=== PATIENT | male | born 1975 | race Caucasian/White ===

== ENCOUNTER → 2019-06-03 13:47 | Outpatient (BNVA) | payer MEDICARE, MEDICAID, SELFPAY | PROVIDERS: Family Provider Internal Medicine; PCP Internal Medicine; Visit Provider Nurse Practitioner | DX: N39.0 Urinary tract infection, site not specified (principal); R82.90 Unspecified abnormal findings in urine | CPT/HCPCS: 81003 ==

== ENCOUNTER 2019-06-05 11:29 | Emergency (ER) | payer MEDICARE, MEDICAID, SELFPAY ==
[2019-06-05] VITALS (7 sets, daily range): BP systolic 100–106; BP diastolic 58–77; PULSE 110–116; RESP 16–115; TEMP 36.8–37; O2SAT 97–98; BMI 20.7
--- NOTE | 2019-06-05 11:57 | ED_ITS ---
Entered by Desiree Crenshaw, acting as scribe for Adrián Hurtado MD, [facility] HPI - Altered Mental Status General: Chief Complaint: Altered Mental Status Stated Complaint: Not eating or drinking Time Seen by Provider: 06/05/19 11:57 Source: other (Caregiver) Mode of arrival: wheelchair Limitations: altered mental status History of Present Illness: HPI narrative: 43 yo Male presents to ED with complaint of altered mental status. Pt's caregiver states that patient was catheterized last week and developed a UTI. Pt's family states that the patient was taken to urgent care and put on an antibiotic. Pt's caregiver states that the patient has been running a fever and has been lethargic, weak, and non- ambulatory. Pt's caregiver states that patient can normally walk around by himself but since Tuesday has been unable to do so. Pt's caregiver states that the patient has been coughing and had a runny bowel movement this morning. Pt is from [facility]. Pt is non-verbal. Baseline level of function is patient is nonverbal, he is able to ambulate with assistance using a gait belt and requires assistance to feed. complaint: altered mental status and weakness Onset (ago): day(s) (2) Consistency of symptoms: Getting Worse Context: recent fever Review of Systems General: Reports: 10 or more systems reviewed and unremarkable except in HPI and below Const: Reports: fever, change in appetite and malaise Resp: Reports: non-productive cough Musc: Reports: muscle weakness Neuro: Reports: difficulty walking PFS ED PFSH: Statuses (acute, chronic, etc) shown below reflect problem list status as previously entered and may not be historically accurate Medical History (Updated 06/05/19 @ 17:21 by Adrián Hurtado MD, [facility]) Autism (Acute) Developmental delay, severe (Acute) Urinary retention (Acute) UTI (urinary tract infection) (Acute) Surgical History (Updated 06/05/19 @ 12:29 by Desiree Crenshaw) History of dental surgery (Acute) History of sinus surgery (Acute) Social History Smoking and tobacco status: never smoked Second hand smoke exposure: No Physical Exam Const: COMMON NORMALS: no apparent distress, average body habitus, no limitations, healthy appearing and well nourished EXAM LIMITATIONS: altered mental status and other limitations (history of developmental delay) HENMT: COMMON NORMALS: normocephalic, head/scalp atraumatic, hearing grossly normal bilaterally, external ears normal, EAC's normal, TM's normal bilaterally, external nose normal, nasal mucous membranes and turbinates normal, moist oral mucous membranes, oropharynx normal, dentition normal and gingiva normal HEAD & SCALP: normocephalic and atraumatic NOSE: external nose normal and nasal mucous membranes and turbinates normal EXTERNAL EAR: Yes external ears normal EXTERNAL AUDITORY CANAL: EAC's normal TYMPANIC MEMBRANE: TM's normal bilaterally Eye: COMMON NORMALS: PERRL, EOMs intact bilaterally, conjunctivae normal, no scleral icterus, no papilledema, normal visual coleman by confrontation and fundi normal bilaterally CONJUNCTIVA: Yes conjunctivae normal PUPIL: Yes PERRL DIRECT OPHTHALMOSCOPY: Yes no papilledema and Yes fundi normal bilaterally Neck/C-Spine: COMMON NORMALS: full ROM, supple, no meningeal signs, no JVD and no carotid bruits Chest: COMMONS NORMALS: inspection of chest normal and palpation of chest normal Resp: COMMON NORMALS: normal respiratory effort, no retractions, no use of accessory muscles, clear to auscultation bilaterally and percussion normal AUSCULTATION: clear to auscultation bilaterally PERCUSSION: percussion normal Cardio: COMMON NORMALS: no JVD, regular rhythm, S1 normal heart sound, S2 normal heart sound, no gallops, no clicks, no murmurs, no rub and peripheral pulses 2+ throughout RATE: tachycardic RHYTHM: regular rhythm HEART SOUNDS: S1 normal and S2 normal PERIPHERAL PULSES: pulses 2+ throughout GI: COMMON NORMALS: normal to inspection, nondistended, normoactive bowel sounds, soft to palpation, non-tender, no hepatosplenomegaly, no masses and no bruits PALPATION: Yes soft and Yes no hepatosplenomegaly : COMMON NORMALS: Yes no CVA tenderness BLADDER/KIDNEY EXAM: Yes no CVA tenderness Back/Pelvis: COMMON NORMALS: no CVA tenderness Extremity: COMMON NORMALS: normal to inspection, full ROM, normal capillary refill, no joint enlargement, no clubbing, cyanosis or edema, no calf tenderness and no pedal edema Neuro: COMMON NORMALS: oriented x3 SENSORIUM/ORIENTATION: Yes somnolent MENINGEAL SIGNS: Yes no meningeal signs Skin: COMMON NORMALS: no rashes or lesions noted, no wounds, skin turgor normal, no jaundice, no petechiae and no mottling GENERAL SKIN EXAM: no rashes or lesions noted and turgor normal Course ED course: 43-year-old patient with altered mental status secondary to urinary tract infection. Lactic acid normal, he has a fever here in the ED. Influenza negative, chest CT negative for acute findings. Because we have no beds in this facility the patient is transferred to [facility] which is where the family wanted him transferred to. Consultations: Consultation #1: Dr. Obdulio Corona, hospitalist at [facility]. He kindly accepted the patient to his care. Time: 17:22 Vital Signs: Vital signs: Vital Signs Temperature 98.6 F 06/05/19 11:35 Pulse Rate 114 H 06/05/19 15:06 Respiratory Rate 19 H 06/05/19 15:06 Blood Pressure 106/75 06/05/19 15:06 Pulse Oximetry 97 06/05/19 15:06 MDM - Altered Mental Status Lab Data: Labs: Lab Results 06/05/19 06/05/19 06/05/19 Range/Units 12:39 12:39 12:39 WBC 12.3 H (4.0-10.0) 10^3/ uL RBC 4.52 (4.1-5.3) 10^6/u L Hgb 13.5 (11.7-16.6) g/dL Hct 40.7 L (42.0-52.0) % MCV 90.0 (80-94) fL MCH 29.9 (28.0-34.0) pg MCHC 33.2 (30.0-36.0) g/dL RDW 12.5 (12.1-15.1) % Plt Count 147 (130-400) 10^3/c mm MPV 10.0 (7.4-10.4) fL Neut % (Auto) 89.6 % Lymph % (Auto) 4.0 % Kimball % (Auto) 3.6 % Eos % (Auto) 0.2 % Baso % (Auto) 0.2 % Neut # (Auto) 11.0 H (1.8-7.7) 10^3/u L Lymph # (Auto) 0.5 L (0.8-4.8) 10^3/u L Kimball # (Auto) 0.4 (0.2-0.9) 10^3/u L Eos # (Auto) 0.0 (0.0-0.8) 10^3/u L Baso # (Auto) 0.0 (0.0-0.1) 10^3/u L Nucleated RBC % (a uto) 0 % Nucleated RBCs # 0.0 /100WBC Sodium 131 L (136-145) mmol/L Potassium 3.9 (3.5-5.1) mmol/L Chloride 95 L (98-107) mmol/L Carbon Dioxide 24 (22-29) mmol/L Anion Gap 15.9 (5-19) BUN 18 (6-20) mg/dL Creatinine 0.9 (0.7-1.2) mg/dL GFR Calculation 93.0 (90-130) mL/min Glucose 123 H (74-109) mg/dL Lactate 1.5 (0.5-2.2) mmol/L Calcium 9.3 (8.6-10.0) mg/Dl Total Bilirubin 0.7 (0.15-1.2) mg/dL AST 17 (0-40) U/L ALT 6 (0-41) U/L Alkaline Phosphata se 107 (40-130) IU/L C-Reactive Protein 305.4 H (0.0-4.9) mg/L Total Protein 7.1 (6.6-8.7) g/dL Albumin 3.9 (3.5-5.2) g/dL Globulin 3.2 (1.3-4.6) g/dL Urine Color (Yellow) Urine Appearance (CLEAR) Urine pH (5-7) Ur Specific Gravit y (1.005-1.030) Urine Protein (Negative) Urine Glucose (UA) (Normal) Urine Ketones (Negative) Urine Occult Blood (Negative) Urine Nitrate (Negative) Urine Bilirubin (NEGATIVE) Urine Urobilinogen (Negative) mg/dL Ur Leukocyte Shira ase (Negative) Urine RBC (0-2) /hpf Urine WBC (0-5) /hpf Ur Squamous Epith Cells (0-5) Urine Bacteria (NONE) Influenza Type A A g (Negative) POC Influenza B Ag (Negative) 06/05/19 06/05/19 Range/Units 13:46 14:08 WBC (4.0-10.0) 10^3/ uL RBC (4.1-5.3) 10^6/u L Hgb (11.7-16.6) g/dL Hct (42.0-52.0) % MCV (80-94) fL MCH (28.0-34.0) pg MCHC (30.0-36.0) g/dL RDW (12.1-15.1) % Plt Count (130-400) 10^3/c mm MPV (7.4-10.4) fL Neut % (Auto) % Lymph % (Auto) % Kimball % (Auto) % Eos % (Auto) % Baso % (Auto) % Neut # (Auto) (1.8-7.7) 10^3/u L Lymph # (Auto) (0.8-4.8) 10^3/u L Kimball # (Auto) (0.2-0.9) 10^3/u L Eos # (Auto) (0.0-0.8) 10^3/u L Baso # (Auto) (0.0-0.1) 10^3/u L Nucleated RBC % (a uto) % Nucleated RBCs # /100WBC Sodium (136-145) mmol/L Potassium (3.5-5.1) mmol/L Chloride (98-107) mmol/L Carbon Dioxide (22-29) mmol/L Anion Gap (5-19) BUN (6-20) mg/dL Creatinine (0.7-1.2) mg/dL GFR Calculation (90-130) mL/min Glucose (74-109) mg/dL Lactate (0.5-2.2) mmol/L Calcium (8.6-10.0) mg/Dl Total Bilirubin (0.15-1.2) mg/dL AST (0-40) U/L ALT (0-41) U/L Alkaline Phosphata se (40-130) IU/L C-Reactive Protein (0.0-4.9) mg/L Total Protein (6.6-8.7) g/dL Albumin (3.5-5.2) g/dL Globulin (1.3-4.6) g/dL Urine Color Yellow (Yellow) Urine Appearance Cloudy (CLEAR) Urine pH 5 (5-7) Ur Specific Gravit y 1.020 (1.005-1.030) Urine Protein 2+ H (Negative) Urine Glucose (UA) Norm (Normal) Urine Ketones 1+ H (Negative) Urine Occult Blood 2+ H (Negative) Urine Nitrate Negative (Negative) Urine Bilirubin Neg (NEGATIVE) Urine Urobilinogen 4 H (Negative) mg/dL Ur Leukocyte Shira ase 1+ H (Negative) Urine RBC None (0-2) /hpf Urine WBC Too numerous to c nt H (0-5) /hpf Ur Squamous Epith Cells 0-4 H (0-5) Urine Bacteria 3+ H (NONE) Influenza Type A A g Negative (Negative) POC Influenza B Ag Negative (Negative) Imaging Data^: CXR: Radiologist's impression: [place] [address] XRay Report Signed Patient: Joshua Valerio LMR#: [id number] : 1975Acct:[id number] Age/Sex: 43 / MADM Date: 06/05/19 Loc: ER Attending Dr: Ordering Physician: Adrián Hurtado MD, [facility] Date of Service: 06/05/19 Procedure(s): XR chest 1V portable [id number] Accession Number(s): [id number] Report Number: [id number] WS: [id number] PORTABLE CHEST HISTORY: sepsis COMPARISON: 08/13/2016 2.0 cm nodule at the LEFT lung base. Otherwise lungs are clear. Central cavitation is not excluded involving the LEFT lung base nodule. No pleural effusion or pneumothorax. Cardiac size: Normal. Mediastinum/Aorta: Normal mediastinum. No osseous abnormality seen. XR/XR chest 1V portable [id number] IMPRESSION: Soft tissue opacification in the LEFT lung base measures 2.0 cm. Differential includes neoplasm, abscess or rounded atelectasis. For further evaluation consider chest CT with IV contrast. Dictated By:Bibiana Wharton DO Signed By:Bibiana Wharton DOSigned Date/Time:06/05/19 1254 DD/ 1253 CT Head: Radiologist's impression: [address] [place] [address] CT Scan Report Signed Patient: Joshua Valerio LMR#: [id number] : 1975Acct:[id number] Age/Sex: 43 / MADM Date: 06/05/19 Loc: ER Attending Dr: Ordering Physician: Adrián Hurtado MD, [facility] Date of Service: 06/05/19 Procedure(s): CT head wo con* [id number] Accession Number(s): [id number] Report Number: [id number] WS: [id number] CT HEAD NONCONTRAST HISTORY: altered mental status TECHNIQUE: Contiguous axial imaging performed through the brain in 2.5 mm imaging. Bone and soft tissue windows. Sagittal and coronal reformats reviewed. All CT scans at [facility] use at least one of these dose optimization techniques: automated exposure control; mA and/or kV adjustment per patient size (includes targeted exams where dose is matched to clinical indication); or iterative reconstruction. DLP: 608.68 mGy.cm COMPARISON: 04/27/2017 No acute intracranial hemorrhage, midline shift or mass effect. No atrophy or prior infarcts or herniation. Bilateral benign basal ganglia calcifications. Ventricles: Normal size with no hydrocephalus. Paranasal sinuses: Moderate mucoperiosteal thickening involving the ethmoid sinuses. Small amount of debris in the posterior RIGHT sphenoid sinus. Mastoid air cells: Well pneumatized. Calvarium and scalp: Skull is intact with no soft tissue edema or swelling. CT/CT head wo con* [id number] IMPRESSION: 1. Stable noncontrast head CT. 2. No acute intracranial hemorrhage or edema. 3. Moderate ethmoid air cell disease. Dictated By:Bibiana Wharton DO Signed By:Bibiana Wharton DOSigned Date/Time:06/05/19 1538 DD/ 1535 CT Chest: Radiologist's impression: [address] [place] [address] CT Scan Report Signed Patient: Joshua Valerio LMR#: [id number] : 1975Acct:[id number] Age/Sex: 43 / MADM Date: 06/05/19 Loc: ER Attending Dr: Ordering Physician: Adrián Hurtado MD, [facility] Date of Service: 06/05/19 Procedure(s): CT chest w con* [id number] Accession Number(s): [id number] Report Number: [id number] WS: [id number] CT CHEST WITH INTRAVENOUS CONTRAST HISTORY: sepsis, pulmonary mass TECHNIQUE: Contiguous 5 mm axial imaging performed on the thorax. Coronal and sagittal reformats are submitted. All CT scans at [facility] use at least one of these dose optimization techniques: automated exposure control; mA and/or kV adjustment per patient size (includes targeted exams where dose is matched to clinical indication); or iterative reconstruction. CONTRAST: Omnipaque 300; 95 mL IV. DLP: 679.33 mGy.cm COMPARISON: None available. Lungs and central airway: Study is limited by motion. Subsegmental area of atelectasis at the LEFT lung base. Corresponds to the abnormality seen on the recent radiograph. No pneumonia. No cavitary lesion or abscess. Pleura: Normal. No pleural effusion. Heart and pericardium: Normal size heart. No pericardial effusion. Mediastinum and jo: No mediastinum or hilar adenopathy. Vessels: Normal size aortic and pulmonary artery. No coronary artery calcifications. Chest wall and lower neck: No soft tissue masses. Upper abdomen: Small hiatal hernia. The entire spleen is not included may be enlarged. Spleen measures at least 11 cm in length. Mild hepatomegaly. Osseous structures: No destructive process. CT/CT chest w con* [id number] IMPRESSION: 1. Study limited by breathing motion. 2. LEFT lower lobe subsegmental atelectasis. No abscess or pneumonia. 3. Small hiatal hernia. 4. Completely included spleen. Spleen does appear enlarged measuring greater than 11 cm in length. Splenomegaly suspected. Dictated By:Bibiana Wharton DO Signed By:Bibiana Wharton DOSigned Date/Time:06/05/19 1544 DD/ 1538 Discharge Plan Discharge Patient Disposition: Xfer Short-Term Hosp Clinical Impression: Developmental delay, severe Altered mental status Qualifiers: Altered mental status type: somnolence Qualified Code(s): R40.0 - Somnolence UTI (urinary tract infection) Qualifiers: Urinary tract infection type: acute cystitis Hematuria presence: without hematuria Qualified Code(s): N30.00 - Acute cystitis without hematuria Condition: Stable Discharge Orders: Transfer Out of Facility (Order); Ordered 06/05/19 Ordered By: Adrián Hurtado Referrals: Anurag Gautam MD [Primary Care Provider] - 4-7 days Coding Level of Care Code ED Business Initiatives Manager for Chg Fwd Exam Problem Focused The documentation recorded by the Flower mercado Carmen, accurately reflects the service I personally performed and the decisions made by Genesis huntley Adegoke I, MD, MSM
--- NOTE | 2019-06-05 12:28 | XR_ITS ---
WS: [id number] PORTABLE CHEST HISTORY: sepsis COMPARISON: 08/13/2016 2.0 cm nodule at the LEFT lung base. Otherwise lungs are clear. Central cavitation is not excluded in volving the LEFT lung base nodule. No pleural effusion or pneumothorax. Cardiac size: Normal. Mediastinum/Aorta: Normal mediastinum. No osseous abnormality seen. XR/XR chest 1V portable [id number] IMPRESSION: Soft tissue opacification in the LEFT lung base measures 2.0 cm. Differential i ncludes neoplasm, abscess or rounded atelectasis. For further evaluation consid er chest CT with IV contrast.
[2019-06-05] MEDS: sodium chloride 0.9% 1,000 ML 999 ML IV (12:48)
[2019-06-05 12:51] LABS: Basophils % 0.2 %; Eosinophils % 0.2 %; Hematocrit 40.7 % (42.0-52.0); Hemoglobin 13.5 g/dL (11.7-16.6); Lymphocytes # 0.5 10^3/uL (0.8-4.8); Mean Corpuscular HGB Conc 33.2 g/dL (30.0-36.0); Mean Corpuscular Hemoglobin 29.9 pg (28.0-34.0); Monocytes # 0.4 10^3/uL (0.2-0.9); Monocytes % 3.6 %; Neutrophils % 89.6 %; Nucleated Red Blood Cells % 0 %; Platelet Count 147 10^3/cmm (130-400); Red Blood Count 4.52 10^6/uL (4.1-5.3); Red Cell Distribution Width 12.5 % (12.1-15.1); White Blood Count 12.3 10^3/uL (4.0-10.0)
[2019-06-05 13:04] LABS: Alanine Aminotransferase 6 U/L (0-41); Albumin Level 3.9 g/dL (3.5-5.2); Alkaline Phosphatase 107 IU/L (40-130); Anion Gap 15.9 (5-19); Aspartate Amino Transferase 17 U/L (0-40); Blood Urea Nitrogen 18 mg/dL (6-20); Calcium 9.3 mg/Dl (8.6-10.0); Carbon Dioxide 24 mmol/L (22-29); Chloride 95 mmol/L (98-107); Globulin 3.2 g/dL (1.3-4.6); Glucose 123 mg/dL (74-109); Potassium 3.9 mmol/L (3.5-5.1); Sodium 131 mmol/L (136-145); Total Bilirubin 0.7 mg/dL (0.15-1.2); Total Protein 7.1 g/dL (6.6-8.7)
[2019-06-05 13:06] LABS: Lactate (Lactic Acid level) 1.5 mmol/L (0.5-2.2)
[2019-06-05 13:52] LABS: C Reactive Protein 305.4 mg/L (0.0-4.9)
[2019-06-05] MEDS: cefTRIAXone 1,000 MG in sodium chloride 0.9% (plus) 50 ML 100 MG IV (14:11)
[2019-06-05 14:28] LABS: Influenza A by IFA Negative (Negative); Influenza B by IFA Negative (Negative)
[2019-06-05 14:32] LABS: Add Urine Microscopic? YES; Bilirubin Urine Neg (NEGATIVE); Blood Urine 2+ (Negative); Glucose Urine UA Norm (Normal); Ketones Urine 1+ (Negative); Leukocyte Esterase Urine 1+ (Negative); Nitrate Urine Negative (Negative); Protein Urine 2+ (Negative); Urine Appearance Cloudy (CLEAR); Urine Color Yellow (Yellow); Urobilinogen Urine 4 mg/dL (Negative); pH Urine 5 (5-7)
[2019-06-05 14:35] LABS: Bacteria Urine 3+; Squamous Epithelial Cell Urine 0-4 (0-5); WBC Urine TOO NUMEROUS TO CNT /hpf (0-5)
[2019-06-05 14:36] LABS: Add Urine Culture? Yes
--- NOTE | 2019-06-05 14:53 | CT_ITS ---
WS: [id number] CT CHEST WITH INTRAVENOUS CONTRAST HISTORY: sepsis, pulmonary mass TECHNIQUE: Contiguous 5 mm axial imaging performed on the thorax. Coronal and sagittal reformats are submitted. All CT scans at [facility] use at least one of these dose optimization techniq ues: automated exposure control; mA and/or kV adjustment per patient size (includes targeted exams wh ere dose is matched to clinical indication); or iterative reconstruction. CONTRAST: Omnipaque 300; 95 mL IV. DLP: 679.33 mGy.cm COMPARISON: None available. Lungs and central airway: Study is limited by motion. Subsegmental area of atelectasis at the LEFT george ng base. Corresponds to the abnormality seen on the recent radiograph. No pneumonia. No cavitary lesi on or abscess. Pleura: Normal. No pleural effusion. Heart and pericardium: Normal size heart. No pericardial effusion. Mediastinum and jo: No mediastinum or hilar adenopathy. Vessels: Normal size aortic and pulmonary artery. No coronary artery calcifications. Chest wall and lower neck: No soft tissue masses. Upper abdomen: Small hiatal hernia. The entire spleen is not included may be enlarged. Spleen measure s at least 11 cm in length. Mild hepatomegaly. Osseous structures: No destructive process. CT/CT chest w con* [id number] IMPRESSION: 1. Study limited by breathing motion. 2. LEFT lower lobe subsegmental atelectasis. No abscess or pneumonia. 3. Small hiatal hernia. 4. Completely included spleen. Spleen does appear enlarged measuring greater t srinivasan 11 cm in length. Splenomegaly suspected.
--- NOTE | 2019-06-05 14:53 | CT_ITS ---
WS: [id number] CT HEAD NONCONTRAST HISTORY: altered mental status TECHNIQUE: Contiguous axial imaging performed through the brain in 2.5 mm imaging. Bone and soft tiss ue windows. Sagittal and coronal reformats reviewed. All CT scans at [facility] use at ast one of these dose optimization techniques: automated exposure control; mA and/or kV adjustment pe r patient size (includes targeted exams where dose is matched to clinical indication); or iterative r econstruction. DLP: 608.68 mGy.cm COMPARISON: 04/27/2017 No acute intracranial hemorrhage, midline shift or mass effect. No atrophy or prior infarcts or herniation. Bilateral benign basal ganglia calcifications. Ventricles: Normal size with no hydrocephalus. Paranasal sinuses: Moderate mucoperiosteal thickening involving the ethmoid sinuses. Small amount of debris in the posterior RIGHT sphenoid sinus. Mastoid air cells: Well pneumatized. Calvarium and scalp: Skull is intact with no soft tissue edema or swelling. CT/CT head wo con* [id number] IMPRESSION: 1. Stable noncontrast head CT. 2. No acute intracranial hemorrhage or edema. 3. Moderate ethmoid air cell disease.
[2019-06-05] MEDS: iohexol 300 mg/mL 100 mL Btl IV (15:44)
--- NOTE | 2019-06-05 19:11 | PC.NURSE ---
REPORT RECEIVED FROM [facility]ATE [facility] AND CARE TRANSFERRED TO [facility]
== END 2019-06-05 20:28 | disposition short-term general hospital (02) ==
PROVIDERS: Emergency Provider Family Medicine; Family Provider Internal Medicine; PCP Internal Medicine
DX: R40.0 Somnolence (principal); N30.00 Acute cystitis without hematuria; F84.0 Autistic disorder; Z87.440 Personal history of urinary (tract) infections
CPT/HCPCS: 36415; 70450; 71045; 71260; 80053; 81003; 83605; 85025; 86140; 87086; 87804; 96360; 96365; 99282; J0131; J0696; J7030; Q9967

== ENCOUNTER 2019-06-12 07:11 | Emergency (ER) | payer MEDICARE, MEDICAID, SELFPAY ==
--- NOTE | 2019-06-12 07:13 | W.ED.HEATRA ---
HPI - Head Injury General: Chief complaint: Fall Stated complaint: Lac to head Time Seen by Provider: 06/12/19 07:13 Source: other (caregivers ) Mode of arrival: ambulatory Limitations: language barrier and other (developmentally delayed) History of Present Illness: HPI Narrative: pt is a 43 yo male here with caregivers for complaints of a fall/head laceration that occurred this morning; pt is non-verbal and ambulates with help/gait belt; I have seen patient previously for head injuries related to falls; caregivers state this morning he stood up and lost his balance and fell backwards and struck head on baseboard trim; no LOC; has been at his mental baseline since the fall MD Complaint: head injury Onset (ago): hour(s) Mechanism of Injury: fall Place: home Loss of Consciousness: no Associated symptoms: Reports no associated symptoms Review of Systems General: Reports: ROS unobtainable due to mental status (pt has severe mental delays-he is non verbal ) PFSH ED PFSH: Statuses (acute, chronic, etc) shown below reflect problem list status as previously entered and may not be historically accurate Medical History (Updated 06/12/19 @ 07:48 by BRITNI Alcala) Autism (Acute) Developmental delay, severe (Acute) Urinary retention (Acute) UTI (urinary tract infection) (Acute) Surgical History (Updated 06/05/19 @ 12:29 by Desiree Crenshaw) History of dental surgery (Acute) History of sinus surgery (Acute) Social History Smoking and tobacco status: never smoked Second hand smoke exposure: No Physical Exam Const: COMMON NORMALS: no apparent distress, average body habitus, alert and well nourished GENERAL APPEARANCE: cooperative HENMT: COMMON NORMALS: normocephalic, EAC's normal, TM's normal bilaterally and external nose normal HEAD & SCALP: normocephalic and laceration HEAD IMAGES: 1. 4.5cm laceration FACE & SINUS: normal facial exam NOSE: external nose normal EXTERNAL AUDITORY CANAL: EAC's normal TYMPANIC MEMBRANE: TM's normal bilaterally Eye: COMMON NORMALS: PERRL, EOMs intact bilaterally and conjunctivae normal CONJUNCTIVA: Yes conjunctivae normal PUPIL: Yes PERRL Neck/C-Spine: COMMON NORMALS: full ROM GENERAL: Yes normal visual inspection CERVICAL SPINE: No step off deformity Resp: COMMON NORMALS: normal respiratory effort and clear to auscultation bilaterally AUSCULTATION: clear to auscultation bilaterally Cardio: COMMON NORMALS: regular rate and regular rhythm RATE: regular rate RHYTHM: regular rhythm Extremity: COMMON NORMALS: normal to inspection Neuro: SENSORIUM/ORIENTATION: Yes alert Skin: TRAUMA: laceration Procedures Laceration Laceration 1: Site: scalp Size (cm): 4.5 Description: linear Depth: simple, single layer Local Anesthetic: lidocaine 1% and with epi Amount of anesthesia used (mL): 2 Pre-repair: irrigated extensively Skin layer closed with: other (11 rossana) Course Vital Signs: Vital signs: Vital Signs Temperature 97.8 F 06/12/19 07:16 Pulse Rate 100 06/12/19 07:16 Respiratory Rate 16 06/12/19 07:16 Blood Pressure 141/102 06/12/19 07:16 Pulse Oximetry 96 06/12/19 07:16 Discharge Plan Discharge Patient Disposition: Home, Self-Care Clinical Impression: Laceration of scalp Qualifiers: Encounter type: initial encounter Qualified Code(s): S01.01XA - Laceration without foreign body of scalp, initial encounter Fall Qualifiers: Encounter type: initial encounter Qualified Code(s): W19.XXXA - Unspecified fall, initial encounter Condition: Stable Prescriptions: No Action polyethylene glycol 3350 17 gram powder in packet 17 gm PO QAM RF: 0 loratadine 10 mg capsule 10 mg PO ONCE RF: 0 Vyvanse 50 mg capsule 50 mg PO QAM RF: 0 benztropine 1 mg tablet 1 mg PO BID RF: 0 flunisolide 29 mcg (0.025 %) spray,non-aerosol INTRANASAL BID RF: 0 Amitiza 24 mcg capsule 24 mcg PO BID RF: 0 docusate sodium [Colace] 100 mg capsule 100 mg PO BID RF: 0 lithium carbonate 450 mg tablet extended release 450 mg PO BID RF: 0 tamsulosin [Flomax] 0.4 mg capsule 0.4 mg PO BID RF: 0 haloperidol 10 mg tablet 10 mg PO BID RF: 0 amitriptyline 25 mg tablet 25 mg PO TID RF: 0 clonazepam [Klonopin] 2 mg tablet 2 mg PO TID RF: 0 bismuth subsalicylate [Pepto-Bismol] 262 mg/15 mL suspension 524 mg PO QID PRNRF: 0 Robitussin Cough-Chest Ken DM 5-100 mg/5 mL liquid 10 ml PO Q4H PRNRF: 0 acetaminophen [Tylenol] 325 mg tablet 325 mg PO Q4H PRNRF: 0 magnesium hydroxide [Milk of Magnesia] 400 mg/5 mL suspension 15 ml PO BID PRNRF: 0 albuterol sulfate 2.5 mg /3 mL (0.083 %) solution for nebulization 2.5 mg INHALATION Q4H PRNRF: 0 lorazepam 2 mg tablet 2 mg PO BID PRNRF: 0 lorazepam 2 mg tablet 2 mg PO Q4H PRNRF: 0 Discharge Orders: Discharge Order (Routine); Ordered 06/12/19 Ordered By: Bibi Armando Referrals: Anurag Gautam MD [Primary Care Provider] - Discharge Diet: Usual diet Discharge Activity: Resume usual activity Patient Instructions: Staple Care (ED), Stitches and [place] Care Activity Restrictions/Additional Instructions: [place] can be removed in 1 week. Keep clean with warm soap and water. Return to ED for any concerns you may have including altered mental status. Discharge Date/Time: 06/12/19 07:54 Coding Level of Care Code ED Aircraft Technician for Chg Fwd Exam Problem Focused
[2019-06-12 07:16] VITALS: BP 141/102; PULSE 100; RESP 16; TEMP 36.6; O2SAT 96; BMI 23.0
--- NOTE | 2019-06-12 07:49 | PC.NURSE ---
wound was repaired using 11 rossana. wound was irrigated per rn with saline. bleeding controlled dressing applied.
== END 2019-06-12 07:54 | disposition home or self-care (01) ==
PROVIDERS: Emergency Provider Physician Assistant; Family Provider Internal Medicine; PCP Internal Medicine
DX: S01.01XA Laceration without foreign body of scalp, initial encounter (principal); W19.XXXA Unspecified fall, initial encounter; Y92.009 Unspecified place in unspecified non-institutional (private) residence as the place of occurrence of the external cause; F84.0 Autistic disorder
CPT/HCPCS: 12002; 99282; 99283; J2001

== ENCOUNTER 2019-07-06 08:57 | Outpatient (CLI) | payer MEDICARE, MEDICAID, SELFPAY ==
--- NOTE | 2019-07-06 09:15 | FL_ITS ---
WS: [id number] Barium swallow and esophagram, 07/06/2019 Clinical Data: R13.10 Dysphagia, unspecified Comparison: None. Fluoroscopy time: 1.8 minutes. Findings: The patient swallowed the thick-thin barium, and the patient delayed initiating the swallowing mechan ism. When swallowing did occur, it was with small boluses. There was vallecular and piriform sinus po oling. Aspiration and penetration did occur. No prevertebral swelling could be seen. There is no fist joce, mass, polyp, erosion or achalasia. The barium entered the esophagus and there was normal motilit y throughout. No hiatal hernia, reflux, stricture, polyp, mass, erosion or ulcer was noted. No reflux was present. FL/FL barium swallow [id number] Impression: 1. Marked delay in initiating swallowing. 2. Vallecular and piriform sinus pooling. 3. Mild aspiration and penetration without coughing occurred. 4. Esophagus appeared to have normal motility. but the patient could only provi de a small bolus.
== END 2019-07-06 08:58 | disposition home or self-care (01) ==
PROVIDERS: Family Provider Internal Medicine; PCP Internal Medicine; Visit Provider Internal Medicine
DX: R13.10 Dysphagia, unspecified (principal)
CPT/HCPCS: 74220

== ENCOUNTER → 2019-07-10 12:04 | Outpatient (BNVA) | payer MEDICARE, MEDICAID, SELFPAY | PROVIDERS: Family Provider Internal Medicine; PCP Internal Medicine; Visit Provider Specialist | DX: F90.9 Attention-deficit hyperactivity disorder, unspecified type (principal); G31.83 Neurocognitive disorder with Lewy bodies; F02.80 Dementia in other diseases classified elsewhere, unspecified severity, without behavioral disturbance, psychotic disturbance, mood disturbance, and anxiety | CPT/HCPCS: 99213 ==

== ENCOUNTER → 2019-10-09 10:10 | Outpatient (BNVA) | payer MEDICARE, MEDICAID, SELFPAY | PROVIDERS: Family Provider Internal Medicine; PCP Internal Medicine; Visit Provider Specialist | DX: G31.83 Neurocognitive disorder with Lewy bodies (principal); F02.80 Dementia in other diseases classified elsewhere, unspecified severity, without behavioral disturbance, psychotic disturbance, mood disturbance, and anxiety; F84.0 Autistic disorder | CPT/HCPCS: 99213 ==

== ENCOUNTER → 2020-01-07 13:43 | Outpatient (BNVA) | payer MEDICARE, MEDICAID, SELFPAY | PROVIDERS: Family Provider Internal Medicine; PCP Internal Medicine; Visit Provider Specialist | DX: G31.83 Neurocognitive disorder with Lewy bodies (principal); F02.80 Dementia in other diseases classified elsewhere, unspecified severity, without behavioral disturbance, psychotic disturbance, mood disturbance, and anxiety; F84.0 Autistic disorder; F98.8 Other specified behavioral and emotional disorders with onset usually occurring in childhood and adolescence; R29.90 Unspecified symptoms and signs involving the nervous system | CPT/HCPCS: 99213 ==

== ENCOUNTER 2020-04-11 19:16 | Emergency (ER) | payer MEDICARE, MEDICAID, SELFPAY ==
[2020-04-11 19:23] VITALS: BP 123/83; PULSE 99; RESP 18; TEMP 36.5; O2SAT 98
--- NOTE | 2020-04-11 19:36 | ED_ITS ---
HPI - Skin/Abscess/Foreign Bdy General: Chief complaint: Skin/Abscess/Foreign Body Stated complaint: FALL, HEAD INJURY Time Seen by Provider: 04/11/20 19:34 Source: patient Mode of arrival: ambulatory Limitations: no limitations History of Present Illness: HPI narrative: Patient was being transferred to his wheelchair when the belt broke and he fell landing hitting his head against the side of the wall. No loss of consciousness was noted. Patient does have an area of bruising to the right face. Patient is appropriate for self, patient denied any loss of consciousness. Review of Systems General: Reports: 10 or more systems reviewed and unremarkable except in HPI and below Skin/Breast: Reports: other (Bruising face.) PFS ED PFSH: Medical History (Updated 04/11/20 @ 19:44 by DAMI Bose) Autism Developmental delay, severe Urinary retention UTI (urinary tract infection) Surgical History History of dental surgery History of sinus surgery Family History Other CAD (coronary artery disease) Cancer Social History Smoking and tobacco status: never smoked Second hand smoke exposure: No Alcohol intake: never History of recent travel: No Physical Exam Const: COMMON NORMALS: no acute distress and patient oriented x3 GENERAL APPEARANCE: cooperative HENMT: COMMON NORMALS: TM's normal bilaterally and Normal external nose present HEAD & SCALP: other (Right side facial cheek with contusion. No signs of bony crepitus, depress) NOSE: Normal external nose present TYMPANIC MEMBRANE: TM's normal bilaterally MOUTH: Normal oral and palatal mucosa present THROAT: posterior oropharynx normal Eye: GENERAL EYE: appearance normal, both eyes and all related structures Neck/C-Spine: COMMON NORMALS: full ROM Lymph: LYMPHATIC: no lymphadenopathy noted Chest: COMMONS NORMALS: normal inspection of the chest Resp: COMMON NORMALS: normal respiratory effort EFFORT & INSPECTION: Yes able to speak in complete sentences Cardio: COMMON NORMALS: regular rate and regular rhythm RATE: regular rate RHYTHM: regular rhythm GI: COMMON NORMALS: non-tender Back/Pelvis: COMMON NORMALS: thoracic and lumbar spine normal to inspection Extremity: COMMON NORMALS: normal to inspection Neuro: COMMON NORMALS: patient oriented x3 and moves all extremities Psych: COMMON NORMALS: mental status grossly normal and cooperative Skin: COMMON NORMALS: no rashes or lesions noted GENERAL SKIN EXAM: no rashes or lesions noted Course Vital Signs: Vital signs: Vital Signs Temperature 97.7 F 04/11/20 19:23 Pulse Rate 99 04/11/20 19:23 Respiratory Rate 18 04/11/20 19:23 Blood Pressure 123/83 04/11/20 19:23 Pulse Oximetry 98 04/11/20 19:23 MDM - Skin/Abscess/Foreign Bdy MDM Narrative: Medical decision making narrative: Patient comes in for evaluation after fall. On exam we note some bruising to the right side of the face. Pupils are equal reactive. Patient has normal ocular motor movement, respirations are even lungs are clear to auscultation. No spinal tenderness. No signs of serious injury. Differential diagnosis includes contusion of the face, occult facial fracture, abrasion. Patient is very low risk for cerebral injury with bleeding. Patient is on no blood thinners. Patient had no loss of consciousness or neuro deficits. Reviewed exam with caregiver who remarked understanding of plan and need for follow-up or return to the ER. Discharge Plan Discharge Patient Disposition: Home Clinical Impression: Contusion of face Qualifiers: Encounter type: initial encounter Qualified Code(s): S00.83XA - Contusion of other part of head, initial encounter Condition: Stable Prescriptions: No Action dextromethorphan polistirex [Robitussin ER] 30 mg/5 mL suspension,extended rel 12 hr 30 ml PO .Q4 PRNRF: 0 terbinafine HCl 250 mg tablet 250 mg PO DAILY RF: 0 flunisolide 25 mcg (0.025 %) spray,non-aerosol 1 spray INTRANASAL BID RF: 0 loratadine 10 mg capsule 10 mg PO ONCE RF: 0 benztropine 1 mg tablet 1 mg PO BID RF: 0 Amitiza 24 mcg capsule 24 mcg PO BID RF: 0 docusate sodium [Colace] 100 mg capsule 100 mg PO BID RF: 0 lithium carbonate 450 mg tablet extended release 450 mg PO BID RF: 0 tamsulosin [Flomax] 0.4 mg capsule 0.4 mg PO BID RF: 0 haloperidol 10 mg tablet 10 mg PO BID RF: 0 amitriptyline 25 mg tablet 25 mg PO TID RF: 0 clonazepam [Klonopin] 2 mg tablet 2 mg PO TID RF: 0 bismuth subsalicylate [Pepto-Bismol] 262 mg/15 mL suspension 524 mg PO QID PRNRF: 0 Robitussin Cough-Chest Ken DM 5-100 mg/5 mL liquid 10 ml PO Q4H PRNRF: 0 acetaminophen [Tylenol] 325 mg tablet 325 mg PO Q4H PRNRF: 0 magnesium hydroxide [Milk of Magnesia] 400 mg/5 mL suspension 15 ml PO BID PRNRF: 0 albuterol sulfate 2.5 mg /3 mL (0.083 %) solution for nebulization 2.5 mg INHALATION Q4H PRNRF: 0 polyethylene glycol 3350 17 gram powder in packet 17 gm PO QAM Qty: 30 RF: 3 Adacel(Tdap Adolesn/Adult)(PF) 2 Lf-(2.5-5-3-5 mcg)-5Lf/0.5 mL syringe 0.5 ml IM ONCE Qty: 0.5 RF: 0 lorazepam 2 mg tablet 2 mg PO Q4H PRN (Reason: agitation) Qty: 90 RF: 5 (DME) catheterization tray 16 Fr tray See Rx Instructions .ROUTE .MEDSUPPLY Qty: 10 RF: 0 Vyvanse 50 mg capsule 50 mg PO DAILY 30 Days Qty: 30 RF: 0 Discharge Orders: Discharge Order (Routine); Ordered 04/11/20 Ordered By: Charly Heck Referrals: Anurag Gautam MD [Primary Care Provider] - Discharge Diet: Usual diet Discharge Activity: Resume usual activity Patient Instructions: Minor Head Injury (ED) Activity Restrictions/Additional Instructions: Resume usual care. Return to the emergency department for persistent vomiting, severe headache, seizure activity, or unresponsiveness. Follow-up with primary care in 3 days for recheck. Coding Level of Care Code ED Scientific Glass Blower for nIez Fwdel Exam Comprehensive
== END 2020-04-11 20:15 | disposition home or self-care (01) ==
LOC: ER 19:49
PROVIDERS: Emergency Provider Nurse Practitioner Family; PCP Internal Medicine
DX: S00.83XA Contusion of other part of head, initial encounter (principal); F84.0 Autistic disorder; W04.XXXA Fall while being carried or supported by other persons, initial encounter
CPT/HCPCS: 12345; 99281

== ENCOUNTER 2020-04-23 21:20 | Inpatient (IN) | payer MEDICARE, MEDICAID, SELFPAY ==
[2020-04-23 21:24] VITALS: BP 115/79; PULSE 118; RESP 18; TEMP 36.7; O2SAT 92; BMI 22.8
[2020-04-23 22:39] LABS: Basophils % 0.3 %; Eosinophils # 0.1 10^3/uL (0.0-0.8); Eosinophils % 0.5 %; Hematocrit 41.9 % (42.0-52.0); Hemoglobin 13.7 g/dL (11.7-16.6); Lymphocytes # 0.9 10^3/uL (0.8-4.8); Lymphocytes % 6.7 %; Mean Corpuscular HGB Conc 32.7 g/dL (30.0-36.0); Mean Corpuscular Hemoglobin 30.2 pg (28.0-34.0); Mean Corpuscular Volume 92.3 fL (80-94); Mean Platelet Volume 9.4 fL (7.4-10.4); Monocytes # 0.8 10^3/uL (0.2-0.9); Monocytes % 6.2 %; Neutrophils # 11.43 10^3/uL (1.8-7.7); Neutrophils % 85.6 %; Nucleated Red Blood Cells % 0 %; Platelet Count 195 10^3/cmm (130-400); Red Blood Count 4.54 10^6/uL (4.1-5.3); Red Cell Distribution Width 12.6 % (12.1-15.1); White Blood Count 13.3 10^3/uL (4.0-10.0)
[2020-04-23] MEDS: sodium chloride 0.9% 1,000 ML 999 ML IV (22:47)
[2020-04-23 23:01] LABS: Lactic Sepsis W/Reflex 1.1 mmol/L (0.5-2.2)
[2020-04-23 23:02] LABS: Alanine Aminotransferase 9 U/L (0-41); Albumin Level 4.4 g/dL (3.5-5.2); Alkaline Phosphatase 141 IU/L (40-130); Anion Gap 11.9 (5-19); Aspartate Amino Transferase 16 U/L (0-40); Blood Urea Nitrogen 13 mg/dL (6-20); Calcium 9.1 mg/dL (8.5-10.5); Carbon Dioxide 25 mmol/L (22-29); Chloride 100 mmol/L (98-107); Globulin 3.1 g/dL (1.3-4.6); Glomerular Filtration Rate 92.5 mL/min (90-130); Glucose 165 mg/dL (65-115); Lipase 13 U/L (13-60); Osmolality Calculated 280 mOsm/kg (285-295); Potassium 3.9 mmol/L (3.5-5.1); Sodium 133 mmol/L (136-145); Total Bilirubin 0.6 mg/dL (0.15-1.2); Total Protein 7.5 g/dL (6.6-8.7)
--- NOTE | 2020-04-23 23:13 | CTR_ITS ---
PROCEDURE INFORMATION: Exam: CT Head Without Contrast Exam date and time: 04/23/2020 11:42 PM Age: 44 years old Clinical indication: Altered mental status/memory loss; Additional info: AMS TECHNIQUE: Imaging protocol: Computed tomography of the head without contrast. Radiation optimization: All CT scans at this facility use at least one of these dose optimization techniques: automated exposure control; mA and/or kV adjustment per patient size (includes targeted exams where dose is matched to clinical indication); or iterative reconstruction. COMPARISON: CT head wo con* [id number] 06/05/2019 3:36 PM RADIATION DOSE METRICS: Total DLP (mGy-cm): 724.87 FINDINGS: Brain: Bilateral benign basal ganglia calcifications. Cerebral ventricles: No ventriculomegaly. Bones/joints: Unremarkable. No acute fracture. Paranasal sinuses: Paranasal sinus opacifications. Mastoid air cells: Visualized mastoid air cells are well aerated. Soft tissues: Unremarkable. CT/CT head wo con* [id number] IMPRESSION: Negative for intracranial hemorrhage or mass effect Radiation Dose CTDIVOL = (mGy): DLP = 724.87 (mGy-cm)
[2020-04-23 23:15] VITALS: BP 99/79; PULSE 107; RESP 18; O2SAT 97
[2020-04-23 23:45] VITALS: BP 94/70; PULSE 104; RESP 15; O2SAT 97
[2020-04-24] VITALS (12 sets, daily range): BP systolic 97–130; BP diastolic 65–85; PULSE 87–110; RESP 14–19; TEMP 37.4–38.1; O2SAT 94–100
--- NOTE | 2020-04-24 00:14 | ED_ITS ---
HPI - General Adult General: Chief complaint: General Medical Stated complaint: trouble standing/loose stool Time Seen by Provider: 04/23/20 21:49 History of Present Illness: HPI narrative: This patient is a 44-year-old male with developmental disabilities and Lewy body dementia. He presents today with his emergency telecommunications dispatcher. He is reported to have had increased lethargy throughout the day today. There is no report of fevers, chills, cough, vomiting. He had a large loose bowel movement this afternoon but staff said it was not diarrhea. He did have a fall a couple of weeks ago and was seen here in the ER. He does have frequent falls but no other recent falls are noted. Per staff he has not had any recent medication changes. Onset (ago): day(s) (1) Associated symptoms: Deny dyspnea, nausea or vomiting Review of Systems General: Reports: ROS unobtainable due to mental status and Other (Review of systems per staff) Const: Denies: fever(s) or chills Resp: Denies: dyspnea or non-productive cough GI: Denies: nausea, vomiting, diarrhea or constipation : Reports: urinary incontinence (Chronic) Neuro: Reports: frequent falls and behavioral changes PFS ED PFSH: Medical History Autism Developmental delay, severe Urinary retention UTI (urinary tract infection) Surgical History History of dental surgery History of sinus surgery Family History Other CAD (coronary artery disease) Cancer Social History Smoking and tobacco status: never smoked Second hand smoke exposure: No Alcohol intake: never History of recent travel: No Physical Exam Const: COMMON NORMALS: no acute distress and average body habitus GENERAL APPEARANCE: lethargic ORIENTATION/CONSCIOUSNESS: Yes lethargic HENMT: HEAD & SCALP: normal to inspection FACE & SINUS: normal facial exam Eye: GENERAL EYE: appearance normal, both eyes and all related structures Neck/C-Spine: COMMON NORMALS: supple and no JVD Chest: COMMONS NORMALS: normal inspection of the chest Resp: COMMON NORMALS: normal respiratory effort, No use of accessory muscles and clear to auscultation bilaterally AUSCULTATION: clear to auscultation bilaterally Cardio: COMMON NORMALS: no JVD, regular rate, regular rhythm and No murmurs present (Cardio) RATE: regular rate RHYTHM: regular rhythm GI: COMMON NORMALS: Normal to inspection, nondistended, normoactive bowel sounds present, Soft to palpation and non-tender INSPECTION: Yes normal to inspection AUSCULTATION: Yes normoactive bowel sounds PALPATION: Yes Soft to palpation Back/Pelvis: COMMON NORMALS: thoracic and lumbar spine normal to inspection Extremity: COMMON NORMALS: normal to inspection Neuro: AURY COMA SCALE: document GCS findings (Generally nonverbal at baseline) [place] coma scale eye opening: To sound Aury coma scale verbal response: None [place] coma scale motor response: Localising Aury coma scale total score: 9 SENSORIUM/ORIENTATION: Yes lethargic and Yes other (Not following commands) Psych: COMMON NORMALS: mental status grossly normal, cooperative and normal affect Skin: COMMON NORMALS: no rashes or lesions noted and turgor normal GENERAL SKIN EXAM: no rashes or lesions noted and turgor normal Course ED course: CT of the head was negative. Labs are fairly unremarkable. He does have a slightly elevated white count. Urinalysis was positive for leuk esterase, white cells, bacteria. He has had frequent UTIs and urosepsis in the past. His lactate was normal today. His blood pressure has been running a little bit low. Is not clear whether this is the entire explanation for his decreased mental status today. Antibiotics were started in the ER. I discussed with the staff member/emergency telecommunications dispatcher if she felt like he would be able to be cared for outside of the hospital and she said no. He will be admitted for IV antibiotics and further evaluation. Vital Signs: Vital signs: Vital Signs Temperature 98.1 F 04/23/20 21:24 Pulse Rate 94 04/24/20 04:49 Respiratory Rate 14 04/24/20 04:49 Blood Pressure 110/77 04/24/20 04:49 Pulse Oximetry 97 04/24/20 04:49 MDM - General Adult Lab Data: Labs: Lab Results 04/23/20 04/23/20 04/23/20 Range/Units 22:32 22:32 22:32 WBC 13.3 H (4.0-10.0) 10^3/ uL RBC 4.54 (4.1-5.3) 10^6/u L Hgb 13.7 (11.7-16.6) g/dL Hct 41.9 L (42.0-52.0) % MCV 92.3 (80-94) fL MCH 30.2 (28.0-34.0) pg MCHC 32.7 (30.0-36.0) g/dL RDW 12.6 (12.1-15.1) % Plt Count 195 (130-400) 10^3/c mm MPV 9.4 (7.4-10.4) fL Neut % (Auto) 85.6 % Lymph % (Auto) 6.7 % Haralson % (Auto) 6.2 % Eos % (Auto) 0.5 % Baso % (Auto) 0.3 % Neut # (Auto) 11.43 H (1.8-7.7) 10^3/u L Lymph # (Auto) 0.9 (0.8-4.8) 10^3/u L Har[place]on # (Auto) 0.8 (0.2-0.9) 10^3/u L Eos # (Auto) 0.1 (0.0-0.8) 10^3/u L Baso # (Auto) 0.0 (0.0-0.1) 10^3/u L Nucleated RBC % (a uto) 0 % Nucleated RBCs # 0.0 /100WBC Sodium 133 L (136-145) mmol/L Potassium 3.9 (3.5-5.1) mmol/L Chloride 100 (98-107) mmol/L Carbon Dioxide 25 (22-29) mmol/L Anion Gap 11.9 (5-19) BUN 13 (6-20) mg/dL Creatinine 0.9 (0.7-1.2) mg/dL GFR Calculation 92.5 (90-130) mL/min Glucose 165 H (65-115) mg/dL Calculated Osmolal ity 280 L (285-295) mOsm/k g Lactic Acid 1.1 (0.5-2.2) mmol/L Calcium 9.1 (8.5-10.5) mg/dL Magnesium 2.0 (1.7-2.3) mg/dL Total Bilirubin 0.6 (0.15-1.2) mg/dL AST 16 (0-40) U/L ALT 9 (0-41) U/L Alkaline Phosphata se 141 H (40-130) IU/L Total Protein 7.5 (6.6-8.7) g/dL Albumin 4.4 (3.5-5.2) g/dL Globulin 3.1 (1.3-4.6) g/dL Lipase 13 (13-60) U/L Urine Color (Yellow) Urine Appearance (CLEAR) Urine pH (5-7) Ur Specific Gravit y (1.005-1.030) Urine Protein (Negative) Urine Glucose (UA) (Normal) Urine Ketones (Negative) Urine Blood (Negative) Urine Nitrate (Negative) Urine Bilirubin (Negative) Urine Urobilinogen (Negative) mg/dL Ur Leukocyte Shira ase (Negative) Urine RBC (0-2) /hpf Urine WBC (0-5) /hpf Ur Squamous Epith Cells (0-5) /hpf Amorphous Sediment Urine Bacteria (NONE) /hpf Urine Mucus /hpf Powers (0.6-1.2) mmol/L 04/24/20 04/24/20 Range/Units 00:01 02:26 WBC (4.0-10.0) 10^3/ uL RBC (4.1-5.3) 10^6/u L Hgb (11.7-16.6) g/dL Hct (42.0-52.0) % MCV (80-94) fL MCH (28.0-34.0) pg MCHC (30.0-36.0) g/dL RDW (12.1-15.1) % Plt Count (130-400) 10^3/c mm MPV (7.4-10.4) fL Neut % (Auto) % Lymph % (Auto) % Haralson % (Auto) % Eos % (Auto) % Baso % (Auto) % Neut # (Auto) (1.8-7.7) 10^3/u L Lymph # (Auto) (0.8-4.8) 10^3/u L Haralson # (Auto) (0.2-0.9) 10^3/u L Eos # (Auto) (0.0-0.8) 10^3/u L Baso # (Auto) (0.0-0.1) 10^3/u L Nucleated RBC % (a uto) % Nucleated RBCs # /100WBC Sodium (136-145) mmol/L Potassium (3.5-5.1) mmol/L Chloride (98-107) mmol/L Carbon Dioxide (22-29) mmol/L Anion Gap (5-19) BUN (6-20) mg/dL Creatinine (0.7-1.2) mg/dL GFR Calculation (90-130) mL/min Glucose (65-115) mg/dL Calculated Osmolal ity (285-295) mOsm/k g Lactic Acid (0.5-2.2) mmol/L Calcium (8.5-10.5) mg/dL Magnesium (1.7-2.3) mg/dL Total Bilirubin (0.15-1.2) mg/dL AST (0-40) U/L ALT (0-41) U/L Alkaline Phosphata se (40-130) IU/L Total Protein (6.6-8.7) g/dL Albumin (3.5-5.2) g/dL Globulin (1.3-4.6) g/dL Lipase (13-60) U/L Urine Color Yellow (Yellow) Urine Appearance Hazy A (CLEAR) Urine pH 7.0 (5-7) Ur Specific Gravit y 1.010 (1.005-1.030) Urine Protein Neg (Negative) Urine Glucose (UA) Norm (Normal) Urine Ketones Negative (Negative) Urine Blood Neg (Negative) Urine Nitrate Negative (Negative) Urine Bilirubin Neg (Negative) Urine Urobilinogen 4 H (Negative) mg/dL Ur Leukocyte Shira ase 1+ H (Negative) Urine RBC None (0-2) /hpf Urine WBC 55-80 H (0-5) /hpf Ur Squamous Epith Cells None (0-5) /hpf Amorphous Sediment Not Reportable Urine Bacteria 2+ H (NONE) /hpf Urine Mucus Trace /hpf Powers 1.1 (0.6-1.2) mmol/L Discharge Plan Discharge Admit Provider: Monica Ricketts Coding Level of Care Code ED [employer] [facility] Coordinator for g Fwd Exam Comprehensive
[2020-04-24 00:43] LABS: Urine Appearance Hazy (CLEAR); Urine Color Yellow (Yellow)
[2020-04-24 00:44] LABS: Add Urine Microscopic? YES; Bilirubin Urine Neg (Negative); Blood Urine Neg (Negative); Glucose Urine UA Norm (Normal); Ketones Urine Negative (Negative); Leukocyte Esterase Urine 1+ (Negative); Nitrate Urine Negative (Negative); Protein Urine Neg (Negative); Urobilinogen Urine 4 mg/dL (Negative)
[2020-04-24 00:45] LABS: Add Urine Culture? Yes; Bacteria Urine 2+ /hpf; Mucus Urine TRACE /hpf; WBC Urine 55-80 /hpf (0-5)
[2020-04-24] MEDS: cefTRIAXone 1,000 MG in sodium chloride 0.9% (plus) 50 ML 100 MG IV ×2 (02:31→06:43)
[2020-04-24 03:15] LABS: Lithium 1.1 mmol/L (0.6-1.2)
[2020-04-24] MEDS: sodium chloride 0.9% 1,000 ML 999 ML IV (03:27)
--- NOTE | 2020-04-24 04:24 | PC.NURSE ---
report called to David ESPOSITO
--- NOTE | 2020-04-24 05:06 | P.HP_ITS ---
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 By review of all notes from neurology and PCP starting from , it appears patient has declined to the point of needing a gait belt at all times, increasingly non verbal, progressive dysphagia now on pureed foods, intermittent behavior disturbances dependent on multiple medications. He is on intermittent self cath at the facility where he resides. Brought in today with change in mental status , uncertain what change was exactly noted, reportedly he appears different from his baseline. UA with elevated WBC, + nitrate, given empiric ceftriaxone in ER and urine cx sent. Review of Systems General: Reports: ROS unobtainable due to medical condition Medications/Allergies Home Medications Medication Instructions Recorded Confirmed Last Taken Type acetaminophen 325 mg tablet 325 mg PO Q4H PRN tab 06/03/19 03/24/20 Unknown History albuterol sulfate 2.5 mg INHALATION Q4H PRN 06/03/19 03/24/20 Unknown History amitriptyline 25 mg tablet 25 mg PO TID tab 06/03/19 03/24/20 Unknown History benztropine 1 mg tablet 1 mg PO BID 06/03/19 03/24/20 Unknown History bismuth subsalicylate 262 mg/15 mL 524 mg PO QID PRN 06/03/19 03/24/20 Unknown History oral suspension clonazepam 2 mg tablet 2 mg PO TID 06/03/19 03/24/20 Unknown History dextromethorphan-guaifenesin 5 10 ml PO Q4H PRN 06/03/19 03/24/20 Unknown History mg-100 mg/5 mL oral liquid docusate sodium 100 mg capsule 100 mg PO BID 06/03/19 03/24/20 Unknown History haloperidol 10 mg tablet 10 mg PO BID 06/03/19 03/24/20 Unknown History lithium carbonate 450 mg 450 mg PO BID 06/03/19 03/24/20 Unknown History tablet,extended release loratadine 10 mg capsule 10 mg PO ONCE 06/03/19 03/24/20 Unknown History lubiprostone 24 mcg capsule 24 mcg PO BID 06/03/19 03/24/20 Unknown History magnesium hydroxide 400 mg/5 mL 15 ml PO BID PRN 06/03/19 03/24/20 Unknown Hist ory oral suspension tamsulosin 0.4 mg capsule 0.4 mg PO BID cap 06/03/19 03/24/20 Unknown History flunisolide 25 mcg (0.025 %) nasal 1 spray INTRANASAL BID ml 07/10/19 03/24/20 Unknown History spray polyethylene glycol 3350 17 gram 17 gm PO QAM #30 each 07/11/19 03/24/20 Unknown Rx oral powder packet dextromethorphan polistirex 30 30 ml PO .Q4 PRN ml 10/09/19 03/24/20 Unknown History mg/5 mL oral susp ext.release 12hr diph,pertuss(acel),tet vac(PF) 2 0.5 ml IM ONCE #0.5 ml 01/01/20 03/24/20 Unknown Rx Lf-(2.5-5-3-5mcg)-5 Lf/0.5 mL IM syringe lorazepam 2 mg tablet 2 mg PO Q4H PRN #90 tab 01/07/20 03/24/20 Unknown Rx terbinafine HCl 250 mg tablet 250 mg PO DAILY 01/07/20 03/24/20 Unknown History catheterization tray 16 Fr #10 each 04/22/20 Unknown Rx lisdexamfetamine 50 mg capsule 50 mg PO DAILY 30 Days #30 cap 04/22/20 Unknown Rx Allergies Allergy/AdvReac Type Severity Reaction Status Date / Time No Known Allergies Allergy Verified 03/24/20 14:54 PFSH Acute PFSH: Medical History (Updated 04/24/20 @ 05:30 by Monica Ricketts MD) Autism Developmental delay, severe Urinary retention UTI (urinary tract infection) Surgical History History of dental surgery History of sinus surgery Family History Other CAD (coronary artery disease) Cancer Social History Smoking and tobacco status: never smoked Second hand smoke exposure: No Alcohol intake: never History of recent travel: No Vitals/I&O/Wt Last Vital Signs Temp 98.1 F 04/23/20 21:24 Pulse 94 04/24/20 04:49 Resp 14 04/24/20 04:49 BP 110/77 04/24/20 04:49 Pulse Ox 97 04/24/20 04:49 04/23/20 04/23/20 04/24/20 14:59 22:59 06:59 Intake Total 1050 / 1050 Balance 1050 / 1050 Weight last 48 hrs Weight 68.039 kg Physical Exam Narrative: EXAM NARRATIVE: GEN: obtunded, non verbal CVS: S1S2 N RS: CTA B/L Abd: Soft, nt/nd , bs+ FITTER HAND: diffuse rigidity, tremors+ Data : 04/23/20 22:32 04/23/20 22:32 A&P Assessment and plan (1) UTI (urinary tract infection): + UA, urine cx pending empiric ceftriaxone 1g q24h while awaiting cx results no current signs of sepsis Status: Acute Qualifiers: Hematuria presence: without hematuria Urinary tract infection type: acute cystitis Qualified Code(s): N30.00 - Acute cystitis without hematuria (2) Lewy body dementia: with progresive cognitive decline recentl Likely that current change in mentation may be part of progressive dementia Status: Acute Qualifiers: Dementia behavioral disturbance: with behavioral disturbance Qualified Code(s): G31.83 - Dementia with Lewy bodies; F02.81 - Dementia in other diseases classified elsewhere with behavioral disturbance (3) Neurogenic bladder: on intermittent self cath at facility Status: Acute (4) Developmental delay, severe: Status: Acute Attestations Medical Necessity Statement*: observation admission, <2 midnight anticipated Coding Level of Care Code Acute 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
[2020-04-24] MEDS: polyethylene glycol 3350 Pkt 17 gm PO (06:49)
[2020-04-24 07:24] LABS: Thyroid Stimulating Hormone 1.86 uIU/mL (0.27-4.20)
[2020-04-24 07:37] LABS: SARS Covid-2 Antigen Negative (Negative)
[2020-04-24] MEDS: CLONazepam 1 mg Tablet 2 MG PO ×3 (09:00→20:44)
[2020-04-24] MEDS: amitriptyline 25 mg Tablet PO ×3 (09:00→20:44)
[2020-04-24] MEDS: lithium carbonate ER 450 mg Tablet PO (09:01)
[2020-04-24] MEDS: haloperidol 5 mg Tablet 10 MG PO ×2 (09:01→17:23)
[2020-04-24] MEDS: tamsulosin 0.4 mg Capsule PO ×2 (09:01→20:44)
[2020-04-24] MEDS: docusate sodium 100 mg Capsule PO ×2 (09:01→17:23)
[2020-04-24] MEDS: benztropine 1 mg Tablet PO ×2 (09:01→17:24)
--- NOTE | 2020-04-24 14:41 | P.PN_ITS ---
Subjective Subjective: Interval history: Chart reviewed, hemodynamically stable, on room air. Resting quietly in bed, caregiver at bedside, mostly non-verbal and when he does attempt speech, it is unintelligible. Transportation Technician has noted redness in both eyes and what sounds like purulent drainage. Medications: Reviewed: Yes Medication Review Details: Active Medications Generic Name Dose Route Start Last Admin Trade Name Freq PRN Reason Stop Dose Admin Albuterol Sulfate 2.5 mg 04/24/20 04:59 Albuterol 2.5 Mg /0.5 Ml Neb INHALATION Q4H.RESPIRATORY P RN dyspnea Amitriptyline HCl 25 mg 04/24/20 09:00 04/24/20 09:00 Amitriptyline 25 Mg Tablet PO 25 mg TID NEREIDA Administration Benztropine Mesyla te 1 mg 04/24/20 09:00 04/24/20 09:01 Benztropine 1 Mg Tablet PO 1 mg BID NEREIDA Administration Bismuth Subsalicyl ate 30 ml 04/24/20 04:59 Bismuth Subsalic ylate 240 Ml Btl PO QID PRN indigestion Clonazepam 2 mg 04/24/20 09:00 04/24/20 09:00 Clonazepam 1 Mg Tablet PO 2 mg TID NEREIDA Administration Docusate Sodium 100 mg 04/24/20 09:00 04/24/20 09:01 Docusate Sodium 100 Mg Capsule PO 100 mg BID NEREIDA Administration Haloperidol 10 mg 04/24/20 09:00 04/24/20 09:01 Haloperidol 5 Mg Tablet PO 10 mg BID NEREIDA Administration Ceftriaxone Sodium 1,000 mg/ 50 mls @ 100 mls/ hr 04/24/20 05:15 04/24/20 06:43 Sodium Chloride IV 100 mls/hr Q24H NEREIDA Administration Protocol Canon Carbonate 450 mg 04/24/20 09:00 04/24/20 09:01 Canon Carbonat e Er 450 Mg Tablet PO 450 mg BID NEREIDA Administration Lorazepam 2 mg 04/24/20 04:59 Lorazepam 2 Mg T ablet PO Q4H PRN agitation Magnesium Hydroxid e 15 ml 04/24/20 04:59 Magnesium Hydrox eliane 30 Ml Udc PO BID PRN CONSTIPATION Non-Formulary Medi cation 30 ml 04/24/20 04:59 Dextromethorphan Polistirex [Robit ussin Er] PO .Q4 PRN cough Non-Formulary Medi cation 1 spray 04/24/20 09:00 04/24/20 09:03 Flunisolide INTRANASAL Not Given BID NEREIDA Non-Formulary Medi cation 50 mg 04/24/20 09:00 04/24/20 09:03 Lisdexamfetamine [Vyvanse] PO Not Given DAILY NEREIDA Non-Formulary Medi cation 24 mcg 04/24/20 09:00 04/24/20 09:03 Lubiprostone [Am itiza] PO Not Given BID NEREIDA Non-Formulary Medi cation 250 mg 04/24/20 09:00 04/24/20 09:04 Terbinafine Hcl PO Not Given DAILY NEREIDA Ondansetron HCl 4 mg 04/24/20 04:58 Ondansetron 2 Mg /Ml Sdv 2 Ml IVP Q8H PRN vomiting, or N/V if npo Polyethylene Glyco l 17 gm 04/24/20 06:00 04/24/20 06:49 Polyethylene Gly col 3350 Pkt 17 Gm PO 17 gm QAM NEREIDA Administration Tamsulosin HCl 0.4 mg 04/24/20 09:00 04/24/20 09:01 Tamsulosin 0.4 M g Capsule PO 0.4 mg BID NEREIDA Administration No Known Allergies Allergy (Verified 03/24/20 14:54) Vitals/I&O/Wt Last Vital Signs Temp 99.5 F 04/24/20 11:11 Pulse 94 04/24/20 11:11 Resp 18 04/24/20 11:11 BP 114/78 04/24/20 11:11 Pulse Ox 99 04/24/20 11:11 04/23/20 04/24/20 04/24/20 22:59 06:59 14:59 Intake Total 2049 320 / 320 Balance 2049 320 / 320 Weight last 48 hrs Weight 68.039 kg Physical Exam Const: COMMON NORMALS: no acute distress and alert GENERAL APPEARANCE: cooperative, comfortable and appears older than stated age ORIENTATION/CONSCIOUSNESS: Yes awake OTHER: -cannot gauge orientation due to underlying cognitive impairment HENMT: COMMON NORMALS: normocephalic, atraumatic, hearing grossly normal bilat erally and moist oral mucous membranes HEAD & SCALP: normocephalic and at raumatic Eye: COMMON NORMALS: Equal, round and reactive pupils present CONJUNCTIVA: Yes conjunctival abnormal positive bilateral conjunctival injection and discharge mucoid PUPIL: Yes Equal, round and reactive pupils present Neck/C-Spine: COMMON NORMALS: full ROM GENERAL: Yes normal visual inspection and Yes trachea midline Resp: COMMON NORMALS: normal respiratory effort, No retractions and No use of accessory muscles EFFORT & INSPECTION: Yes symmetric chest movement and No tachypneic AUSCULTATION: wheezes throughout OTHER: -on RA Cardio: COMMON NORMALS: regular rate, regular rhythm, S1 normal heart sound present, S2 normal heart sound present and No murmurs present (Cardio) RATE: regular rate RHYTHM: regular rhythm HEART SOUNDS: S1 normal heart sound present and S2 normal heart sound present GI: COMMON NORMALS: Normal to inspection, nondistended, normoactive bowel sounds present, Soft to palpation and non-tender PALPATION: Yes Soft to palpation Extremity: COMMON NORMALS: normal to inspection, full ROM and no clubbing, cyanosis or edema; negative for no pedal edema Neuro: SENSORIUM/ORIENTATION: Yes alert OTHER: -underlying cognitive impairment Psych: COMMON NORMALS: cooperative ATTITUDE: Yes calm SPEECH: Yes incoherent Skin: COMMON NORMALS: no rashes or lesions noted, no jaundice, no petechiae and no mottling GENERAL SKIN EXAM: no rashes or lesions noted Data : 04/23/20 22:32 04/23/20 22:32 A&P Assessment and plan (1) UTI (urinary tract infection): -UA indicative of infection -f/u urine cx -continue Ceftriaxone -noted leukocytosis, low grade temp this AM -trend WBC -continue to monitor vital signs Status: Acute Qualifiers: Hematuria presence: without hematuria Urinary tract infection type: acute cystitis Qualified Code(s): N30.00 - Acute cystitis without hematuria (2) Lewy body dementia: -Per documentation reviewed he has bouts of violent behavior; over the course of his disease has significantly decompensated to the point where he has developed significant dementia, creased ability to communicate verbally, progressive dysphagia -Follows up with Dr. Mccollum -continue meds Status: Chronic Qualifiers: Dementia behavioral disturbance: with behavioral disturbance Qualified Code(s): G31.83 - Dementia with Lewy bodies; F02.81 - Dementia in other diseases classified elsewhere with behavioral disturbance (3) Neurogenic bladder: -intermittent self catheterization at facility Status: Chronic (4) Developmental delay, severe: Status: Chronic (5) Autism: Status: Chronic (6) Attention deficit disorder (ADD): Status: Chronic Qualifiers: Attention deficit-hyperactivity disorder type: predominantly hyperactive Hyperactivity presence: present Qualified Code(s): F90.1 - Attention-deficit hyperactivity disorder, predominantly hyperactive type Additional A&P Information -pureed diet, aspiration precautions -fall precautions -bilateral conjunctivitis; add erythromycin ointment -Dispo: return home with supervision from [facility] -Code status: DNR/DNI Attestations Medical Necessity Statement*: Patient requires hospitalization for continued treatment of UTI. Time Spent in Patient Care: 16 - 35 minutes (>than 50% of time spent in counselling and/or direct pt care on unit) . Coding Level of Care Code Acute Seamer Operator for [facility] Fwd Exam Comprehensive Diagnoses UTI (urinary tract infection) N30.00 Hematuria presence: without hematuria Urinary tract infection type: acute cystitis Lewy body dementia G31.83; F02.81 Dementia behavioral disturbance: with behavioral disturbance Neurogenic bladder N31.9 Developmental delay, severe R62.50 Autism F84.0 Attention deficit disorder (ADD) F90.1 Attention deficit-hyperactivity disorder type: predominantly hyperactive Hyperactivity presence: present
[2020-04-24] MEDS: ipratropium-albuterol 3 mL Neb INHALATION (15:51)
[2020-04-24] MEDS: erythromycin Op Oint 3.5 gm Tube 1 APPLIC EYE-BOTH ×2 (17:24→20:44)
[2020-04-24] MEDS: ondansetron 2 mg/ML SDV 2 mL 4 MG IVP (23:21)
[2020-04-25] VITALS (12 sets, daily range): BP systolic 92–115; BP diastolic 56–80; PULSE 88–100; RESP 15–20; TEMP 37.4–38.6; O2SAT 90–97
[2020-04-25] MEDS: acetaminophen 325 mg Tablet 650 MG PO ×3 (02:14→14:07)
--- NOTE | 2020-04-25 02:32 | PC.NURSE ---
Patient's brief and bedding was completely saturated.
[2020-04-25] MEDS: cefTRIAXone 1,000 MG in sodium chloride 0.9% (plus) 50 ML 100 MG IV (05:22)
[2020-04-25] MEDS: polyethylene glycol 3350 Pkt 17 gm PO (05:22)
[2020-04-25 05:30] LABS: Basophils % 0.3 %; Eosinophils # 0.1 10^3/uL (0.0-0.8); Eosinophils % 0.6 %; Hematocrit 40.1 % (42.0-52.0); Lymphocytes # 1.3 10^3/uL (0.8-4.8); Lymphocytes % 10.8 %; Mean Corpuscular HGB Conc 32.4 g/dL (30.0-36.0); Mean Corpuscular Hemoglobin 30.4 pg (28.0-34.0); Mean Corpuscular Volume 93.7 fL (80-94); Mean Platelet Volume 9.5 fL (7.4-10.4); Monocytes # 0.7 10^3/uL (0.2-0.9); Monocytes % 6.3 %; Neutrophils # 9.57 10^3/uL (1.8-7.7); Neutrophils % 81.3 %; Nucleated Red Blood Cells % 0 %; Platelet Count 172 10^3/cmm (130-400); Red Blood Count 4.28 10^6/uL (4.1-5.3); Red Cell Distribution Width 12.5 % (12.1-15.1); White Blood Count 11.8 10^3/uL (4.0-10.0)
[2020-04-25] MEDS: CLONazepam 1 mg Tablet 2 MG PO ×3 (08:25→20:35)
[2020-04-25] MEDS: amitriptyline 25 mg Tablet PO ×3 (08:26→20:35)
[2020-04-25] MEDS: benztropine 1 mg Tablet PO (08:26)
[2020-04-25] MEDS: tamsulosin 0.4 mg Capsule PO (08:26)
[2020-04-25] MEDS: docusate sodium 100 mg Capsule PO (08:26)
[2020-04-25] MEDS: magnesium hydroxide 30 mL UDC 15 ML PO (08:27)
[2020-04-25] MEDS: haloperidol 5 mg Tablet 10 MG PO (08:30)
[2020-04-25] MEDS: lithium carbonate ER 450 mg Tablet PO ×2 (08:31→20:35)
[2020-04-25] MEDS: erythromycin Op Oint 3.5 gm Tube 1 APPLIC EYE-BOTH ×4 (08:33→20:36)
--- NOTE | 2020-04-25 15:55 | P.PN_ITS ---
Subjective Subjective: Interval history: Has been consistently febrile, T-max of 101.4F earlier this morning, improving leukocytosis, urine cultures resulted with contaminants, remains on ceftriaxone. Sleeping during my encounter, per caregiver at bedside, he has been sleeping through most of the day, has not eaten quite as well as he did yesterday. Medications: Reviewed: Yes Medication Review Details: Current Medications Generic Name Dose Route Start Last Admin Trade Name Freq PRN Reason Stop Dose Admin Acetaminophen 650 mg 04/25/20 01:58 04/25/20 14:07 Acetaminophen 32 5 Mg Tablet PO 650 mg Q4H PRN Administration MILD PAIN OR INCR EASE TEMP Albuterol Sulfate 2.5 mg 04/25/20 13:46 04/25/20 13:28 Albuterol 2.5 Mg /0.5 Ml Neb INHALATION 2.5 mg Q4H.RESPIRATORY P RN Administration SHORTNESS OF JASON TH Amitriptyline HCl 25 mg 04/24/20 09:00 04/25/20 14:04 Amitriptyline 25 Mg Tablet PO 25 mg TID NEREIDA Administration Benztropine Mesyla te 1 mg 04/24/20 09:00 04/25/20 08:26 Benztropine 1 Mg Tablet PO 1 mg BID NEREIDA Administration Clonazepam 2 mg 04/24/20 09:00 04/25/20 14:04 Clonazepam 1 Mg Tablet PO 2 mg TID NEREIDA Administration Docusate Sodium 100 mg 04/24/20 09:00 04/25/20 08:26 Docusate Sodium 100 Mg Capsule PO 100 mg BID NEREIDA Administration Erythromycin 1 applic 04/24/20 17:00 04/25/20 13:28 Erythromycin Op Oint 3.5 Gm Tube EYE-BOTH 1 strip QID NEREIDA Administration Protocol Haloperidol 10 mg 04/24/20 09:00 04/25/20 08:30 Haloperidol 5 Mg Tablet PO 10 mg BID NEREIDA Administration Ceftriaxone Sodium 1,000 mg/ 50 mls @ 100 mls/ hr 04/24/20 05:15 04/25/20 05:22 Sodium Chloride IV 100 mls/hr Q24H NEREIDA Administration Protocol Philippi Carbonate 450 mg 04/25/20 09:00 04/25/20 08:31 Philippi Carbonat e Er 450 Mg Tablet PO 450 mg Q12H NEREIDA Administration Magnesium Hydroxid e 15 ml 04/24/20 04:59 04/25/20 08:27 Magnesium Hydrox eliane 30 Ml Udc PO 15 ml BID PRN Administration CONSTIPATION Non-Formulary Medi cation 1 spray 04/24/20 09:00 04/25/20 08:26 Flunisolide INTRANASAL Not Given BID NEREIDA Non-Formulary Medi cation 50 mg 04/24/20 09:00 04/25/20 08:26 Lisdexamfetamine [Vyvanse] PO Not Given DAILY NEREIDA Non-Formulary Medi cation 24 mcg 04/24/20 09:00 04/25/20 08:26 Lubiprostone [Am itiza] PO Not Given BID NEREIDA Non-Formulary Medi cation 250 mg 04/24/20 09:00 04/25/20 08:26 Terbinafine Hcl PO Not Given DAILY NEREIDA Ondansetron HCl 4 mg 04/24/20 04:58 04/24/20 23:21 Ondansetron 2 Mg /Ml Sdv 2 Ml IVP 4 mg Q8H PRN Administration vomiting, or N/V if npo Polyethylene Glyco l 17 gm 04/24/20 06:00 04/25/20 05:22 Polyethylene Gly col 3350 Pkt 17 Gm PO 17 gm QAM NEREIDA Administration Tamsulosin HCl 0.4 mg 04/24/20 09:00 04/25/20 08:26 Tamsulosin 0.4 M g Capsule PO 0.4 mg BID NEREIDA Administration Vitals/I&O/Wt Last Vital Signs Temp 99.8 F H 04/25/20 12:00 Pulse 97 04/25/20 13:26 Resp 16 04/25/20 13:26 BP 92/56 04/25/20 12:00 Pulse Ox 90 04/25/20 13:26 04/25/20 04/25/20 04/25/20 06:59 14:59 22:59 Intake Total 480 / 480 Balance 480 / 480 Weight last 48 hrs Weight 68.039 kg Physical Exam Const: COMMON NORMALS: no acute distress and alert GENERAL APPEARANCE: comfortable, appears older than stated age and diaphoretic ORIENTATION/CONSCIOUSNESS: Yes awake OTHER: -cannot gauge orientation due to underlying cognitive impairment; sleeping HENMT: COMMON NORMALS: normocephalic, atraumatic, hearing grossly normal bilaterally and moist oral mucous membranes HEAD & SCALP: normocephalic and atraumatic Eye: COMMON NORMALS: Equal, round and reactive pupils present CONJUNCTIVA: Yes conjunctival abnormal positive bilateral conjunctival injection and discharge (improved) mucoid PUPIL: Yes Equal, round and reactive pupils present Neck/C-Spine: COMMON NORMALS: full ROM GENERAL: Yes normal visual inspection and Yes trachea midline Resp: COMMON NORMALS: normal respiratory effort, No retractions and No use of accessory muscles EFFORT & INSPECTION: Yes symmetric chest movement and No tachypneic AUSCULTATION: wheezes throughout OTHER: -on RA Cardio: COMMON NORMALS: regular rate, regular rhythm, S1 normal heart sound present, S2 normal heart sound present and No murmurs present (Cardio) RATE: regular rate RHYTHM: regular rhythm HEART SOUNDS: S1 normal heart sound present and S2 normal heart sound present GI: COMMON NORMALS: Normal to inspection, nondistended, normoactive bowel sounds present, Soft to palpation and non-tender PALPATION: Yes Soft to palpation Extremity: COMMON NORMALS: normal to inspection, full ROM and no clubbing, cyanosis or edema; negative for no pedal edema Neuro: COMMON NORMALS: moves all extremities, no focal motor deficits, no sensory deficits noted and gait normal SENSORIUM/ORIENTATION: Yes alert OTHER: -underlying cognitive impairment Psych: COMMON NORMALS: cooperative ATTITUDE: Yes calm SPEECH: Yes incoherent Skin: COMMON NORMALS: no rashes or lesions noted, no jaundice, no petechiae and no mottling GENERAL SKIN EXAM: no rashes or lesions noted Data : 04/25/20 05:06 04/23/20 22:32 Micro: Microbiology 04/24/20 00:01 Urine Culture - Preliminary Urine,Clean Catch A&P Assessment and plan (1) UTI (urinary tract infection): -UA indicative of infection -urine cx: contaminants -continue Ceftriaxone -noted leukocytosis, consistently febrile -trend WBC; improving -continue to monitor vital signs Status: Acute Qualifiers: Hematuria presence: without hematuria Urinary tract infection type: acute cystitis Qualified Code(s): N30.00 - Acute cystitis without hematuria (2) Lewy body dementia: -Per documentation reviewed he has bouts of violent behavior; over the course of his disease has significantly decompensated to the point where he has developed significant dementia, creased ability to communicate verbally, progressive dysphagia -Follows up with Dr. Mccollum -continue meds Status: Chronic Qualifiers: Dementia behavioral disturbance: with behavioral disturbance Qualified Code(s): G31.83 - Dementia with Lewy bodies; F02.81 - Dementia in other diseases classified elsewhere with behavioral disturbance (3) Neurogenic bladder: -intermittent self catheterization at facility Status: Chronic (4) Developmental delay, severe: Status: Chronic (5) Autism: Status: Chronic (6) Attention deficit disorder (ADD): Status: Chronic Qualifiers: Attention deficit-hyperactivity disorder type: predominantly hyperactive Hyperactivity presence: present Qualified Code(s): F90.1 - Attention-deficit hyperactivity disorder, predominantly hyperactive type Additional A&P Information -pureed diet, aspiration precautions -fall precautions -bilateral conjunctivitis; on erythromycin ointment -Dispo: return home with supervision from [facility] caregivers -Code status: DNR/DNI Attestations Medical Necessity Statement*: Patient requires hospitalization for continued treatment of UTI, remains febrile, noted leukocytosis and mental status has not returned to baseline. Time Spent in Patient Care: 16 - 35 minutes (>than 50% of time spent in counselling and/or direct pt care on unit) . Coding Level of Care Code Acute Product Support Representative for g Fwd Exam Comprehensive Diagnoses UTI (urinary tract infection) N30.00 Hematuria presence: without hematuria Urinary tract infection type: acute cystitis Lewy body dementia G31.83; F02.81 Dementia behavioral disturbance: with behavioral disturbance Neurogenic bladder N31.9 Developmental delay, severe R62.50 Autism F84.0 Attention deficit disorder (ADD) F90.1 Attention deficit-hyperactivity disorder type: predominantly hyperactive Hyperactivity presence: present
[2020-04-26] VITALS (8 sets, daily range): BP systolic 93–111; BP diastolic 63–73; PULSE 84–99; RESP 16–18; TEMP 36.6–37.5; O2SAT 92–95
--- NOTE | 2020-04-26 02:19 | PC.NURSE ---
Patient's brief and absorbent pad were completely saturated.
[2020-04-26 05:32] LABS: Basophils % 0.3 %; Eosinophils # 0.2 10^3/uL (0.0-0.8); Eosinophils % 3.7 %; Hematocrit 39.4 % (42.0-52.0); Hemoglobin 12.6 g/dL (11.7-16.6); Lymphocytes # 1.1 10^3/uL (0.8-4.8); Lymphocytes % 17.9 %; Mean Corpuscular Hemoglobin 30.4 pg (28.0-34.0); Mean Corpuscular Volume 95.2 fL (80-94); Mean Platelet Volume 9.5 fL (7.4-10.4); Monocytes # 0.3 10^3/uL (0.2-0.9); Monocytes % 5.8 %; Neutrophils # 4.21 10^3/uL (1.8-7.7); Neutrophils % 71.8 %; Nucleated Red Blood Cells % 0 %; Platelet Count 179 10^3/cmm (130-400); Red Blood Count 4.14 10^6/uL (4.1-5.3); Red Cell Distribution Width 12.4 % (12.1-15.1); White Blood Count 5.9 10^3/uL (4.0-10.0)
[2020-04-26] MEDS: cefTRIAXone 1,000 MG in sodium chloride 0.9% (plus) 50 ML 100 MG IV (05:33)
[2020-04-26] MEDS: polyethylene glycol 3350 Pkt 17 gm PO (05:33)
--- NOTE | 2020-04-26 05:50 | PC.NURSE ---
SHIFT SUMMARY Has slept most of the night. Gets a little agitated with care but then settles right down. Caregivers state that he can become aggressive at times. Low grade temp first half of the night then afebrile this am. More awake early this am. Took morning Miralax well. Is incont large amts of urine tonight with changes and repositioning. Caregiver from long term with pt at all times.
[2020-04-26] MEDS: benztropine 1 mg Tablet PO ×2 (08:17→17:28)
[2020-04-26] MEDS: erythromycin Op Oint 3.5 gm Tube 1 APPLIC EYE-BOTH ×4 (08:17→20:24)
[2020-04-26] MEDS: lithium carbonate ER 450 mg Tablet PO ×2 (08:18→20:24)
[2020-04-26] MEDS: docusate sodium 100 mg Capsule PO ×2 (08:18→17:29)
[2020-04-26] MEDS: haloperidol 5 mg Tablet 10 MG PO ×2 (08:18→17:29)
[2020-04-26] MEDS: tamsulosin 0.4 mg Capsule PO ×2 (08:18→17:28)
[2020-04-26] MEDS: CLONazepam 1 mg Tablet 2 MG PO ×3 (08:18→20:24)
[2020-04-26] MEDS: amitriptyline 25 mg Tablet PO ×3 (08:20→20:24)
--- NOTE | 2020-04-26 14:06 | P.PN_ITS ---
Subjective Subjective: Interval history: Seems to be more alert today, hemodynamically stable, afebrile, had a low-grade temp of 100 F around 8 PM last night. Caregiver remains at bedside. Has had better oral intake today, has watched some cartoons with his caregiver. He is still not quite at his baseline activity level per caregiver but better than he was yesterday. Medications: Reviewed: Yes Medication Review Details: Active Medications Generic Name Dose Route Start Last Admin Trade Name Freq PRN Reason Stop Dose Admin Acetaminophen 650 mg 04/25/20 01:58 04/25/20 14:07 Acetaminophen 32 5 Mg Tablet PO 650 mg Q4H PRN Administration MILD PAIN OR INCR EASE TEMP Albuterol Sulfate 2.5 mg 04/25/20 13:46 04/26/20 07:45 Albuterol 2.5 Mg /0.5 Ml Neb INHALATION 2.5 mg Q4H.RESPIRATORY P RN Administration SHORTNESS OF JASON TH Amitriptyline HCl 25 mg 04/24/20 09:00 04/26/20 08:20 Amitriptyline 25 Mg Tablet PO 25 mg TID NEREIDA Administration Benztropine Mesyla te 1 mg 04/24/20 09:00 04/26/20 08:17 Benztropine 1 Mg Tablet PO 1 mg BID NEREIDA Administration Bismuth Subsalicyl ate 30 ml 04/24/20 04:59 Bismuth Subsalic ylate 240 Ml Btl PO QID PRN indigestion Clonazepam 2 mg 04/24/20 09:00 04/26/20 08:18 Clonazepam 1 Mg Tablet PO 2 mg TID NEREIDA Administration Docusate Sodium 100 mg 04/24/20 09:00 04/26/20 08:18 Docusate Sodium 100 Mg Capsule PO 100 mg BID NEREIDA Administration Erythromycin 1 applic 04/24/20 17:00 04/26/20 13:25 Erythromycin Op Oint 3.5 Gm Tube EYE-BOTH 1 strip QID NEREIDA Administration Protocol Haloperidol 10 mg 04/24/20 09:00 04/26/20 08:18 Haloperidol 5 Mg Tablet PO 10 mg BID NEREIDA Administration Ceftriaxone Sodium 1,000 mg/ 50 mls @ 100 mls/ hr 04/24/20 05:15 04/26/20 06:30 Sodium Chloride IV Infused Q24H NEREIDA Infusion Protocol Rains Carbonate 450 mg 04/25/20 09:00 04/26/20 08:18 Rains Carbonat e Er 450 Mg Tablet PO 450 mg Q12H NEREIDA Administration Lorazepam 2 mg 04/24/20 04:59 Lorazepam 2 Mg T ablet PO Q4H PRN agitation Magnesium Hydroxid e 15 ml 04/24/20 04:59 04/25/20 08:27 Magnesium Hydrox eliane 30 Ml Udc PO 15 ml BID PRN Administration CONSTIPATION Non-Formulary Medi cation 30 ml 04/24/20 04:59 Dextromethorphan Polistirex [Robit ussin Er] PO .Q4 PRN cough Non-Formulary Medi cation 1 spray 04/24/20 09:00 04/26/20 08:18 Flunisolide INTRANASAL Not Given BID NEREIDA Non-Formulary Medi cation 50 mg 04/24/20 09:00 04/26/20 08:20 Lisdexamfetamine [Vyvanse] PO Not Given DAILY NEREIDA Non-Formulary Medi cation 24 mcg 04/24/20 09:00 04/26/20 08:20 Lubiprostone [Am itiza] PO Not Given BID NEREIDA Non-Formulary Medi cation 250 mg 04/24/20 09:00 04/26/20 08:20 Terbinafine Hcl PO Not Given DAILY NEREIDA Ondansetron HCl 4 mg 04/24/20 04:58 04/24/20 23:21 Ondansetron 2 Mg /Ml Sdv 2 Ml IVP 4 mg Q8H PRN Administration vomiting, or N/V if npo Polyethylene Glyco l 17 gm 04/24/20 06:00 04/26/20 05:33 Polyethylene Gly col 3350 Pkt 17 Gm PO 17 gm QAM NEREIDA Administration Tamsulosin HCl 0.4 mg 04/24/20 09:00 04/26/20 08:18 Tamsulosin 0.4 M g Capsule PO 0.4 mg BID NEREIDA Administration No Known Allergies Allergy (Verified 03/24/20 14:54) Vitals/I&O/Wt Last Vital Signs Temp 99.4 F 04/26/20 11:43 Pulse 91 04/26/20 11:43 Resp 17 04/26/20 11:43 BP 106/69 04/26/20 11:43 Pulse Ox 94 04/26/20 11:43 04/25/20 04/26/2020 22:59 06:59 14:59 Intake Total 350 / 830 440 / 440 Output Total 0 / 0 Balance 0 / 480 350 / 830 440 / 440 Physical Exam Const: COMMON NORMALS: no acute distress and alert GENERAL APPEARANCE: comfortable, appears older than stated age and diaphoretic ORIENTATION/CONSCIOUSNESS: Yes awake OTHER: -cannot gauge orientation due to underlying cognitive impairment; more awake and alert today HENMT: COMMON NORMALS: normocephalic, atraumatic, hearing grossly normal bilaterally and moist oral mucous membranes HEAD & SCALP: normocephalic and atraumatic Eye: COMMON NORMALS: Equal, round and reactive pupils present CONJUNCTIVA: Yes conjunctival abnormal positive bilateral conjunctival injection and discharge (improved) mucoid PUPIL: Yes Equal, round and reactive pupils present Neck/C-Spine: COMMON NORMALS: full ROM GENERAL: Yes normal visual inspection and Yes trachea midline Resp: COMMON NORMALS: normal respiratory effort, No retractions and No use of accessory muscles EFFORT & INSPECTION: Yes symmetric chest movement and No tachypneic AUSCULTATION: wheezes throughout OTHER: -on RA Cardio: COMMON NORMALS: regular rate, regular rhythm, S1 normal heart sound present, S2 normal heart sound present and No murmurs present (Cardio) RATE: regular rate RHYTHM: regular rhythm HEART SOUNDS: S1 normal heart sound present and S2 normal heart sound present GI: COMMON NORMALS: Normal to inspection, nondistended, normoactive bowel sounds present, Soft to palpation and non-tender PALPATION: Yes Soft to palpation Extremity: COMMON NORMALS: normal to inspection, full ROM and no clubbing, cyanosis or edema; negative for no pedal edema Neuro: COMMON NORMALS: moves all extremities, no focal motor deficits, no sensory deficits noted and gait normal SENSORIUM/ORIENTATION: Yes alert OTHER: -underlying cognitive impairment Psych: COMMON NORMALS: cooperative ATTITUDE: Yes calm SPEECH: Yes incoherent and Yes Echolalia present (Psych) Skin: COMMON NORMALS: no rashes or lesions noted, no jaundice, no petechiae and no mottling GENERAL SKIN EXAM: no rashes or lesions noted Data : 04/26/20 05:02 04/23/20 22:32 Micro: Microbiology 04/24/20 00:01 Urine Culture - Final Urine,Clean Catch A&P Assessment and plan (1) UTI (urinary tract infection): -UA indicative of infection -urine cx: contaminants -continue Ceftriaxone -resolved leukocytosis, afebrile so far -continue to monitor vital signs Status: Acute Qualifiers: Hematuria presence: without hematuria Urinary tract infection type: acute cystitis Qualified Code(s): N30.00 - Acute cystitis without hematuria (2) Lewy body dementia: -Per documentation reviewed he has bouts of violent behavior; over the course of his disease has significantly decompensated to the point where he has developed significant dementia, creased ability to communicate verbally, progressive dysphagia -Follows up with Dr. Mccollum -continue meds Status: Chronic Qualifiers: Dementia behavioral disturbance: with behavioral disturbance Qualified Code(s): G31.83 - Dementia with Lewy bodies; F02.81 - Dementia in other diseases classified elsewhere with behavioral disturbance (3) Neurogenic bladder: -intermittent self catheterization at facility Status: Chronic (4) Developmental delay, severe: Status: Chronic (5) Autism: Status: Chronic (6) Attention deficit disorder (ADD): Status: Chronic Qualifiers: Attention deficit-hyperactivity disorder type: predominantly hyperactive Hyperactivity presence: present Qualified Code(s): F90.1 - Attention-deficit hyperactivity disorder, predominantly hyperactive type Additional A&P Information -pureed diet, aspiration precautions -fall precautions -bilateral conjunctivitis; on erythromycin ointment -Dispo: return home with supervision from [place] [facility] caregivers -Code status: DNR/DNI -anticipate discharge in 24-48 hrs if fever-free and remains alert Attestations Medical Necessity Statement*: Patient requires hospitalization for continued treatment of UTI, pending resolution of mental status changes. Time Spent in Patient Care: 16 - 35 minutes (>than 50% of time spent in counselling and/or direct pt care on unit) . Coding Level of Care Code Acute Derivatives Trader for [facility] Fwd Exam Comprehensive Diagnoses UTI (urinary tract infection) N30.00 Hematuria presence: without hematuria Urinary tract infection type: acute cystitis Lewy body dementia G31.83; F02.81 Dementia behavioral disturbance: with behavioral disturbance Neurogenic bladder N31.9 Developmental delay, severe R62.50 Autism F84.0 Attention deficit disorder (ADD) F90.1 Attention deficit-hyperactivity disorder type: predominantly hyperactive Hyperactivity presence: present
--- NOTE | 2020-04-26 18:14 | PC.NURSE ---
End of shift report Patient is been awake most of the day and has eaten better then yesterday per the home care assistant that is at bedside. Patient has a large bowel moment today. Caregiver continues to be at bedside.
[2020-04-27] VITALS: BP 102/68; PULSE 85; RESP 15; TEMP 36.8; O2SAT 92
[2020-04-27 04:00] VITALS: BP 115/77; PULSE 71; RESP 16; TEMP 36.4; O2SAT 94
[2020-04-27] MEDS: cefTRIAXone 1,000 MG in sodium chloride 0.9% (plus) 50 ML 100 MG IV (05:14)
[2020-04-27] MEDS: polyethylene glycol 3350 Pkt 17 gm PO (05:17)
--- NOTE | 2020-04-27 05:21 | PC.NURSE ---
SHIFT SUMMARY Has rested well tonight. Caregiver from [facility] with pt at all times. Has been afebrile tonight. Continues to receive IV antibiotics. Incont of urine with brief changed as needed.
[2020-04-27 08:00] VITALS: BP 97/73; PULSE 84; RESP 16; TEMP 36.4; O2SAT 92
[2020-04-27] MEDS: lithium carbonate ER 450 mg Tablet PO ×2 (08:21→21:00)
[2020-04-27] MEDS: amitriptyline 25 mg Tablet PO ×3 (08:21→21:01)
[2020-04-27] MEDS: haloperidol 5 mg Tablet 10 MG PO ×2 (08:21→18:06)
[2020-04-27] MEDS: CLONazepam 1 mg Tablet 2 MG PO ×3 (08:21→21:00)
[2020-04-27] MEDS: tamsulosin 0.4 mg Capsule PO ×2 (08:21→18:06)
[2020-04-27] MEDS: docusate sodium 100 mg Capsule PO ×2 (08:22→18:06)
[2020-04-27] MEDS: benztropine 1 mg Tablet PO ×2 (08:22→18:06)
[2020-04-27] MEDS: erythromycin Op Oint 3.5 gm Tube 1 APPLIC EYE-BOTH ×4 (08:31→21:02)
[2020-04-27 11:50] VITALS: BP 112/79; PULSE 71; RESP 16; TEMP 36.6; O2SAT 96
--- NOTE | 2020-04-27 12:19 | PC.SOCIAL ---
Pg 2 IMM Explained to pt's caregiver that is in room with pt, Fede Hall 2 IMM. No questions voiced. Provided pt a copy. Signed, dated, & timed a copy & placed in chart.
--- NOTE | 2020-04-27 13:48 | P.DS_ITS ---
Discharge Providers Date of Admission: 04/24/20 20:04 Date of Discharge: April 30, 2020 Attending Provider at Admission: Monica Ricketts MD Attending Provider at Discharge: Fouzia Low MD Consults: None Primary Care Provider: Anurag Gautam MD Diagnoses at Discharge Discharge Diagnosis (1) UTI (urinary tract infection): Status: Acute Permanent problem details: -continue treatment with cephalosporins -urine cx: contaminants -afebrile x 24 hrs Qualifiers: Hematuria presence: without hematuria Urinary tract infection type: acute cystitis Qualified Code(s): N30.00 - Acute cystitis without hematuria (2) Lewy body dementia: Status: Chronic Permanent problem details: -Per documentation reviewed he has bouts of violent behavior; over the course of his disease has significantly decompensated to the point where he has developed significant dementia, creased ability to communicate verbally, progressive dysphagia -Follows up with Dr. Mccollum -continue meds Qualifiers: Dementia behavioral disturbance: with behavioral disturbance Qualified Code(s): G31.83 - Dementia with Lewy bodies; F02.81 - Dementia in other diseases classified elsewhere with behavioral disturbance (3) Neurogenic bladder: Status: Chronic Permanent problem details: -intermittent self catheterization at facility (4) Developmental delay, severe: Status: Chronic (5) Autism: Status: Chronic (6) Attention deficit disorder (ADD): Status: Chronic Qualifiers: Attention deficit-hyperactivity disorder type: predominantly hyperactive Hyperactivity presence: present Qualified Code(s): F90.1 - Attention-deficit hyperactivity disorder, predominantly hyperactive type Other Information Additional DC diagnoses/information: -bilateral conjunctivitis; on erythromycin ointment Reason for Visit Reason for Visit: trouble standing/loose stool Hospital Course Hospital Course Patient was admitted to the medical surgical floor and started on broad-spectrum IV antibiotics secondary to noted evidence of UTI. Due to underlying developmental delay and associated cognitive impairment he had a caregiver present at bedside at all times during his hospital stay. Mental status has improved with treatment of infection, urine cultures unfortunately were contaminated. He initially was febrile off and on but has been fever free for over 24 hours now. He is also hemodynamically stable and has been maintained on room air. He is tolerating oral intake without difficulty and doing continued is voiding. He will be continued on empiric oral antibiotic therapy to complete his treatment course and is to follow-up with his primary care physician within 1 week. Caregivers are counseled on need to have patient seek medical attention immediately should his symptoms worsen or recur. Unfortunately on the initial plan the date of discharge, patient was noted to be quite somnolent, with poor oral intake so repeat work-up done to reassess for additional source of infection and discharge delayed. Repeat labs wnl, repeat UA shows some response to treatment and he is much more active, alert, and consistently awake, with improved oral tolerance. He will be discharged today in the care of his caregivers, with continued antibiotic therapy and instructions to follow up with primary care provider. Physical Exam Const: COMMON NORMALS: no acute distress and alert GENERAL APPEARANCE: comfortable, appears older than stated age and diaphoretic ORIENTATION/CO NSCIOUSNESS: Yes awake OTHER: -cannot gauge orientation due to underlying cognitive impairment; more awake and alert today HENMT: COMMON NORMALS: normocephalic, atraumatic, hearing grossly normal bilaterally and moist oral mucous membranes HEAD & SCALP: normocephalic and atraumatic Eye: COMMON NORMALS: Equal, round and reactive pupils present CONJUNCTIVA: Yes conjunctival abnormal positive bilateral conjunctival injection and discharge (improved) mucoid PUPIL: Yes Equal, round and reactive pupils present Neck/C-Spine: COMMON NORMALS: full ROM GENERAL: Yes normal visual inspection and Yes trachea midline Resp: COMMON NORMALS: normal respiratory effort, No retractions and No use of accessory muscles EFFORT & INSPECTION: Yes symmetric chest movement and No tachypneic AUSCULTATION: wheezes throughout OTHER: -on RA Cardio: COMMON NORMALS: regular rate, regular rhythm, S1 normal heart sound present, S2 normal heart sound present and No murmurs present (Cardio) RATE: regular rate RHYTHM: regular rhythm HEART SOUNDS: S1 normal heart sound present and S2 normal heart sound present GI: COMMON NORMALS: Normal to inspection, nondistended, normoactive bowel sounds present, Soft to palpation and non-tender PALPATION: Yes Soft to palpation Extremity: COMMON NORMALS: normal to inspection, full ROM and no clubbing, cyanosis or edema; negative for no pedal edema Neuro: COMMON NORMALS: moves all extremities, no focal motor deficits, no sensory deficits noted and gait normal SENSORIUM/ORIENTATION: Yes alert OTHER: -underlying cognitive impairment Psych: COMMON NORMALS: cooperative ATTITUDE: Yes calm SPEECH: Yes incoherent and Yes Echolalia present (Psych) Skin: COMMON NORMALS: no rashes or lesions noted, no jaundice, no petechiae and no mottling GENERAL SKIN EXAM: no rashes or lesions noted Discharge Data Data Completed and Pending: Completed Studies During Hospitalization Category Date Time Status CT head wo con* 7 0450 Stat Cat Scan 04/23/20 23:13 Completed Vitals: Last Vital Signs Temp 97.9 F 04/27/20 11:50 Pulse 71 04/27/20 11:50 Resp 16 04/27/20 11:50 BP 112/79 04/27/20 11:50 Pulse Ox 96 04/27/20 11:50 Discharge Plan Discharge Patient Disposition: Home Condition: Stable Prescriptions: New cefuroxime axetil 500 mg tablet 500 mg PO BID 7 Days Qty: 14 RF: 0 erythromycin 5 mg/gram (0.5 %) Ointment 1 applic eye-both QID Qty: 1 RF: 0 Continued dextromethorphan polistirex [Robitussin ER] 30 mg/5 mL suspension,extended rel 12 hr 30 ml PO Q4H PRN (Reason: Cough) RF: 0 terbinafine HCl 250 mg tablet 250 mg PO DAILY RF: 0 flunisolide 25 mcg (0.025 %) spray,non-aerosol 1 spray INTRANASAL BID RF: 0 loratadine 10 mg capsule 10 mg PO DAILY RF: 0 benztropine 1 mg tablet 1 mg PO BID RF: 0 Amitiza 24 mcg capsule 24 mcg PO BID RF: 0 docusate sodium [Colace] 100 mg capsule 100 mg PO BID RF: 0 lithium carbonate 450 mg tablet extended release 450 mg PO BID RF: 0 tamsulosin [Flomax] 0.4 mg capsule 0.4 mg PO BID RF: 0 haloperidol 10 mg tablet 10 mg PO BID RF: 0 amitriptyline 25 mg tablet 25 mg PO TID RF: 0 clonazepam [Klonopin] 2 mg tablet 2 mg PO TID RF: 0 bismuth subsalicylate [Pepto-Bismol] 262 mg/15 mL suspension 524 mg PO QID PRN (Reason: Stomach Upset) RF: 0 acetaminophen [Tylenol] 325 mg tablet 325 mg PO Q4H PRN (Reason: Pain) RF: 0 magnesium hydroxide [Milk of Magnesia] 400 mg/5 mL suspension 15 ml PO BID PRN (Reason: const) RF: 0 albuterol sulfate 2.5 mg /3 mL (0.083 %) solution for nebulization 2.5 mg INHALATION Q4H PRN (Reason: Shortness Of Breath) RF: 0 polyethylene glycol 3350 17 gram powder in packet 17 gm PO QAM Qty: 30 RF: 3 lorazepam 2 mg tablet 2 mg PO Q4H PRN (Reason: agitation) Qty: 90 RF: 5 Vyvanse 50 mg capsule 50 mg PO DAILY 30 Days Qty: 30 RF: 0 Discharge Orders: Discharge Order (Routine); Ordered 04/30/20 Ordered By: Fouzia Low Referrals: Anurag Gautam MD [Primary Care Provider] - 4-7 days (Please call Tuesday morning and schedule a follow up appointment with Dr. Reed for 4-7 days. ) Discharge Diet: Usual diet Discharge Activity: Resume usual activity Patient Instructions: Cefuroxime (By mouth) Discharge Attestations Time Spent in Discharge Care*: greater than 30 min Specific Discharge Activities: educating and/or supporting family/caregiver, documenting/other paperwork and evaluating patient/reviewing data Status at Discharge: Cognitive status at discharge: severely impaired cognition , Overall status at discharge: patient is progressing back to baseline Quality Metrics Clinical Quality Measures During this hospital stay, did patient experience: None Coding Level of Care Code Acute [facility]rel Liner for [facility] Fwd Exam Comprehensive Diagnoses UTI (urinary tract infection) N30.00 Hematuria presence: without hematuria Urinary tract infection type: acute cystitis Lewy body dementia G31.83; F02.81 Dementia behavioral disturbance: with behavioral disturbance Neurogenic bladder N31.9 Developmental delay, severe R62.50 Autism F84.0 Attention deficit disorder (ADD) F90.1 Attention deficit-hyperactivity disorder type: predominantly hyperactive Hyperactivity presence: present
--- NOTE | 2020-04-27 14:23 | PM.PN ---
Subjective Subjective: Interval history: Patient seen and examined, caregiver at bedside, has apparently been quite somnolent today and has not had much oral intake due to being too sleepy. Seems to be waking up some during my encounter and was able to sip on some water and have some applesauce. Per caregiver, his behavior is not normal as he is typically quite active. He has been afebrile for over 24 hours and otherwise hemodynamically stable, remains on room air. He is incontinent though had his briefs changed earlier this morning. Initial impression was possibility of discharge today but in light of somnolence, will hold off on this today. Medications: Reviewed: Yes Medication Review Details: Active Medications Generic Name Dose Route Start Last Admin Trade Name Freq PRN Reason Stop Dose Admin Acetaminophen 650 mg 04/25/20 01:58 04/25/20 14:07 Acetaminophen 32 5 Mg Tablet PO 650 mg Q4H PRN Administration MILD PAIN OR INCR EASE TEMP Albuterol Sulfate 2.5 mg 04/25/20 13:46 04/26/20 15:42 Albuterol 2.5 Mg /0.5 Ml Neb INHALATION 2.5 mg Q4H.RESPIRATORY P RN Administration SHORTNESS OF JASON TH Amitriptyline HCl 25 mg 04/24/20 09:00 04/27/20 08:21 Amitriptyline 25 Mg Tablet PO 25 mg TID NEREIDA Administration Benztropine Mesyla te 1 mg 04/24/20 09:00 04/27/20 08:22 Benztropine 1 Mg Tablet PO 1 mg BID NEREIDA Administration Bismuth Subsalicyl ate 30 ml 04/24/20 04:59 Bismuth Subsalic ylate 240 Ml Btl PO QID PRN indigestion Clonazepam 2 mg 04/24/20 09:00 04/27/20 08:21 Clonazepam 1 Mg Tablet PO 2 mg TID NEREIDA Administration Docusate Sodium 100 mg 04/24/20 09:00 04/27/20 08:22 Docusate Sodium 100 Mg Capsule PO 100 mg BID NEREIDA Administration Erythromycin 1 applic 04/24/20 17:00 04/27/20 13:14 Erythromycin Op Oint 3.5 Gm Tube EYE-BOTH 1 strip QID NEREIDA Administration Protocol Haloperidol 10 mg 04/24/20 09:00 04/27/20 08:21 Haloperidol 5 Mg Tablet PO 10 mg BID NEREIDA Administration Ceftriaxone Sodium 1,000 mg/ 50 mls @ 100 mls/ hr 04/24/20 05:15 04/27/20 06:34 Sodium Chloride IV Infused Q24H NEREIDA Infusion Protocol [place]iz Carbonate 450 mg 04/25/20 09:00 04/27/20 08:21 Cadiz Carbonat e Er 450 Mg Tablet PO 450 mg Q12H NEREIDA Administration Lorazepam 2 mg 04/24/20 04:59 Lorazepam 2 Mg T ablet PO Q4H PRN agitation Magnesium Hydroxid e 15 ml 04/24/20 04:59 04/25/20 08:27 Magnesium Hydrox eliane 30 Ml Udc PO 15 ml BID PRN Administration CONSTIPATION Non-Formulary Medi cation 30 ml 04/24/20 04:59 Dextromethorphan Polistirex [Robit ussin Er] PO .Q4 PRN cough Non-Formulary Medi cation 1 spray 04/24/20 09:00 04/27/20 08:31 Flunisolide INTRANASAL Not Given BID NEREIDA Non-Formulary Medi cation 50 mg 04/24/20 09:00 04/27/20 08:31 Lisdexamfetamine [Vyvanse] PO Not Given DAILY NEREIDA Non-Formulary Medi cation 24 mcg 04/24/20 09:00 04/27/20 08:31 Lubiprostone [Am itiza] PO Not Given BID NEREIDA Non-Formulary Medi cation 250 mg 04/24/20 09:00 04/27/20 08:31 Terbinafine Hcl PO Not Given DAILY NEREIDA Ondansetron HCl 4 mg 04/24/20 04:58 04/24/20 23:21 Ondansetron 2 Mg /Ml Sdv 2 Ml IVP 4 mg Q8H PRN Administration vomiting, or N/V if npo Polyethylene Glyco l 17 gm 04/24/20 06:00 04/27/20 05:17 Polyethylene Gly col 3350 Pkt 17 Gm PO 17 gm QAM NEREIDA Administration Tamsulosin HCl 0.4 mg 04/24/20 09:00 04/27/20 08:21 Tamsulosin 0.4 M g Capsule PO 0.4 mg BID NEREIDA Administration No Known Allergies Allergy (Verified 03/24/20 14:54) Vitals/I&O/Wt Last Vital Signs Temp 97.9 F 04/27/20 11:50 Pulse 71 04/27/20 11:50 Resp 16 04/27/20 11:50 BP 112/79 04/27/20 11:50 Pulse Ox 96 04/27/20 11:50 04/26/20 04/27/20 04/27/20 22:59 06:59 14:59 Intake Total 360 / 800 230 / 1030 340 / 340 Balance 360 / 800 230 / 1030 340 / 340 Physical Exam Const: COMMON NORMALS: no acute distress GENERAL APPEARANCE: comfortable, lethargic, appears older than stated age and diaphoretic ORIENTATION/CONSCIOUSNESS: Yes awake and Yes lethargic OTHER: -cannot gauge orientation due to underlying cognitive impairment; more lethargic today HENMT: COMMON NORMALS: normocephalic, atraumatic and hearing grossly normal bilaterally HEAD & SCALP: normocephalic and atraumatic MOUTH: moist mucous membranes abnormal Details: parched TEETH & GINGIVA: Yes poor dentition Eye: COMMON NORMALS: Equal, round and reactive pupils present CONJUNCTIVA: Yes conjunctival abnormal positive bilateral conjunctival injection and discharge (improved) mucoid PUPIL: Yes Equal, round and reactive pupils present Neck/C-Spine: COMMON NORMALS: full ROM GENERAL: Yes normal visual inspection and Yes trachea midline Resp: COMMON NORMALS: normal respiratory effort, No retractions and No use of accessory muscles EFFORT & INSPECTION: Yes symmetric chest movement and No tachypneic AUSCULTATION: wheezes throughout OTHER: -on RA Cardio: COMMON NORMALS: regular rate, regular rhythm, S1 normal heart sound present, S2 normal heart sound present and No murmurs present (Cardio) RATE: regular rate RHYTHM: regular rhythm HEART SOUNDS: S1 normal heart sound present and S2 normal heart sound present GI: COMMON NORMALS: Normal to inspection, nondistended, normoactive bowel sounds present, Soft to palpation and non-tender PALPATION: Yes Soft to palpation Extremity: COMMON NORMALS: normal to inspection, full ROM and no clubbing, cyanosis or edema; negative for no pedal edema Neuro: COMMON NORMALS: moves all extremities, no focal motor deficits, no sensory deficits noted and gait normal SENSORIUM/ORIENTATION: Yes lethargic OTHER: -underlying cognitive impairment Psych: COMMON NORMALS: cooperative ATTITUDE: Yes calm SPEECH: Yes incoherent and Yes Echolalia present (Psych) Skin: COMMON NORMALS: no rashes or lesions noted, no jaundice, no petechiae and no mottling GENERAL SKIN EXAM: no rashes or lesions noted Data : 04/26/20 05:02 04/23/20 22:32 Micro: Microbiology 04/24/20 00:01 Urine Culture - Final Urine,Clean Catch A&P Assessment and plan (1) UTI (urinary tract infection): -UA indicative of infection -urine cx: contaminants -continue Ceftriaxone -resolved leukocytosis, afebrile so far x 24 hrs -continue to monitor vital signs Status: Acute Qualifiers: Hematuria presence: without hematuria Urinary tract infection type: acute cystitis Qualified Code(s): N30.00 - Acute cystitis without hematuria (2) Lewy body dementia: -Per documentation reviewed he has bouts of violent behavior; over the course of his disease has significantly decompensated to the point where he has developed significant dementia, creased ability to communicate verbally, progressive dysphagia -Follows up with Dr. Mccollum -continue meds Status: Chronic Qualifiers: Dementia behavioral disturbance: with behavioral disturbance Qualified Code(s): G31.83 - Dementia with Lewy bodies; F02.81 - Dementia in other diseases classified elsewhere with behavioral disturbance (3) Neurogenic bladder: -intermittent self catheterization at facility Status: Chronic (4) Developmental delay, severe: Status: Chronic (5) Autism: Status: Chronic (6) Attention deficit disorder (ADD): Status: Chronic Qualifiers: Hyperactivity presence: present Attention deficit-hyperactivity disorder type: predominantly hyperactive Qualified Code(s): F90.1 - Attention-deficit hyperactivity disorder, predominantly hyperactive type Additional A&P Information -pureed diet, aspiration precautions -fall precautions -bilateral conjunctivitis; on erythromycin ointment -Dispo: return home with supervision from [facility] caregivers -Code status: DNR/DNI -anticipate discharge in 24-48 hrs if fever-free and level of alertness improves Attestations Medical Necessity Statement*: Patient requires hospitalization for continued treatment of UTI with associated altered mental status, quite somnolent today. Time Spent in Patient Care: 16 - 35 minutes (>than 50% of time spent in counselling and/or direct pt care on unit). Coding Level of Care Code Acute Building [employer] for [facility] Fwd Diagnoses UTI (urinary tract infection) N30.00 Hematuria presence: without hematuria Urinary tract infection type: acute cystitis Lewy body dementia G31.83; F02.81 Dementia behavioral disturbance: with behavioral disturbance Neurogenic bladder N31.9 Developmental delay, severe R62.50 Autism F84.0 Attention deficit disorder (ADD) F90.1 Hyperactivity presence: present Attention deficit-hyperactivity disorder type: predominantly hyperactive
[2020-04-27 15:51] VITALS: BP 104/76; PULSE 100; RESP 16; TEMP 37; O2SAT 93
[2020-04-27 19:20] VITALS: BP 113/74; PULSE 100; RESP 18; TEMP 37.1; O2SAT 90
--- NOTE | 2020-04-27 19:29 | PC.NURSE ---
Report to Sherita LEE at this time.
[2020-04-28] VITALS (8 sets, daily range): BP systolic 105–134; BP diastolic 71–89; PULSE 81–107; RESP 16–18; TEMP 36.6–37.2; O2SAT 93–97
[2020-04-28] MEDS: cefTRIAXone 1,000 MG in sodium chloride 0.9% (plus) 50 ML 100 MG IV (05:14)
[2020-04-28] MEDS: polyethylene glycol 3350 Pkt 17 gm PO (05:54)
[2020-04-28] MEDS: CLONazepam 1 mg Tablet 2 MG PO ×3 (08:13→20:59)
[2020-04-28] MEDS: tamsulosin 0.4 mg Capsule PO ×2 (08:13→18:15)
[2020-04-28] MEDS: benztropine 1 mg Tablet PO ×2 (08:13→18:15)
[2020-04-28] MEDS: docusate sodium 100 mg Capsule PO ×2 (08:13→18:15)
[2020-04-28] MEDS: amitriptyline 25 mg Tablet PO ×3 (08:14→21:01)
[2020-04-28] MEDS: haloperidol 5 mg Tablet 10 MG PO ×2 (08:14→18:15)
[2020-04-28] MEDS: erythromycin Op Oint 3.5 gm Tube 1 APPLIC EYE-BOTH ×4 (08:14→21:01)
[2020-04-28] MEDS: lithium carbonate ER 450 mg Tablet PO ×2 (09:51→21:01)
--- NOTE | 2020-04-28 13:38 | PM.PN ---
Subjective Subjective: Interval history: Patient seems to be more alert today, oral intake has improved significantly. Caregiver at bedside. Has been afebrile and hemodynamically stable, remains on room air. Will attempt to do some out of bed activity today. Discussed this plan with physical therapy as we will need to coordinate this with caregiver. Medications: Reviewed: Yes Medication Review Details: Active Medications Generic Name Dose Route Start Last Admin Trade Name Freq PRN Reason Stop Dose Admin Acetaminophen 650 mg 04/25/20 01:58 04/25/20 14:07 Acetaminophen 32 5 Mg Tablet PO 650 mg Q4H PRN Administration MILD PAIN OR INCR EASE TEMP Albuterol Sulfate 2.5 mg 04/25/20 13:46 04/26/20 15:42 Albuterol 2.5 Mg /0.5 Ml Neb INHALATION 2.5 mg Q4H.RESPIRATORY P RN Administration SHORTNESS OF JASON TH Amitriptyline HCl 25 mg 04/24/20 09:00 04/28/20 08:14 Amitriptyline 25 Mg Tablet PO 25 mg TID NEREIDA Administration Benztropine Mesyla te 1 mg 04/24/20 09:00 04/28/20 08:13 Benztropine 1 Mg Tablet PO 1 mg BID NEREIDA Administration Bismuth Subsalicyl ate 30 ml 04/24/20 04:59 Bismuth Subsalic ylate 240 Ml Btl PO QID PRN indigestion Clonazepam 2 mg 04/24/20 09:00 04/28/20 08:13 Clonazepam 1 Mg Tablet PO 2 mg TID NEREIDA Administration Docusate Sodium 100 mg 04/24/20 09:00 04/28/20 08:13 Docusate Sodium 100 Mg Capsule PO 100 mg BID NEREIDA Administration Erythromycin 1 applic 04/24/20 17:00 04/28/20 13:07 Erythromycin Op Oint 3.5 Gm Tube EYE-BOTH 2 strip QID NEREIDA Administration Protocol Haloperidol 10 mg 04/24/20 09:00 04/28/20 08:14 Haloperidol 5 Mg Tablet PO 10 mg BID NEREIDA Administration Ceftriaxone Sodium 1,000 mg/ 50 mls @ 100 mls/ hr 04/24/20 05:15 04/28/20 05:14 Sodium Chloride IV 100 mls/hr Q24H NEREIDA Administration Protocol [place] Carbonate 450 mg 04/25/20 09:00 04/28/20 09:51 Rand Carbonat e Er 450 Mg Tablet PO 450 mg Q12H NEREIDA Administration Lorazepam 2 mg 04/24/20 04:59 Lorazepam 2 Mg T ablet PO Q4H PRN agitation Magnesium Hydroxid e 15 ml 04/24/20 04:59 04/25/20 08:27 Magnesium Hydrox eliane 30 Ml Udc PO 15 ml BID PRN Administration CONSTIPATION Non-Formulary Medi cation 30 ml 04/24/20 04:59 Dextromethorphan Polistirex [Robit ussin Er] PO .Q4 PRN cough Non-Formulary Medi cation 1 spray 04/24/20 09:00 04/28/20 08:14 Flunisolide INTRANASAL Not Given BID NEREIDA Non-Formulary Medi cation 50 mg 04/24/20 09:00 04/28/20 08:15 Lisdexamfetamine [Vyvanse] PO Not Given DAILY NEREIDA Non-Formulary Medi cation 24 mcg 04/24/20 09:00 04/28/20 08:15 Lubiprostone [Am itiza] PO Not Given BID NEREIDA Non-Formulary Medi cation 250 mg 04/24/20 09:00 04/28/20 08:15 Terbinafine Hcl PO Not Given DAILY NEREIDA Ondansetron HCl 4 mg 04/24/20 04:58 04/24/20 23:21 Ondansetron 2 Mg /Ml Sdv 2 Ml IVP 4 mg Q8H PRN Administration vomiting, or N/V if npo Polyethylene Glyco l 17 gm 04/24/20 06:00 04/28/20 05:54 Polyethylene Gly col 3350 Pkt 17 Gm PO 17 gm QAM NEREIDA Administration Tamsulosin HCl 0.4 mg 04/24/20 09:00 04/28/20 08:13 Tamsulosin 0.4 M g Capsule PO 0.4 mg BID NEREIDA Administration No Known Allergies Allergy (Verified 03/24/20 14:54) Vitals/I&O/Wt Last Vital Signs Temp 98.5 F 04/28/20 11:22 Pulse 93 04/28/20 11:22 Resp 18 04/28/20 11:22 BP 119/83 04/28/20 11:22 Pulse Ox 96 04/28/20 11:22 11/29/20 11/30/20 11/30/20 22:59 06:59 14:59 Intake Total 250 / 590 480 / 480 Balance 250 / 590 480 / 480 Physical Exam Const: COMMON NORMALS: no acute distress GENERAL APPEARANCE: comfortable and appears older than stated age ORIENTATION/CONSCIOUSNESS: Yes awake OTHER: -cannot gauge orientation due to underlying cognitive impairment; more alert today HENMT: COMMON NORMALS: normocephalic, atraumatic and hearing grossly normal bilaterally HEAD & SCALP: normocephalic and atraumatic MOUTH: moist mucous membranes abnormal Details: parched TEETH & GINGIVA: Yes poor dentition Eye: COMMON NORMALS: Equal, round and reactive pupils present CONJUNCTIVA: Yes conjunctival abnormal positive bilateral conjunctival injection and discharge (improved) mucoid PUPIL: Yes Equal, round and reactive pupils present Neck/C-Spine: COMMON NORMALS: full ROM GENERAL: Yes normal visual inspection and Yes trachea midline Resp: COMMON NORMALS: normal respiratory effort, No retractions and No use of accessory muscles EFFORT & INSPECTION: Yes symmetric chest movement and No tachypneic AUSCULTATION: wheezes throughout OTHER: -on RA Cardio: COMMON NORMALS: regular rate, regular rhythm, S1 normal heart sound present, S2 normal heart sound present and No murmurs present (Cardio) RATE: regular rate RHYTHM: regular rhythm HEART SOUNDS: S1 normal heart sound present and S2 normal heart sound present GI: COMMON NORMALS: Normal to inspection, nondistended, normoactive bowel sounds present, Soft to palpation and non-tender PALPATION: Yes Soft to palpation Extremity: COMMON NORMALS: normal to inspection, full ROM and no clubbing, cyanosis or edema; negative for no pedal edema Neuro: COMMON NORMALS: moves all extremities, no focal motor deficits, no sensory deficits noted and gait normal OTHER: -underlying cognitive impairment Psych: COMMON NORMALS: cooperative ATTITUDE: Yes calm SPEECH: Yes incoherent and Yes Echolalia present (Psych) Skin: COMMON NORMALS: no rashes or lesions noted, no jaundice, no petechiae and no mottling GENERAL SKIN EXAM: no rashes or lesions noted Data : 04/26/20 05:02 04/23/20 22:32 A&P Assessment and plan (1) UTI (urinary tract infection): -UA indicative of infection -urine cx: contaminants -continue Ceftriaxone -resolved leukocytosis, afebrile so far x >48 hrs -continue to monitor vital signs Status: Acute Qualifiers: Hematuria presence: without hematuria Urinary tract infection type: acute cystitis Qualified Code(s): N30.00 - Acute cystitis without hematuria (2) Lewy body dementia: -Per documentation reviewed he has bouts of violent behavior; over the course of his disease has significantly decompensated to the point where he has developed significant dementia, creased ability to communicate verbally, progressive dysphagia -Follows up with Dr. Mccollum -continue meds Status: Chronic Qualifiers: Dementia behavioral disturbance: with behavioral disturbance Qualified Code(s): G31.83 - Dementia with Lewy bodies; F02.81 - Dementia in other diseases classified elsewhere with behavioral disturbance (3) Neurogenic bladder: -intermittent self catheterization at facility Status: Chronic (4) Developmental delay, severe: Status: Chronic (5) Autism: Status: Chronic (6) Attention deficit disorder (ADD): Status: Chronic Qualifiers: Hyperactivity presence: present Attention deficit-hyperactivity disorder type: predominantly hyperactive Qualified Code(s): F90.1 - Attention-deficit hyperactivity disorder, predominantly hyperactive type Additional A&P Information -pureed diet, aspiration precautions -fall precautions -bilateral conjunctivitis; on erythromycin ointment -attempt out of bed activity with PT today -Dispo: return home with supervision from [facility] caregivers -Code status: DNR/DNI -anticipate discharge in 24 hrs if level of alertness stable/improved Attestations Medical Necessity Statement*: Patient requires hospitalization for continued treatment of UTI, on IV antibiotics, improving mental status but needs to be more consistent and work on out of bed activity today. Time Spent in Patient Care: 16 - 35 minutes (>than 50% of time spent in counselling and/or direct pt care on unit). 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
[2020-04-29] VITALS (10 sets, daily range): BP systolic 105–131; BP diastolic 71–83; PULSE 60–92; RESP 16–19; TEMP 36.4–37.1; O2SAT 88–95
[2020-04-29] MEDS: cefTRIAXone 1,000 MG in sodium chloride 0.9% (plus) 50 ML 100 MG IV (05:19)
[2020-04-29] MEDS: polyethylene glycol 3350 Pkt 17 gm PO (08:50)
[2020-04-29] MEDS: CLONazepam 1 mg Tablet 2 MG PO ×3 (09:23→20:42)
[2020-04-29] MEDS: amitriptyline 25 mg Tablet PO ×3 (09:24→20:42)
[2020-04-29] MEDS: docusate sodium 100 mg Capsule PO ×2 (09:24→17:41)
[2020-04-29] MEDS: tamsulosin 0.4 mg Capsule PO ×2 (09:24→17:42)
[2020-04-29] MEDS: benztropine 1 mg Tablet PO ×2 (09:24→17:42)
--- NOTE | 2020-04-29 10:40 | PC.SOCIAL ---
IMM Update Pg. 2 of IMM updated. Initialed, dated, and timed, and placed in chart. Copy provided to caregiver in room.
[2020-04-29] MEDS: lithium carbonate ER 450 mg Tablet PO ×2 (11:10→20:42)
[2020-04-29] MEDS: erythromycin Op Oint 3.5 gm Tube 1 APPLIC EYE-BOTH ×4 (11:10→20:52)
[2020-04-29] MEDS: haloperidol 5 mg Tablet 10 MG PO ×2 (11:11→17:42)
--- NOTE | 2020-04-29 11:12 | P.PN_ITS ---
Subjective Subjective: Interval history: Patient is again noted to be somnolent this morning, was much more alert and awake yesterday, seems to have a pattern of increased somnolence every other day so far. Unclear why. Caregiver at bedside. So far has had minimal oral intake due to lethargy. Vital signs stable, has been afebrile x > 48 hrs. Will repeat labs and blood cultures, remains on ceftriaxone. Medications: Reviewed: Yes Medication Review Details: Active Medications Generic Name Dose Route Start Last Admin Trade Name Freq PRN Reason Stop Dose Admin Acetaminophen 650 mg 04/25/20 01:58 04/25/20 14:07 Acetaminophen 32 5 Mg Tablet PO 650 mg Q4H PRN Administration MILD PAIN OR INCR EASE TEMP Albuterol Sulfate 2.5 mg 04/25/20 13:46 04/29/20 08:23 Albuterol 2.5 Mg /0.5 Ml Neb INHALATION 2.5 mg Q4H.RESPIRATORY P RN Administration SHORTNESS OF JASON TH Amitriptyline HCl 25 mg 04/24/20 09:00 04/29/20 09:24 Amitriptyline 25 Mg Tablet PO 25 mg TID NEREIDA Administration Benztropine Mesyla te 1 mg 04/24/20 09:00 04/29/20 09:24 Benztropine 1 Mg Tablet PO 1 mg BID NEREIDA Administration Bismuth Subsalicyl ate 30 ml 04/24/20 04:59 Bismuth Subsalic ylate 240 Ml Btl PO QID PRN indigestion Clonazepam 2 mg 04/24/20 09:00 04/29/20 09:23 Clonazepam 1 Mg Tablet PO 2 mg TID NEREIDA Administration Docusate Sodium 100 mg 04/24/20 09:00 04/29/20 09:24 Docusate Sodium 100 Mg Capsule PO 100 mg BID NEREIDA Administration Erythromycin 1 applic 04/24/20 17:00 04/29/20 11:10 Erythromycin Op Oint 3.5 Gm Tube EYE-BOTH 1 strip QID NEREIDA Administration Protocol Haloperidol 10 mg 04/24/20 09:00 04/29/20 11:11 Haloperidol 5 Mg Tablet PO 10 mg BID NEREIDA Administration Ceftriaxone Sodium 1,000 mg/ 50 mls @ 100 mls/ hr 04/24/20 05:15 04/29/20 05:19 Sodium Chloride IV 100 mls/hr Q24H NEREIDA Administration Protocol [place] Carbonate 450 mg 04/25/20 09:00 04/29/20 11:10 [place] Carbonat e Er 450 Mg Tablet PO 450 mg Q12H NEREIDA Administration Lorazepam 2 mg 04/24/20 04:59 Lorazepam 2 Mg T ablet PO Q4H PRN agitation Magnesium Hydroxid e 15 ml 04/24/20 04:59 04/25/20 08:27 Magnesium Hydrox eliane 30 Ml Udc PO 15 ml BID PRN Administration CONSTIPATION Non-Formulary Medi cation 30 ml 04/24/20 04:59 Dextromethorphan Polistirex [Robit ussin Er] PO .Q4 PRN cough Non-Formulary Medi cation 1 spray 04/24/20 09:00 04/29/20 11:08 Flunisolide INTRANASAL Not Given BID NEREIDA Non-Formulary Medi cation 50 mg 04/24/20 09:00 04/29/20 11:08 Lisdexamfetamine [Vyvanse] PO Not Given DAILY NEREIDA Non-Formulary Medi cation 24 mcg 04/24/20 09:00 04/29/20 11:09 Lubiprostone [Am itiza] PO Not Given BID NEREIDA Non-Formulary Medi cation 250 mg 04/24/20 09:00 04/29/20 11:08 Terbinafine Hcl PO Not Given DAILY NEREIDA Ondansetron HCl 4 mg 04/24/20 04:58 04/24/20 23:21 Ondansetron 2 Mg /Ml Sdv 2 Ml IVP 4 mg Q8H PRN Administration vomiting, or N/V if npo Polyethylene Glyco l 17 gm 04/24/20 06:00 04/29/20 08:50 Polyethylene Gly col 3350 Pkt 17 Gm PO 17 gm QAM NEREIDA Administration Tamsulosin HCl 0.4 mg 04/24/20 09:00 04/29/20 09:24 Tamsulosin 0.4 M g Capsule PO 0.4 mg BID NEREIDA Administration No Known Allergies Allergy (Verified 03/24/20 14:54) Vitals/I&O/Wt Last Vital Signs Temp 98.4 F 04/29/20 07:46 Pulse 90 04/29/20 08:30 Resp 16 04/29/20 08:30 BP 131/83 04/29/20 07:46 Pulse Ox 92 04/29/20 08:30 04/28/20 04/29/20 04/29/20 22:59 06:59 14:59 Intake Total 240 / 720 Balance 240 / 720 Physical Exam Const: COMMON NORMALS: no acute distress GENERAL APPEARANCE: comfortable and appears older than stated age OTHER: -cannot gauge orientation due to underlying cognitive impairment; more somnolent today HENMT: COMMON NORMALS: normocephalic, atraumatic and hearing grossly normal bilaterally HEAD & SCALP: normocephalic and atraumatic MOUTH: moist mucous membranes abnormal Details: parched TEETH & GINGIVA: Yes poor dentition Eye: COMMON NORMALS: Equal, round and reactive pupils present CONJUNCTIVA: Yes conjunctival abnormal positive bilateral conjunctival injection and discharge (improved) mucoid PUPIL: Yes Equal, round and reactive pupils present Neck/C-Spine: COMMON NORMALS: full ROM GENERAL: Yes normal visual inspection and Yes trachea midline Resp: COMMON NORMALS: normal respiratory effort, No retractions and No use of accessory muscles EFFORT & INSPECTION: Yes symmetric chest movement and No tachypneic AUSCULTATION: wheezes throughout OTHER: -on RA Cardio: COMMON NORMALS: regular rate, regular rhythm, S1 normal heart sound present, S2 normal heart sound present and No murmurs present (Cardio) RATE: regular rate RHYTHM: regular rhythm HEART SOUNDS: S1 normal heart sound present and S2 normal heart sound present GI: COMMON NORMALS: Normal to inspection, nondistended, normoactive bowel sounds present, Soft to palpation and non-tender PALPATION: Yes Soft to palpation Extremity: COMMON NORMALS: normal to inspection, full ROM, no clubbing, cyanosis or edema and no pedal edema Neuro: COMMON NORMALS: moves all extremities, no focal motor deficits and no sensory deficits noted SENSORIUM/ORIENTATION: Yes somnolent OTHER: - underlying cognitive impairment Psych: COMMON NORMALS: cooperative ATTITUDE: Yes calm SPEECH: Yes incoherent and Yes Echolalia present (Psych) Skin: COMMON NORMALS: no rashes or lesions noted, no jaundice, no petechiae and no mottling GENERAL SKIN EXAM: no rashes or lesions noted Data : 04/26/20 05:02 04/23/20 22:32 A&P Assessment and plan (1) UTI (urinary tract infection): -UA indicative of infection -urine cx: contaminants -continue Ceftriaxone -resolved leukocytosis, afebrile so far x >48 hrs -continue to monitor vital signs -given pattern of increased somnolence every other day, will order repeat labs, blood culture, UA (straight cath) Status: Acute Qualifiers: Hematuria presence: without hematuria Urinary tract infection type: acute cystitis Qualified Code(s): N30.00 - Acute cystitis without hematuria (2) Lewy body dementia: -Per documentation reviewed he has bouts of violent behavior; over the course of his disease has significantly decompensated to the point where he has developed significant dementia, creased ability to communicate verbally, progr essive dysphagia -Follows up with Dr. Mccollum -continue meds Status: Chronic Qualifiers: Dementia behavioral disturbance: with behavioral disturbance Qualified Code(s): G31.83 - Dementia with Lewy bodies; F02.81 - Dementia in other diseases classified elsewhere with behavioral disturbance (3) Neurogenic bladder: -intermittent self catheterization at facility Status: Chronic (4) Developmental delay, severe: Status: Chronic (5) Autism: Status: Chronic (6) Attention deficit disorder (ADD): Status: Chronic Qualifiers: Hyperactivity presence: present Attention deficit-hyperactivity disorder type: predominantly hyperactive Qualified Code(s): F90.1 - Attention- deficit hyperactivity disorder, predominantly hyperactive type Additional A&P Information -pureed diet, aspiration precautions -fall precautions -bilateral conjunctivitis; on erythromycin ointment -PT evaluation appreciated for out of bed activity -Dispo: return home with supervision from [facility] caregivers -Code status: DNR/DNI -unclear why there is inconsistency in level of alertness from one day to another, will need to have patient be more consistently alert prior to discharge as this is not his baseline. CT head negative, repeat labs ordered today Attestations Medical Necessity Statement*: Patient requires hospitalization for continued monitoring and IV antibiotics with noted fluctuating levels of responsiveness. Time Spent in Patient Care: 16 - 35 minutes (>than 50% of time spent in counselling and/or direct pt care on unit) . 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
[2020-04-29 12:07] LABS: Basophils # 0.1 10^3/uL (0.0-0.1); Eosinophils # 0.2 10^3/uL (0.0-0.8); Eosinophils % 3.5 %; Hematocrit 44.1 % (42.0-52.0); Hemoglobin 14.6 g/dL (11.7-16.6); Lymphocytes # 1.5 10^3/uL (0.8-4.8); Lymphocytes % 21.8 %; Mean Corpuscular HGB Conc 33.1 g/dL (30.0-36.0); Mean Corpuscular Hemoglobin 30.5 pg (28.0-34.0); Mean Corpuscular Volume 92.1 fL (80-94); Mean Platelet Volume 9.1 fL (7.4-10.4); Monocytes # 0.4 10^3/uL (0.2-0.9); Monocytes % 5.5 %; Neutrophils % 64.3 %; Nucleated Red Blood Cells % 0 %; Platelet Count 269 10^3/cmm (130-400); Red Blood Count 4.79 10^6/uL (4.1-5.3); White Blood Count 6.9 10^3/uL (4.0-10.0)
[2020-04-29 12:36] LABS: Anion Gap 15.3 (5-19); Blood Urea Nitrogen 17 mg/dL (6-20); Calcium 9.4 mg/dL (8.5-10.5); Carbon Dioxide 25 mmol/L (22-29); Chloride 103 mmol/L (98-107); Glomerular Filtration Rate 147.8 mL/min (90-130); Glucose 98 mg/dL (65-115); Osmolality Calculated 290 mOsm/kg (285-295); Potassium 4.3 mmol/L (3.5-5.1); Sodium 139 mmol/L (136-145)
[2020-04-29 13:05] LABS: Add Urine Microscopic? YES; Bilirubin Urine Neg (Negative); Blood Urine Neg (Negative); Glucose Urine UA Norm (Normal); Ketones Urine Negative (Negative); Leukocyte Esterase Urine Trace (Negative); Nitrate Urine Negative (Negative); Protein Urine Neg (Negative); Specific Gravity, Urine 1.015 (1.005-1.030); Urine Appearance SL Hazy (CLEAR); Urine Color Yellow (Yellow); Urobilinogen Urine Norm (Negative); pH Urine 7 (5-7)
[2020-04-29 13:06] LABS: Bacteria Urine 1+ /hpf; RBC Urine 0-4 /hpf (0-2); Squamous Epithelial Cell Urine 0-4 /hpf (0-5); WBC Urine 40-55 /hpf (0-5)
[2020-04-29 13:07] LABS: Add Urine Culture? No; Amorphous Sediment Urine 1+ /hpf; Mucus Urine TRACE /hpf
[2020-04-30 04:07] VITALS: BP 98/65; PULSE 76; RESP 18; TEMP 36.8; O2SAT 94
[2020-04-30] MEDS: cefTRIAXone 1,000 MG in sodium chloride 0.9% (plus) 50 ML 100 MG IV (05:19)
[2020-04-30] MEDS: polyethylene glycol 3350 Pkt 17 gm PO (05:19)
[2020-04-30 07:10] VITALS: BP 101/66; PULSE 78; RESP 17; TEMP 36.6; O2SAT 94
[2020-04-30] MEDS: haloperidol 5 mg Tablet 10 MG PO (09:09)
[2020-04-30] MEDS: CLONazepam 1 mg Tablet 2 MG PO (09:09)
[2020-04-30] MEDS: docusate sodium 100 mg Capsule PO (09:09)
[2020-04-30] MEDS: benztropine 1 mg Tablet PO (09:09)
[2020-04-30] MEDS: lithium carbonate ER 450 mg Tablet PO (09:10)
[2020-04-30] MEDS: tamsulosin 0.4 mg Capsule PO (09:10)
[2020-04-30] MEDS: amitriptyline 25 mg Tablet PO (09:10)
[2020-04-30] MEDS: erythromycin Op Oint 3.5 gm Tube 1 APPLIC EYE-BOTH ×2 (09:40→13:23)
[2020-04-30 10:26] VITALS: PULSE 79; RESP 18; O2SAT 97
[2020-04-30 11:44] VITALS: BP 105/70; PULSE 97; RESP 16; TEMP 36.6; O2SAT 94
--- NOTE | 2020-04-30 13:30 | PM.PN ---
Subjective Subjective: Interval history: Patient is much more alert, active, repeatedly trying to get out of bed, caregiver at bedside. Missed breakfast as he was slow to wake up this morning which is not atypical for him, but had a good lunch. Has continued to be hemodynamically stable, afebrile and maintained on room air. Medications: Reviewed: Yes Medication Review Details: Active Medications Generic Name Dose Route Start Last Admin Trade Name Freq PRN Reason Stop Dose Admin Acetaminophen 650 mg 04/25/20 01:58 04/25/20 14:07 Acetaminophen 32 5 Mg Tablet PO 650 mg Q4H PRN Administration MILD PAIN OR INCR EASE TEMP Albuterol Sulfate 2.5 mg 04/25/20 13:46 04/29/20 08:23 Albuterol 2.5 Mg /0.5 Ml Neb INHALATION 2.5 mg Q4H.RESPIRATORY P RN Administration SHORTNESS OF AJSON TH Amitriptyline HCl 25 mg 04/24/20 09:00 04/30/20 09:10 Amitriptyline 25 Mg Tablet PO 25 mg TID NEREIDA Administration Benztropine Mesyla te 1 mg 04/24/20 09:00 04/30/20 09:09 Benztropine 1 Mg Tablet PO 1 mg BID NEREIDA Administration Bismuth Subsalicyl ate 30 ml 04/24/20 04:59 Bismuth Subsalic ylate 240 Ml Btl PO QID PRN indigestion Clonazepam 2 mg 04/24/20 09:00 04/30/20 09:09 Clonazepam 1 Mg Tablet PO 2 mg TID NEREIDA Administration Docusate Sodium 100 mg 04/24/20 09:00 04/30/20 09:09 Docusate Sodium 100 Mg Capsule PO 100 mg BID NEREIDA Administration Erythromycin 1 applic 04/24/20 17:00 04/30/20 09:40 Erythromycin Op Oint 3.5 Gm Tube EYE-BOTH 1 strip QID NEREIDA Administration Protocol Haloperidol 10 mg 04/24/20 09:00 04/30/20 09:09 Haloperidol 5 Mg Tablet PO 10 mg BID NEREIDA Administration Ceftriaxone Sodium 1,000 mg/ 50 mls @ 100 mls/ hr 04/24/20 05:15 04/30/20 05:19 Sodium Chloride IV 100 mls/hr Q24H NEREIDA Administration Protocol Halsey Carbonate 450 mg 04/25/20 09:00 04/30/20 09:10 Halsey Carbonat e Er 450 Mg Tablet PO 450 mg Q12H NEREIDA Administration Lorazepam 2 mg 04/24/20 04:59 Lorazepam 2 Mg T ablet PO Q4H PRN agitation Magnesium Hydroxid e 15 ml 04/24/20 04:59 04/25/20 08:27 Magnesium Hydrox eliane 30 Ml Udc PO 15 ml BID PRN Administration CONSTIPATION Non-Formulary Medi cation 30 ml 04/24/20 04:59 Dextromethorphan Polistirex [Robit ussin Er] PO .Q4 PRN cough Non-Formulary Medi cation 1 spray 04/24/20 09:00 04/30/20 09:15 Flunisolide INTRANASAL Not Given BID NEREIDA Non-Formulary Medi cation 50 mg 04/24/20 09:00 04/30/20 09:15 Lisdexamfetamine [Vyvanse] PO Not Given DAILY NEREIDA Non-Formulary Medi cation 24 mcg 04/24/20 09:00 04/30/20 09:15 Lubiprostone [Am itiza] PO Not Given BID NEREIDA Non-Formulary Medi cation 250 mg 04/24/20 09:00 04/30/20 09:15 Terbinafine Hcl PO Not Given DAILY NEREIDA Ondansetron HCl 4 mg 04/24/20 04:58 04/24/20 23:21 Ondansetron 2 Mg /Ml Sdv 2 Ml IVP 4 mg Q8H PRN Administration vomiting, or N/V if npo Polyethylene Glyco l 17 gm 04/24/20 06:00 04/30/20 05:19 Polyethylene Gly col 3350 Pkt 17 Gm PO 17 gm QAM NEREIDA Administration Tamsulosin HCl 0.4 mg 04/24/20 09:00 04/30/20 09:10 Tamsulosin 0.4 M g Capsule PO 0.4 mg BID NEREIDA Administration No Known Allergies Allergy (Verified 03/24/20 14:54) Vitals/I&O/Wt Last Vital Signs Temp 97.9 F 04/30/20 11:44 Pulse 97 04/30/20 11:44 Resp 16 04/30/20 11:44 BP 105/70 04/30/20 11:44 Pulse Ox 94 04/30/20 11:44 04/29/20 04/30/20 04/30/20 22:59 06:59 14:59 Intake Total 60 / 300 240 / 240 Balance 60 / -300 240 / 240 Physical Exam Const: COMMON NORMALS: no acute distress GENERAL APPEARANCE: comfortable and appears older than stated age ORIENTATION/CONSCIOUSNESS: Yes awake OTHER: -cannot gauge orientation due to underlying cognitive impairment; more alert and active today HENMT: COMMON NORMALS: normocephalic, atraumatic and hearing grossly normal bilaterally HEAD & SCALP: normocephalic and atraumatic MOUTH: moist mucous membranes abnormal Details: parched TEETH & GINGIVA: Yes poor dentition Eye: COMMON NORMALS: Equal, round and reactive pupils present CONJUNCTIVA: Yes conjunctival abnormal positive bilateral conjunctival injection and discharge (improved) mucoid PUPIL: Yes Equal, round and reactive pupils present Neck/C-Spine: COMMON NORMALS: full ROM GENERAL: Yes normal visual inspection and Yes trachea midline Resp: COMMON NORMALS: normal respiratory effort, No retractions and No use of accessory muscles EFFORT & INSPECTION: Yes symmetric chest movement and No tachypneic AUSCULTATION: wheezes throughout OTHER: -on RA Cardio: COMMON NORMALS: regular rate, regular rhythm, S1 normal heart sound present, S2 normal heart sound present and No murmurs present (Cardio) RATE: regular rate RHYTHM: regular rhythm HEART SOUNDS: S1 normal heart sound present and S2 normal heart sound present GI: COMMON NORMALS: Normal to inspection, nondistended, normoactive bowel sounds present, Soft to palpation and non-tender PALPATION: Yes Soft to palpation Extremity: COMMON NORMALS: normal to inspection, full ROM, no clubbing, cyanosis or edema and no pedal edema Neuro: COMMON NORMALS: moves all extremities, no focal motor deficits and no sensory deficits noted SENSORIUM/ORIENTATION: Yes somnolent OTHER: -underlying cognitive impairment Psych: COMMON NORMALS: cooperative ATTITUDE: Yes calm SPEECH: Yes incoherent and Yes Echolalia present (Psych) Skin: COMMON NORMALS: no rashes or lesions noted, no jaundice, no petechiae and no mottling GENERAL SKIN EXAM: no rashes or lesions noted Data : 04/29/20 11:46 04/29/20 11:46 Micro: Microbiology 04/29/20 11:51 Blood Culture - Preliminary Blood NEGATIVE TO DATE 04/29/20 11:46 Blood Culture - Preliminary Blood NEGATIVE TO DATE A&P Assessment and plan (1) UTI (urinary tract infection): -UA indicative of infection -urine cx: contaminants -continue Ceftriaxone -resolved leukocytosis, afebrile so far x >48 hrs -continue to monitor vital signs -given pattern of increased somnolence every other day, repeat labs, blood culture, UA (straight cath) done, wnl, blood cx-prelim negative, repeat UA-shows some improvement likely response to treatment. He is much more awake, active today Status: Acute Qualifiers: Hematuria presence: without hematuria Urinary tract infection type: acute cystitis Qualified Code(s): N30.00 - Acute cystitis without hematuria (2) Lewy body dementia: -Per documentation reviewed he has bouts of violent behavior; over the course of his disease has significantly decompensated to the point where he has developed significant dementia, increased ability to communicate verbally, progressive dysphagia -Follows up with Dr. Mccollum -continue meds Status: Chronic Qualifiers: Dementia behavioral disturbance: with behavioral disturbance Qualified Code(s): G31.83 - Dementia with Lewy bodies; F02.81 - Dementia in other diseases classified elsewhere with behavioral disturbance (3) Neurogenic bladder: -intermittent self catheterization at facility Status: Chronic (4) Developmental delay, severe: Status: Chronic (5) Autism: Status: Chronic (6) Attention deficit disorder (ADD): Status: Chronic Qualifiers: Hyperactivity presence: present Attention deficit-hyperactivity disorder type: predominantly hyperactive Qualified Code(s): F90.1 - Attention-deficit hyperactivity disorder, predominantly hyperactive type Additional A&P Information -pureed diet, aspiration precautions -fall precautions -bilateral conjunctivitis; on erythromycin ointment -PT evaluation appreciated for out of bed activity -Dispo: return home with supervision from [facility] caregivers -Code status: DNR/DNI -Much more alert and active today, good oral intake Attestations Medical Necessity Statement*: Discharge today Time Spent in Patient Care: 16 - 35 minutes (>than 50% of time spent in counselling and/or direct pt care on unit). Coding Level of Care Code Acute Building Maintenance Worker for g Fwd Diagnoses UTI (urinary tract infection) N30.00 Hematuria presence: without hematuria Urinary tract infection type: acute cystitis Lewy body dementia G31.83; F02.81 Dementia behavioral disturbance: with behavioral disturbance Neurogenic bladder N31.9 Developmental delay, severe R62.50 Autism F84.0 Attention deficit disorder (ADD) F90.1 Hyperactivity presence: present Attention deficit-hyperactivity disorder type: predominantly hyperactive
[2020-04-30 14:36] VITALS: BP 112/78; PULSE 100; RESP 16; TEMP 37; O2SAT 96
[2020-04-30 15:28] VITALS: BP 112/78; PULSE 100; RESP 16; TEMP 37; O2SAT 96
== END 2020-04-30 14:55 | disposition home or self-care (01) | DRG 690 ==
LOC: ER 21:49 → MEDSURG 04-24 03:33
PROVIDERS: Admitting Provider Student in an Organized Health Care Education/Training Program; Emergency Provider Emergency Medicine; PCP Internal Medicine; Visit Provider Family Medicine
DX: N30.00 Acute cystitis without hematuria (principal); F84.0 Autistic disorder; G31.83 Neurocognitive disorder with Lewy bodies; Z66 Do not resuscitate; F02.80 Dementia in other diseases classified elsewhere, unspecified severity, without behavioral disturbance, psychotic disturbance, mood disturbance, and anxiety; N31.9 Neuromuscular dysfunction of bladder, unspecified; R62.50 Unspecified lack of expected normal physiological development in childhood; F90.1 Attention-deficit hyperactivity disorder, predominantly hyperactive type; F31.9 Bipolar disorder, unspecified
CPT/HCPCS: 12345; 36415; 51702; 70450; 80048; 80053; 80178; 81001; 83605; 83690; 83735; 84443; 85025; 87040; 87086; 87426; 94640; 96375; 97161; 99283; G0378; J0696; J2405; J7030; J7611

== ENCOUNTER → 2020-05-05 09:22 | Outpatient (BNVA) | payer MEDICARE, MEDICAID, SELFPAY | PROVIDERS: PCP Internal Medicine; Visit Provider Specialist | DX: G31.83 Neurocognitive disorder with Lewy bodies (principal); F02.80 Dementia in other diseases classified elsewhere, unspecified severity, without behavioral disturbance, psychotic disturbance, mood disturbance, and anxiety; F98.8 Other specified behavioral and emotional disorders with onset usually occurring in childhood and adolescence | CPT/HCPCS: 99213; 99214 ==

== ENCOUNTER → 2020-07-23 09:11 | Outpatient (BNVA) | payer MEDICARE, MEDICAID, SELFPAY | PROVIDERS: PCP Internal Medicine; Visit Provider Specialist | DX: G31.83 Neurocognitive disorder with Lewy bodies (principal); F02.80 Dementia in other diseases classified elsewhere, unspecified severity, without behavioral disturbance, psychotic disturbance, mood disturbance, and anxiety; F98.8 Other specified behavioral and emotional disorders with onset usually occurring in childhood and adolescence | CPT/HCPCS: 99214 ==

== ENCOUNTER 2020-07-30 14:18 | Inpatient (IN) | payer MEDICARE, MEDICAID, SELFPAY ==
[2020-07-30] VITALS (112 sets, daily range): BP systolic 85–165; BP diastolic 43–102; PULSE 74–157; RESP 14–47; TEMP 36.8–37.7; O2SAT 93–100; BMI 29.0
[2020-07-30] MEDS: succinylcholine 20 mg/mL SDV 10mL 140 MG IVP (14:32)
--- NOTE | 2020-07-30 14:39 | XR_ITS ---
WS: [id number] Portable AP supine chest, 07/30/2020 Clinical Data: post intubation Comparison: Portable chest, 06/05/2019. Findings: The endotracheal tube is above the luly. The nasogastric tube appears to end in the stoma ch. The heart and lungs are not remarkable. XR/XR chest 1V portable [id number] Impression: Satisfactory insertion of endotracheal tube and nasogastric tube.
[2020-07-30] MEDS: vecuronium 10 mg SDV IVP (14:46)
[2020-07-30] MEDS: propofol 1,000 MG/100 ML INJ 2.4 MG IV (14:48)
[2020-07-30 15:04] LABS: Alveolar-Arterial Oxygen Gradi 51.7 mmHg (5-10); Arterial Blood Gas Hematocrit 45.1 % (42-52); Base Excess ABG -5.5 mmol/L (-2.0-2.0); Blood Gas Allen Test Pos; Blood Gas Operator Identificat CAK; Blood Gas Sample Site Radial, left; Blood Gas Sample Type Arterial; Blood Gas Tidal Volume 0.45; Carboxyhemoglobin 0.6 %THgb (0.4-20.1); HCO3 ABG 24.7 mmol/L (22-26); HGB O2 Sat 98.2 % (95-100); Ionized Calcium Level - ABG 1.3 mmol/L (1.1-1.4); Methemoglobin 1.1 % (0.4-1.5); Oxygen Device VENT; Oxygen Saturation ABG 99.8; Total Hemoglobin 14.7 g/dL (14-18)
[2020-07-30 15:05] LABS: ABG PCO2 68.7 mmHg (35-45); ABG PH Result 7.16 (7.35-7.45)
--- NOTE | 2020-07-30 15:15 | ED_ITS ---
HPI - SOB/Dyspnea General: Chief Complaint: Shortness of Breath/Dyspnea Stated Complaint: VOMIT/ASPIRATED Time Seen by Provider: 07/30/20 14:19 Source: EMS Mode of arrival: EMS Limitations: altered mental status History of Present Illness: HPI Narrative: Patient is a 44-year-old male with a history of Lewy body dementia and ADHD who lives in a [place] [facility] [place] and apparently during lunch today when he was eating bread and soup he coughed, vomited and aspirated. He became less responsive and when the ambulance arrived he was 75% on room air and was cyanotic. He was immediately placed on a nonrebreather and his oxygen saturations increased into the low to mid 90s. He was given one breathing treatment on route to the hospital. On arrival to the hospital the patient is not responsive he is on a nonrebreather and is tachypneic and having labored breathing. MD elicited complaint: shortness of breath Review of Systems General: Reports: ROS unobtainable due to mental status [facility] ED PFSH: Medical History ADHD Attention deficit disorder (ADD) Autism Constipation Developmental delay, severe Lewy body dementia -Per documentation reviewed he has bouts of violent behavior; over the course of his disease has significantly decompensated to the point where he has developed significant dementia, increased ability to communicate verbally, progressive dysphagia -Follows up with Dr. Mccollum -continue meds Neurogenic bladder -intermittent self catheterization at facility Urinary retention UTI (urinary tract infection) Surgical History History of dental surgery History of sinus surgery Family History Other CAD (coronary artery disease) Cancer Social History Smoking and tobacco status: never smoked Second hand smoke exposure: No Alcohol intake: never History of recent travel: No Physical Exam Const: EXAM LIMITATIONS: altered mental status GENERAL APPEARANCE: well developed ORIENTATION/CONSCIOUSNESS: Yes patient obtunded HENMT: COMMON NORMALS: normocephalic and atraumatic HEAD & SCALP: normocephalic and atraumatic Resp: EFFORT & INSPECTION: Yes tachypneic (RR 45), Yes labored, Yes Actively coughing and Yes retractions AUSCULTATION: wheezes lower bilaterally and di minished lung sounds on the right Cardio: COMMON NORMALS: regular rhythm, S1 normal heart sound present, S2 normal heart sound present and No murmurs present (Cardio) RATE: tachycardic RHYTHM: regular rhythm HEART SOUNDS: S1 normal heart sound present and S2 normal heart sound present GI: COMMON NORMALS: Soft to palpation and No hepatosplenomegaly present INSPECTION: Yes abdominal distension PALPATION: Yes Soft to palpation and Yes No hepatosplenomegaly present Extremity: COMMON NORMALS: normal to inspection and no pedal edema NARRATIVE EXTREMITY EXAM: cyanosis of both feet Procedures Intubation Time out performed: Yes sedative: Etomidate Mg Given: 30 paralytic: Succinylcholine Mg Given: 140 Laryngoscope: other (video assisted) ET Tube Size: 8 ET Tube Uncuffed: Yes Tube Secured Depth (cm): 22 Tube Secured Location: lips Tube Placement Confirmation: visualized tube passing through cords, equal breath sounds bilaterally, no breath sounds over epigastrium and confirmation by capnometry Patient Tolerated Procedure: well and no complications Intubation Complications: none Course Consultations: Consultation #1: Discussed the patient with Dr. Starkey, hospitalist and he kindly accepted the patient to his service. Time: 17:16 Vital Signs: Vital signs: Vital Signs Temperature 98.2 F 07/30/20 14:19 Pulse Rate 119 H 07/30/20 20:44 Respiratory Rate 25 H 07/30/20 20:46 Blood Pressure 107/85 07/30/20 18:50 Pulse Oximetry 95 07/30/20 20:44 MDM - SOB/Dyspnea MDM Narrative: Medical decision making narrative: This is a 44-year-old gentleman with Lewy body dementia who presents to the emergency department following an episode of aspiration during rounds. The patient was obtunded, in respiratory distress when he arrived. Because of his clinical status a decision was made to emergently intubate the patient on arrival and he was placed on a mechanical ventilator. He was given a dose of IV Zosyn in the emergency department and admitted to the ICU for further evaluation and management. Medical Records: Attestation: I reviewed the patient's medical records. Lab Data: Attestation: I reviewed the patient's lab results. Labs: Lab Results 07/30/20 07/30/20 07/30/20 Range/Units 14:58 15:25 15:50 WBC 10.4 H (4.0-10.0) 10^3/ uL RBC 4.47 (4.1-5.3) 10^6/u L Hgb 13.4 (11.7-16.6) g/dL Hct 41.7 L (42.0-52.0) % MCV 93.3 (80-94) fL MCH 30.0 (28.0-34.0) pg MCHC 32.1 (30.0-36.0) g/dL RDW 13.0 (12.1-15.1) % Plt Count 281 (130-400) 10^3/c mm MPV 9.7 (7.4-10.4) fL Neut % (Auto) 84.1 % Lymph % (Auto) 7.1 % Winkler % (Auto) 5.1 % Eos % (Auto) 1.2 % Baso % (Auto) 0.4 % Neut # (Auto) 8.78 H (1.8-7.7) 10^3/u L Lymph # (Auto) 0.7 L (0.8-4.8) 10^3/u L Winkler # (Auto) 0.5 (0.2-0.9) 10^3/u L Eos # (Auto) 0.1 (0.0-0.8) 10^3/u L Baso # (Auto) 0.0 (0.0-0.1) 10^3/u L Nucleated RBC % (a uto) 0 % Nucleated RBCs # 0.0 /100WBC Specimen Type Arterial Sample Site Radial, left ABG pH 7.16 L* (7.35-7.45) ABG pCO2 68.7 H* (35-45) mmHg ABG pO2 233.0 H (80.0-100.0) mmH g ABG HCO3 24.7 (22-26) mmol/L ABG O2 Saturation 99.8 ABG Base Excess -5.5 L (-2.0-2.0) mmol/ L Javier Test Pos A-a O2 Gradient 51.7 H (5-10) mmHg Hematocrit 45.1 (42-52) % Hgb O2 Saturation 98.2 (95-100) % Carboxyhemoglobin 0.6 (0.4-20.1) %THgb Methemoglobin 1.1 (0.4-1.5) % Total Hemoglobin 14.7 (14-18) g/dL Sodium 141.0 (131-143) mmol/L Potassium 4.0 (3.5-5.0) mmol/L Glucose 197.0 H (70-115) mg/dL Ionized Calcium 1.3 (1.1-1.4) mmol/L O2 Delivery Device Vent FiO2 100.0 % Tidal Volume 0.45 PEEP 8.0 cmH20 Flute Teacher ID Cak Chloride (98-107) mmol/L Carbon Dioxide (22-29) mmol/L Anion Gap (5-19) BUN (6-20) mg/dL Creatinine (0.7-1.2) mg/dL GFR Calculation (90-130) mL/min Calculated Osmolal ity (285-295) mOsm/k g Lactic Acid (0.5-2.2) mmol/L Calcium (8.5-10.5) mg/dL Total Bilirubin (0.15-1.2) mg/dL AST (0-40) U/L ALT (0-41) U/L Alkaline Phosphata se (40-130) IU/L Total Protein (6.6-8.7) g/dL Albumin (3.5-5.2) g/dL Globulin (1.3-4.6) g/dL Urine Color Yellow (Yellow) Urine Appearance Clear (CLEAR) Urine pH 7 (5-7) Ur Specific Gravit y 1.010 (1.005-1.030) Urine Protein Neg (Negative) Urine Glucose (UA) Norm (Normal) Urine Ketones Negative (Negative) Urine Blood Neg (Negative) Urine Nitrate Negative (Negative) Urine Bilirubin Neg (Negative) Urine Urobilinogen Norm (Negative) mg/dL Ur Leukocyte Shira ase Negative (Negative) 07/30/20 07/30/20 07/30/20 Range/Units 15:50 15:50 16:07 WBC (4.0-10.0) 10^3/ uL RBC (4.1-5.3) 10^6/u L Hgb (11.7-16.6) g/dL Hct (42.0-52.0) % MCV (80-94) fL MCH (28.0-34.0) pg MCHC (30.0-36.0) g/dL RDW (12.1-15.1) % Plt Count (130-400) 10^3/c mm MPV (7.4-10.4) fL Neut % (Auto) % Lymph % (Auto) % Winkler % (Auto) % Eos % (Auto) % Baso % (Auto) % Neut # (Auto) (1.8-7.7) 10^3/u L Lymph # (Auto) (0.8-4.8) 10^3/u L Winkler # (Auto) (0.2-0.9) 10^3/u L Eos # (Auto) (0.0-0.8) 10^3/u L Baso # (Auto) (0.0-0.1) 10^3/u L Nucleated RBC % (a uto) % Nucleated RBCs # /100WBC Specimen Type Arterial Sample Site Brachial, right ABG pH 7.31 L (7.35-7.45) ABG pCO2 47.4 H (35-45) mmHg ABG pO2 79.6 L (80.0-100.0) mmH g ABG HCO3 24.0 (22-26) mmol/L ABG O2 Saturation ABG Base Excess -2.6 L (-2.0-2.0) mmol/ L Javier Test Pos A-a O2 Gradient (5-10) mmHg Hematocrit 44.3 (42-52) % Hgb O2 Saturation 94.7 L (95-100) % Carboxyhemoglobin 0.8 (0.4-20.1) %THgb Methemoglobin 0.9 (0.4-1.5) % Total Hemoglobin 14.4 (14-18) g/dL Sodium 138 (131-143) mmol/L Potassium 4.2 (3.5-5.0) mmol/L Glucose 138 H (70-115) mg/dL Ionized Calcium (1.1-1.4) mmol/L O2 Delivery Device Vent FiO2 60.0 % Tidal Volume 0.45 PEEP 8.0 cmH20 Flute Teacher ID Cak Chloride 106 (98-107) mmol/L Carbon Dioxide 24 (22-29) mmol/L Anion Gap 12.2 (5-19) BUN 8 (6-20) mg/dL Creatinine 0.7 (0.7-1.2) mg/dL GFR Calculation 123.7 (90-130) mL/min Calculated Osmolal ity 287 (285-295) mOsm/k g Lactic Acid 2.4 H (0.5-2.2) mmol/L Calcium 8.7 (8.5-10.5) mg/dL Total Bilirubin 0.2 (0.15-1.2) mg/dL AST 16 (0-40) U/L ALT 9 (0-41) U/L Alkaline Phosphata se 133 H (40-130) IU/L Total Protein 7.6 (6.6-8.7) g/dL Albumin 4.1 (3.5-5.2) g/dL Globulin 3.5 (1.3-4.6) g/dL Urine Color (Yellow) Urine Appearance (CLEAR) Urine pH (5-7) Ur Specific Gravit y (1.005-1.030) Urine Protein (Negative) Urine Glucose (UA) (Normal) Urine Ketones (Negative) Urine Blood (Negative) Urine Nitrate (Negative) Urine Bilirubin (Negative) Urine Urobilinogen (Negative) mg/dL Ur Leukocyte Shira ase (Negative) Imaging Data^: CXR: Attestation: I personally reviewed and interpreted this imaging study as follows: Radiologist's impression: [address] [address] XRay Report Signed Patient: Joshua Valerio #: [id number] : 1975Acct#:[id number] Age/Sex: 44 / MADM Date: 07/30/20 Loc: IC[facility]oom/Bed: [place] [address]: Rashi Starkey MD Ordering Provider/Ordering MD: Thong Dorsey MD Date of Service: 07/30/20 Procedure(s): XR chest 1V portable [id number] Accession Number(s): [id number] Report Number: [id number] PROCEDURE INFORMATION: Exam: XR Chest Exam date and time: 07/30/2020 8:08 PM Age: 44 years old Clinical indication: Device placement; Other: Og; Additional info: Og tube placement TECHNIQUE: Imaging protocol: XR of the chest Views: 1 view. Total images: 1 COMPARISON: CR XR chest 1V portable [id number] 07/30/2020 2:42 PM FINDINGS: Tubes, catheters and devices: Endotracheal tube tip in satisfactory position above the luly. Nasogastric tube tip below the diaphragm tip at the level of the fundus of the stomach. EKG leads. Lungs: No visible active interstitial or alveolar airspace disease within the field of view. Pleural spaces: Unremarkable. No pleural effusion. No pneumothorax. Heart/Mediastinum: Cardiac structures and configuration stable. Bones/joints: Unremarkable. XR/XR chest 1V portable [id number] IMPRESSION: Nasogastric tube tip below the diaphragm at the level of the fundus of the stomach. Dictated By:Vinine Rodriguez Signed By:Vinnie RodriguezSiralph Date/Time:07/30/202047 DD/ 45 EKG Data^: EKG 1: Attestation: I personally reviewed and interpreted this EKG as follows: EKG Interpretation Date: 07/30/20 EKG interpretation time: 14:28 Prior EKG tracings: not available for review Interpretation: Sinus tachycardia. Heart rate [address] depression in V3 V4. Critical Care Time Critical Care Time: Critical Care Time: Yes Total Critical Care Time: 60 Attestation: This case had a high probability of a clinically significant, sudden, or life threatening deterioration of this patient's condition which required my full and direct attention, intervention and personal management. Discharge Plan Discharge Patient Disposition: Admitted As Inpatient Admit Provider: Rashi Starkey Clinical Impression: Acute respiratory failure with hypoxia and hypercapnia, Acute metabolic encephalopathy Aspiration pneumonia Qualifiers: Aspiration pneumonia type: due to vomit Laterality: unspecified laterality Lung location: unspecified part of lung Qualified Code(s): J69.0 - Pneumonitis due to inhalation of food and vomit Sepsis Qualifiers: Sepsis type: sepsis due to unspecified organism Sepsis acute organ dysfunction status: with acute organ dysfunction Severe sepsis acute organ dysfunction type: acute respiratory failure Acute respiratory failure type: with hypoxia Severe sepsis shock status: without septic shock Qualified Code(s): A41.9 - Sepsis, unspecified organism Condition: Stable Coding Level of Care Code ED Greenhouse Manager for g Fwd Exam Detailed
[2020-07-30] MEDS: piperacillin-tazobactam 3.375 GM in sodium chloride 0.9% (plus) 50 ML IV ×2 (15:52→20:52)
[2020-07-30 16:06] LABS: Basophils % 0.4 %; Eosinophils # 0.1 10^3/uL (0.0-0.8); Eosinophils % 1.2 %; Hematocrit 41.7 % (42.0-52.0); Hemoglobin 13.4 g/dL (11.7-16.6); Lymphocytes # 0.7 10^3/uL (0.8-4.8); Lymphocytes % 7.1 %; Mean Corpuscular HGB Conc 32.1 g/dL (30.0-36.0); Mean Corpuscular Volume 93.3 fL (80-94); Mean Platelet Volume 9.7 fL (7.4-10.4); Monocytes # 0.5 10^3/uL (0.2-0.9); Monocytes % 5.1 %; Neutrophils # 8.78 10^3/uL (1.8-7.7); Neutrophils % 84.1 %; Nucleated Red Blood Cells % 0 %; Platelet Count 281 10^3/cmm (130-400); Red Blood Count 4.47 10^6/uL (4.1-5.3); White Blood Count 10.4 10^3/uL (4.0-10.0)
[2020-07-30 16:11] LABS: Add Urine Microscopic? NO
--- NOTE | 2020-07-30 16:15 | PC.NURSE ---
per EMS report patient aspirated when he was eating bread and soup at the snf. on arrival to ER, patient was not responsive, on a nonrebreather, and labored breathing. intubated by MD at 1435. OG tube and F/C inserted. patient tolerated well. patient on sedation at this time.
[2020-07-30 16:19] LABS: ABG PCO2 47.4 mmHg (35-45); ABG PH Result 7.31 (7.35-7.45); Arterial Blood Gas Hematocrit 44.3 % (42-52); Base Excess ABG -2.6 mmol/L (-2.0-2.0); Blood Gas Allen Test Pos; Blood Gas Operator Identificat CAK; Blood Gas Sample Site Brachial, right; Blood Gas Sample Type Arterial; Blood Gas Tidal Volume 0.45; Carboxyhemoglobin 0.8 %THgb (0.4-20.1); HGB O2 Sat 94.7 % (95-100); Methemoglobin 0.9 % (0.4-1.5); Oxygen Device VENT; PO2 ABG 79.6 mmHg (80.0-100.0); Total Hemoglobin 14.4 g/dL (14-18)
[2020-07-30 16:23] LABS: Bilirubin Urine Neg (Negative); Blood Urine Neg (Negative); Glucose Urine UA Norm (Normal); Ketones Urine Negative (Negative); Leukocyte Esterase Urine Negative (Negative); Nitrate Urine Negative (Negative); Protein Urine Neg (Negative); Urine Appearance Clear (CLEAR); Urine Color Yellow (Yellow); Urobilinogen Urine Norm (Negative); pH Urine 7 (5-7)
[2020-07-30 16:34] LABS: Alanine Aminotransferase 9 U/L (0-41); Albumin Level 4.1 g/dL (3.5-5.2); Alkaline Phosphatase 133 IU/L (40-130); Anion Gap 12.2 (5-19); Aspartate Amino Transferase 16 U/L (0-40); Blood Urea Nitrogen 8 mg/dL (6-20); Calcium 8.7 mg/dL (8.5-10.5); Carbon Dioxide 24 mmol/L (22-29); Chloride 106 mmol/L (98-107); Globulin 3.5 g/dL (1.3-4.6); Glomerular Filtration Rate 123.7 mL/min (90-130); Glucose 138 mg/dL (65-115); Osmolality Calculated 287 mOsm/kg (285-295); Potassium 4.2 mmol/L (3.5-5.1); Sodium 138 mmol/L (136-145); Total Bilirubin 0.2 mg/dL (0.15-1.2); Total Protein 7.6 g/dL (6.6-8.7)
[2020-07-30 16:35] LABS: Lactic Sepsis W/Reflex 2.4 mmol/L (0.5-2.2)
--- NOTE | 2020-07-30 17:04 | PC.NURSE ---
propofol 1omg bolus iv given at 1650 per MD verbal order
--- NOTE | 2020-07-30 17:21 | PM.ACPR ---
Acute Procedures Intubation: Time out performed: Yes Sedative: etomidate Mg given: 30 Paralytic: succinylcholine Mg given: 140 Laryngoscope: fiber optic video scope ET tube size: 8 ET tube uncuffed: Yes Tube secured depth (cm): 22 Tube secured location: lips Tube placement confirmation: visualized tube passing through cords, equal breath sounds bilaterally and color change noted Patient tolerated procedure: well Intubation complications: none
--- NOTE | 2020-07-30 17:23 | PM.HP ---
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 By review of all notes from neurology and PCP starting from , it appears patient has declined to the point of needing a gait belt at all times, increasingly non verbal, progressive dysphagia now on pureed foods, intermittent behavior disturbances dependent on multiple medications. He is on intermittent self cath at the facility where he resides. apparently during lunch today when he was eating bread and soup he coughed, vomited and aspirated. He became less responsive and when the ambulance arrived he was 75% on room air and was cyanotic. He was immediately placed on a nonrebreather and his oxygen saturations increased into the low to mid 90s. He was given one breathing treatment on route to the hospital.On arrival to the hospital the patient is not responsive he is on a nonrebreather and is tachypneic and having labored breathing. ABG done revealed: Acute hypercapnic hypoxic respiratory failure. Patient was immediately intubated in the ER and was placed on mechanical ventilation (CMV: Tidal volume 450, rate:16, PEEP 8, FiO2 50 % ) Post intubation chest x-ray: The endotracheal tube is above the luly. The nasogastric tube appears to end in the stomach. The heart and lungs are not remarkable. EKG: Sinus tachycardia, Lactic acid :2.4, urinalysis clean, no major electrolyte abnormality. Patient was given Zosyn in the ER. Review of Systems General: Reports: ROS unobtainable due to endotracheal tube Medications/Allergies Home Medications Medication Instructions Recorded Confirmed Last Taken Type acetaminophen 325 mg tablet 650 mg PO Q4H PRN tab 06/03/19 07/30/20 Unknown History albuterol sulfate 2.5 mg INHALATION Q2H PRN 06/03/19 07/30/20 Unknown History amitriptyline 25 mg tablet 25 mg PO TID@08,, tab 06/03/19 07/30/20 07/30/20 08:00 History benztropine 1 mg tablet 1 mg PO BID@08,20 06/03/19 07/30/20 07/30/20 08:00 History bismuth subsalicylate 262 mg/15 mL See Rx Instructions .ROUTE 06/03/19 07/30/20 Unknown History oral suspension .COMPLEX PRN docusate sodium 100 mg capsule 100 mg PO BID@08,20 06/03/19 07/30/20 07/30/20 08:00 History loratadine 10 mg capsule 10 mg PO DAILY@08 06/03/19 07/30/20 07/30/20 08:00 History lubiprostone 24 mcg capsule 24 mcg PO BID@08,20 06/03/19 07/30/20 07/30/20 08:00 History magnesium hydroxide 400 mg/5 mL See Rx Instructions .ROUTE 06/03/19 07/30/20 Unknown History oral suspension .COMPLEX PRN tamsulosin 0.4 mg capsule 0.8 mg PO DAILY@22 cap 06/03/19 07/30/20 Unknown History flunisolide 25 mcg (0.025 %) nasal 1 spray INTRANASAL BID@08,20 ml 07/10/19 07/30/20 07/30/20 08:00 History spray terbinafine HCl 250 mg tablet 250 mg PO DAILY@08 01/07/20 07/30/20 07/30/20 08:00 History lorazepam 2 mg tablet 2 mg PO Q4H PRN #90 tab 06/19/20 07/30/20 Unknown Rx Macrobid 100 mg PO DAILY@08 07/30/20 07/30/20 07/30/20 08:00 History alum-javier nunh-tuvpcvl-ijdlvzt See Rx Instructions .ROUTE .COMPLEX 07/30/20 07/30/20 Unknown History [Carmex] ammonium lactate See Rx Instructions .ROUTE .COMPLEX 07/30/20 07/30/20 07/29/20 History benzoyl peroxide See Rx Instructions .ROUTE .COMPLEX 07/30/20 07/30/20 07/29/20 History benzoyl peroxide [Panoxyl] See Rx Instructions .ROUTE .COMPLEX 07/30/20 07/30/20 07/29/20 History boric acid in isopropyl [Swim Ear] See Rx Instructions .ROUTE .COMPLEX 07/30/20 07/30/20 Unknown History ceramides 1,3,6-II [CeraVe] See Rx Instructions .ROUTE .COMPLEX 07/30/20 07/30/20 07/30/20 08:00 History clobetasol See Rx Instructions .ROUTE .COMPLEX 07/30/20 07/30/20 Unknown History clonazepam [Klonopin] 2 mg PO TID@08,,07/30/20 07/30/20 07/30/20 08:00 History coal tar [Tarsum Professional] See Rx Instructions .ROUTE .COMPLEX 07/30/20 07/30/20 07/30/20 History dextromethorphan-guaifenesin See Rx Instructions .ROUTE .COMPLEX 07/30/20 07/30/20 Unknown History [Robitussin-DM] fluocinonide See Rx Instructions .ROUTE .COMPLEX 07/30/20 07/30/20 Unknown History haloperidol 15 mg PO BID@08,07/30/20 07/30/20 07/30/20 08:00 History ketoconazole See Rx Instructions .ROUTE .COMPLEX 07/30/20 07/30/20 Unknown History ketoconazole See Rx Instructions .ROUTE .COMPLEX 07/30/20 07/30/20 07/30/20 08:00 History ketoconazole [Nizoral] See Rx Instructions .ROUTE .COMPLEX 07/30/20 07/30/20 07/30/20 08:00 History lisdexamfetamine [Vyvanse] 50 mg PO DAILY@08 07/30/20 07/30/20 07/30/20 08:00 History lithium carbonate 450 mg PO BID@08,20 07/30/20 07/30/20 07/30/20 08:00 History iosfrhkv-oiwvxagnzk-cjsnxrolh See Rx Instructions .ROUTE .COMPLEX 07/30/20 07/30/20 Unknown History [Triple Antibiotic] polyethylene glycol 3350 17 gm PO DAILY@08 07/30/20 07/30/20 07/30/20 08:00 History sodium phosphates [Fleet Enema] See Rx Instructions .ROUTE .COMPLEX 07/30/20 07/30/20 Unknown History sunscreen See Rx Instructions .ROUTE .COMPLEX 07/30/20 07/30/20 Unknown History triamcinolone acetonide See Rx Instructions .ROUTE .COMPLEX 07/30/20 07/30/20 Unknown History zinc oxide [Desitin Rapid Relief] See Rx Instructions .ROUTE .COMPLEX 07/30/20 07/30/20 Unknown History Allergies Allergy/AdvReac Type Severity Reaction Status Date / Time No Known Allergies Allergy Verified 07/30/20 14:32 PFSH Acute PFSH: Medical History ADHD Attention deficit disorder (ADD) Autism Constipation Developmental delay, severe Lewy body dementia -Per documentation reviewed he has bouts of violent behavior; over the course of his disease has significantly decompensated to the point where he has developed significant dementia, increased ability to communicate verbally, progressive dysphagia -Follows up with Dr. Mccollum -continue meds Neurogenic bladder -intermittent self catheterization at facility Urinary retention UTI (urinary tract infection) Surgical History (Reviewed 07/30/20 @ 15:21 by Adrián Hurtado MD, [facility] [place] [facility] [place] History of dental surgery History of sinus surgery Family History (Reviewed 07/30/20 @ 15:21 by Adrián Hurtado MD, [facility] [place] [facility] [place] Other CAD (coronary artery disease) Cancer Social History (Reviewed 07/30/20 @ 15:21 by Adrián Hurtado MD, [facility] [place] [facility] [place] Smoking and tobacco status: never smoked Second hand smoke exposure: No Alcohol intake: never History of recent travel: No Vitals/I&O/Wt Last Vital Signs Temp 98.2 F 07/30/20 14:19 Pulse 124 H 07/30/20 17:20 Resp 26 H 07/30/20 17:20 BP 114/78 07/30/20 17:20 Pulse Ox 100 07/30/20 17:20 07/30/20 07/30/20 07/30/20 06:59 14:59 22:59 Intake Total 6.228 / 6.228 Output Total 1000 / 1000 Balance -993.772 / -993.772 Weight last 48 hrs Weight 81.647 kg Physical Exam HENMT: COMMON NORMALS: normocephalic and atraumatic HEAD & SCALP: normocephalic and atraumatic Resp: OTHER: Markedly diminished lung sounds over the right lung, left lung field sounds clean. Cardio: COMMON NORMALS: regular rate, regular rhythm, S1 normal heart sound present, S2 normal heart sound present, No gallops present (Cardio), No murmurs present (Cardio), No rub (Cardio) and Peripheral pulses 2+ throughout RATE: regular rate RHYTHM: regular rhythm HEART SOUNDS: S1 normal heart sound present and S2 normal heart sound present PERIPHERAL PULSES: Peripheral pulses 2+ throughout GI: COMMON NORMALS: Normal to inspection, nondistended, normoactive bowel sounds present, Soft to palpation, non-tender, No hepatosplenomegaly present and no masses AUSCULTATION: Yes normoactive bowel sounds PALPATION: Yes Soft to palpation and Yes No hepatosplenomegaly present RECTAL EXAM: Yes deferred Extremity: COMMON NORMALS: no clubbing, cyanosis or edema and no pedal edema Urinary Catheter Management^: العلي: Cath Placed During This Visit: yes Urinary Catheter Date of Insertion: 07/30/20 Urinary Catheter Time of Insertion: 15:30 Data : 07/30/20 15:50 07/30/20 15:50 Micro: Microbiology 07/30/20 15:50 Blood Culture - Preliminary Blood SPECIMEN COLLECTED 07/30/20 15:58 Blood Culture - Preliminary Blood SPECIMEN COLLECTED A&P Assessment and plan (1) Acute metabolic encephalopathy: Acute metabolic encephalopathy secondary to hypercapnic hypoxic respiratory failure secondary to aspiration pneumonia. Follow blood cultures, a.m. pro-Zane, sputum culture, urine culture Monitor serial chest x-ray Monitor serial ABG Continue mechanical ventilation Continue Zosyn Status: Acute (2) Acute respiratory failure with hypoxia and hypercapnia: Status: Acute (3) Aspiration pneumonia: Status: Acute (4) Lewy body dementia: Status: Acute (5) Attention deficit disorder: Status: Acute Additional A&P Information CODE STATUS: Full code DVT prophylaxis: Lovenox Disposition: custodial Attestations Medical Necessity Statement*: She needs to be in hospital for management of acute encephalopathy, acute respiratory failure, aspiration pneumonia. Anticipated length of stay greater than 2 midnights Coding Level of Care Code Acute Supervisor Lead Burning for [facility] Fwd Diagnoses Acute metabolic encephalopathy G93.41 Acute respiratory failure with hypoxia and hypercapnia J96.01; J96.02 Aspiration pneumonia J69.0 Lewy body dementia G31.83; F02.80 Attention deficit disorder F98.8
--- NOTE | 2020-07-30 17:24 | ECG_ITS ---
[facility] Test Date: 2020-07-30 Pat Name: Joshua Valerio Department: Room: Gender: Male Title Checker: : 1975 Requested By: Rashi Starkey Order Number: [id number] Leonard MD: Beka Singh M.D. Measurements Intervals [place] Rate: 122 P: 56 [place]: 130 QRS: 79 QRSD: 100 T: 62 QT: 337 QTc: 482 Interpretive Statements SINUS TACHYCARDIA MODERATE T-WAVE ABNORMALITY, CONSIDER ANTERIOR ISCHEMIA [-0.1+ mV T WAVE IN V3/V4] No previous ECG available for comparison Electronically Signed On 07-30-2020 21:03:35 TRACTOR OPERATOR LASER LEVELING by Beka Singh M.D. [email or web address] - Engenh[employer] de Fluidosking's daughters medical centerYodh Power and Technologies Group Limitedharrison community hospitalFuzhou Online Game [employer] Technology/store/OM/[id number]/[id number]
--- NOTE | 2020-07-30 17:39 | PC.NURSE ---
patient sedated, no s/s of discomfort at this time. updated to Tessie holm via phone
[2020-07-30 17:48] LABS: Reflex Lactate Order REFLEX LACTIC ORDERD
--- NOTE | 2020-07-30 18:51 | PC.NURSE ---
report called to Shiv
--- NOTE | 2020-07-30 20:08 | XRR_ITS ---
PROCEDURE INFORMATION: Exam: XR Chest Exam date and time: 07/30/2020 8:08 PM Age: 44 years old Clinical indication: Device placement; Other: Og; Additional info: Og tube placement TECHNIQUE: Imaging protocol: XR of the chest Views: 1 view. Total images: 1 COMPARISON: CR XR chest 1V portable [id number] 07/30/2020 2:42 PM FINDINGS: Tubes, catheters and devices: Endotracheal tube tip in satisfactory position above the luly. Nasogastric tube tip below the diaphragm tip at the level of the fundus of the stomach. EKG leads. Lungs: No visible active interstitial or alveolar airspace disease within the field of view. Pleural spaces: Unremarkable. No pleural effusion. No pneumothorax. Heart/Mediastinum: Cardiac structures and configuration stable. Bones/joints: Unremarkable. XR/XR chest 1V portable [id number] IMPRESSION: Nasogastric tube tip below the diaphragm at the level of the fundus of the stomach.
[2020-07-30] MEDS: ipratropium-albuterol 3 mL Neb INHALATION (20:44)
[2020-07-30] MEDS: enoxaparin 40 mg/0.4 mL Syringe SUBCUT (20:52)
[2020-07-30] MEDS: amitriptyline 25 mg Tablet PO (20:53)
[2020-07-30] MEDS: sodium chloride 0.9% 1,000 ML 75 ML IV (20:53)
[2020-07-30] MEDS: famotidine 20 mg/2 mL INJ IVP (20:53)
--- NOTE | 2020-07-30 22:20 | PC.NURSE ---
Received report from ER nurse. Pt's plan of care reviewed. Pt was intubated on admission. 8.0 ET 25cm @ the lip. CMV 50% Fi02, Tv 450, rate 16, PEEP of 8. Pt is sating 96%. Respirations are even and unlabored. No s/sx of distress noted. Pt is currently resting in bed. Propofol at 35mcg/kg/min. Pt does respond to touch/painful stimuli but does not tolerate being intubated while awake. Right foot is cold to the touch. Dorsal pedal pulses noted using doppler. Left foot is warm to the touch with +3 pulses noted. Hospitalist notified. No new orders at this time. Bed in lowest and locked position, call light within reach, x's 3 rails up. Bed alarm on. Will continue to monitor pt.
[2020-07-30] MEDS: lithium carbonate ER 450 mg Tablet PO (22:59)
[2020-07-30] MEDS: benztropine 1 mg Tablet PO (22:59)
[2020-07-30] MEDS: propofol 1,000 MG/100 ML INJ 17.1 MG IV (23:05)
[2020-07-31] VITALS (167 sets, daily range): BP systolic 81–161; BP diastolic 41–111; PULSE 54–138; RESP 13–31; TEMP 36.9–39.2; O2SAT 91–100; BMI 25.9
[2020-07-31] MEDS: ipratropium-albuterol 3 mL Neb INHALATION ×2 (03:06→08:28)
[2020-07-31 04:13] LABS: Basophils # 0.1 10^3/uL (0.0-0.1); Basophils % 0.5 %; Eosinophils # 0.2 10^3/uL (0.0-0.8); Hematocrit 39.9 % (42.0-52.0); Lymphocytes # 1.6 10^3/uL (0.8-4.8); Lymphocytes % 16.2 %; Mean Corpuscular HGB Conc 32.6 g/dL (30.0-36.0); Mean Corpuscular Hemoglobin 30.3 pg (28.0-34.0); Mean Platelet Volume 9.8 fL (7.4-10.4); Monocytes # 0.6 10^3/uL (0.2-0.9); Monocytes % 5.5 %; Neutrophils % 75.2 %; Nucleated Red Blood Cells % 0 %; Platelet Count 226 10^3/cmm (130-400); Red Blood Count 4.29 10^6/uL (4.1-5.3); Red Cell Distribution Width 13.4 % (12.1-15.1)
[2020-07-31] MEDS: piperacillin-tazobactam 3.375 GM in sodium chloride 0.9% (plus) 50 ML IV ×3 (04:24→20:48)
[2020-07-31 04:32] LABS: Alanine Aminotransferase 9 U/L (0-41); Albumin Level 3.6 g/dL (3.5-5.2); Alkaline Phosphatase 112 IU/L (40-130); Anion Gap 13.4 (5-19); Aspartate Amino Transferase 22 U/L (0-40); Blood Urea Nitrogen 8 mg/dL (6-20); Calcium 8.4 mg/dL (8.5-10.5); Carbon Dioxide 24 mmol/L (22-29); Chloride 105 mmol/L (98-107); Globulin 2.8 g/dL (1.3-4.6); Glomerular Filtration Rate 123.7 mL/min (90-130); Glucose 127 mg/dL (65-115); Magnesium 1.9 mg/dL (1.7-2.3); Osmolality Calculated 286 mOsm/kg (285-295); Potassium 4.4 mmol/L (3.5-5.1); Sodium 138 mmol/L (136-145); Total Bilirubin 0.3 mg/dL (0.15-1.2); Total Protein 6.4 g/dL (6.6-8.7)
[2020-07-31 05:06] LABS: Procalcitonin 0.43 ng/mL (0-0.5)
[2020-07-31 05:19] LABS: ABG PCO2 38.8 mmHg (35-45); ABG PH Result 7.42 (7.35-7.45); Arterial Blood Gas Hematocrit 37.6 % (42-52); Base Excess ABG 0.9 mmol/L (-2.0-2.0); Blood Gas Operator Identificat HARKR; Blood Gas Sample Site Brachial, right; Blood Gas Sample Type Arterial; Blood Gas Tidal Volume 0.45; HCO3 ABG 25.3 mmol/L (22-26); Oxygen Device VENT
[2020-07-31] MEDS: propofol 1,000 MG/100 ML INJ 17.1 MG IV (05:20)
[2020-07-31] MEDS: famotidine 20 mg/2 mL INJ IVP ×2 (06:22→18:11)
--- NOTE | 2020-07-31 07:55 | USCV_ITS ---
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 Dr Beka Singh MD [facility] (Electronically Signed) Final Date: 31 July 2020 20:11 S
[2020-07-31] MEDS: benztropine 1 mg Tablet PO ×2 (08:16→20:49)
[2020-07-31] MEDS: amitriptyline 25 mg Tablet PO ×3 (08:16→20:50)
--- NOTE | 2020-07-31 08:44 | XR_ITS ---
WS: [id number] Portable AP supine chest, 07/31/2020 Clinical Data: Aspiration PNA Comparison: Portable chest, 07/30/2020 Findings: There patient has developed a minimal patchy right lower lobe opacity which could represent pneumonia and/or atelectasis. The endotracheal tube and nasogastric tube remain in good position. Th e left lung is clear. The heart size is normal. Monitor leads are on the chest wall. XR/XR chest 1V portable [id number] Impression: 1. Development of patchy right lower lobe opacity and recommend follow-up chest x-ray in one to 2 days. 2. No change in endotracheal tube and nasogastric tube.
--- NOTE | 2020-07-31 09:12 | PC.CHAP ---
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 [] Patient/Family/Request visit [] Outpatient visit [] Follow-up visit [] Physician referral [] Code/Alert [x] Routine visit [] Staff referral [] Actively dying [] Patient sleeping [] Family support [] [] Out of room [] Palliative care [] [] Receiving care in room [] Pre-surgical visit [] Trauma [] Long length of stay [x] ICU visit [] Other:ventilator Relational/Emotional Strength [] Patient feels connected with others/family/visitors/staff [] Distress [] Loneliness/isolation [] Abandonment Spirituality of Patient [] Person of Eda [] Attends Religious of their Eda [] Believes in Prayer [] Reads Bible or Faith materials [] There are Spiritual issues to be addressed Glue Drier Operator Interventions [x] Prayer [] Active listening [] Non-anxious presence [] Spiritual/emotional support [] Crisis/trauma care [] Spiritual counseling [] Bereavement support [] Provided bereavement packet [] Provided Bible/devotional materials [] Provided toy/stuffed animal, coloring book to patient or family member [] Provided Communion [] Anointing/Flora [] Salvation [x] Completed spiritual assessment [] Other: Impact on Illness or Injury [] Angry [] Fearful [] Anxious [] Often cries [] Exhaustion [] Unable to work [] Unable to attend church [] Unable to walk/stand [] Unable to read [] Unable to drive [] Unable to eat/drink [] Unable to sleep [] Unable to be with family [] Patient intubated [] Other: Summary Time spent with patient
[2020-07-31] MEDS: sodium chloride 0.9% 1,000 ML 75 ML IV ×2 (09:33→22:45)
--- NOTE | 2020-07-31 14:34 | PM.PN ---
Subjective Subjective: Interval history: Patient was extubated this morning as his ABG, xray chest,weaning trial went fine. Post extubation patient has been saturating well on R.A.Had a temperature spike this afternoon and there is interval development of minimal patchy right lower lobe opacity which could represent pneumonia and/or atelectasis. Repeat sepsis work up has been done. Medications: Reviewed: Yes Vitals/I&O/Wt Last Vital Signs Temp 99.1 F 07/31/20 12:30 Pulse 118 H 07/31/20 14:00 Resp 22 H 07/31/20 14:00 BP 137/102 07/31/20 14:00 Pulse Ox 95 07/31/20 14:00 07/30/20 07/31/20 07/31/20 22:59 06:59 14:59 Intake Total 69.607 / 69.607 207.95 / 578.033 5390.5 / 1170.5 Output Total 1200 / 1200 600 / 1800 300 / 300 Balance -1130.393 / -1130.393 -392.05 / -1522.443 870.5 / 870.5 Weight last 48 hrs Weight 72.83 kg Weight 81.647 kg Physical Exam Narrative: EXAM NARRATIVE: Awake and HENMT: COMMON NORMALS: normocephalic and atraumatic HEAD & SCALP: normocephalic and atraumatic Resp: OTHER: B/L Clear lung coleman Cardio: COMMON NORMALS: regular rate, regular rhythm, S1 normal heart sound present, S2 normal heart sound present, No gallops present (Cardio), No murmurs present (Cardio), No rub (Cardio) and Peripheral pulses 2+ throughout RATE: regular rate RHYTHM: regular rhythm HEART SOUNDS: S1 normal heart sound present and S2 normal heart sound present PERIPHERAL PULSES: Peripheral pulses 2+ throughout GI: COMMON NORMALS: Normal to inspection, nondistended, normoactive bowel sounds present, Soft to palpation, non-tender, No hepatosplenomegaly present and no masses AUSCULTATION: Yes normoactive bowel sounds PALPATION: Yes Soft to palpation and Yes No hepatosplenomegaly present RECTAL EXAM: Yes deferred Extremity: COMMON NORMALS: no clubbing, cyanosis or edema and no pedal edema Urinary Catheter Management^: العلي: Cath Placed During This Visit: yes Reason for Continuing Indwelling Catheter: Accurate Measurement of Urinary Output in Critically Ill Patients Urinary Catheter Date of Insertion: 07/30/20 Urinary Catheter Time of Insertion: 15:30 Data : 07/31/20 03:32 07/31/20 03:32 Micro: Microbiology 07/30/20 14:35 Gram Stain - Final Sputum - Endotracheal Tube Aspirate 07/30/20 15:50 Blood Culture - Preliminary Blood SPECIMEN COLLECTED 07/30/20 15:58 Blood Culture - Preliminary Blood SPECIMEN COLLECTED A&P Assessment and plan (1) Acute metabolic encephalopathy: Acute metabolic encephalopathy secondary to hypercapnic hypoxic respiratory failure secondary to aspiration pneumonia. Pro-Zane:0.43 Blood cultures: sputum culture: Urine culture: chest x-ray;Interval development of minimal patchy right lower lobe opacity which could represent pneumonia and/or atelectasis. ABG: Initially on mechanical ventilation, s/p extubation. Continue Zosyn Status: Acute (2) Acute respiratory failure with hypoxia and hypercapnia: Resolved Status: Acute (3) Aspiration pneumonia: Status: Acute Qualifiers: Aspiration pneumonia type: due to vomit Laterality: unspecified laterality Lung location: unspecified part of lung Qualified Code(s): J69.0 - Pneumonitis due to inhalation of food and vomit (4) Lewy body dementia: Status: Acute (5) Attention deficit disorder: Status: Acute Additional A&P Information CODE STATUS: Full code DVT prophylaxis: Lovenox Disposition: care home Attestations Medical Necessity Statement*: Patient needs to be in hospital for management of Aspiration PNA. Coding Level of Care Code Acute Aquatics Assistant Department Head for [facility] Fwd Diagnoses Acute metabolic encephalopathy G93.41 Acute respiratory failure with hypoxia and hypercapnia J96.01; J96.02 Aspiration pneumonia J69.0 Aspiration pneumonia type: due to vomit Laterality: unspecified laterality Lung location: unspecified part of lung Lewy body dementia G31.83; F02.80 Attention deficit disorder F98.8
[2020-07-31] MEDS: acetaminophen 325 mg Tablet 650 MG PO ×2 (16:41→21:26)
--- NOTE | 2020-07-31 17:38 | PC.NURSE ---
Dr Starkey at bedside around 0800 in the morning, discussed starting an SBT on patient, turned off Propofol at 0900, Patient passed SBT and so I called dr Starkey for orders to extubate, He gave the okay to extubate and placed the order at 1130, Patient was Extubated at 1235, tolerated it well, is on Room air. During 1600 assessment patient spiked a temp of 102.[address] Starkey to notify him of temperature, received orders for repeat blood, sputum, and urine cultures. Dr Starkey came by at 1730 to see patient and just check on him and make sure he is doing okay. Patient in room sitting up resting, still showing signs of possible aspiration so waiting to feed him until tomorrow.
[2020-07-31] MEDS: enoxaparin 40 mg/0.4 mL Syringe SUBCUT (18:11)
--- NOTE | 2020-07-31 19:51 | PC.NURSE ---
Received bed side shift report from off going nurse. Pt's plan of care reviewed. Pt resting in bed. Respirations are even and unlabored. No s/sx of distress noted. Pt appears to be resting comfortably at this time. Pt is able to follow simple commands but is unable to voice needs or wants. Pt seems to only grunt when trying to communicate. Pt was able to squeeze my hands when asked. Pt is sating 92% on 2LPM/NC. Pt is now coarse in bilateral lower lobes compared to last night only being coarse in the right lower lobe. Positive pulses noted bilateral lower extremities. Right foot is now warm to the touch and pulses are now able to be palpated. No other concerns noted at this time. Bed in lowest and locked position, call light within reach, x's 3 rails up. Bed alarm on. Will continue to monitor pt.
[2020-07-31] MEDS: lithium carbonate ER 450 mg Tablet PO (20:48)
[2020-08-01] VITALS (227 sets, daily range): BP systolic 76–161; BP diastolic 50–108; PULSE 82–112; RESP 13–41; TEMP 36.8–37.3; O2SAT 85–100; BMI 25.5
[2020-08-01 03:58] LABS: Basophils % 0.5 %; Eosinophils # 0.3 10^3/uL (0.0-0.8); Eosinophils % 4.2 %; Hematocrit 35.3 % (42.0-52.0); Hemoglobin 11.2 g/dL (11.7-16.6); Lymphocytes # 1.2 10^3/uL (0.8-4.8); Mean Corpuscular HGB Conc 31.7 g/dL (30.0-36.0); Mean Corpuscular Hemoglobin 30.2 pg (28.0-34.0); Mean Corpuscular Volume 95.1 fL (80-94); Mean Platelet Volume 9.7 fL (7.4-10.4); Monocytes # 0.5 10^3/uL (0.2-0.9); Monocytes % 6.7 %; Neutrophils # 5.67 10^3/uL (1.8-7.7); Nucleated Red Blood Cells % 0 %; Platelet Count 187 10^3/cmm (130-400); Red Blood Count 3.71 10^6/uL (4.1-5.3); Red Cell Distribution Width 13.2 % (12.1-15.1); White Blood Count 7.8 10^3/uL (4.0-10.0)
[2020-08-01 04:25] LABS: Alanine Aminotransferase 7 U/L (0-41); Alkaline Phosphatase 91 IU/L (40-130); Aspartate Amino Transferase 26 U/L (0-40); Blood Urea Nitrogen 7 mg/dL (6-20); Calcium 8.3 mg/dL (8.5-10.5); Carbon Dioxide 26 mmol/L (22-29); Chloride 107 mmol/L (98-107); Glomerular Filtration Rate 123.7 mL/min (90-130); Glucose 92 mg/dL (65-115); Osmolality Calculated 288 mOsm/kg (285-295); Sodium 140 mmol/L (136-145); Total Bilirubin 0.5 mg/dL (0.15-1.2)
[2020-08-01] MEDS: piperacillin-tazobactam 3.375 GM in sodium chloride 0.9% (plus) 50 ML IV ×3 (04:29→20:34)
[2020-08-01] MEDS: famotidine 20 mg/2 mL INJ IVP ×2 (06:22→18:03)
--- NOTE | 2020-08-01 09:39 | PC.NURSE ---
49.5 ml of propofol wasted, mar updated, verified by second rn Cj.
[2020-08-01] MEDS: vancomycin 1,000 MG in sodium chloride 0.9% 250 ML 250 MG IV ×2 (09:46→18:02)
--- NOTE | 2020-08-01 12:02 | PM.PN ---
Subjective Subjective: Interval history: Patient was seen and examined this morning, currently at his baseline mentation.Continue to be least communicative verbally, with minimum poor oral intake. Medications: Reviewed: Yes Vitals/I&O/Wt Last Vital Signs Temp 98.2 F 08/01/20 04:50 Pulse 97 08/01/20 08:00 Resp 22 H 08/01/20 04:50 BP 131/80 08/01/20 04:50 Pulse Ox 98 08/01/20 04:50 07/31/20 08/01/20 08/01/20 22:59 06:59 14:59 Intake Total 1040 / 2260.5 50 / 2310.5 300 / 300 Output Total 600 / 900 1000 / 1900 400 / 400 Balance 440 / 1360.5 -950 / 410.5 -100 / -100 Weight last 48 hrs Weight 71.866 kg Weight 72.83 kg Weight 81.647 kg Physical Exam Narrative: EXAM NARRATIVE: Awake HENMT: COMMON NORMALS: normocephalic and atraumatic HEAD & SCALP: normocephalic and atraumatic Resp: OTHER: B/L Clear lung coleman Cardio: COMMON NORMALS: regular rate, regular rhythm, S1 normal heart sound present, S2 normal heart sound present, No gallops present (Cardio), No murmurs present (Cardio), No rub (Cardio) and Peripheral pulses 2+ throughout RATE: regular rate RHYTHM: regular rhythm HEART SOUNDS: S1 normal heart sound present and S2 normal heart sound present PERIPHERAL PULSES: Peripheral pulses 2+ throughout GI: COMMON NORMALS: Normal to inspection, nondistended, normoactive bowel sounds present, Soft to palpation, non-tender, No hepatosplenomegaly present and no masses AUSCULTATION: Yes normoactive bowel sounds PALPATION: Yes Soft to palpation and Yes No hepatosplenomegaly present RECTAL EXAM: Yes deferred Extremity: COMMON NORMALS: no clubbing, cyanosis or edema and no pedal edema Urinary Catheter Management^: العلي: Cath Placed During This Visit: yes Reason for Continuing Indwelling Catheter: Accurate Measurement of Urinary Output in Critically Ill Patients Urinary Catheter Date of Insertion: 07/30/20 Urinary Catheter Time of Insertion: 15:30 Data : 08/01/20 03:18 08/01/20 03:18 Micro: Microbiology 07/31/20 16:58 Blood Culture - Preliminary Blood SPECIMEN COLLECTED 07/31/20 16:50 Blood Culture - Preliminary Blood SPECIMEN COLLECTED 07/30/20 15:50 Blood Culture - Preliminary Blood NEGATIVE TO DATE 07/30/20 15:58 Blood Culture - Preliminary Blood NEGATIVE TO DATE 07/30/20 14:35 Gram Stain - Final Sputum - Endotracheal Tube Aspirate A&P Assessment and plan (1) Sepsis: Sepsis 2/2 to aspiration PNA: Fever,tachycardia,: Aspiration PNA Pro-Zane:0.43 Blood cultures: NTD sputum culture: Urine culture: NTD chest x-ray;Interval development of minimal patchy right lower lobe opacity. ABG:Ph: 7.42,PCO2: 38,PO2: 118, FIO2: 50 % Initially on mechanical ventilation, s/p extubation. Continue Zosyn ( 07/30-) Continue Vancomycin ( 08/01--) Status: Acute (2) Acute metabolic encephalopathy: Acute metabolic encephalopathy secondary to hypercapnic hypoxic respiratory failure secondary to aspiration pneumonia. Pro-Zane:0.43 Blood cultures: NTD sputum culture: Urine culture: NTD chest x-ray;Interval development of minimal patchy right lower lobe opacity which could represent pneumonia and/or atelectasis. ABG:Ph: 7.42,PCO2: 38,PO2: 118, FIO2: 50 % Initially on mechanical ventilation, s/p extubation. Continue Zosyn ( 07/30-) Continue Vancomycin ( 08/01--) Status: Acute (3) Acute respiratory failure with hypoxia and hypercapnia: Resolved Status: Acute (4) Aspiration pneumonia: Status: Acute Qualifiers: Aspiration pneumonia type: due to vomit Laterality: unspecified laterality Lung location: unspecified part of lung Qualified Code(s): J69.0 - Pneumonitis due to inhalation of food and vomit (5) Lewy body dementia: Status: Acute (6) Attention deficit disorder: Status: Acute (7) Inappropriate sinus tachycardia: Status: Acute Additional A&P Information CODE STATUS: Full code DVT prophylaxis: Lovenox Disposition: custodial Attestations Medical Necessity Statement*: Patient needs to be in hospital for the management of sepsis 2/2 Aspiration PNA Coding Level of Care Code Acute 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
[2020-08-01] MEDS: dextrose 5%-sod chloride 0.9% 1,000 ML 50 ML IV (12:51)
[2020-08-01] MEDS: enoxaparin 40 mg/0.4 mL Syringe SUBCUT (18:03)
--- NOTE | 2020-08-01 19:19 | PC.NURSE ---
Received bed side shift report from off going nurse. Pt's plan of care reviewed. Pt resting in bed. Respirations are even and unlabored. No s/sx of distress noted. Pt appears to be resting comfortably at this time. Pt is no longer on oxygen and sating 98% on room air. No concerns noted. Bed in lowest and locked position, call light and water within reach, x's 3 rails up. Bed alarm on. Will continue to monitor pt.
[2020-08-02] VITALS (63 sets, daily range): BP systolic 77–156; BP diastolic 56–111; PULSE 76–112; RESP 11–28; TEMP 36.3–37.2; O2SAT 91–99; BMI 25.6
[2020-08-02] MEDS: vancomycin 1,000 MG in sodium chloride 0.9% 250 ML 250 MG IV ×3 (01:56→18:41)
[2020-08-02] MEDS: acetaminophen 325 mg Tablet 650 MG PO (02:07)
[2020-08-02] MEDS: piperacillin-tazobactam 3.375 GM in sodium chloride 0.9% (plus) 50 ML IV ×3 (04:49→21:25)
[2020-08-02 05:51] LABS: Basophils % 0.5 %; Eosinophils # 0.3 10^3/uL (0.0-0.8); Eosinophils % 4.2 %; Hematocrit 34.9 % (42.0-52.0); Hemoglobin 11.2 g/dL (11.7-16.6); Lymphocytes # 1.2 10^3/uL (0.8-4.8); Lymphocytes % 18.7 %; Mean Corpuscular HGB Conc 32.1 g/dL (30.0-36.0); Mean Corpuscular Hemoglobin 29.6 pg (28.0-34.0); Mean Corpuscular Volume 92.3 fL (80-94); Mean Platelet Volume 9.7 fL (7.4-10.4); Monocytes # 0.4 10^3/uL (0.2-0.9); Monocytes % 5.8 %; Neutrophils % 70.3 %; Nucleated Red Blood Cells % 0 %; Platelet Count 205 10^3/cmm (130-400); Red Blood Count 3.78 10^6/uL (4.1-5.3); Red Cell Distribution Width 12.6 % (12.1-15.1); White Blood Count 6.3 10^3/uL (4.0-10.0)
[2020-08-02] MEDS: famotidine 20 mg/2 mL INJ IVP ×2 (06:14→17:41)
[2020-08-02 06:19] LABS: Alanine Aminotransferase 8 U/L (0-41); Albumin Level 3.1 g/dL (3.5-5.2); Alkaline Phosphatase 90 IU/L (40-130); Anion Gap 15.5 (5-19); Aspartate Amino Transferase 20 U/L (0-40); Blood Urea Nitrogen 7 mg/dL (6-20); Calcium 7.9 mg/dL (8.5-10.5); Carbon Dioxide 23 mmol/L (22-29); Chloride 107 mmol/L (98-107); Glomerular Filtration Rate 182.3 mL/min (90-130); Glucose 98 mg/dL (65-115); Osmolality Calculated 292 mOsm/kg (285-295); Potassium 3.5 mmol/L (3.5-5.1); Sodium 142 mmol/L (136-145); Total Bilirubin 0.3 mg/dL (0.15-1.2); Total Protein 6.1 g/dL (6.6-8.7)
[2020-08-02] MEDS: dextrose 5%-sod chloride 0.9% 1,000 ML 50 ML IV (08:12)
--- NOTE | 2020-08-02 09:45 | PC.SOCIAL ---
Pg 2 IMM Explained to pt's mother, Thao, via phone, Pg 2 IMM. No questions voiced. Provided pt a copy. Initialed, dated, & timed a copy & placed in chart.
[2020-08-02] MEDS: benztropine 1 mg Tablet PO ×2 (10:17→21:26)
[2020-08-02] MEDS: amitriptyline 25 mg Tablet PO ×3 (10:17→21:26)
[2020-08-02] MEDS: lithium carbonate ER 450 mg Tablet PO ×2 (10:17→21:26)
[2020-08-02] MEDS: lanolin oint 7 gm 1 APPLIC TOPICAL (10:32)
[2020-08-02 11:14] LABS: Vancomycin Trough 11.9 ug/mL (10-15)
--- NOTE | 2020-08-02 13:34 | PM.PN ---
Subjective Subjective: Interval history: Patient was seen and examined this morning, currently at his baseline mentation.Continue to be least communicative verbally, with minimum poor oral intake. Has remained afebrile. Medications: Reviewed: Yes Vitals/I&O/Wt Last Vital Signs Temp 97.3 F L 08/02/20 07:00 Pulse 84 08/02/20 12:00 Resp 19 H 08/02/20 12:00 BP 156/98 08/02/20 12:00 Pulse Ox 96 08/02/20 12:00 08/01/20 08/02/20 08/02/20 22:59 06:59 14:59 Intake Total 300 / 1600 300 / 1900 1406.667 / 1406.667 Output Total 800 / 1600 550 / 2150 650 / 650 Balance -500 / 0 -250 / -250 756.667 / 756.667 Weight last 48 hrs Weight 71.923 kg Weight 71.866 kg Physical Exam Narrative: EXAM NARRATIVE: Awake HENMT: COMMON NORMALS: normocephalic and atraumatic HEAD & SCALP: normocephalic and atraumatic Resp: OTHER: B/L Clear lung coleman Cardio: COMMON NORMALS: regular rate, regular rhythm, S1 normal heart sound present, S2 normal heart sound present, No gallops present (Cardio), No murmurs present (Cardio), No rub (Cardio) and Peripheral pulses 2+ throughout RATE: regular rate RHYTHM: regular rhythm HEART SOUNDS: S1 normal heart sound present and S2 normal heart sound present PERIPHERAL PULSES: Peripheral pulses 2+ throughout GI: COMMON NORMALS: Normal to inspection, nondistended, normoactive bowel sounds present, Soft to palpation, non-tender, No hepatosplenomegaly present and no masses AUSCULTATION: Yes normoactive bowel sounds PALPATION: Yes Soft to palpation and Yes No hepatosplenomegaly present RECTAL EXAM: Yes deferred Extremity: COMMON NORMALS: no clubbing, cyanosis or edema and no pedal edema Urinary Catheter Management^: العلي: Cath Placed During This Visit: yes Reason for Continuing Indwelling Catheter: Accurate Measurement of Urinary Output in Critically Ill Patients Urinary Catheter Date of Insertion: 07/30/20 Urinary Catheter Time of Insertion: 15:30 Data : 08/02/20 03:29 08/02/20 03:29 Micro: Microbiology 07/31/20 16:45 Urine Culture - Final Urine Catheterized 07/30/20 14:35 Gram Stain - Final Sputum - Endotracheal Tube Aspirate Sputum Culture - Final Staphylococcus aureus 07/31/20 16:58 Blood Culture - Preliminary Blood NEGATIVE TO DATE 07/31/20 16:50 Blood Culture - Preliminary Blood NEGATIVE TO DATE A&P Assessment and plan (1) Sepsis: Sepsis 2/2 to aspiration PNA: Fever,tachycardia,: Aspiration PNA Pro-Zane:0.43 Blood cultures: NTD sputum culture: Urine culture: NTD chest x-ray;Interval development of minimal patchy right lower lobe opacity. ABG:Ph: 7.42,PCO2: 38,PO2: 118, FIO2: 50 % Initially on mechanical ventilation, s/p extubation. Continue Zosyn ( 07/30-) Continue Vancomycin ( 08/01--) Status: Acute (2) Acute metabolic encephalopathy: Acute metabolic encephalopathy secondary to hypercapnic hypoxic respiratory failure secondary to aspiration pneumonia. Pro-Zane:0.43 Blood cultures: NTD sputum culture: Urine culture: NTD chest x-ray;Interval development of minimal patchy right lower lobe opacity which could represent pneumonia and/or atelectasis. ABG:Ph: 7.42,PCO2: 38,PO2: 118, FIO2: 50 % Initially on mechanical ventilation, s/p extubation. Continue Zosyn ( 07/30-) Continue Vancomycin ( 08/01--) Status: Acute (3) Acute respiratory failure with hypoxia and hypercapnia: Resolved Status: Acute (4) Aspiration pneumonia: Status: Acute Qualifiers: Aspiration pneumonia type: due to vomit Laterality: unspecified laterality Lung location: unspecified part of lung Qualified Code(s): J69.0 - Pneumonitis due to inhalation of food and vomit (5) Lewy body dementia: Status: Acute (6) Attention deficit disorder: Status: Acute (7) Inappropriate sinus tachycardia: Status: Acute Additional A&P Information CODE STATUS: Full code DVT prophylaxis: Lovenox Disposition: nursing home Attestations Medical Necessity Statement*: Patient needs to be in hospital for the management of Sepsis 2/2 Aspiration PNA. 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
[2020-08-02] MEDS: enoxaparin 40 mg/0.4 mL Syringe SUBCUT (18:47)
[2020-08-03] VITALS: BP 132/84; PULSE 107; RESP 17; TEMP 36.4; O2SAT 94
[2020-08-03] MEDS: vancomycin 1,000 MG in sodium chloride 0.9% 250 ML 250 MG IV (02:07)
[2020-08-03] MEDS: piperacillin-tazobactam 3.375 GM in sodium chloride 0.9% (plus) 50 ML IV ×2 (03:43→12:17)
[2020-08-03 03:59] VITALS: BP 119/81; PULSE 100; RESP 17; TEMP 36.2; O2SAT 93
[2020-08-03] MEDS: famotidine 20 mg/2 mL INJ IVP (06:39)
[2020-08-03 07:47] VITALS: PULSE 110; RESP 18; O2SAT 94
[2020-08-03 08:00] VITALS: BP 117/81; PULSE 109; RESP 18; TEMP 36.5; O2SAT 94
[2020-08-03] MEDS: lithium carbonate ER 450 mg Tablet PO (08:37)
[2020-08-03] MEDS: benztropine 1 mg Tablet PO (08:37)
[2020-08-03] MEDS: amitriptyline 25 mg Tablet PO (08:38)
[2020-08-03 11:44] VITALS: BP 112/79; PULSE 106; RESP 18; TEMP 36.6; O2SAT 93
--- NOTE | 2020-08-03 13:00 | PM.DCS ---
Discharge Providers Date of Admission: 07/30/20 17:24 Date of Discharge: August 03, 2020 Attending Provider at Admission: Rashi Starkey MD Attending Provider at Discharge: Rashi Starkey MD Primary Care Provider: Anurag Gautam MD Diagnoses at Discharge Discharge Diagnosis (1) Sepsis: Permanent problem details: resolved (2) Acute metabolic encephalopathy: Permanent problem details: Patient is at baseline mentation (3) Acute respiratory failure with hypoxia and hypercapnia: Permanent problem details: Resolved (4) Aspiration pneumonia: Qualifiers: Aspiration pneumonia type: due to vomit Laterality: unspecified laterality Lung location: unspecified part of lung Qualified Code(s): J69.0 - Pneumonitis due to inhalation of food and vomit (5) Lewy body dementia: (6) Attention deficit disorder: (7) Inappropriate sinus tachycardia: Reason for Visit Reason for Visit: VOMIT/ASPIRATED Hospital Course Hospital Course Joshua Valerio is 44 year old male with severe Lewy Body dementia, severe attention deficit disorder, 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 By review of all notes from neurology and PCP starting from , it appears patient has declined to the point of needing a gait belt at all times, increasingly non verbal, progressive dysphagia now on pureed foods, intermittent behavior disturbances dependent on multiple medications. He is on intermittent self cath at the facility where he resides. apparently during lunch today when he was eating bread and soup he coughed, vomited and aspirated. He became less responsive and when the ambulance arrived he was 75% on room air and was cyanotic. He was immediately placed on a nonrebreather and his oxygen saturations increased into the low to mid 90s. He was given one breathing treatment on route to the hospital.On arrival to the hospital the patient is not responsive he is on a nonrebreather and is tachypneic and having labored breathing. ABG done revealed: Acute hypercapnic hypoxic respiratory failure. Patient was immediately intubated in the ER and was placed on mechanical ventilation (CMV: Tidal volume 450, rate:16, PEEP 8, FiO2 50 % ) Post intubation chest x-ray: The endotracheal tube is above the luly. The nasogastric tube appears to end in the stomach. The heart and lungs are not remarkable. EKG: Sinus tachycardia, Lactic acid :2.4, urinalysis clean, no major electrolyte abnormality. Patient was given Zosyn in the ER.Patient was admitted for the management of Acute metabolic encephalopathy secondary to hypercapnic hypoxic respiratory failure secondary to aspiration pneumonia.Patient was on mechanical ventilation for a day and was extubated next day as there was resolution hypoxia and hypercapnia.Hospital course was complicated by the development of sepsis 2/2 aspiration pna.As patient was having Fever,tachycardia,:chest x-ray;Interval development of minimal patchy right lower lobe opacity. Aspiration PNA. Pro-Zane:0.43. Blood cultures: NTD. sputum culture: Urine culture: NTD.Patient was on vancomycin and zosyn. And was discharged on Levofloxacin to complete the abxs.At the time of discharge he was not spiking temperature,other hemodynamic parameters were stable.He was at his baseline mentation.Patient responded well to the above medical management and was discharged in stable condition to long term. Physical Exam Narrative: EXAM NARRATIVE: Awake HENMT: COMMON NORMALS: normocephalic and atraumatic HEAD & SCALP: normocephalic and atraumatic Resp: OTHER: B/L Clear lung coleman Cardio: COMMON NORMALS: regular rate, regular rhythm, S1 normal heart sound present, S2 normal heart sound present, No gallops present (Cardio), No murmurs present (Cardio), No rub (Cardio) and Peripheral pulses 2+ throughout RATE: regular rate RHYTHM: regular rhythm HEART SOUNDS: S1 normal heart sound present and S2 normal heart sound present PERIPHERAL PULSES: Peripheral pulses 2+ throughout GI: COMMON NORMALS: Normal to inspection, nondistended, normoactive bowel sounds present, Soft to palpation, non-tender, No hepatosplenomegaly present and no masses AUSCULTATION: Yes normoactive bowel sounds PALPATION: Yes Soft to palpation and Yes No hepatosplenomegaly present RECTAL EXAM: Yes deferred Extremity: COMMON NORMALS: no clubbing, cyanosis or edema and no pedal edema Urinary Catheter Management^: العلي: Cath Placed During This Visit: yes Reason for Continuing Indwelling Catheter: Acute Urinary Retention or Obstruction Urinary Catheter Date of Insertion: 07/30/20 Urinary Catheter Time of Insertion: 15:30 Discharge Data Data Completed and Pending: Completed Studies During Hospitalization Category Date Time Status XR chest 1V karissa ble [id number] Routine Exams 07/31/20 08:44 Completed XR chest 1V karissa ble [id number] Stat Exams 07/30/20 20:08 Completed XR chest 1V karissa ble [id number] Urgent Exams 07/30/20 14:39 Completed CV ankle brachial index [id number] Routi ne Ultrasound 07/31/20 07:55 Completed Pending at discharge Category Date Time Status Blood Culture Sta t Lab 07/30/20 15:50 Results Blood Culture Sta t Lab 07/31/20 16:[address] at Lab 07/31/20 16:29 Uncollected Vitals: Last Vital Signs Temp 97.9 F 08/03/20 11:44 Pulse 106 H 08/03/20 11:44 Resp 18 08/03/20 11:44 BP 112/79 08/03/20 11:44 Pulse Ox 93 08/03/20 11:44 Discharge Plan Discharge Patient Disposition: Home Condition: Stable Prescriptions: New levofloxacin 500 mg tablet 500 mg PO DAILY 5 Days RF: 0 Continued terbinafine HCl 250 mg tablet 250 mg PO DAILY@08 RF: 0 flunisolide 25 mcg (0.025 %) spray,non-aerosol 1 spray INTRANASAL BID@, RF: 0 loratadine 10 mg capsule 10 mg PO DAILY@08 RF: 0 benztropine 1 mg tablet 1 mg PO BID@08,20 RF: 0 Amitiza 24 mcg capsule 24 mcg PO BID@08,20 RF: 0 docusate sodium [Colace] 100 mg capsule 100 mg PO BID@, RF: 0 tamsulosin [Flomax] 0.4 mg capsule 0.8 mg PO DAILY@22 RF: 0 amitriptyline 25 mg tablet 25 mg PO TID@08,,20 RF: 0 bismuth subsalicylate [Pepto-Bismol] 262 mg/15 mL suspension See Rx Instructions .ROUTE .COMPLEX PRN (Reason: Stomach Upset) RF: 0 acetaminophen [Tylenol] 325 mg tablet 650 mg PO Q4H PRN (Reason: pain/fever) RF: 0 magnesium hydroxide [Milk of Magnesia] 400 mg/5 mL suspension See Rx Instructions .ROUTE .COMPLEX PRN (Reason: const) RF: 0 albuterol sulfate 2.5 mg /3 mL (0.083 %) solution for nebulization 2.5 mg INHALATION Q2H PRN (Reason: Wheezing) RF: 0 lorazepam 2 mg tablet 2 mg PO Q4H PRN (Reason: agitation) Qty: 90 RF: 5 dextromethorphan-guaifenesin 10-100 mg/5 mL Syrup See Rx Instructions .ROUTE .COMPLEX RF: 0 Klonopin 2 mg Tablet 2 mg PO TID@08,,20 RF: 0 Fleet Enema 19-7 gram/118 mL Enema See Rx Instructions .ROUTE .COMPLEX RF: 0 polyethylene glycol 3350 17 gram powder in packet 17 gm PO DAILY@08 RF: 0 lithium carbonate 450 mg tablet extended release 450 mg PO BID@08,20 RF: 0 haloperidol 10 mg tablet 15 mg PO BID@08,20 RF: 0 Macrobid 100 mg capsule 100 mg PO DAILY@08 RF: 0 Vyvanse 50 mg capsule 50 mg PO DAILY@08 RF: 0 ketoconazole 2 % Shampoo See Rx Instructions .ROUTE .COMPLEX RF: 0 benzoyl peroxide 5 % Gel See Rx Instructions .ROUTE .COMPLEX RF: 0 Panoxyl 10 % Cleanser See Rx Instructions .ROUTE .COMPLEX RF: 0 Tarsum Professional 2 % Shampoo See Rx Instructions .ROUTE .COMPLEX RF: 0 boric acid in isopropyl Drops See Rx Instructions .ROUTE .COMPLEX RF: 0 ammonium lactate 5 % Cream See Rx Instructions .ROUTE .COMPLEX RF: 0 CeraVe Cream See Rx Instructions .ROUTE .COMPLEX RF: 0 ketoconazole See Rx Instructions .ROUTE .COMPLEX RF: 0 fluocinonide 0.05 % Gel See Rx Instructions .ROUTE .COMPLEX RF: 0 rvksksta-drvpunmuul-wenhgstax Ointment See Rx Instructions .ROUTE .COMPLEX RF: 0 sunscreen 15 SPF Lotion See Rx Instructions .ROUTE .COMPLEX RF: 0 Desitin Rapid Relief 13 % Cream See Rx Instructions .ROUTE .COMPLEX RF: 0 triamcinolone acetonide 0.1 % cream See Rx Instructions .ROUTE .COMPLEX RF: 0 ketoconazole 2 % cream See Rx Instructions .ROUTE .COMPLEX RF: 0 alum-javier sdli-velntsa-bftoctx Ointment See Rx Instructions .ROUTE .COMPLEX RF: 0 clobetasol 0.05 % shampoo See Rx Instructions .ROUTE .COMPLEX RF: 0 Discharge Orders: Discharge Order (Routine); Ordered 08/03/20 Ordered By: Rashi Starkey Discharge Diet: Usual diet Discharge Attestations Time Spent in Discharge Care*: less than 30 min Specific Discharge Activities: educating patient, educating and/or supporting family/caregiver, discussing with case management director/social workers/dc planners, documenting/other paperwork and evaluating patient/reviewing data Status at Discharge: Cognitive status at discharge: severely impaired cognition, Behavioral status at discharge: cooperative, Functional status at discharge: bed bound Overall status at discharge: patient is back to baseline Quality Metrics Clinical Quality Measures During this hospital stay, did patient experience: None Coding Level of Care Code 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
--- NOTE | 2020-08-03 14:41 | PC.NURSE ---
solis Removed 8ml of ns from balloon and patient tolerated removal well.
[2020-08-03 15:25] VITALS: BP 112/79; PULSE 106; RESP 18; TEMP 36.6; O2SAT 93
--- NOTE | 2020-08-03 15:40 | PC.NURSE ---
report was called to Tong Torres RN at 1410. IV was then removed, cath tip intact. bleeding controlled with 2x2 and coban. patient tolerated it well. solis catheter was also removed, cath intact, patient tolerated it well. patient was then given a bed bath and placed in clean outfit. primary caregiver arrive for orange picker at 1500. this nurse helped place patient in wheelchair and accompanied patient and caregiver down to private vehicle for discharge. discharge packet was given to caregiver.
== END 2020-08-03 15:00 | disposition home or self-care (01) | DRG 208 ==
LOC: ER 15:08 → ICU 18:52 → MEDSURG 08-02 16:02
PROVIDERS: Admitting Provider Internal Medicine; Emergency Provider Family Medicine; PCP Internal Medicine; Visit Provider Internal Medicine
DX: J69.0 Pneumonitis due to inhalation of food and vomit (principal); A41.9 Sepsis, unspecified organism; J96.02 Acute respiratory failure with hypercapnia; J96.01 Acute respiratory failure with hypoxia; G93.41 Metabolic encephalopathy; F02.81 Dementia in other diseases classified elsewhere, unspecified severity, with behavioral disturbance; F84.0 Autistic disorder; G31.83 Neurocognitive disorder with Lewy bodies; F98.8 Other specified behavioral and emotional disorders with onset usually occurring in childhood and adolescence; R62.50 Unspecified lack of expected normal physiological development in childhood; N31.9 Neuromuscular dysfunction of bladder, unspecified; Z87.440 Personal history of urinary (tract) infections
CPT/HCPCS: 31500; 36415; 36600; 51702; 71045; 80051; 80053; 80202; 81003; 82330; 82803; 82805; 83605; 83735; 84145; 85025; 87040; 87070; 87077; 87086; 87186; 87205; 93005; 93922; 93925; 94002; 94003; 94640; 94799; 96365; 96372; 96375; 99292; J0330; J1650; J2543; J2704; J3370; J3490; J7030; J7050; J7611

== ENCOUNTER → 2020-08-13 10:42 | Outpatient (BNVA) | payer MEDICARE, MEDICAID, SELFPAY | PROVIDERS: PCP Internal Medicine; Visit Provider Specialist | DX: G40.909 Epilepsy, unspecified, not intractable, without status epilepticus (principal); G31.83 Neurocognitive disorder with Lewy bodies; F02.81 Dementia in other diseases classified elsewhere, unspecified severity, with behavioral disturbance; R62.50 Unspecified lack of expected normal physiological development in childhood; F98.8 Other specified behavioral and emotional disorders with onset usually occurring in childhood and adolescence | CPT/HCPCS: 97542; 99214 ==

== ENCOUNTER 2020-10-08 10:03 | Inpatient (IN) | payer MEDICARE, MEDICAID, SELFPAY ==
[2020-10-08] VITALS (58 sets, daily range): BP systolic 89–186; BP diastolic 57–102; PULSE 70–123; RESP 0–23; TEMP 37–37.2; O2SAT 90–99; BMI 24.3
--- NOTE | 2020-10-08 10:16 | XR_ITS ---
WS: [id number] Portable AP semiupright chest, 10/08/2020 Clinical Data: intubated, aspiration Comparison: None. Findings: The endotracheal tube ends just above the luly. The nasogastric tube appears to be curled in the stomach. No nodules, masses or effusions are seen. The heart is normal. The pulmonary vascula rity is not increased. No pneumonia or pneumothorax is seen. Monitor leads are on the chest wall. XR/XR chest 1V portable [id number] Impression: Satisfactory position of endotracheal tube and nasogastric tube.
[2020-10-08] MEDS: propofol 1,000 MG/100 ML INJ 5 MG (10:25)
[2020-10-08] MEDS: ipratropium-albuterol 3 mL Neb INHALATION (10:29)
--- NOTE | 2020-10-08 10:32 | W.ED.SOB ---
HPI - SOB/Dyspnea General: Chief Complaint: Shortness of Breath/Dyspnea Stated Complaint: CYANOTIC Time Seen by Provider: 10/08/20 10:16 History of Present Illness: HPI Narrative: 44-year-old autistic male brought in by EMS. Patient's caregiver states that approximately 45 minutes after eating this morning the patient started coughing and gagging. She noticed he vomited and was aspirating. EMS was called within 15 minutes. EMS states upon their arrival the patient was cyanotic. O2 saturations were in the 70s. Patient did have a pulse at that time. Patient was intubated. Caregiver states that the patient has had problems with swallowing previously he is on a pur?ed diet. She states he has had this issue previously and had been admitted to the hospital previously. Per the caregiver the patient is a full code. MD elicited complaint: shortness of breath Context: choking/aspiration Timing: constant Severity: severe Exacerbating factors: coughing Relieving factors: nothing Known history of: aspiration pneumonia Treatment prior to arrival: intubation Review of Systems General: Reports: ROS unobtainable due to endotracheal tube, ROS unobtainable due to medical condition and Other (Information from previous records was reviewed.) [facility] ED PFSH: Medical History Acute metabolic encephalopathy Patient is at baseline mentation Acute respiratory failure with hypoxia and hypercapnia Resolved ADHD Aspiration pneumonia Attention deficit disorder Attention deficit disorder (ADD) Autism Constipation Developmental delay, severe Inappropriate sinus tachycardia Lewy body dementia Lewy body dementia Neurogenic bladder -intermittent self catheterization at facility Sepsis Sepsis resolved Urinary retention UTI (urinary tract infection) Surgical History History of dental surgery History of sinus surgery Family History Other CAD (coronary artery disease) Cancer Social History Smoking and tobacco status: never smoked Second hand smoke exposure: No Alcohol intake: never History of recent travel: No Physical Exam Narrative: EXAM NARRATIVE: 44-year-old autistic male arrives intubated. EMS states that he was cyanotic and was subsequently intubated. HENMT: COMMON NORMALS: normocephalic and atraumatic HEAD & SCALP: normocephalic and atraumatic FACE & SINUS: normal facial exam THROAT: other (Patient is intubated) Eye: COMMON NORMALS: Equal, round and reactive pupils present (Slow to react, patient is on diprovan), conjunctivae normal and no scleral icterus CONJUNCTIVA: Yes conjunctivae normal PUPIL: Yes Equal, round and reactive pupils present (Slow to react, patient is on diprovan) Neck/C-Spine: COMMON NORMALS: full ROM, no lymphadenopathy, supple and no JVD GENERAL: Yes normal visual inspection and Yes trachea midline (Patient is intubated) Resp: EFFORT & INSPECTION: No able to speak in complete sentences (Patient is intubated), Yes symmetric chest movement, Yes respiratory distress (Patient intubated in the field) and Yes decreased respiratory effort AUSCULTATION: crackles, rales, wheezes and diminished lung sounds Cardio: COMMON NORMALS: no JVD, regular rate, regular rhythm, No gallops present (Cardio), No clicks present (Cardio), No murmurs present (Cardio) and No rub (Cardio) RATE: regular rate RHYTHM: regular rhythm HEART SOUNDS: no murmurs PERIPHERAL PULSES: radial pulses present, ulnar radial pulses present and dorsalis pedis present (Mildly decreased) positive bilateral GI: COMMON NORMALS: Soft to palpation PALPATION: Yes Soft to palpation : BLADDER/KIDNEY EXAM: Yes catheter in place Extremity: COMMON NORMALS: no pedal edema GENERAL: Yes pallor Neuro: GUNNAR COMA SCALE: GCS not evaluated (Patient intubated and sedated.) GAIT: Yes Unable to assess gait Skin: COMMON NORMALS: no rashes or lesions noted, no wounds, no jaundice and no mottling NARRATIVE SKIN EXAM: Mild cyanosis of his feet noted, EMS states that his feet look significantly better now than upon their arrival. GENERAL SKIN EXAM: no rashes or lesions noted Course Consultations: Consultation #1: Discussed with Dr. Starkey, hospitalist, who has kindly accepted this patient for admission to the ICU. Vital Signs: Vital signs: Vital Signs Temperature 98.6 F 10/08/20 10:05 Pulse Rate 120 H 10/08/20 16:09 Respiratory Rate 14 10/08/20 16:09 Blood Pressure 93/72 10/08/20 16:09 Pulse Oximetry 94 10/08/20 16:09 MDM - SOB/Dyspnea Lab Data: Labs: Lab Results 10/08/20 10/08/20 10/08/20 Range/Units 10:15 10:15 10:15 WBC 9.1 (4.0-10.0) 10^3/ uL RBC 5.17 (4.1-5.3) 10^6/u L Hgb 15.1 (11.7-16.6) g/dL Hct 47.7 (42.0-52.0) % MCV 92.3 (80-94) fL MCH 29.2 (28.0-34.0) pg MCHC 31.7 (30.0-36.0) g/dL RDW 12.7 (12.1-15.1) % Plt Count 235 (130-400) 10^3/c mm MPV 9.5 (7.4-10.4) fL Neut % (Auto) 75.0 % Lymph % (Auto) 14.3 % [place] % (Auto) 4.1 % Eos % (Auto) 1.8 % Baso % (Auto) 0.9 % Neut # (Auto) 6.83 (1.8-7.7) 10^3/u L Lymph # (Auto) 1.3 (0.8-4.8) 10^3/u L [place] # (Auto) 0.4 (0.2-0.9) 10^3/u L Eos # (Auto) 0.2 (0.0-0.8) 10^3/u L Baso # (Auto) 0.1 (0.0-0.1) 10^3/u L Nucleated RBC % (a uto) 0 % Nucleated RBCs # 0.0 /100WBC Specimen Type Sample Site ABG pH (7.35-7.45) ABG pCO2 (35-45) mmHg ABG pO2 (80.0-100.0) mmH g ABG HCO3 (22-26) mmol/L ABG O2 Saturation ABG Base Excess (-2.0-2.0) mmol/ L Javier Test A-a O2 Gradient (5-10) mmHg Hematocrit (42-52) % Hgb O2 Saturation (95-100) % Carboxyhemoglobin (0.4-20.1) %THgb Methemoglobin (0.4-1.5) % Total Hemoglobin (14-18) g/dL Ionized Calcium (1.1-1.4) mmol/L O2 Delivery Device FiO2 % Tidal Volume PEEP cmH20 [facility] [facility] Supervisor ID Sodium 137 (136-145) mmol/L Potassium 4.3 (3.5-5.1) mmol/L Chloride 103 (98-107) mmol/L Carbon Dioxide 26 (22-29) mmol/L Anion Gap 12.3 (5-19) BUN 9 (6-20) mg/dL Creatinine 0.6 L (0.7-1.2) mg/dL GFR Calculation 147.8 H (90-130) mL/min Glucose 128 H (65-115) mg/dL Calculated Osmolal ity 284 L (285-295) mOsm/k g Lactate 1.9 (0.5-2.2) mmol/L Calcium 8.9 (8.5-10.5) mg/dL Magnesium 2.0 (1.7-2.3) mg/dL Total Bilirubin 0.2 (0.15-1.2) mg/dL AST 17 (0-40) U/L ALT 11 (0-41) U/L Alkaline Phosphata se 155 H (40-130) IU/L NT-Pro-B Natriuret Pep 28 (0-125) pg/mL Total Protein 7.0 (6.6-8.7) g/dL Albumin 4.2 (3.5-5.2) g/dL Globulin 2.8 (1.3-4.6) g/dL Lipase 16 (13-60) U/L Urine Color (Yellow) Urine Appearance (CLEAR) Urine pH (5-7) Ur Specific Gravit y (1.005-1.030) Urine Protein (Negative) Urine Glucose (UA) (Normal) Urine Ketones (Negative) Urine Blood (Negative) Urine Nitrate (Negative) Urine Bilirubin (Negative) Urine Urobilinogen (Negative) mg/dL Ur Leukocyte Shira ase (Negative) Urine RBC (0-2) /hpf Urine WBC (0-5) /hpf Ur Squamous Epith Cells (0-5) /hpf Amorphous Sediment Urine Bacteria (NONE) /hpf Urine Mucus /hpf 10/08/20 10/08/20 Range/Units 10:15 10:50 WBC (4.0-10.0) 10^3/ uL RBC (4.1-5.3) 10^6/u L Hgb (11.7-16.6) g/dL Hct (42.0-52.0) % MCV (80-94) fL MCH (28.0-34.0) pg MCHC (30.0-36.0) g/dL RDW (12.1-15.1) % Plt Count (130-400) 10^3/c mm MPV (7.4-10.4) fL Neut % (Auto) % Lymph % (Auto) % [place] % (Auto) % Eos % (Auto) % Baso % (Auto) % Neut # (Auto) (1.8-7.7) 10^3/u L Lymph # (Auto) (0.8-4.8) 10^3/u L [place] # (Auto) (0.2-0.9) 10^3/u L Eos # (Auto) (0.0-0.8) 10^3/u L Baso # (Auto) (0.0-0.1) 10^3/u L Nucleated RBC % (a uto) % Nucleated RBCs # /100WBC Specimen Type Arterial Sample Site Radial, left ABG pH 7.31 L (7.35-7.45) ABG pCO2 54.9 H (35-45) mmHg ABG pO2 313.0 H (80.0-100.0) mmH g ABG HCO3 27.5 H (22-26) mmol/L ABG O2 Saturation > 100.0 ABG Base Excess -0.1 (-2.0-2.0) mmol/ L Javier Test Pos A-a O2 Gradient 43.7 H (5-10) mmHg Hematocrit 47.3 (42-52) % Hgb O2 Saturation 98.8 (95-100) % Carboxyhemoglobin 0.6 (0.4-20.1) %THgb Methemoglobin 0.9 (0.4-1.5) % Total Hemoglobin 15.4 (14-18) g/dL Ionized Calcium 1.3 (1.1-1.4) mmol/L O2 Delivery Device Vent FiO2 100.0 % Tidal Volume 0.50 PEEP 5.0 cmH20 [facility] Laboratory Supervisor ID Gd Sodium 141.0 (136-145) mmol/L Potassium 4.3 (3.5-5.1) mmol/L Chloride (98-107) mmol/L Carbon Dioxide (22-29) mmol/L Anion Gap (5-19) BUN (6-20) mg/dL Creatinine (0.7-1.2) mg/dL GFR Calculation (90-130) mL/min Glucose 127.0 H (65-115) mg/dL Calculated Osmolal ity (285-295) mOsm/k g Lactate (0.5-2.2) mmol/L Calcium (8.5-10.5) mg/dL Magnesium (1.7-2.3) mg/dL Total Bilirubin (0.15-1.2) mg/dL AST (0-40) U/L ALT (0-41) U/L Alkaline Phosphata se (40-130) IU/L NT-Pro-B Natriuret Pep (0-125) pg/mL Total Protein (6.6-8.7) g/dL Albumin (3.5-5.2) g/dL Globulin (1.3-4.6) g/dL Lipase (13-60) U/L Urine Color Yellow (Yellow) Urine Appearance Hazy A (CLEAR) Urine pH 7 (5-7) Ur Specific Gravit y 1.015 (1.005-1.030) Urine Protein Neg (Negative) Urine Glucose (UA) Norm (Normal) Urine Ketones Negative (Negative) Urine Blood 3+ H (Negative) Urine Nitrate Positive H (Negative) Urine Bilirubin Neg (Negative) Urine Urobilinogen 1 H (Negative) mg/dL Ur Leukocyte Shira ase 2+ H (Negative) Urine RBC 15-25 H (0-2) /hpf Urine WBC 15-25 H (0-5) /hpf Ur Squamous Epith Cells 0-4 H (0-5) /hpf Amorphous Sediment Not Reportable Urine Bacteria 3+ H (NONE) /hpf Urine Mucus Trace /hpf Critical Care Time Critical Care Time: Critical Care Time: Yes Total Critical Care Time: 45 Attestation: Critical CARE ED, monitoring patient, following up labs, chest x-ray, ABGs, making changes as appropriate. Discharge Plan Discharge Patient Disposition: Admitted As Inpatient Admit Provider: Rashi Starkey Clinical Impression: Respiratory failure Qualifiers: Chronicity: acute Respiratory failure complication: unspecified whether with hypoxia or hypercapnia Qualified Code(s): J96.00 - Acute respiratory failure, unspecified whether with hypoxia or hypercapnia Condition: Stable Coding Level of Care Code ED Warehouse Team Leader for Chg Fwd Exam Comprehensive
[2020-10-08 10:36] LABS: Basophils # 0.1 10^3/uL (0.0-0.1); Basophils % 0.9 %; Eosinophils # 0.2 10^3/uL (0.0-0.8); Eosinophils % 1.8 %; Hematocrit 47.7 % (42.0-52.0); Hemoglobin 15.1 g/dL (11.7-16.6); Lymphocytes # 1.3 10^3/uL (0.8-4.8); Lymphocytes % 14.3 %; Mean Corpuscular HGB Conc 31.7 g/dL (30.0-36.0); Mean Corpuscular Hemoglobin 29.2 pg (28.0-34.0); Mean Corpuscular Volume 92.3 fL (80-94); Mean Platelet Volume 9.5 fL (7.4-10.4); Monocytes # 0.4 10^3/uL (0.2-0.9); Monocytes % 4.1 %; Neutrophils # 6.83 10^3/uL (1.8-7.7); Nucleated Red Blood Cells % 0 %; Platelet Count 235 10^3/cmm (130-400); Red Blood Count 5.17 10^6/uL (4.1-5.3); Red Cell Distribution Width 12.7 % (12.1-15.1); White Blood Count 9.1 10^3/uL (4.0-10.0)
[2020-10-08 10:39] LABS: Specific Gravity, Urine 1.015 (1.005-1.030); Urine Appearance Hazy (CLEAR); Urine Color Yellow (Yellow); pH Urine 7 (5-7)
[2020-10-08 10:40] LABS: Add Urine Microscopic? YES; Bilirubin Urine Neg (Negative); Blood Urine 3+ (Negative); Glucose Urine UA Norm (Normal); Ketones Urine Negative (Negative); Leukocyte Esterase Urine 2+ (Negative); Nitrate Urine Positive (Negative); Protein Urine Neg (Negative); Urobilinogen Urine 1 mg/dL (Negative)
[2020-10-08 10:41] LABS: Bacteria Urine 3+ /hpf; RBC Urine 15-25 /hpf (0-2); Squamous Epithelial Cell Urine 0-4 /hpf (0-5); WBC Urine 15-25 /hpf (0-5)
[2020-10-08 10:42] LABS: Add Urine Culture? Yes; Mucus Urine TRACE /hpf
[2020-10-08 10:52] LABS: Lactate (Lactic Acid level) 1.9 mmol/L (0.5-2.2)
[2020-10-08 11:05] LABS: Alanine Aminotransferase 11 U/L (0-41); Albumin Level 4.2 g/dL (3.5-5.2); Alkaline Phosphatase 155 IU/L (40-130); Aspartate Amino Transferase 17 U/L (0-40); Blood Urea Nitrogen 9 mg/dL (6-20); Calcium 8.9 mg/dL (8.5-10.5); Carbon Dioxide 26 mmol/L (22-29); Chloride 103 mmol/L (98-107); Globulin 2.8 g/dL (1.3-4.6); Glomerular Filtration Rate 147.8 mL/min (90-130); Glucose 128 mg/dL (65-115); Lipase 16 U/L (13-60); NT Pro B Type Natriuretic Pept 28 pg/mL (0-125); Osmolality Calculated 284 mOsm/kg (285-295); Sodium 137 mmol/L (136-145); Total Bilirubin 0.2 mg/dL (0.15-1.2)
[2020-10-08 11:06] LABS: ABG PCO2 54.9 mmHg (35-45); ABG PH Result 7.31 (7.35-7.45); Alveolar-Arterial Oxygen Gradi 43.7 mmHg (5-10); Arterial Blood Gas Hematocrit 47.3 % (42-52); Base Excess ABG -0.1 mmol/L (-2.0-2.0); Blood Gas Allen Test Pos; Blood Gas Operator Identificat GD; Blood Gas Sample Site Radial, left; Blood Gas Sample Type Arterial; Carboxyhemoglobin 0.6 %THgb (0.4-20.1); HCO3 ABG 27.5 mmol/L (22-26); HGB O2 Sat 98.8 % (95-100); Ionized Calcium Level - ABG 1.3 mmol/L (1.1-1.4); Methemoglobin 0.9 % (0.4-1.5); Oxygen Device VENT; Oxygen Saturation ABG > 100.0; Potassium Level - ABG 4.3 mmol/L (3.5-5.0); Total Hemoglobin 15.4 g/dL (14-18)
[2020-10-08 11:07] LABS: Anion Gap 12.3 (5-19); Potassium 4.3 mmol/L (3.5-5.1)
[2020-10-08] MEDS: cefTRIAXone 1,000 MG in sodium chloride 0.9% (plus) 50 ML 100 MG IV (11:18)
[2020-10-08] MEDS: ondansetron 2 mg/ML SDV 2 mL 4 MG IVP (11:18)
[2020-10-08] MEDS: sodium chloride 0.9% 1,000 ML 999 ML IV (11:19)
--- NOTE | 2020-10-08 13:05 | ECG_ITS ---
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 Measurements Intervals [place] Rate: 120 P: 65 MA: 123 QRS: 77 QRSD: 88 T: 61 QT: 367 QTc: 519 Interpretive Statements SINUS TACHYCARDIA NONSPECIFIC T-WAVE ABNORMALITY Compared to ECG 07/30/2020 18:15:51 Possible ischemia no longer present T-wave abnormality still present Electronically Signed On 10-08-2020 18:22:12 CDT by Beatris Navarrete M.D. [id number]
--- NOTE | 2020-10-08 14:10 | PM.HP ---
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 By review of all notes from neurology and PCP starting from , it appears patient has declined to the point of needing a gait belt at all times, increasingly non verbal, progressive dysphagia now on pureed foods, intermittent behavior disturbances dependent on multiple medications. He is on intermittent self cath at the facility where he resides. apparently approximately 45 minutes after eating this morning the patient started coughing and gagging. She noticed he vomited and was aspirating. EMS was called within 15 minutes. EMS states upon their arrival the patient was cyanotic. O2 saturations were in the 70s. Patient did have a pulse at that time. Patient was intubated. Caregiver states that the patient has had problems with swallowing previously he is on a pur?ed diet. She states he has had this issue previously and had been admitted to the hospital previously.Per the caregiver the patient is a full code. Upon arrival in the ER: ABG done revealed: Acute hypercapnic hypoxic respiratory failure, chest x-ray: The endotracheal tube is above the luly. The nasogastric tube appears to end in the stomach. The heart and lungs are not remarkable. EKG: Sinus tachycardia, CBC CMP is unremarkable Lactic acid :1.9 , urinalysis: Dirty, Patient was given ceftriaxone in the ER. Review of Systems General: Reports: ROS unobtainable due to endotracheal tube Medications/Allergies Home Medications Medication Instructions Recorded Confirmed Last Taken Type acetaminophen 325 mg tablet 650 mg PO Q4H PRN tab 06/03/19 10/08/20 Unknown History albuterol sulfate 2.5 mg INHALATION Q2H PRN 06/03/19 10/08/20 Unknown History amitriptyline 25 mg tablet 25 mg PO TID@,, tab 06/03/19 10/08/20 10/08/20 08:00 History benztropine 1 mg tablet 1 mg PO BID@06/03/19 10/08/20 10/08/20 08:00 History bismuth subsalicylate 262 mg/15 mL See Rx Instructions .ROUTE 06/03/19 10/08/20 Unknown History oral suspension .COMPLEX PRN docusate sodium 100 mg capsule 100 mg PO BID@, 06/03/19 10/08/20 10/08/20 08:00 History loratadine 10 mg capsule 10 mg PO DAILY@08 06/03/19 10/08/20 10/08/20 08:00 History lubiprostone 24 mcg capsule 24 mcg PO BID@08,20 06/03/19 10/08/20 10/08/20 08:00 History magnesium hydroxide 400 mg/5 mL See Rx Instructions .ROUTE .COMPLEX 06/03/19 10/08/20 Unknown History oral suspension tamsulosin 0.4 mg capsule 0.8 mg PO DAILY@20 cap 06/03/19 10/08/20 10/07/20 History flunisolide 25 mcg (0.025 %) nasal 1 spray INTRANASAL BID@08,20 ml 07/10/19 10/08/20 10/08/20 08:00 History spray terbinafine HCl 250 mg tablet 250 mg PO DAILY@08 01/07/20 10/08/20 10/08/20 08:00 History lorazepam 2 mg tablet 2 mg PO Q4H PRN #90 tab 06/19/20 10/08/20 Unknown Rx CeraVe See Rx Instructions .ROUTE .COMPLEX 07/30/20 10/08/20 07/30/20 08:00 History Desitin Rapid Relief See Rx Instructions .ROUTE .COMPLEX 07/30/20 10/08/20 Unknown History Fleet Enema See Rx Instructions .ROUTE .COMPLEX 07/30/20 10/08/20 Unknown History Tarsum Professional See Rx Instructions .ROUTE .COMPLEX 07/30/20 10/08/20 07/30/20 History Vyvanse 50 mg PO DAILY@08 07/30/20 10/08/20 10/08/20 08:00 History alum-javier fpsh-czdgsol-tulrxhs See Rx Instructions .ROUTE .COMPLEX 07/30/20 10/08/20 Unknown History ammonium lactate See Rx Instructions .ROUTE .COMPLEX 07/30/20 10/08/20 07/29/20 History benzoyl peroxide See Rx Instructions .ROUTE .COMPLEX 07/30/20 10/08/20 07/29/20 History benzoyl peroxide [Panoxyl] See Rx Instructions .ROUTE .COMPLEX 07/30/20 10/08/20 07/29/20 History boric acid in isopropyl See Rx Instructions .ROUTE .COMPLEX 07/30/20 10/08/20 Unknown History clobetasol See Rx Instructions .ROUTE .COMPLEX 07/30/20 10/08/20 Unknown History clonazepam [Klonopin] 2 mg PO TID@08,14,20 07/30/20 10/08/20 10/08/20 08:00 History dextromethorphan-guaifenesin See Rx Instructions .ROUTE .COMPLEX 07/30/20 10/08/20 Unknown History fluocinonide See Rx Instructions .ROUTE .COMPLEX 07/30/20 10/08/20 Unknown History ketoconazole See Rx Instructions .ROUTE .COMPLEX 07/30/20 10/08/20 Unknown History ketoconazole See Rx Instructions .ROUTE .COMPLEX 07/30/20 10/08/20 07/30/20 08:00 History ketoconazole See Rx Instructions .ROUTE .COMPLEX 07/30/20 10/08/20 07/30/20 08:00 History lithium carbonate 450 mg PO BID@08,07/30/20 10/08/20 10/08/20 08:00 History wacamctb-xxlfgksxdt-fcrpewibp See Rx Instructions .ROUTE .COMPLEX 07/30/20 10/08/20 Unknown History nitrofurantoin monohyd/m-cryst 100 mg PO DAILY@08 07/30/20 10/08/20 10/08/20 08:00 History [Macrobid] polyethylene glycol 3350 17 gm PO DAILY@08 07/30/20 10/08/20 10/08/20 08:00 History sunscreen See Rx Instructions .ROUTE .COMPLEX 07/30/20 10/08/20 Unknown History triamcinolone acetonide See Rx Instructions .ROUTE .COMPLEX 07/30/20 10/08/20 Unknown History wheelchair #1 ea 08/21/20 10/08/20 Unknown Rx carbamide peroxide See Rx Instructions .ROUTE .COMPLEX 10/08/20 10/08/20 Unknown History food supplemt, lactose-reduced 1 ea PO QAM PRN 10/08/20 10/08/20 Unknown History [Ensure Plus] haloperidol 20 mg PO BID@08,20 10/08/20 10/08/20 10/08/20 08:00 History Allergies Allergy/AdvReac Type Severity Reaction Status Date / Time No Known Allergies Allergy Verified 08/13/20 10:49 PFSH Acute PFSH: Medical History Acute metabolic encephalopathy Patient is at baseline mentation Acute respiratory failure with hypoxia and hypercapnia Resolved ADHD Aspiration pneumonia Attention deficit disorder Attention deficit disorder (ADD) Autism Constipation Developmental delay, severe Inappropriate sinus tachycardia Lewy body dementia Lewy body dementia Neurogenic bladder -intermittent self catheterization at facility Sepsis Sepsis resolved Urinary retention UTI (urinary tract infection) Surgical History History of dental surgery History of sinus surgery Family History Other CAD (coronary artery disease) Cancer Social History Smoking and tobacco status: never smoked Second hand smoke exposure: No Alcohol intake: never History of recent travel: No Vitals/I&O/Wt Last Vital Signs Temp 98.6 F 10/08/20 10:05 Pulse 118 H 10/08/20 13:00 Resp 14 10/08/20 10:35 BP 115/89 10/08/20 13:00 Pulse Ox 98 10/08/20 13:00 Weight last 48 hrs Weight 77.111 kg Physical Exam Narrative: EXAM NARRATIVE: Patient is intubated and sedated, on mechanical ventilation HENMT: COMMON NORMALS: normocephalic and atraumatic HEAD & SCALP: normocephalic and atraumatic Chest: CHEST: Yes Symmetrical chest wall rise Resp: COMMON NORMALS: clear to auscultation bilaterally EFFORT & INSPECTION: Yes symmetric chest movement AUSCULTATION: clear to auscultation bilaterally Cardio: COMMON NORMALS: regular rate, regular rhythm, S1 normal heart sound present, S2 normal heart sound present, No gallops present (Cardio), No murmurs present (Cardio), No rub (Cardio) and Peripheral pulses 2+ throughout RATE: regular rate RHYTHM: regular rhythm HEART SOUNDS: S1 normal heart sound present and S2 normal heart sound present PERIPHERAL PULSES: Peripheral pulses 2+ throughout GI: COMMON NORMALS: Normal to inspection, nondistended, normoactive bowel sounds present, Soft to palpation, non-tender, No hepatosplenomegaly present and no masses AUSCULTATION: Yes normoactive bowel sounds PALPATION: Yes Soft to palpation and Yes No hepatosplenomegaly present RECTAL EXAM: Yes deferred Extremity: COMMON NORMALS: no clubbing, cyanosis or edema and no pedal edema Neuro: COMMON NORMALS: patient oriented x3 Data : 10/08/20 10:15 10/08/20 10:15 Micro: Microbiology 10/08/20 10:15 Blood Culture - Preliminary Blood SPECIMEN COLLECTED 10/08/20 10:20 Blood Culture - Preliminary Blood SPECIMEN COLLECTED A&P Assessment and plan (1) Respiratory failure with hypoxia and hypercapnia: Acute hypoxic hypercapnic respiratory failure secondary to aspiration PNA Follow blood cultures, a.m. pro-Zane, sputum culture, urine culture Monitor serial chest x-ray Monitor serial ABG Continue mechanical ventilation Continue Zosyn Status: Acute (2) Aspiration pneumonia: Plan as 1 Status: Acute (3) UTI (urinary tract infection): Plan as 1 Status: Acute Qualifiers: Hematuria presence: without hematuria Urinary tract infection type: acute cystitis Qualified Code(s): N30.00 - Acute cystitis without hematuria (4) Lewy body dementia: Status: Acute Qualifiers: Dementia behavioral disturbance: with behavioral disturbance Qualified Code(s): G31.83 - Dementia with Lewy bodies; F02.81 - Dementia in other diseases classified elsewhere with behavioral disturbance (5) Neurogenic bladder: Status: Acute Additional A&P Information CODE STATUS: Full code DVT prophylaxis: Lovenox 40 subcu daily Disposition; [facility] Attestations Medical Necessity Statement*: Patient is doing hospital for management of respiratory failure.Anticipated length of stay greater than 2 midnights Coding Level of Care Code Acute Attendance Clerk for [facility] Fwd Diagnoses Respiratory failure with hypoxia and hypercapnia J96.91; J96.92 Aspiration pneumonia J69.0 UTI (urinary tract infection) N30.00 Hematuria presence: without hematuria Urinary tract infection type: acute cystitis Lewy body dementia G31.83; F02.81 Dementia behavioral disturbance: with behavioral disturbance Neurogenic bladder N31.9
[2020-10-08] MEDS: enoxaparin 40 mg/0.4 mL Syringe SUBCUT (15:15)
[2020-10-08] MEDS: piperacillin-tazobactam 3.375 GM in sodium chloride 0.9% (plus) 50 ML IV ×2 (15:15→22:15)
--- NOTE | 2020-10-08 18:37 | PC.NURSE ---
Patient was brought to the unit at 1800 and was intubated and sedated. All vitals were WNL. Chronic solis was patent and draining. Bilateral lower extremities were cool to the touch with capillary refill greater than 3 seconds.
[2020-10-08] MEDS: dextrose 5%-sod chloride 0.9% 1,000 ML 50 ML IV (19:31)
[2020-10-08] MEDS: HYDROmorphone 1 mg/mL INJ 1 mL 0.4 MG IVP (22:15)
[2020-10-09] VITALS (54 sets, daily range): BP systolic 85–189; BP diastolic 60–89; PULSE 72–115; RESP 10–29; TEMP 36.5–37.7; O2SAT 90–100
[2020-10-09 03:43] LABS: Basophils # 0.1 10^3/uL (0.0-0.1); Basophils % 0.5 %; Eosinophils # 0.3 10^3/uL (0.0-0.8); Hematocrit 38.4 % (42.0-52.0); Hemoglobin 12.3 g/dL (11.7-16.6); Lymphocytes # 1.7 10^3/uL (0.8-4.8); Lymphocytes % 16.5 %; Mean Corpuscular Hemoglobin 29.5 pg (28.0-34.0); Mean Corpuscular Volume 92.1 fL (80-94); Mean Platelet Volume 9.2 fL (7.4-10.4); Monocytes # 0.6 10^3/uL (0.2-0.9); Monocytes % 5.7 %; Neutrophils # 7.33 10^3/uL (1.8-7.7); Nucleated Red Blood Cells % 0 %; Platelet Count 207 10^3/cmm (130-400); Red Blood Count 4.17 10^6/uL (4.1-5.3)
[2020-10-09 03:56] LABS: Anion Gap 9.8 (5-19); Blood Urea Nitrogen 11 mg/dL (6-20); Calcium 8.4 mg/dL (8.5-10.5); Carbon Dioxide 27 mmol/L (22-29); Chloride 105 mmol/L (98-107); Glomerular Filtration Rate 147.8 mL/min (90-130); Glucose 113 mg/dL (65-115); Magnesium 1.8 mg/dL (1.7-2.3); Osmolality Calculated 286 mOsm/kg (285-295); Potassium 3.8 mmol/L (3.5-5.1); Sodium 138 mmol/L (136-145)
[2020-10-09 04:04] LABS: Procalcitonin 0.08 ng/mL (0-0.5)
[2020-10-09] MEDS: propofol 1,000 MG/100 ML INJ 6.5 MG IV (04:10)
[2020-10-09 04:59] LABS: ABG PCO2 41.8 mmHg (35-45); ABG PH Result 7.42 (7.35-7.45); Arterial Blood Gas Hematocrit 39.3 % (42-52); Base Excess ABG 2.4 mmol/L (-2.0-2.0); Blood Gas Sample Type Arterial; HCO3 ABG 27.2 mmol/L (22-26)
[2020-10-09 05:00] LABS: Blood Gas Operator Identificat HARKR; Blood Gas Sample Site Brachial, right; Oxygen Device VENT
[2020-10-09] MEDS: HYDROmorphone 1 mg/mL INJ 1 mL 0.4 MG IVP (05:41)
--- NOTE | 2020-10-09 06:00 | XR_ITS ---
WS: [id number] Portable AP upright chest, 10/09/2020 Clinical Data: Aspiration PNA Comparison: Portable chest, 10/08/2020 Findings: The endotracheal tube remains barely above the luly. The nasogastric tube is curled withi n the stomach. Minimal bibasilar atelectasis has developed. The heart is normal. No pneumothorax is s een. Monitor leads are on the chest wall. XR/XR chest 1V portable [id number] Impression: 1. Endotracheal tube only 1.2 cm above the luly. 2. No change in nasogastric tube. 3. Minimal bibasilar atelectasis has developed.
[2020-10-09] MEDS: piperacillin-tazobactam 3.375 GM in sodium chloride 0.9% (plus) 50 ML IV ×3 (06:35→23:32)
--- NOTE | 2020-10-09 09:24 | PC.CHAP ---
Pastoral Care Encounter/Spiritual Assessment Type of Contact [] Declined ese teacher visit [] Patient/Family/Request visit [] Outpatient visit [] Follow-up visit [] Physician referral [] Code/Alert [x] Routine visit [] Staff referral [] Actively dying [] Patient sleeping [] Family support [] [] Out of room [] Palliative care [] [] Receiving care in room [] Pre-surgical visit [] Trauma [] Long length of stay [x] ICU visit [x] Other:ventilator Relational/Emotional Strength [] Patient feels connected with others/family/visitors/staff [] Distress [] Loneliness/isolation [] Abandonment Spirituality of Patient [] Person of Eda [] Attends Judaism of their Eda [] Believes in Prayer [] Reads Bible or Tenriism materials [] There are Spiritual issues to be addressed Scale Operator Interventions [x] Prayer [] Active listening [] Non-anxious presence [] Spiritual/emotional support [] Crisis/trauma care [] Spiritual counseling [] Bereavement support [] Provided bereavement packet [] Provided Bible/devotional materials [] Provided toy/stuffed animal, coloring book to patient or family member [] Provided Communion [] Anointing/Independence [] Salvation [x] Completed spiritual assessment [] Other: Impact on Illness or Injury [] Angry [] Fearful [] Anxious [] Often cries [] Exhaustion [] Unable to work [] Unable to attend synagogue [] Unable to walk/stand [] Unable to read [] Unable to drive [] Unable to eat/drink [] Unable to sleep [] Unable to be with family [] Patient intubated [] Other: Summary Time spent with patient
--- NOTE | 2020-10-09 13:11 | P.PN_ITS ---
Subjective Subjective: Interval history: Patient was seen and examined this morning, he continues to remain afebrile hemodynamically stable, no respiratory distress, tolerated CPAP trial for an hour, and was subsequently extubated to nasal cannula.Post extubation he is doing fine,will start him on clear liquid diet. Vitals/I&O/Wt Last Vital Signs Temp 98.4 F 10/09/20 09:00 Pulse 98 10/09/20 10:00 Resp 10 L 10/09/20 12:15 BP 103/82 10/09/20 10:00 Pulse Ox 99 10/09/20 12:15 10/08/20 10/09/20 10/09/20 22:59 06:59 14:59 Intake Total 128.917 / 128.917 823.875 / 823.875 Output Total 600 / 600 125 / 725 Balance -471.083 / -471.083 -125 / -596.083 823.875 / 823.875 Weight last 48 hrs Weight 74.843 kg Weight 77.111 kg Physical Exam Narrative: EXAM NARRATIVE: Patient is intubated and sedated, on mechanical ventilation Const: COMMON NORMALS: patient oriented x3 HENMT: COMMON NORMALS: normocephalic and atraumatic HEAD & SCALP: normocephalic and atraumatic Chest: CHEST: Yes Symmetrical chest wall rise Resp: COMMON NORMALS: clear to auscultation bilaterally EFFORT & INSPECTION: Yes symmetric chest movement AUSCULTATION: clear to auscultation bilaterally Cardio: COMMON NORMALS: regular rate, regular rhythm, S1 normal heart sound present, S2 normal heart sound present, No gallops present (Cardio), No murmurs present (Cardio), No rub (Cardio) and Peripheral pulses 2+ throughout RATE: regular rate RHYTHM: regular rhythm HEART SOUNDS: S1 normal heart sound present and S2 normal heart sound present PERIPHERAL PULSES: Peripheral pulses 2+ throughout GI: COMMON NORMALS: Normal to inspection, nondistended, normoactive bowel sounds present, Soft to palpation, non-tender, No hepatosplenomegaly present and no masses AUSCULTATION: Yes normoactive bowel sounds PALPATION: Yes Soft to palpation and Yes No hepatosplenomegaly present RECTAL EXAM: Yes deferred Extremity: COMMON NORMALS: no clubbing, cyanosis or edema and no pedal edema Neuro: COMMON NORMALS: patient oriented x3 Data : 10/09/20 03:18 10/09/20 03:18 Micro: Microbiology 10/08/20 10:20 Blood Culture - Preliminary Blood NEGATIVE TO DATE 10/08/20 10:15 Blood Culture - Preliminary Blood NEGATIVE TO DATE 10/08/20 10:15 Urine Culture - Preliminary Urine,Clean Catch Gram Negative Rods 10/08/20 10:20 Gram Stain - Final Sputum - Expectorated Sputum A&P Assessment and plan (1) Respiratory failure with hypoxia and hypercapnia: Acute hypoxic hypercapnic respiratory failure secondary to aspiration PNA: Initially on Mechanaical ventilation,currently extubated to [place]. Blood cultures:NTD sputum culture: NTD Urine culture: pro-Zane: 0.08 Am chest x-ray: Minimal bibasilar atelectasis Monitor serial ABG Continue Zosyn Status: Acute (2) Aspiration pneumonia: Plan as 1 Status: Acute (3) UTI (urinary tract infection): Plan as 1 Status: Acute Qualifiers: Hematuria presence: without hematuria Urinary tract infection type: acute cystitis Qualified Code(s): N30.00 - Acute cystitis without hematuria (4) Lewy body dementia: Status: Acute Qualifiers: Dementia behavioral disturbance: with behavioral disturbance Qualified Code(s): G31.83 - Dementia with Lewy bodies; F02.81 - Dementia in other diseases classified elsewhere with behavioral disturbance (5) Neurogenic bladder: Status: Acute Additional A&P Information CODE STATUS: Full code DVT prophylaxis: Lovenox 40 subcu daily Disposition; [facility] to [facility] Attestations Medical Necessity Statement*: Patient is to be in hospital for management of, acute respiratory failure secondary to aspiration. Coding Level of Care Code Acute Assessment Analyst for g Fwd Diagnoses Respiratory failure with hypoxia and hypercapnia J96.91; J96.92 Aspiration pneumonia J69.0 UTI (urinary tract infection) N30.00 Hematuria presence: without hematuria Urinary tract infection type: acute cystitis Lewy body dementia G31.83; F02.81 Dementia behavioral disturbance: with behavioral disturbance Neurogenic bladder N31.9
[2020-10-09] MEDS: enoxaparin 40 mg/0.4 mL Syringe SUBCUT (14:24)
[2020-10-09] MEDS: haloperidol 5 mg Tablet 20 MG PO (19:59)
[2020-10-09] MEDS: CLONazepam 1 mg Tablet 2 MG PO (19:59)
[2020-10-09] MEDS: benztropine 1 mg Tablet PO (20:00)
[2020-10-09] MEDS: amitriptyline 25 mg Tablet PO (20:00)
[2020-10-09] MEDS: lithium carbonate ER 450 mg Tablet PO (20:00)
[2020-10-10] VITALS (14 sets, daily range): BP systolic 88–162; BP diastolic 60–93; PULSE 73–103; RESP 14–19; TEMP 37.2–37.7; O2SAT 90–100
[2020-10-10 04:13] LABS: Basophils % 0.5 %; Eosinophils # 0.2 10^3/uL (0.0-0.8); Eosinophils % 2.9 %; Hematocrit 37.8 % (42.0-52.0); Hemoglobin 12.4 g/dL (11.7-16.6); Lymphocytes # 1.3 10^3/uL (0.8-4.8); Lymphocytes % 15.3 %; Mean Corpuscular HGB Conc 32.8 g/dL (30.0-36.0); Mean Corpuscular Hemoglobin 29.8 pg (28.0-34.0); Mean Corpuscular Volume 90.9 fL (80-94); Mean Platelet Volume 9.8 fL (7.4-10.4); Monocytes # 0.5 10^3/uL (0.2-0.9); Monocytes % 5.5 %; Neutrophils # 6.14 10^3/uL (1.8-7.7); Neutrophils % 74.3 %; Nucleated Red Blood Cells % 0 %; Platelet Count 235 10^3/cmm (130-400); Red Blood Count 4.16 10^6/uL (4.1-5.3); Red Cell Distribution Width 12.5 % (12.1-15.1); White Blood Count 8.3 10^3/uL (4.0-10.0)
[2020-10-10] MEDS: piperacillin-tazobactam 3.375 GM in sodium chloride 0.9% (plus) 50 ML IV (06:16)
[2020-10-10 06:53] LABS: Anion Gap 11.2 (5-19); Blood Urea Nitrogen 9 mg/dL (6-20); Calcium 8.6 mg/dL (8.5-10.5); Carbon Dioxide 29 mmol/L (22-29); Chloride 102 mmol/L (98-107); Glomerular Filtration Rate 147.8 mL/min (90-130); Glucose 93 mg/dL (65-115); Osmolality Calculated 284 mOsm/kg (285-295); Potassium 4.2 mmol/L (3.5-5.1); Sodium 138 mmol/L (136-145)
[2020-10-10] MEDS: benztropine 1 mg Tablet PO (07:58)
[2020-10-10] MEDS: CLONazepam 1 mg Tablet 2 MG PO (07:58)
[2020-10-10] MEDS: nitrofurantoin SR (BID) 100 mg Capsule PO (07:58)
[2020-10-10] MEDS: haloperidol 5 mg Tablet 20 MG PO (07:59)
[2020-10-10] MEDS: polyethylene glycol 3350 Pkt 17 gm PO (07:59)
[2020-10-10] MEDS: amitriptyline 25 mg Tablet PO (07:59)
[2020-10-10] MEDS: lithium carbonate ER 450 mg Tablet PO (07:59)
--- NOTE | 2020-10-10 10:44 | P.DS_ITS ---
Discharge Providers Date of Admission: 10/08/20 12:01 Date of Discharge: October 10, 2020 Attending Provider at Admission: Rashi Strakey MD Attending Provider at Discharge: Rashi Starkey MD Primary Care Provider: Anurag Gautam MD Diagnoses at Discharge Discharge Diagnosis (1) Respiratory failure with hypoxia and hypercapnia: Status: Acute (2) Aspiration pneumonia: Status: Acute (3) UTI (urinary tract infection): Status: Acute Qualifiers: Hematuria presence: without hematuria Urinary tract infection type: acute cystitis Qualified Code(s): N30.00 - Acute cystitis without hematuria (4) Lewy body dementia: Status: Acute Permanent problem details: Qualifiers: Dementia behavioral disturbance: with behavioral disturbance Qualified Code(s): G31.83 - Dementia with Lewy bodies; F02.81 - Dementia in other diseases classified elsewhere with behavioral disturbance (5) Neurogenic bladder: Status: Acute Permanent problem details: -intermittent self catheterization at facility Reason for Visit Reason for Visit: CYANOTIC Hospital Course Hospital Course 44 year old male with severe Lewy Body dementia, severe attention deficit disorder, 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 By review of all notes from neurology and PCP starting from , it appears patient has declined to the point of needing a gait belt at all times, increasingly non verbal, progressive dysphagia now on pureed foods, intermittent behavior disturbances dependent on multiple medications. He is on intermittent self cath at the facility where he resides. apparently approximately 45 minutes after eating this morning the patient started coughing and gagging. She noticed he vomited and was aspirating. EMS was called within 15 minutes. EMS states upon their arrival the patient was cyanotic. O2 saturations were in the 70s. Patient did have a pulse at that time. Patient was intubated. Caregiver states that the patient has had probl ems with swallowing previously he is on a pur?ed diet. She states he has had this issue previously and had been admitted to the hospital previously.Per the caregiver the patient is a full code. Upon arrival in the ER: ABG done revealed: Acute hypercapnic hypoxic respiratory failure, chest x-ray: The endotracheal tube is above the luly. The nasogastric tube appears to end in the stomach. The heart and lungs are not remarkable. EKG: Sinus tachycardia, CBC CMP is unremarkable Lactic acid :1.9 , urinalysis: Dirty.Patient was given ceftriaxone in the ER. He was admitted for the management of Acute hypoxic hypercapnic respiratory failure secondary to aspiration PNA.Patient was on mechanical ventilation for a day and was extubated next day as there was resolution hypoxia and hypercapnia.Pro-Zane:was normal. Blood cultures: NTD. sputum culture: Urine culture: grew A.baumannii sensitive to levofloxacin .Patient was on zosyn during hospital stay and was discharged on Levofloxacin for additional 5 days for uncomplicated UTI.At the time of discharge he was not spiking temperature,other hemodynamic parameters were stable.He was at his baseline mentation.Patient responded well to the above medical management and was discharged in stable condition to [facility]. Physical Exam Narrative: EXAM NARRATIVE: Awake with least verbal response. HENMT: COMMON NORMALS: normocephalic and atraumatic HEAD & SCALP: normocephalic and atraumatic Chest: CHEST: Yes Symmetrical chest wall rise Resp: COMMON NORMALS: clear to auscultation bilaterally EFFORT & INSPECTION: Yes symmetric chest movement AUSCULTATION: clear to auscultation bilaterally Cardio: COMMON NORMALS: regular rate, regular rhythm, S1 normal heart sound present, S2 normal heart sound present, No gallops present (Cardio), No murmurs present (Cardio), No rub (Cardio) and Peripheral pulses 2+ throughout RATE: regular rate RHYTHM: regular rhythm HEART SOUNDS: S1 normal heart sound present and S2 normal heart sound present PERIPHERAL PULSES: Peripheral pulses 2+ throughout GI: COMMON NORMALS: Normal to inspection, nondistended, normoactive bowel sounds present, Soft to palpation, non-tender, No hepatosplenomegaly present and no masses AUSCULTATION: Yes normoactive bowel sounds PALPATION: Yes Soft to palpation and Yes No hepatosplenomegaly present RECTAL EXAM: Yes deferred Extremity: COMMON NORMALS: no clubbing, cyanosis or edema and no pedal edema Discharge Data Data Completed and Pending: Completed Studies During Hospitalization Category Date Time Status XR chest 1V karissa ble [id number] Routine Exams 10/09/20 06:00 Completed XR chest 1V karissa ble [id number] Urgent Exams 10/08/20 10:16 Completed Pending at discharge Category Date Time Status Basic Metabolic P kenny AM LABS Lab 10/11/20 04:00 Ordered Blood Culture Sta t Lab 10/08/20 10:15 Results Complete Blood Co unt w/Auto AM LABS Lab 10/11/20 04:00 Ordered Sputum Culture an d Gram Stain Stat Lab 10/08/20 10:20 Results Urine Culture Sta t Lab 10/08/20 10:15 Results Labs from last 24 hours 10/10/20 10/10/20 10/10/20 06:06 03:45 03:45 WBC 8.3 RBC 4.16 Hgb 12.4 Hct 37.8 L MCV 90.9 MCH 29.8 MCHC 32.8 RDW 12.5 Plt Count 235 MPV 9.8 Neut % (Auto) 74.3 Lymph % (Auto) 15.3 Carroll % (Auto) 5.5 Eos % (Auto) 2.9 Baso % (Auto) 0.5 Neut # (Auto) 6.14 Lymph # (Auto) 1.3 Carroll # (Auto) 0.5 Eos # (Auto) 0.2 Baso # (Auto) 0.0 Nucleated RBC % (a uto) 0 Nucleated RBCs # 0.0 Sodium 138 Cancelled Potassium 4.2 Cancelled Chloride 102 Cancelled Carbon Dioxide 29 Cancelled Anion Gap 11.2 Cancelled BUN 9 Cancelled Creatinine 0.6 L Cancelled GFR Calculation 147.8 H Cancelled Glucose 93 Cancelled Calculated Osmolal ity 284 L Cancelled Calcium 8.6 Cancelled Vitals: Last Vital Signs Temp 99 F 10/10/20 09:00 Pulse 100 10/10/20 10:00 Resp 19 H 10/10/20 10:00 BP 99/69 10/10/20 10:00 Pulse Ox 96 10/10/20 10:00 Discharge Plan Discharge Patient Disposition: Home Condition: Stable Prescriptions: New levofloxacin 500 mg tablet 500 mg PO DAILY 5 Days RF: 0 Continued terbinafine HCl 250 mg tablet 250 mg PO DAILY@08 RF: 0 flunisolide 25 mcg (0.025 %) spray,non-aerosol 1 spray INTRANASAL BID@ RF: 0 loratadine 10 mg capsule 10 mg PO DAILY@08 RF: 0 benztropine 1 mg tablet 1 mg PO BID@ RF: 0 Amitiza 24 mcg capsule 24 mcg PO BID@ RF: 0 docusate sodium [Colace] 100 mg capsule 100 mg PO BID@ RF: 0 tamsulosin [Flomax] 0.4 mg capsule 0.8 mg PO DAILY@ RF: 0 amitriptyline 25 mg tablet 25 mg PO TID@,,20 RF: 0 bismuth subsalicylate [Pepto-Bismol] 262 mg/15 mL suspension See Rx Instructions .ROUTE .COMPLEX PRN (Reason: Stomach Upset) RF: 0 acetaminophen [Tylenol] 325 mg tablet 650 mg PO Q4H PRN (Reason: pain/fever) RF: 0 magnesium hydroxide [Milk of Magnesia] 400 mg/5 mL suspension See Rx Instructions .ROUTE .COMPLEX RF: 0 albuterol sulfate 2.5 mg /3 mL (0.083 %) solution for nebulization 2.5 mg INHALATION Q2H PRN (Reason: Wheezing) RF: 0 lorazepam 2 mg tablet 2 mg PO Q4H PRN (Reason: agitation) Qty: 90 RF: 5 (DME) wheelchair See Rx Instructions .Route .MEDSUPPLY Qty: 1 RF: 0 carbamide peroxide 6.5 % Drops See Rx Instructions .ROUTE .COMPLEX RF: 0 Ensure Plus 0.05-1.5 gram-kcal/mL Liquid 1 ea PO QAM PRN (Reason: Weight Gain) RF: 0 haloperidol 20 mg tablet 20 mg PO BID@,20 RF: 0 dextromethorphan-guaifenesin 10-100 mg/5 mL Syrup See Rx Instructions .ROUTE .COMPLEX RF: 0 clonazepam [Klonopin] 2 mg Tablet 2 mg PO TID@,,20 RF: 0 Fleet Enema 19-7 gram/118 mL Enema See Rx Instructions .ROUTE .COMPLEX RF: 0 polyethylene glycol 3350 17 gram powder in packet 17 gm PO DAILY@08 RF: 0 lithium carbonate 450 mg tablet extended release 450 mg PO BID@,20 RF: 0 nitrofurantoin monohyd/m-cryst [Macrobid] 100 mg capsule 100 mg PO DAILY@08 RF: 0 Vyvanse 50 mg capsule 50 mg PO DAILY@08 RF: 0 ketoconazole 2 % Shampoo See Rx Instructions .ROUTE .COMPLEX RF: 0 benzoyl peroxide 5 % Gel See Rx Instructions .ROUTE .COMPLEX RF: 0 benzoyl peroxide [Panoxyl] 10 % Cleanser See Rx Instructions .ROUTE .COMPLEX RF: 0 Tarsum Professional 2 % Shampoo See Rx Instructions .ROUTE .COMPLEX RF: 0 boric acid in isopropyl Drops See Rx Instructions .ROUTE .COMPLEX RF: 0 ammonium lactate 5 % Cream See Rx Instructions .ROUTE .COMPLEX RF: 0 CeraVe Cream See Rx Instructions .ROUTE .COMPLEX RF: 0 ketoconazole See Rx Instructions .ROUTE .COMPLEX RF: 0 fluocinonide 0.05 % Gel See Rx Instructions .ROUTE .COMPLEX RF: 0 tkvydput-uignkfxslt-brqjjzjfg Ointment See Rx Instructions .ROUTE .COMPLEX RF: 0 sunscreen 15 SPF Lotion See Rx Instructions .ROUTE .COMPLEX RF: 0 Desitin Rapid Relief 13 % Cream See Rx Instructions .ROUTE .COMPLEX RF: 0 triamcinolone acetonide 0.1 % cream See Rx Instructions .ROUTE .COMPLEX RF: 0 ketoconazole 2 % cream See Rx Instructions .ROUTE .COMPLEX RF: 0 alum-javier uzxd-rbbhxop-pmiknyq Ointment See Rx Instructions .ROUTE .COMPLEX RF: 0 clobetasol 0.05 % shampoo See Rx Instructions .ROUTE .COMPLEX RF: 0 Discharge Orders: Discharge Order (Routine); Ordered 10/10/20 Ordered By: Rashi Starkey Referrals: Anurag Gautam MD [Primary Care Provider] - 2 weeks Discharge Diet: Soft Mechanical Discharge Activity: Resume usual activity Patient Instructions: Opioid Safety Discharge Attestations Time Spent in Discharge Care*: less than 30 min Specific Discharge Activities: educating and/or supporting family/caregiver, discussing with medical case worker/social workers/dc planners, documenting/other paperwork and evaluating patient/reviewing data Status at Discharge: Cognitive status at discharge: severely impaired cognition , Behavioral status at discharge: cooperative , Quality Metrics Clinical Quality Measures During this hospital stay, did patient experience: None Coding Level of Care Code Acute [facility] DC note Diagnoses Respiratory failure with hypoxia and hypercapnia J96.91; J96.92 Aspiration pneumonia J69.0 UTI (urinary tract infection) N30.00 Hematuria presence: without hematuria Urinary tract infection type: acute cystitis Lewy body dementia G31.83; F02.81 Dementia behavioral disturbance: with behavioral disturbance Neurogenic bladder N31.9
--- NOTE | 2020-10-10 12:27 | PC.NURSE ---
Received discharge orders. Nurse completed Discharge assessment and discontinued IVs. Left chronic solis in place. Nuse had to call in [place] to [facility] [place] meds to [place]. Not properly transmitting.
--- NOTE | 2020-10-10 13:37 | PC.NURSE ---
Personnel form [facility] agency came to picker/puller patient. Nurse got signature page signed and reviewed medications and instructions with caregiver. Meds to bed medication (levofloxacin) sent with patient.
== END 2020-10-10 13:40 | disposition home or self-care (01) | DRG 208 ==
LOC: ER 11:30 → ICU 15:48
PROVIDERS: Internal Medicine; Admitting Provider Internal Medicine; Emergency Provider Emergency Medicine; PCP Internal Medicine; Visit Provider Internal Medicine
DX: J69.0 Pneumonitis due to inhalation of food and vomit (principal); J96.02 Acute respiratory failure with hypercapnia; J96.01 Acute respiratory failure with hypoxia; G93.41 Metabolic encephalopathy; F84.0 Autistic disorder; N30.00 Acute cystitis without hematuria; G31.83 Neurocognitive disorder with Lewy bodies; F02.80 Dementia in other diseases classified elsewhere, unspecified severity, without behavioral disturbance, psychotic disturbance, mood disturbance, and anxiety; F90.9 Attention-deficit hyperactivity disorder, unspecified type; R62.50 Unspecified lack of expected normal physiological development in childhood; N31.9 Neuromuscular dysfunction of bladder, unspecified; Z87.440 Personal history of urinary (tract) infections
CPT/HCPCS: 36415; 36600; 71045; 80048; 80051; 80053; 81001; 82330; 82803; 82805; 83605; 83690; 83735; 83880; 84145; 85025; 87040; 87070; 87077; 87086; 87186; 87205; 93005; 94002; 94003; 94640; 94799; 96365; 96372; 99285; 99291; 99292; J0696; J1170; J1650; J2405; J2543; J2704; J7030

== ENCOUNTER → 2020-10-13 08:13 | Outpatient (BNVA) | payer MEDICARE, MEDICAID, SELFPAY | PROVIDERS: PCP Internal Medicine; Visit Provider Specialist | DX: G40.909 Epilepsy, unspecified, not intractable, without status epilepticus (principal); G31.83 Neurocognitive disorder with Lewy bodies; F02.81 Dementia in other diseases classified elsewhere, unspecified severity, with behavioral disturbance; R26.9 Unspecified abnormalities of gait and mobility; R62.50 Unspecified lack of expected normal physiological development in childhood; F98.8 Other specified behavioral and emotional disorders with onset usually occurring in childhood and adolescence | CPT/HCPCS: 99213 ==

== ENCOUNTER 2020-12-01 12:57 | Inpatient (IN) | payer MEDICARE, MEDICAID, SELFPAY ==
[2020-12-01] VITALS (7 sets, daily range): BP systolic 106–118; BP diastolic 75–80; PULSE 57–126; RESP 17–20; TEMP 36.8–39; O2SAT 95–96; BMI 25.7
--- NOTE | 2020-12-01 13:20 | XRR_ITS ---
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 TECHNIQUE: Imaging protocol: XR of the chest. Views: 1 view. COMPARISON: CO XR chest 1V portable [id number] 10/09/2020 6:28 AM FINDINGS: Tubes, catheters and devices: Removal of endotracheal tube. The enteric tube has been removed. Lungs: Poor inspiratory effort with some crowding of pulmonary markings and possible accentuation of the apparent heart size. Mild left basilar bronchopneumonia. Pleural spaces: Unremarkable. No pleural effusion. No pneumothorax. Heart/Mediastinum: See Lungs finding. Bones/joints: Unremarkable. XR/XR chest 1V portable [id number] IMPRESSION: 1. Poor inspiratory effort with some crowding of pulmonary markings and possible accentuation of the apparent heart size. 2. Mild left basilar bronchopneumonia.
--- NOTE | 2020-12-01 13:22 | ECG_ITS ---
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
--- NOTE | 2020-12-01 13:26 | ED_ITS ---
HPI - Fever General: Chief Complaint: Fever Stated Complaint: [place] [facility] Time Seen by Provider: 12/01/20 13:20 History of Present Illness: HPI Narrative: This patient is a 45-year-old male who presents to the emergency department complaining of fever. And lethargy. 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 And a history of aspiration pneumonia and history of chronic UTIs. Patient does have an indwelling العلي catheter. Patient lives in his own home with 24-hour caregivers. They were state that the patient felt more lethargic today and not as active. On triage patient did have a temperature greater than 102. Patient recently had a folder العلي catheter change approximately 1 week ago. Patient does have a chronic cough. Will do medical evaluation treat as needed MD elicited complaint: fever, malaise and weakness Onset (ago): hour(s) Measured temperature: 102 F Exacerbating factors: nothing Relieving factors: nothing Associated symptoms: Deny abdominal pain, flank pain, chills, chest pain, dysuria, extremity pain, headache(s), nausea or vomiting Review of Systems General: Reports: 10 or more systems reviewed and unremarkable except in HPI and below Const: Reports: fever(s), change in appetite, fatigue and malaise; Denies: chills or body aches Eyes: Denies: change in vision or blurry vision ENMT: Denies: throat pain, hoarseness or mouth pain Card: Denies: chest pain, palpitations, irregular heart rhythm, edema, swelling of feet/ankles or lightheadedness Resp: Reports: non-productive cough; Denies: dyspnea, productive cough, wheezing or pain on inspiration GI: Denies: abdominal pain, nausea or vomiting : Denies: flank pain, dysuria, urinary frequency, urinary urgency or urinary hesitancy Musc: Denies: neck pain, back pain, extremity pain, extremity swelling, joint pain, joint swelling, joint redness, joint warmth or limited range of motion Skin/Breast: Denies: rash, pruritus, erythema or skin tenderness Neuro: Denies: headache(s), numbness in extremities or weakness in extremities Psych: Denies: anxiety or depression PFS ED PFSH: Medical History Acute metabolic encephalopathy Patient is at baseline mentation Acute respiratory failure with hypoxia and hypercapnia Resolved ADHD Aspiration pneumonia Aspiration pneumonia Attention deficit disorder Attention deficit disorder (ADD) Autism Constipation Developmental delay, severe Inappropriate sinus tachycardia Lewy body dementia Lewy body dementia Neurogenic bladder -intermittent self catheterization at facility Respiratory failure Respiratory failure with hypoxia and hypercapnia Sepsis Sepsis resolved Urinary retention UTI (urinary tract infection) Surgical History History of dental surgery History of sinus surgery Family History Other CAD (coronary artery disease) Cancer Social History Smoking and tobacco status: never smoked Second hand smoke exposure: No Alcohol intake: never History of recent travel: No Physical Exam Const: COMMON NORMALS: no acute distress, average body habitus, patient oriented x3, no limitations, healthy appearing, alert and well nourished HENMT: COMMON NORMALS: normocephalic, atraumatic, hearing grossly normal bilaterally, external ears normal, EAC's normal, TM's normal bilaterally, Normal external nose present, Normal nasal mucous membranes and turbinates present, moist oral mucous membranes, oropharynx normal, dentition normal and gingiva normal HEAD & SCALP: normocephalic and atraumatic NOSE: Normal external nose present and Normal nasal mucous membranes and turbinates present EXTERNAL EAR: Yes external ears normal EXTERNAL AUDITORY CANAL: EAC's normal TYMPANIC MEMBRANE: TM's normal bilaterally Neck/C-Spine: COMMON NORMALS: full ROM, no lymphadenopathy, supple, no meningeal signs, no JVD, Thyroid normal and No carotid bruits THYROID: Thyroid normal Chest: COMMONS NORMALS: normal inspection of the chest, normal palpation of entire chest wall, normal inspection of the breasts and normal palpation of the breasts Breast/axilla inspection: Yes normal inspection of the breasts BREAST/AXILLA PALPATION: Yes normal palpation of the breasts Resp: COMMON NORMALS: normal respiratory effort, No retractions, No use of accessory muscles, clear to auscultation bilaterally and percussion normal AUSCULTATION: clear to auscultation bilaterally PERCUSSION: percussion normal Cardio: COMMON NORMALS: no JVD, regular rate, regular rhythm, S1 normal heart sound present, S2 normal heart sound present, No gallops present (Cardio), No clicks present (Cardio), No murmurs present (Cardio), No rub (Cardio) and Peripheral pulses 2+ throughout RATE: regular rate RHYTHM: regular rhythm HEART SOUNDS: S1 normal heart sound present and S2 normal heart sound present PERIPHERAL PULSES: Peripheral pulses 2+ throughout GI: COMMON NORMALS: Normal to inspection, nondistended, normoactive bowel sounds present, Soft to palpation, non-tender, No hepatosplenomegaly present, no masses and no bruits PALPATION: Yes Soft to palpation and Yes No hepatosplenomegaly present : COMMON NORMALS: Yes no CVA tenderness BLADDER/KIDNEY EXAM: Yes no CVA tenderness Back/Pelvis: COMMON NORMALS: no CVA tenderness, thoracic and lumbar spine normal to inspection, no thoracic nor lumbar tenderness, thoraco-lumbar ROM normal and straight leg raise negative bilaterally Extremity: COMMON NORMALS: normal to inspection, full ROM, capillary refill normal, no joint enlargement, no clubbing, cyanosis or edema, no calf tenderness and no pedal edema Neuro: COMMON NORMALS: patient oriented x3 SENSORIUM/ORIENTATION: Yes alert MENINGEAL SIGNS: Yes no meningeal signs Course Reevaluation(s): Reevaluation #1: I did discuss at length with patient's caregiver states understanding patient's admission for urinary tract infection. Consultations: Consultation #1: I discussed at length with Dr. Toney hospitalist. He is agreed to admit the patient to the floor for further evaluation and treatment for urinary tract infection. Time: 18:00 Vital Signs: Vital signs: Vital Signs Temperature 98.3 F 12/01/20 15:43 Pulse Rate 110 H 12/01/20 15:43 Respiratory Rate 20 H 12/01/20 15:43 Blood Pressure 113/80 12/01/20 15:43 Pulse Oximetry 96 12/01/20 15:43 MDM - Fever MDM Narrative: Medical decision making narrative: This patient is a 45-year-old male who presents to the emergency department complaining of fever. And lethargy. 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 And a history of aspiration pneumonia and history of chronic UTIs. Patient does have an indwelling العلي catheter. Patient lives in his own home with 24-hour caregivers. They were state that the patient felt more lethargic today and not as active. On triage patient did have a temperature greater than 102. Patient recently had a folder العلي catheter change approximately 1 week ago. Patient does have a chronic cough. I discussed at length with Dr. Toney hospitalist. He is agreed to admit the patient to the floor for further evaluation and treatment for urinary tract infection. Differential Diagnosis: Differential diagnosis: Likely abdominal pain, acute appendicitis, calculus of kidney, constipation, diverticulitis, endometriosis, gastroenteritis, pancreatitis and small bowel obstruction Medical Records: Attestation: I reviewed the patient's medical records. Lab Data: Attestation: I reviewed the patient's lab results. Labs: Lab Results 12/01/20 12/01/20 12/01/20 Range/Units 14:05 14:50 14:50 WBC 17.5 H (4.0-10.0) 10^3/ uL RBC 5.25 (4.1-5.3) 10^6/u L Hgb 15.6 (11.7-16.6) g/dL Hct 46.7 (42.0-52.0) % MCV 89.0 (80-94) fL MCH 29.7 (28.0-34.0) pg MCHC 33.4 (30.0-36.0) g/dL RDW 13.1 (12.1-15.1) % Plt Count 238 (130-400) 10^3/c mm MPV 9.9 (7.4-10.4) fL Neut % (Auto) 85.6 % Lymph % (Auto) 7.0 % Sabine % (Auto) 6.1 % Eos % (Auto) 0.2 % Baso % (Auto) 0.2 % Neut # (Auto) 15.03 H (1.8-7.7) 10^3/u L Lymph # (Auto) 1.2 (0.8-4.8) 10^3/u L Sabine # (Auto) 1.1 H (0.2-0.9) 10^3/u L Eos # (Auto) 0.0 (0.0-0.8) 10^3/u L Baso # (Auto) 0.0 (0.0-0.1) 10^3/u L Nucleated RBC % (a uto) 0 % Nucleated RBCs # 0.0 /100WBC PT INR APTT Specimen Type Arterial Sample Site Brachial, right ABG pH 7.47 H (7.35-7.45) ABG pCO2 34.4 L (35-45) mmHg ABG pO2 68.6 L (80.0-100.0) mmH g ABG HCO3 24.9 (22-26) mmol/L ABG O2 Saturation 96.0 ABG Base Excess 1.7 (-2.0-2.0) mmol/ L Javier Test Pos A-a O2 Gradient 5.0 (5-10) mmHg Hematocrit 46.6 (42-52) % Hgb O2 Saturation 94.0 L (95-100) % Carboxyhemoglobin 1.3 (0.4-20.1) %THgb Methemoglobin 0.8 (0.4-1.5) % Total Hemoglobin 15.2 (14-18) g/dL Sodium 135.0 Cancelled (131-143) mmol/L Potassium 4.4 Cancelled (3.5-5.0) mmol/L Glucose 196.0 H Cancelled (70-115) mg/dL Ionized Calcium 1.1 (1.1-1.4) mmol/L O2 Delivery Device Room air Director Workforce Management ID [id number] Chloride Cancelled Carbon Dioxide Cancelled Anion Gap Cancelled BUN Cancelled Creatinine Cancelled GFR Calculation Cancelled Calculated Osmolal ity Cancelled Lactic Acid Lactate (0.5-2.2) mmol/L Calcium Cancelled Total Bilirubin Cancelled AST Cancelled ALT Cancelled Alkaline Phosphata se Cancelled Total Protein Cancelled Albumin Cancelled Globulin Cancelled Urine Color (Yellow) Urine Appearance (CLEAR) Urine pH (5-7) Ur Specific Gravit y (1.005-1.030) Urine Protein (Negative) Urine Glucose (UA) (Normal) Urine Ketones (Negative) Urine Blood (Negative) Urine Nitrate (Negative) Urine Bilirubin (Negative) Urine Urobilinogen (Negative) mg/dL Ur Leukocyte Shira ase (Negative) Urine RBC (0-2) /hpf Urine WBC (0-5) /hpf Ur Squamous Epith Cells (0-5) /hpf Amorphous Sediment Urine Bacteria (NONE) /hpf Urine Mucus /hpf Salicylates Cancelled Urine Opiates Scre en (Negative) ng/mL Ur Barbiturates Sc reen (Negative) ng/mL Ur Phencyclidine S crn (Negative) ng/mL Ur Amphetamines Sc reen (Negative) ng/mL U Benzodiazepines Scrn (Negative) ng/mL Urine Cocaine Scre en (Negative) ng/mL U Marijuana (THC) Screen (Negative) ng/mL SARS-CoV-2 Ag (Rap id) (Negative) 12/01/20 12/01/20 12/01/20 Range/Units 14:50 14:50 15:14 WBC (4.0-10.0) 10^3/ uL RBC (4.1-5.3) 10^6/u L Hgb (11.7-16.6) g/dL Hct (42.0-52.0) % MCV (80-94) fL MCH (28.0-34.0) pg MCHC (30.0-36.0) g/dL RDW (12.1-15.1) % Plt Count (130-400) 10^3/c mm MPV (7.4-10.4) fL Neut % (Auto) % Lymph % (Auto) % Sabine % (Auto) % Eos % (Auto) % Baso % (Auto) % Neut # (Auto) (1.8-7.7) 10^3/u L Lymph # (Auto) (0.8-4.8) 10^3/u L Sabine # (Auto) (0.2-0.9) 10^3/u L Eos # (Auto) (0.0-0.8) 10^3/u L Baso # (Auto) (0.0-0.1) 10^3/u L Nucleated RBC % (a uto) % Nucleated RBCs # /100WBC PT Cancelled INR Cancelled APTT Cancelled Specimen Type Sample Site ABG pH (7.35-7.45) ABG pCO2 (35-45) mmHg ABG pO2 (80.0-100.0) mmH g ABG HCO3 (22-26) mmol/L ABG O2 Saturation ABG Base Excess (-2.0-2.0) mmol/ L Javier Test A-a O2 Gradient (5-10) mmHg Hematocrit (42-52) % Hgb O2 Saturation (95-100) % Carboxyhemoglobin (0.4-20.1) %THgb Methemoglobin (0.4-1.5) % Total Hemoglobin (14-18) g/dL Sodium 130 L (131-143) mmol/L Potassium 4.3 (3.5-5.0) mmol/L Glucose 144 H (70-115) mg/dL Ionized Calcium (1.1-1.4) mmol/L O2 Delivery Device Director Workforce Management ID Chloride [id number] L Carbon Dioxide 24 Anion Gap 14.3 BUN 13 Creatinine 0.5 L GFR Calculation 181.5 H Calculated Osmolal ity 273 L Lactic Acid Cancelled Lactate (0.5-2.2) mmol/L Calcium 8.6 Total Bilirubin 0.5 AST 20 ALT 8 Alkaline Phosphata se 136 H Total Protein 7.4 Albumin 4.1 Globulin 3.3 Urine Color (Yellow) Urine Appearance (CLEAR) Urine pH (5-7) Ur Specific Gravit y (1.005-1.030) Urine Protein (Negative) Urine Glucose (UA) (Normal) Urine Ketones (Negative) Urine Blood (Negative) Urine Nitrate (Negative) Urine Bilirubin (Negative) Urine Urobilinogen (Negative) mg/dL Ur Leukocyte Shira ase (Negative) Urine RBC (0-2) /hpf Urine WBC (0-5) /hpf Ur Squamous Epith Cells (0-5) /hpf Amorphous Sediment Urine Bacteria (NONE) /hpf Urine Mucus /hpf Salicylates < 0.3 L Urine Opiates Scre en (Negative) ng/mL Ur Barbiturates Sc reen (Negative) ng/mL Ur Phencyclidine S crn (Negative) ng/mL Ur Amphetamines Sc reen (Negative) ng/mL U Benzodiazepines Scrn (Negative) ng/mL Urine Cocaine Scre en (Negative) ng/mL U Marijuana (THC) Screen (Negative) ng/mL SARS-CoV-2 Ag (Rap id) (Negative) 12/01/20 12/01/20 12/01/20 Range/Units 15:14 15:14 15:41 WBC (4.0-10.0) 10^3/ uL RBC (4.1-5.3) 10^6/u L Hgb (11.7-16.6) g/dL Hct (42.0-52.0) % MCV (80-94) fL MCH (28.0-34.0) pg MCHC (30.0-36.0) g/dL RDW (12.1-15.1) % Plt Count (130-400) 10^3/c mm MPV (7.4-10.4) fL Neut % (Auto) % Lymph % (Auto) % Sabine % (Auto) % Eos % (Auto) % Baso % (Auto) % Neut # (Auto) (1.8-7.7) 10^3/u L Lymph # (Auto) (0.8-4.8) 10^3/u L Sabine # (Auto) (0.2-0.9) 10^3/u L Eos # (Auto) (0.0-0.8) 10^3/u L Baso # (Auto) (0.0-0.1) 10^3/u L Nucleated RBC % (a uto) % Nucleated RBCs # /100WBC PT 15.30 H INR 1.17 APTT 42.8 H Specimen Type Sample Site ABG pH (7.35-7.45) ABG pCO2 (35-45) mmHg ABG pO2 (80.0-100.0) mmH g ABG HCO3 (22-26) mmol/L ABG O2 Saturation ABG Base Excess (-2.0-2.0) mmol/ L Javier Test A-a O2 Gradient (5-10) mmHg Hematocrit (42-52) % Hgb O2 Saturation (95-100) % Carboxyhemoglobin (0.4-20.1) %THgb Methemoglobin (0.4-1.5) % Total Hemoglobin (14-18) g/dL Sodium (131-143) mmol/L Potassium (3.5-5.0) mmol/L Glucose (70-115) mg/dL Ionized Calcium (1.1-1.4) mmol/L O2 Delivery Device Director Workforce Management ID Chloride Carbon Dioxide Anion Gap BUN Creatinine GFR Calculation Calculated Osmolal ity Lactic Acid Lactate 1.7 (0.5-2.2) mmol/L Calcium Total Bilirubin AST ALT Alkaline Phosphata se Total Protein Albumin Globulin Urine Color (Yellow) Urine Appearance (CLEAR) Urine pH (5-7) Ur Specific Gravit y (1.005-1.030) Urine Protein (Negative) Urine Glucose (UA) (Normal) Urine Ketones (Negative) Urine Blood (Negative) Urine Nitrate (Negative) Urine Bilirubin (Negative) Urine Urobilinogen (Negative) mg/dL Ur Leukocyte Shira ase (Negative) Urine RBC (0-2) /hpf Urine WBC (0-5) /hpf Ur Squamous Epith Cells (0-5) /hpf Amorphous Sediment Urine Bacteria (NONE) /hpf Urine Mucus /hpf Salicylates Urine Opiates Scre en (Negative) ng/mL Ur Barbiturates Sc reen (Negative) ng/mL Ur Phencyclidine S crn (Negative) ng/mL Ur Amphetamines Sc reen (Negative) ng/mL U Benzodiazepines Scrn (Negative) ng/mL Urine Cocaine Scre en (Negative) ng/mL U Marijuana (THC) Screen (Negative) ng/mL SARS-CoV-2 Ag (Rap id) Negative (Negative) 12/01/20 12/01/20 Range/Units 17:34 17:34 WBC (4.0-10.0) 10^3/ uL RBC (4.1-5.3) 10^6/u L Hgb (11.7-16.6) g/dL Hct (42.0-52.0) % MCV (80-94) fL MCH (28.0-34.0) pg MCHC (30.0-36.0) g/dL RDW (12.1-15.1) % Plt Count (130-400) 10^3/c mm MPV (7.4-10.4) fL Neut % (Auto) % Lymph % (Auto) % Sabine % (Auto) % Eos % (Auto) % Baso % (Auto) % Neut # (Auto) (1.8-7.7) 10^3/u L Lymph # (Auto) (0.8-4.8) 10^3/u L Sabine # (Auto) (0.2-0.9) 10^3/u L Eos # (Auto) (0.0-0.8) 10^3/u L Baso # (Auto) (0.0-0.1) 10^3/u L Nucleated RBC % (a uto) % Nucleated RBCs # /100WBC PT INR APTT Specimen Type Sample Site ABG pH (7.35-7.45) ABG pCO2 (35-45) mmHg ABG pO2 (80.0-100.0) mmH g ABG HCO3 (22-26) mmol/L ABG O2 Saturation ABG Base Excess (-2.0-2.0) mmol/ L Javier Test A-a O2 Gradient (5-10) mmHg Hematocrit (42-52) % Hgb O2 Saturation (95-100) % Carboxyhemoglobin (0.4-20.1) %THgb Methemoglobin (0.4-1.5) % Total Hemoglobin (14-18) g/dL Sodium (131-143) mmol/L Potassium (3.5-5.0) mmol/L Glucose (70-115) mg/dL Ionized Calcium (1.1-1.4) mmol/L O2 Delivery Device Director Workforce Management ID Chloride Carbon Dioxide Anion Gap BUN Creatinine GFR Calculation Calculated Osmolal ity Lactic Acid Lactate (0.5-2.2) mmol/L Calcium Total Bilirubin AST ALT Alkaline Phosphata se Total Protein Albumin Globulin Urine Color Yellow (Yellow) Urine Appearance Clear (CLEAR) Urine pH 5 (5-7) Ur Specific Gravit y 1.020 (1.005-1.030) Urine Protein 1+ H (Negative) Urine Glucose (UA) Norm (Normal) Urine Ketones Negative (Negative) Urine Blood 3+ H (Negative) Urine Nitrate Negative (Negative) Urine Bilirubin 1+ H (Negative) Urine Urobilinogen 4 H (Negative) mg/dL Ur Leukocyte Shira ase 1+ H (Negative) Urine RBC 5-10 H (0-2) /hpf Urine WBC 40-55 H (0-5) /hpf Ur Squamous Epith Cells Rare (0-5) /hpf Amorphous Sediment Not Reportable Urine Bacteria 1+ H (NONE) /hpf Urine Mucus 2+ /hpf Salicylates Urine Opiates Scre en Negative (Negative) ng/mL Ur Barbiturates Sc reen Negative (Negative) ng/mL Ur Phencyclidine S crn Negative (Negative) ng/mL Ur Amphetamines Sc reen Positive H (Negative) ng/mL U Benzodiazepines Scrn Negative (Negative) ng/mL Urine Cocaine Scre en Negative (Negative) ng/mL U Marijuana (THC) Screen Negative (Negative) ng/mL SARS-CoV-2 Ag (Rap id) (Negative) Imaging Data^: CXR: Attestation: I personally reviewed and interpreted this imaging study as follows: Radiologist's impression: IMPRESSION: 1. Poor inspiratory effort with some crowding of pulmonary markings and possible accentuation of the apparent heart size. 2. Mild left basilar bronchopneumonia. EKG Data^: EKG 1: Attestation: I personally reviewed and interpreted this EKG as follows: EKG interpretation date: 12/01/20 EKG interpretation time: 13:45 Prior EKG tracings: not available for review Interpretation: Sinus tachycardia heart rate 120 otherwise normal EKG Discharge Plan Discharge Patient Disposition: Admitted As Inpatient Clinical Impression: Acute UTI, Weakness, Neurologic gait disorder, Lewy body dementia, De velopmental delay, severe Condition: Stable Coding Level of Care Code ED Foundation Digger for Chg Fwd Exam Comprehensive
[2020-12-01 14:14] LABS: ABG PCO2 34.4 mmHg (35-45); ABG PH Result 7.47 (7.35-7.45); Arterial Blood Gas Hematocrit 46.6 % (42-52); Base Excess ABG 1.7 mmol/L (-2.0-2.0); Blood Gas Allen Test Pos; Blood Gas Sample Type Arterial; Carboxyhemoglobin 1.3 %THgb (0.4-20.1); HCO3 ABG 24.9 mmol/L (22-26); Ionized Calcium Level - ABG 1.1 mmol/L (1.1-1.4); Methemoglobin 0.8 % (0.4-1.5); PO2 ABG 68.6 mmHg (80.0-100.0); Potassium Level - ABG 4.4 mmol/L (3.5-5.0); Total Hemoglobin 15.2 g/dL (14-18)
[2020-12-01 14:15] LABS: Blood Gas Sample Site Brachial, right; Oxygen Device ROOM AIR
[2020-12-01 14:58] LABS: Basophils % 0.2 %; Eosinophils % 0.2 %; Hematocrit 46.7 % (42.0-52.0); Hemoglobin 15.6 g/dL (11.7-16.6); Lymphocytes # 1.2 10^3/uL (0.8-4.8); Mean Corpuscular HGB Conc 33.4 g/dL (30.0-36.0); Mean Corpuscular Hemoglobin 29.7 pg (28.0-34.0); Mean Platelet Volume 9.9 fL (7.4-10.4); Monocytes # 1.1 10^3/uL (0.2-0.9); Monocytes % 6.1 %; Neutrophils # 15.03 10^3/uL (1.8-7.7); Neutrophils % 85.6 %; Nucleated Red Blood Cells % 0 %; Platelet Count 238 10^3/cmm (130-400); Red Blood Count 5.25 10^6/uL (4.1-5.3); Red Cell Distribution Width 13.1 % (12.1-15.1); White Blood Count 17.5 10^3/uL (4.0-10.0)
[2020-12-01] MEDS: cefTRIAXone 1,000 MG in sodium chloride 0.9% (plus) 50 ML 100 MG IV (15:27)
[2020-12-01] MEDS: sodium chloride 0.9% 1,000 ML 999 ML IV (15:27)
[2020-12-01] MEDS: acetaminophen 325 mg Tablet 650 MG PO (15:32)
[2020-12-01 15:35] LABS: INR 1.17 (0.8-1.2)
[2020-12-01 15:44] LABS: Lactate (Lactic Acid level) 1.7 mmol/L (0.5-2.2)
[2020-12-01 15:45] LABS: Alanine Aminotransferase 8 U/L (0-41); Albumin Level 4.1 g/dL (3.5-5.2); Alkaline Phosphatase 136 IU/L (40-130); Anion Gap 14.3 (5-19); Aspartate Amino Transferase 20 U/L (0-40); Blood Urea Nitrogen 13 mg/dL (6-20); Calcium 8.6 mg/dL (8.5-10.5); Carbon Dioxide 24 mmol/L (22-29); Chloride 96 mmol/L (98-107); Globulin 3.3 g/dL (1.3-4.6); Glomerular Filtration Rate 181.5 mL/min (90-130); Glucose 144 mg/dL (65-115); Osmolality Calculated 273 mOsm/kg (285-295); Potassium 4.3 mmol/L (3.5-5.1); Sodium 130 mmol/L (136-145); Total Bilirubin 0.5 mg/dL (0.15-1.2); Total Protein 7.4 g/dL (6.6-8.7)
[2020-12-01 15:53] LABS: Salicylate < 0.3 mg/dL (3-10)
[2020-12-01 16:03] LABS: Partial Thromboplastin Time 42.8 SECONDS (23.9-36.7)
[2020-12-01 16:21] LABS: SARS Covid-2 Antigen Negative (Negative)
[2020-12-01 17:05] LABS: Reflex Lactate Order REFLEX LACTIC ORDERD
[2020-12-01 17:48] LABS: Add Urine Microscopic? YES; Bilirubin Urine 1+ (Negative); Blood Urine 3+ (Negative); Glucose Urine UA Norm (Normal); Ketones Urine Negative (Negative); Leukocyte Esterase Urine 1+ (Negative); Nitrate Urine Negative (Negative); Protein Urine 1+ (Negative); Urine Appearance Clear (CLEAR); Urine Color Yellow (Yellow); Urobilinogen Urine 4 mg/dL (Negative); pH Urine 5 (5-7)
[2020-12-01 17:51] LABS: Add Urine Culture? Yes; Bacteria Urine 1+ /hpf; Mucus Urine 2+ /hpf; Squamous Epithelial Cell Urine RARE /hpf (0-5); WBC Urine 40-55 /hpf (0-5)
[2020-12-01 17:52] LABS: Amphetamines Screen Urine Positive (Negative); Barbiturates Screen Urine Negative (Negative); Benzodiazepines Screen Urine Negative (Negative); Cocaine Screen Urine Negative (Negative); Opiate Screen Urine Negative (Negative); PCP Screen Urine Negative (Negative); THC Screen Urine Negative (Negative)
--- NOTE | 2020-12-01 18:27 | PM.HP ---
Providers/Chief Complaint Primary Care Provider: Anurag Gautam MD Chief Complaint: SENT BY [facility] SEPSIS History of Present Illness Joshua Valerio is a 45 year old male with a past medical history of Lewy body dementia, developmental disability, autism, recurrent aspiration pneumonias, currently on a dysphagia diet, requires assistance for feeding, recurrent urinary tract infection, with chronic العلي catheter in place, who was recently admitted to [facility] for acute hypoxic respiratory failure secondary aspiration pneumonia, at baseline he is nonverbal, can say a few words, does not really follow commands, requires assistance with activities of daily living, mostly history was provided by his caregiver, from [facility], who advises me that this morning when they woke him up, he had a fever, and he was drenched in sweat, and he was not behaving appropriately, and was not acting his normal self, he did not hardly eat any breakfast, no recent aspiration events that they know of, his العلي was changed roughly a week ago, no falls, no injuries, no nausea, no vomiting, no diarrhea, he has received both of his Covid vaccines, no known exposure Review of Systems General: Reports: ROS unobtainable due to medical condition Medications/Allergies Home Medications Medication Instructions Recorded Confirmed Last Taken Type acetaminophen 325 mg tablet 650 mg PO Q4H PRN tab 06/03/19 12/01/20 Unknown History albuterol sulfate 2.5 mg INHALATION Q2H PRN 06/03/19 12/01/20 Unknown History amitriptyline 25 mg tablet 25 mg PO TID@,, tab 06/03/19 12/01/20 12/01/20 08:00 History benztropine 1 mg tablet 1 mg PO BID@06/03/19 12/01/20 12/01/20 08:00 History bismuth subsalicylate 262 mg/15 mL 524 mg PO Q4H PRN 06/03/19 12/01/20 Unknown History oral suspension docusate sodium 100 mg capsule 100 mg PO BID@06/03/19 12/01/20 12/01/20 08:00 History loratadine 10 mg capsule 10 mg PO DAILY@08 06/03/19 12/01/20 12/01/20 History lubiprostone 24 mcg capsule 24 mcg PO BID@08,20 06/03/19 12/01/20 12/01/20 08:00 History magnesium hydroxide 400 mg/5 mL See Rx Instructions .ROUTE .COMPLEX 06/03/19 12/01/20 Unknown History oral suspension tamsulosin 0.4 mg capsule 0.8 mg PO DAILY@20 cap 06/03/19 12/01/20 11/30/20 History flunisolide 25 mcg (0.025 %) nasal 1 spray INTRANASAL BID@08,20 ml 07/10/19 12/01/20 12/01/20 08:00 History spray terbinafine HCl 250 mg tablet 250 mg PO DAILY@08 01/07/20 12/01/20 12/01/20 History lorazepam 2 mg tablet 2 mg PO Q4H PRN #90 tab 06/19/20 12/01/20 Unknown Rx CeraVe See Rx Instructions .ROUTE .COMPLEX 07/30/20 12/01/20 07/30/20 08:00 History Desitin Rapid Relief See Rx Instructions .ROUTE .COMPLEX 07/30/20 12/01/20 Unknown History Fleet Enema See Rx Instructions .ROUTE .COMPLEX 07/30/20 12/01/20 Unknown History Tarsum Professional See Rx Instructions .ROUTE .COMPLEX 07/30/20 12/01/20 07/30/20 History alum-javier ngxn-imfrdum-rjrblur See Rx Instructions .ROUTE .COMPLEX 07/30/20 12/01/20 Unknown History ammonium lactate See Rx Instructions .ROUTE .COMPLEX 07/30/20 12/01/20 07/29/20 History benzoyl peroxide See Rx Instructions .ROUTE .COMPLEX 07/30/20 12/01/20 07/29/20 History benzoyl peroxide [Panoxyl] See Rx Instructions .ROUTE .COMPLEX 07/30/20 12/01/20 07/29/20 History boric acid in isopropyl See Rx Instructions .ROUTE .COMPLEX 07/30/20 12/01/20 Unknown History clobetasol See Rx Instructions .ROUTE .COMPLEX 07/30/20 12/01/20 Unknown History dextromethorphan-guaifenesin See Rx Instructions .ROUTE .COMPLEX 07/30/20 12/01/20 Unknown History fluocinonide See Rx Instructions .ROUTE .COMPLEX 07/30/20 12/01/20 Unknown History ketoconazole See Rx Instructions .ROUTE .COMPLEX 07/30/20 12/01/20 Unknown History ketoconazole See Rx Instructions .ROUTE .COMPLEX 07/30/20 12/01/20 07/30/20 08:00 History ketoconazole See Rx Instructions .ROUTE .COMPLEX 07/30/20 12/01/20 07/30/20 08:00 History lithium carbonate 450 mg PO BID@08,20 07/30/20 12/01/20 12/01/20 08:00 History nemvvcfe-rchzdwkear-whzkwgdex See Rx Instructions .ROUTE .COMPLEX 07/30/20 12/01/20 Unknown History nitrofurantoin monohyd/m-cryst 100 mg PO DAILY@08 07/30/20 12/01/20 12/01/20 History [Macrobid] polyethylene glycol 3350 17 gm PO DAILY@08 07/30/20 12/01/20 12/01/20 History sunscreen See Rx Instructions .ROUTE .COMPLEX 07/30/20 12/01/20 Unknown History triamcinolone acetonide See Rx Instructions .ROUTE .COMPLEX 07/30/20 12/01/20 Unknown History wheelchair #1 ea 08/21/20 12/01/20 Unknown Rx carbamide peroxide See Rx Instructions .ROUTE .COMPLEX 10/08/20 12/01/20 Unknown History haloperidol 20 mg PO BID@08,20 10/08/20 12/01/20 12/01/20 08:00 History clonazepam 2 mg tablet 2 mg PO TID@08,14,20 #90 tab 10/13/20 12/01/20 12/01/20 08:00 Rx lisdexamfetamine 50 mg capsule 50 mg PO DAILY@08 30 Days #30 cap 10/29/20 12/01/20 12/01/20 Rx food supplemt, lactose-reduced See Rx Instructions .ROUTE .COMPLEX 12/01/20 12/01/20 Unknown History [Ensure] Allergies Allergy/AdvReac Type Severity Reaction Status Date / Time No Known Allergies Allergy Verified 10/20/20 14:31 PFSH Acute PFSH: Medical History Acute metabolic encephalopathy Patient is at baseline mentation Acute respiratory failure with hypoxia and hypercapnia Resolved ADHD Aspiration pneumonia Aspiration pneumonia Attention deficit disorder Attention deficit disorder (ADD) Autism Constipation Developmental delay, severe Inappropriate sinus tachycardia Lewy body dementia Lewy body dementia Neurogenic bladder -intermittent self catheterization at facility Respiratory failure Respiratory failure with hypoxia and hypercapnia Sepsis Sepsis resolved Urinary retention UTI (urinary tract infection) Surgical History History of dental surgery History of sinus surgery Family History Other CAD (coronary artery disease) Cancer Social History Smoking and tobacco status: never smoked Second hand smoke exposure: No Alcohol intake: never History of recent travel: No Vitals/I&O/Wt Last Vital Signs Temp 98.3 F 12/01/20 15:43 Pulse 110 H 12/01/20 15:43 Resp 20 H 12/01/20 15:43 BP 113/80 12/01/20 15:43 Pulse Ox 96 12/01/20 15:43 Weight last 48 hrs Weight 70.307 kg Physical Exam Const: COMMON NORMALS: no acute distress GENERAL APPEARANCE: ill appearing and frail appearing ORIENTATION/CONSCIOUSNESS: Yes awake and Yes confused; not oriented to person, not oriented to place and not oriented to time Resp: COMMON NORMALS: normal respiratory effort, No retractions and No use of accessory muscles AUSCULTATION: crackles Cardio: COMMON NORMALS: regular rhythm, S1 normal heart sound present and S2 normal heart sound present RATE: tachycardic GI: COMMON NORMALS: Normal to inspection, nondistended, normoactive bowel sounds present and Soft to palpation Extremity: COMMON NORMALS: no pedal edema Neuro: SENSORIUM/ORIENTATION: Yes alert, No oriented to person, No oriented to place and No oriented to time Sepsis: Is patient septic: Yes Focused sepsis exam performed: Yes Date exam was performed: 12/01/20 Time exam was performed: 18:00 Data : 12/01/20 14:50 12/01/20 15:14 Micro: Microbiology 12/01/20 15:14 Blood Culture - Preliminary Blood SPECIMEN COLLECTED 12/01/20 14:50 Blood Culture - Preliminary Blood SPECIMEN COLLECTED A&P Assessment and plan (1) Sepsis: -Etiology is likely recurrent UTI and/or aspiration pneumonia -Due to tachycardia, leukocytosis, hyponatremia, -Rapid Covid negative -UA shows evidence of UTI, has chronic العلي in place -Chest x-ray shows radiographic evidence of bronchopneumonia, is on room air, but does have crackles on exam, tachypnea Plan: -Admit to general medical floors -Broad-spectrum antibiotic therapy vancomycin and Zosyn -Previous cultures have shown staph aureus, Acinetobacter baumannii/haemol -Follow sputum cultures, blood cultures, urine cultures, MRSA nares PCR -Oxygen therapy, respiratory therapy -العلي has already been changed -We will do CT chest abdomen pelvis -Aspiration precautions, neuro precautions, seizure precautions -Tylenol for fevers -D5 normal saline 100 cc an hour -Monitor vitals closely, telemetry monitoring, monitor mentation -Pro-Zane, CRP pending -For now keep n.p.o., high aspiration risk -Lovenox for DVT prophylaxis -For now his CODE STATUS is full code, his caregiver did search through his paper files to find his CODE STATUS, but she could not find it, will make a full code for now, until we get confirmation of what his CODE STATUS is Status: Acute (2) Lewy body dementia: Status: Acute (3) Attention deficit disorder (ADD) in adult: Status: Acute (4) Neurologic gait disorder: Status: Acute (5) Urinary retention: Status: Acute (6) Developmental delay, severe: Status: Acute (7) Acute UTI: Status: Acute (8) Aspiration pneumonia: Status: Acute Attestations Medical Necessity Statement*: patient requires hospitalization, inpatient, greater than 2 midnights, for sepsis secondary to UTI and/or aspiration pneumonia, dehydration, hyponatremia Coding Level of Care Code Acute [place] for [facility] Diagnoses Sepsis A41.9 Lewy body dementia G31.83; F02.80 Attention deficit disorder (ADD) in adult F98.8 Neurologic gait disorder R26.9 Urinary retention R33.9 Developmental delay, severe R62.50 Acute UTI N39.0 Aspiration pneumonia J69.0 Sepsis Event Note Evaluation Current stage of sepsis: sepsis Possible source: pulmonary and genitourinary Focused Exam Vital Signs Temp Pulse Pulse Resp BP BP Pulse Ox 12/01/20 15:43 98.3 F 110 H 20 H 113/80 96 12/01/20 13:11 102.2 F H 126 H 20 H 110/75 95 Respiratory exam: Present rhonchi Cardiovascular exam: Present tachycardia Capillary refill: > 3 Seconds Peripheral pulse strength: 2+ Slightly Diminished Skin exam: flushed and pale Date exam was performed: 12/01/20 Time exam was performed: 18:33 Problem List (1) Lewy body dementia: Status: Acute (2) Attention deficit disorder (ADD) in adult: Status: Acute (3) Neurologic gait disorder: Status: Acute (4) Urinary retention: Status: Acute (5) Developmental delay, severe: Status: Acute (6) Sepsis: Status: Acute (7) Acute UTI: Status: Acute (8) Aspiration pneumonia: Status: Acute
[2020-12-01 18:30] LABS: Lactic Acid level (Lactate) 0.9 mmol/L (0.5-2.2)
--- NOTE | 2020-12-01 19:02 | PC.NURSE ---
Report from CATE Josue
[2020-12-01 19:15] LABS: Procalcitonin 0.23 ng/mL (0-0.5)
--- NOTE | 2020-12-01 19:38 | PC.NURSE ---
Pt sleeping; SATS 90% RA; placed on 2L O2 NC; SATS now 95%.
--- NOTE | 2020-12-01 20:31 | CTR_ITS ---
PROCEDURE INFORMATION: Exam: CT Chest Without Contrast; Diagnostic Exam date and time: 12/01/2020 8:31 PM Age: 45 years old Clinical indication: Fever; Shortness of breath; Prior surgery; Additional info: Aspiration pna, UTI, evaluate for stones TECHNIQUE: Imaging protocol: Diagnostic computed tomography of the chest without contrast. Radiation optimization: All CT scans at this facility use at least one of these dose optimization techniques: automated exposure control; mA and/or kV adjustment per patient size (includes targeted exams where dose is matched to clinical indication); or iterative reconstruction. COMPARISON: CT chest w con* [id number] 06/05/2019 3:42 PM RADIATION DOSE METRICS: Total DLP (mGy-cm): 2134.29 FINDINGS: Lungs: Mild lower lobe volume loss with scattered patchy opacities most likely representing atelectasis. No definitive consolidation. No endobronchial obstruction. Pleural spaces: Unremarkable. No pneumothorax. No pleural effusion. Heart: Unremarkable. No cardiomegaly. No pericardial effusion. Mediastinal space: Herniation of fat into the posterior mediastinum. No thoracic esophageal wall thickening. Aorta: Unremarkable. No aortic aneurysm. Lymph nodes: Unremarkable. No enlarged lymph nodes. Bones/joints: Nonspecific joint effusion in the right shoulder. Soft tissues: Unremarkable. IMPRESSION: 1. Negative for acute pulmonary disease. 2. Nonspecific right glenohumeral joint effusion. Incomplete assessment. PROCEDURE INFORMATION: Exam: CT Abdomen And Pelvis Without Contrast Exam date and time: 12/01/2020 8:31 PM Age: 45 years old Clinical indication: Fever; Shortness of breath; Prior surgery; Additional info: Aspiration pna, UTI, evaluate for stones TECHNIQUE: Imaging protocol: Computed tomography of the abdomen and pelvis without contrast. Radiation optimization: All CT scans at this facility use at least one of these dose optimization techniques: automated exposure control; mA and/or kV adjustment per patient size (includes targeted exams where dose is matched to clinical indication); or iterative reconstruction. COMPARISON: CT chest w con* [id number] 06/05/2019 3:42 PM RADIATION DOSE METRICS: Total DLP (mGy-cm): 2134.29 FINDINGS: Liver: Normal. No mass. Gallbladder and bile ducts: Normal. No calcified stones. No ductal dilation. Pancreas: Normal. No ductal dilation. Spleen: Normal. No splenomegaly. Adrenal glands: Normal. No mass. Kidneys and ureters: No renal stones. No hydronephrosis. Stomach and bowel: Unremarkable. No obstruction. No mucosal thickening. Appendix: No evidence of appendicitis. Intraperitoneal space: Unremarkable. No free air. No significant fluid collection. Vasculature: Unremarkable. No abdominal aortic aneurysm. Lymph nodes: Unremarkable. No enlarged lymph nodes. Urinary bladder: العلي catheter within the bladder. Air-fluid level within the bladder. No bladder wall thickening. Reproductive: Unremarkable as visualized. Bones/joints: Unremarkable. No acute fracture. Soft tissues: Unremarkable. CT/CT chest abd pel wo con IMPRESSION: Negative for acute abdominopelvic pathology. Radiation Dose CTDIVOL = (mGy): DLP = 2134.29~2134.29 (mGy-cm)
--- NOTE | 2020-12-01 20:49 | PC.PHAR ---
Vancomycin is dosed at 1500mg IVPB every 12 hours to produce a predicted trough level of 11.43 (population based pharmacokinetic analysis). A trough level has been ordered from the lab to be obtained before the fourth dose to confirm and adjust if needed. The Zosyn is dosed at 3.375mg IVPB every 8 hours on basis of creatinine clearance of 175.2
[2020-12-01 20:57] LABS: Thyroid Stimulating Hormone 1.34 uIU/mL (0.27-4.20)
[2020-12-01] MEDS: lithium carbonate ER 450 mg Tablet PO (22:30)
[2020-12-01] MEDS: famotidine 20 mg/2 mL INJ IVP (22:30)
[2020-12-01] MEDS: enoxaparin 40 mg/0.4 mL Syringe SUBCUT (22:30)
[2020-12-01] MEDS: benztropine 1 mg Tablet PO (22:31)
[2020-12-01] MEDS: CLONazepam 1 mg Tablet 2 MG PO (22:31)
[2020-12-01] MEDS: tamsulosin 0.4 mg Capsule 0.8 MG PO (22:31)
[2020-12-01] MEDS: amitriptyline 25 mg Tablet PO (22:31)
[2020-12-01] MEDS: vancomycin 1,500 MG/300 ML PIGGYBACK 150 MG IV (22:32)
[2020-12-01] MEDS: dextrose 5%-sod chloride 0.9% 1,000 ML 100 ML IV (22:32)
[2020-12-02] VITALS (12 sets, daily range): BP systolic 102–111; BP diastolic 67–83; PULSE 94–115; RESP 16–19; TEMP 36.6–38.9; O2SAT 2–99
[2020-12-02] MEDS: piperacillin-tazobactam 3.375 GM in sodium chloride 0.9% (plus) 50 ML IV ×3 (03:51→21:50)
--- NOTE | 2020-12-02 09:54 | PC.CHAP ---
Pastoral Care Encounter/Spiritual Assessment Type of Contact [] Declined adjunct english instructor visit [] Patient/Family/Request visit [] Outpatient visit [] Follow-up visit [] Physician referral [] Code/Alert [x] Routine visit [] Staff referral [] Actively dying [] Patient sleeping [] Family support [] [] Out of room [] Palliative care [] [] Receiving care in room [] Pre-surgical visit [] Trauma [] Long length of stay [] ICU visit [] Other: Relational/Emotional Strength [x] Patient feels connected with others/family/visitors/staff [] Distress [] Loneliness/isolation [] Abandonment Spirituality of Patient [x] Person of Eda [] Attends Mormon of their Eda [x] Believes in Prayer [] Reads Bible or Nondenominational materials [] There are Spiritual issues to be addressed Pizzamaker Interventions [x] Prayer [x] Active listening [] Non-anxious presence [] Spiritual/emotional support [] Crisis/trauma care [] Spiritual counseling [] Bereavement support [] Provided bereavement packet [] Provided Bible/devotional materials [] Provided toy/stuffed animal, coloring book to patient or family member [] Provided Communion [] Anointing/Ethel [] Salvation [x] Completed spiritual assessment [] Other: Impact on Illness or Injury [] Angry [] Fearful [] Anxious [] Often cries [] Exhaustion [] Unable to work [] Unable to attend yazidi [] Unable to walk/stand [] Unable to read [] Unable to drive [] Unable to eat/drink [] Unable to sleep [] Unable to be with family [] Patient intubated [] Other: Summary Time spent with patient 10 min
[2020-12-02] MEDS: vancomycin 1,500 MG/300 ML PIGGYBACK 150 MG IV ×2 (12:18→21:49)
[2020-12-02] MEDS: famotidine 20 mg/2 mL INJ IVP ×2 (12:18→20:45)
[2020-12-02] MEDS: amitriptyline 25 mg Tablet PO ×3 (12:19→21:34)
[2020-12-02] MEDS: CLONazepam 1 mg Tablet 2 MG PO ×3 (12:19→21:36)
[2020-12-02] MEDS: benztropine 1 mg Tablet PO ×2 (12:21→21:35)
[2020-12-02] MEDS: lithium carbonate ER 450 mg Tablet PO ×2 (12:21→21:39)
--- NOTE | 2020-12-02 14:42 | P.PN_ITS ---
Subjective Subjective: Interval history: This morning patient is much more responsive, his caregiver is at bedside, he smiles at me, he is looking at me, his responses do not make sense, but he is much more alert, awake, he was able to swallow his pills, is on 1 to 2 L nasal cannula, T-max 99.7 overnight Vitals/I&O/Wt Last Vital Signs Temp 98.2 F 12/02/20 11:17 Pulse 113 H 12/02/20 11:17 Resp 17 12/02/20 11:17 BP 102/67 12/02/20 11:17 Pulse Ox 94 12/02/20 11:17 12/01/20 12/02/20 12/02/20 22:59 06:59 14:59 Intake Total 1050 / 1050 300 / 1350 1350 / 1350 Output Total 1350 / 1350 350 / 350 Balance 1050 / 1050 -1050 / 0 1000 / 1000 Weight last 48 hrs Weight 70.307 kg Physical Exam Const: COMMON NORMALS: no acute distress GENERAL APPEARANCE: frail appearing ORIENTATION/CONSCIOUSNESS: Yes awake OTHER: Much more alert, awake, responses to make sense Resp: COMMON NORMALS: normal respiratory effort, No retractions, No use of accessory muscles and clear to auscultation bilaterally AUSCULTATION: clear to auscultation bilaterally Cardio: COMMON NORMALS: regular rate, regular rhythm, S1 normal heart sound present and S2 normal heart sound present RATE: regular rate RHYTHM: regular rhythm HEART SOUNDS: S1 normal heart sound present and S2 normal heart sound present GI: COMMON NORMALS: Normal to inspection, nondistended, normoactive bowel sounds present, Soft to palpation and non-tender PALPATION: Yes Soft to palpation Psych: COMMON NORMALS: mental status grossly normal Data : 12/01/20 14:50 12/01/20 15:14 Micro: Microbiology 12/01/20 19:37 MRSA Culture - Final Nose 12/01/20 15:14 Blood Culture - Preliminary Blood SPECIMEN COLLECTED 12/01/20 14:50 Blood Culture - Preliminary Blood SPECIMEN COLLECTED A&P Assessment and plan (1) Sepsis: -Etiology is likely recurrent UTI and/or aspiration pneumonia -Due to tachycardia, leukocytosis, hyponatremia, -Rapid Covid negative -UA shows evidence of UTI, has chronic العلي in place -Chest x-ray shows radiographic evidence of bronchopneumonia, is on room air, but does have crackles on exam, tachypnea -CT of the abdomen pelvis does not show any radiographic evidence of pyelonephritis, no obstructive uro CT of the chest does not show any focal pneumonia august - Plan: -Admit to general medical floors -Broad-spectrum antibiotic therapy vancomycin and Zosyn -Previous cultures have shown staph aureus, Acinetobacter baumannii/haemol -Follow sputum cultures, blood cultures, urine cultures, MRSA nares PCR -Oxygen therapy, respiratory therapy -العلي has already been changed -Aspiration precautions, neuro precautions, seizure precautions -We will do bedside swallow eval, start on dysphagia diet if he passes, will have speech therapy see patient -Tylenol for fevers -Decrease fluids to 50 cc an hour -Monitor vitals closely, telemetry monitoring, monitor mentation -Pro-Zane 0.23, CRP 128 -Lovenox for DVT prophylaxis -For now his CODE STATUS is full code, his caregiver did search through his paper files to find his CODE STATUS, but she could not find it, will make a full code for now, until we get confirmation of what his CODE STATUS is plan for today continue broad-spectrum antibiotic therapy, transition diet, swallow eval Status: Acute (2) Lewy body dementia: Status: Acute (3) Attention deficit disorder (ADD) in adult: Status: Acute (4) Neurologic gait disorder: Status: Acute (5) Urinary retention: Status: Acute (6) Developmental delay, severe: Status: Acute (7) Acute UTI: Status: Acute (8) Aspiration pneumonia: Status: Acute Attestations Medical Necessity Statement*: Patient requires hospitalization for sepsis secondary UTI, aspiration pneumonia Coding Level of Care Code Acute 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
[2020-12-02] MEDS: dextrose 5%-sod chloride 0.9% 1,000 ML 100 ML IV (16:22)
[2020-12-02] MEDS: tamsulosin 0.4 mg Capsule 0.8 MG PO (21:35)
[2020-12-02] MEDS: enoxaparin 40 mg/0.4 mL Syringe SUBCUT (21:37)
[2020-12-02] MEDS: acetaminophen 325 mg Tablet 650 MG PO (22:04)
[2020-12-03] VITALS (11 sets, daily range): BP systolic 108–127; BP diastolic 70–87; PULSE 101–117; RESP 18–21; TEMP 37.3–38.8; O2SAT 95–100
[2020-12-03] MEDS: dextrose 5%-sod chloride 0.9% 1,000 ML 100 ML IV ×2 (04:32→21:39)
[2020-12-03] MEDS: piperacillin-tazobactam 3.375 GM in sodium chloride 0.9% (plus) 50 ML IV ×3 (06:10→21:45)
[2020-12-03 08:37] LABS: Basophils % 0.6 %; Eosinophils # 0.1 10^3/uL (0.0-0.8); Eosinophils % 1.7 %; Hematocrit 43.4 % (42.0-52.0); Hemoglobin 13.5 g/dL (11.7-16.6); Lymphocytes % 18.8 %; Mean Corpuscular HGB Conc 31.1 g/dL (30.0-36.0); Mean Corpuscular Hemoglobin 29.3 pg (28.0-34.0); Mean Corpuscular Volume 94.1 fL (80-94); Mean Platelet Volume 9.7 fL (7.4-10.4); Monocytes # 0.4 10^3/uL (0.2-0.9); Monocytes % 7.4 %; Neutrophils # 3.78 10^3/uL (1.8-7.7); Neutrophils % 70.2 %; Nucleated Red Blood Cells % 0 %; Platelet Count 167 10^3/cmm (130-400); Red Blood Count 4.61 10^6/uL (4.1-5.3); Red Cell Distribution Width 12.9 % (12.1-15.1); White Blood Count 5.4 10^3/uL (4.0-10.0)
[2020-12-03 08:55] LABS: Alanine Aminotransferase 12 U/L (0-41); Albumin Level 3.3 g/dL (3.5-5.2); Alkaline Phosphatase 116 IU/L (40-130); Anion Gap 14.2 (5-19); Aspartate Amino Transferase 43 U/L (0-40); Blood Urea Nitrogen 6 mg/dL (6-20); C Reactive Protein 112.4 mg/L (0.0-4.9); Calcium 8.4 mg/dL (8.5-10.5); Carbon Dioxide 25 mmol/L (22-29); Chloride 102 mmol/L (98-107); Globulin 3.5 g/dL (1.3-4.6); Glomerular Filtration Rate 181.5 mL/min (90-130); Glucose 125 mg/dL (65-115); Magnesium 1.8 mg/dL (1.7-2.3); Osmolality Calculated 283 mOsm/kg (285-295); Phosphorus 2.8 mg/dL (2.5-4.5); Potassium 4.2 mmol/L (3.5-5.1); Sodium 137 mmol/L (136-145); Total Bilirubin 0.3 mg/dL (0.15-1.2); Total Protein 6.8 g/dL (6.6-8.7)
[2020-12-03 09:04] LABS: Procalcitonin 0.19 ng/mL (0-0.5)
[2020-12-03] MEDS: lithium carbonate ER 450 mg Tablet PO ×2 (12:20→21:42)
[2020-12-03] MEDS: benztropine 1 mg Tablet PO ×2 (12:20→21:42)
--- NOTE | 2020-12-03 14:27 | USCV_ITS ---
Joshua Valerio Age: 45 Gender: M : 1975 Exam Date: 12/03/2020 16:08 Ordering Phys: Maura Monroy MD Technologist: Kathy Garcia Exam Location: [facility] [place]_ Indication: RUE REDNESS HISTORY: RUE REDNESS PROCEDURES: Venous duplex imaging was performed in only the right upper extremity. The following venous structures were evaluated: internal jugular vein, subclavian vein, axillary vein, and brachial veins. In addition, the basilic vein, radial vein, and ulnar vein. FINDINGS: RT CEPHALIC V NOT SEEN EDEMA SEEN IN UPPER ARM The veins of the right upper extremity are readily compressible with normal venous flow dynamics including spontaneous flow, respiratory phasic variation and augmentation. CONCLUSIONS No right upper extremity DVT. Dr. Bibiana Wharton DO (Electronically Signed) Final Date: 04 December 2020 15:11 S
[2020-12-03] MEDS: acetaminophen 325 mg Tablet 650 MG PO (15:51)
[2020-12-03] MEDS: amitriptyline 25 mg Tablet PO ×2 (15:51→21:43)
[2020-12-03] MEDS: CLONazepam 1 mg Tablet 2 MG PO ×2 (15:51→21:42)
--- NOTE | 2020-12-03 16:34 | PM.PN ---
Subjective Subjective: Interval history: This morning patient is much more responsive, his caregiver is at bedside, he smiles at me, he is looking at me, his responses do not make sense, but he is much more alert, awake, he was able to swallow his pills, is on 1 to 2 L nasal cannula, T-max 99.7 overnight Vitals/I&O/Wt Last Vital Signs Temp 100.3 F H 12/03/20 16:00 Pulse 117 H 12/03/20 16:00 Resp 19 H 12/03/20 16:00 BP 120/75 12/03/20 16:00 Pulse Ox 95 12/03/20 16:00 12/03/20 12/03/20 12/03/20 06:59 14:59 22:59 Intake Total 1316.667 / 2836.667 1010 / 1010 1240 / 2250 Output Total 1400 / 2200 900 / 900 Balance -83.333 / 636.667 110 / 110 1240 / 1350 Physical Exam Const: COMMON NORMALS: no acute distress and alert GENERAL APPEARANCE: ill appearing and frail appearing ORIENTATION/CONSCIOUSNESS: Yes awake and Yes confused; not oriented to person, not oriented to place and not oriented to time OTHER: Much more alert, awake, responses to make sense Resp: COMMON NORMALS: normal respiratory effort, No retractions, No use of accessory muscles and clear to auscultation bilaterally AUSCULTATION: clear to auscultation bilaterally and crackles Cardio: COMMON NORMALS: regular rate, regular rhythm, S1 normal heart sound present and S2 normal heart sound present RATE: regular rate and tachycardic RHYTHM: regular rhythm HEART SOUNDS: S1 normal heart sound present and S2 normal heart sound present GI: COMMON NORMALS: Normal to inspection, nondistended, normoactive bowel sounds present, Soft to palpation and non-tender PALPATION: Yes Soft to palpation Extremity: COMMON NORMALS: no pedal edema Neuro: SENSORIUM/ORIENTATION: Yes alert, No oriented to person, No oriented to place and No oriented to time Psych: COMMON NORMALS: mental status grossly normal Data : 12/03/20 08:20 12/03/20 08:20 Micro: Microbiology 12/01/20 17:34 Urine Culture - Final Urine,Clean Catch A&P Assessment and plan (1) Sepsis: - Continues to have fevers overnight - Broad specturm abx - Procal in am - CBC in am - Bmp in am - o2 as needeed. Status: Acute (2) Lewy body dementia: Status: Acute (3) Attention deficit disorder (ADD) in adult: Status: Acute (4) Neurologic gait disorder: Status: Acute (5) Urinary retention: Status: Acute (6) Developmental delay, severe: Status: Acute (7) Acute UTI: Status: Acute (8) Aspiration pneumonia: Status: Acute Attestations Medical Necessity Statement*: Will require further hospitalization for management of sepsis Time Spent in Patient Care: Greater than 35 minutes (>than 50% of time spent in counselling and/or direct pt care on unit). Coding Level of Care Code Acute Senior Occupational Therapist for [facility] Fwd Diagnoses Sepsis A41.9 Lewy body dementia G31.83; F02.80 Attention deficit disorder (ADD) in adult F98.8 Neurologic gait disorder R26.9 Urinary retention R33.9 Developmental delay, severe R62.50 Acute UTI N39.0 Aspiration pneumonia J69.0
[2020-12-03] MEDS: famotidine 20 mg/2 mL INJ IVP (21:04)
[2020-12-03] MEDS: tamsulosin 0.4 mg Capsule 0.8 MG PO (21:41)
[2020-12-03] MEDS: enoxaparin 40 mg/0.4 mL Syringe SUBCUT (21:43)
[2020-12-03] MEDS: vancomycin 1,500 MG/300 ML PIGGYBACK 150 MG IV (21:45)
[2020-12-04] VITALS (11 sets, daily range): BP systolic 112–117; BP diastolic 78–84; PULSE 101–115; RESP 16–23; TEMP 36.7–37.9; O2SAT 95–99
[2020-12-04] MEDS: piperacillin-tazobactam 3.375 GM in sodium chloride 0.9% (plus) 50 ML IV ×2 (06:23→14:19)
[2020-12-04] MEDS: amitriptyline 25 mg Tablet PO ×3 (08:26→23:30)
[2020-12-04] MEDS: CLONazepam 1 mg Tablet 2 MG PO ×3 (08:26→23:30)
[2020-12-04] MEDS: lithium carbonate ER 450 mg Tablet PO (08:28)
[2020-12-04] MEDS: benztropine 1 mg Tablet PO ×2 (08:28→23:30)
[2020-12-04] MEDS: famotidine 20 mg/2 mL INJ IVP (08:29)
[2020-12-04] MEDS: vancomycin 1,500 MG/300 ML PIGGYBACK 150 MG IV ×2 (08:32→23:31)
[2020-12-04 09:49] LABS: Basophils % 0.7 %; Eosinophils # 0.1 10^3/uL (0.0-0.8); Eosinophils % 3.9 %; Hematocrit 37.7 % (42.0-52.0); Hemoglobin 12.4 g/dL (11.7-16.6); Lymphocytes # 0.6 10^3/uL (0.8-4.8); Lymphocytes % 19.5 %; Mean Corpuscular HGB Conc 32.9 g/dL (30.0-36.0); Mean Corpuscular Hemoglobin 29.6 pg (28.0-34.0); Mean Platelet Volume 9.5 fL (7.4-10.4); Monocytes # 0.3 10^3/uL (0.2-0.9); Monocytes % 9.4 %; Neutrophils # 1.98 10^3/uL (1.8-7.7); Neutrophils % 64.5 %; Nucleated Red Blood Cells % 0 %; Platelet Count 166 10^3/cmm (130-400); Red Blood Count 4.19 10^6/uL (4.1-5.3); Red Cell Distribution Width 12.7 % (12.1-15.1); White Blood Count 3.1 10^3/uL (4.0-10.0)
[2020-12-04 10:10] LABS: Alanine Aminotransferase 17 U/L (0-41); Albumin Level 3.3 g/dL (3.5-5.2); Alkaline Phosphatase 99 IU/L (40-130); Anion Gap 13.1 (5-19); Aspartate Amino Transferase 40 U/L (0-40); Blood Urea Nitrogen 5 mg/dL (6-20); C Reactive Protein 53.6 mg/L (0.0-4.9); Calcium 8.3 mg/dL (8.5-10.5); Carbon Dioxide 25 mmol/L (22-29); Chloride 104 mmol/L (98-107); Globulin 3.1 g/dL (1.3-4.6); Glomerular Filtration Rate 181.5 mL/min (90-130); Glucose 166 mg/dL (65-115); Magnesium 1.8 mg/dL (1.7-2.3); Osmolality Calculated 287 mOsm/kg (285-295); Phosphorus 3.3 mg/dL (2.5-4.5); Potassium 4.1 mmol/L (3.5-5.1); Sodium 138 mmol/L (136-145); Total Bilirubin 0.2 mg/dL (0.15-1.2); Total Protein 6.4 g/dL (6.6-8.7)
[2020-12-04 11:23] LABS: Procalcitonin 0.17 ng/mL (0-0.5)
[2020-12-04] MEDS: dextrose 5%-sod chloride 0.9% 1,000 ML 100 ML IV (11:32)
--- NOTE | 2020-12-04 13:48 | PC.SOCIAL ---
IMM UPDATE Gave patient's mother verbal IMM update via phone. She verbalized understanding. 12/04/20 @ 0957 Initialed, dated, timed and placed in chart.
--- NOTE | 2020-12-04 16:06 | P.PN_ITS ---
Subjective Subjective: Interval history: 45-year-old non-verbal male with past medical history significant for Lewy body dementia, autism, severe cognitive delay, dysphagia with recurrent aspiration pneumonia, neurogenic bladder recurrent urinary tract infections related to chronic indwelling, solis who presented to the hospital with respiratory distress. Prior to arrival patient was seen by PCP where he was noted to septic with a have a fever of 102.7, HR of 133. He was then sent to ER for work up. Laboratory workup on arrival to hospital showed a WBC of 17.5, hemoglobin of 15.6, hematocrit of 46.7 and a platelet count of 238. INR 1.17. Arterial blood gas showed a pH of 7.47, pCO2 of 34.4, PO2 of 68.6 and a bicarb of 24.9. Sodium 130, potassium 4.3, chloride 96, bicarb 24, BUN 13 and creatinine of 0.5. Urinalysis showed 3+ blood, 1+ leukocyte esterase, 40 to 55 abcs and 1+ bacteria.Patients urine drug screen was positive for amphetamines. COVID-19 antigen was negative. Chest x-ray had shown mild left basilar bronchopneumonia her this was a poor inspiratory effort.CT chest did not show any evidence of acute pulmonary disease. CT abdomen pelvis also appeared to be negative.Patient was started on vancomycin 1500 mg IV Q 12, and Zosyn 3.375 g IV Q 8.Blood cultures drawn on 12/01/2020 did not show any growth. Urine culture was also negative. MRSA culture was negative as well.Patient continued to have high fevers. On 12/03 T-max of 101.9. Procalcitonin was negative. Respiratory viral PCR panel including COVID19 PCR was sent. Also lithium level was ordered rule out toxicity fever. Medications: Reviewed: Yes Vitals/I&O/Wt Last Vital Signs Temp 98.0 F 12/04/20 16:02 Pulse 105 H 12/04/20 16:02 Resp 17 12/04/20 16:02 BP 113/80 12/04/20 16:02 Pulse Ox 99 12/04/20 16:02 12/04/20 12/04/20 12/04/20 06:59 14:59 22:59 Intake Total 974.792 / 3275.000 1110 / 1110 Output Total 800 / 1700 1650 / 1650 Balance 174.792 / 1575.000 -540 / -540 Physical Exam Const: COMMON NORMALS: no acute distress and alert GENERAL APPEARANCE: ill appearing and frail appearing ORIENTATION/CONSCIOUSNESS: Yes awake and Yes confused; not oriented to person, not oriented to place and not oriented to time OTHER: Much more alert, awake, responses to make sense Resp: COMMON NORMALS: normal respiratory effort, No retractions, No use of accessory muscles and clear to auscultation bilaterally AUSCULTATION: clear to auscultation bilaterally and crackles Cardio: COMMON NORMALS: regular rate, regular rhythm, S1 normal heart sound present and S2 normal heart sound present RATE: regular rate and tachycardic RHYTHM: regular rhythm HEART SOUNDS: S1 normal heart sound present and S2 normal heart sound present GI: COMMON NORMALS: Normal to inspection, nondistended, normoactive bowel sounds present, Soft to palpation and non-tender PALPATION: Yes Soft to palpation Extremity: COMMON NORMALS: no pedal edema Neuro: SENSORIUM/ORIENTATION: Yes alert, No oriented to person, No oriented to place and No oriented to time Psych: COMMON NORMALS: mental status grossly normal Data : 12/04/20 09:34 12/04/20 09:34 A&P Assessment and plan (1) Sepsis: Sepsis due to unclear source Possible catheter related UTI UA positive for leuk 1+, 40-50 wbc Urine culture negative however Blood culture x 2 negative Tmax 101.8 Continue Vancomycin pharmacy to dose Zosyn 3.375g IVq8hr Chest xray showed possible pneumonia CT chest - no acute findings CT abd/pelvis - no acute findings. Procalcitonin negative Will check viral respiratory PCR panel COVIDag negative - check covid19 PCR Check lithium level to r/o toxicity fever Status: Acute (2) Attention deficit disorder (ADD) in adult: Hold Vyvanse for now Status: Acute (3) Developmental delay, severe: Status: Acute (4) Neurologic gait disorder: Status: Acute (5) Acute UTI: Ruled out Culture negative. Status: Acute (6) Aspiration pneumonia: Possible - however not clearly noted on CT chest Low suspecion Status: Acute (7) Lewy body dementia: Status: Acute Attestations Medical Necessity Statement*: Will require further hospitalization for management of sepsis Time Spent in Patient Care: Greater than 35 minutes (>than 50% of time spent in counselling and/or direct pt care on unit) . Coding Level of Care Code Acute Forestry Fire Aide for Chg Fwd Exam Detailed Diagnoses Sepsis A41.9 Attention deficit disorder (ADD) in adult F98.8 Developmental delay, severe R62.50 Neurologic gait disorder R26.9 Acute UTI N39.0 Aspiration pneumonia J69.0 Lewy body dementia G31.83; F02.80
[2020-12-04 17:12] LABS: Lithium 0.4 mmol/L (0.6-1.2)
[2020-12-04] MEDS: famotidine 20 mg Tablet PO (17:34)
--- NOTE | 2020-12-04 19:26 | PC.NURSE ---
Report to Anthony LEE at bedside at this time.
[2020-12-04] MEDS: tamsulosin 0.4 mg Capsule 0.8 MG PO (23:30)
[2020-12-04] MEDS: enoxaparin 40 mg/0.4 mL Syringe SUBCUT (23:31)
[2020-12-05] VITALS (11 sets, daily range): BP systolic 102–114; BP diastolic 62–80; PULSE 80–104; RESP 14–20; TEMP 36.7–37.6; O2SAT 93–95
[2020-12-05] MEDS: piperacillin-tazobactam 3.375 GM in sodium chloride 0.9% (plus) 50 ML IV ×3 (00:46→14:28)
[2020-12-05] MEDS: dextrose 5%-sod chloride 0.9% 1,000 ML 100 ML IV ×2 (00:47→12:16)
[2020-12-05] MEDS: lithium carbonate ER 450 mg Tablet PO ×2 (09:44→20:42)
[2020-12-05] MEDS: amitriptyline 25 mg Tablet PO ×2 (09:45→20:43)
[2020-12-05] MEDS: CLONazepam 1 mg Tablet 2 MG PO ×2 (09:45→20:42)
[2020-12-05] MEDS: famotidine 20 mg Tablet PO ×2 (09:45→17:26)
[2020-12-05] MEDS: benztropine 1 mg Tablet PO ×2 (09:45→20:42)
[2020-12-05] MEDS: vancomycin 1,500 MG/300 ML PIGGYBACK 150 MG IV ×2 (09:46→20:43)
[2020-12-05 09:53] LABS: Alanine Aminotransferase 20 U/L (0-41); Albumin Level 3.3 g/dL (3.5-5.2); Alkaline Phosphatase 102 IU/L (40-130); Anion Gap 15.3 (5-19); Aspartate Amino Transferase 33 U/L (0-40); Blood Urea Nitrogen 6 mg/dL (6-20); Calcium 8.5 mg/dL (8.5-10.5); Carbon Dioxide 24 mmol/L (22-29); Chloride 105 mmol/L (98-107); Globulin 3.3 g/dL (1.3-4.6); Glomerular Filtration Rate 181.5 mL/min (90-130); Glucose 136 mg/dL (65-115); Osmolality Calculated 290 mOsm/kg (285-295); Potassium 4.3 mmol/L (3.5-5.1); Sodium 140 mmol/L (136-145); Total Bilirubin 0.3 mg/dL (0.15-1.2); Total Protein 6.6 g/dL (6.6-8.7)
[2020-12-05 14:50] LABS: Coronavirus Test Green County Not Detected
--- NOTE | 2020-12-05 15:17 | PM.PN ---
Subjective Subjective: Interval history: 45-year-old non-verbal male with past medical history significant for Lewy body dementia, autism, severe cognitive delay, dysphagia with recurrent aspiration pneumonia, neurogenic bladder recurrent urinary tract infections related to chronic indwelling, [place] who presented to the hospital with respiratory distress. Prior to arrival patient was seen by PCP where he was noted to septic with a have a fever of 102.7, HR of 133. He was then sent to ER for work up. Laboratory workup on arrival to hospital showed a WBC of 17.5, hemoglobin of 15.6, hematocrit of 46.7 and a platelet count of 238. INR 1.17. Arterial blood gas showed a pH of 7.47, pCO2 of 34.4, PO2 of 68.6 and a bicarb of 24.9. Sodium 130, potassium 4.3, chloride 96, bicarb 24, BUN 13 and creatinine of 0.5. Urinalysis showed 3+ blood, 1+ leukocyte esterase, 40 to 55 abcs and 1+ bacteria.Patients urine drug screen was positive for amphetamines. COVID-19 antigen was negative. Chest x-ray had shown mild left basilar bronchopneumonia her this was a poor inspiratory effort.CT chest did not show any evidence of acute pulmonary disease. CT abdomen pelvis also appeared to be negative.Patient was started on vancomycin 1500 mg IV Q 12, and Zosyn 3.375 g IV Q 8.Blood cultures drawn on 12/01/2020 did not show any growth. Urine culture was also negative. MRSA culture was negative as well.Patient continued to have high fevers. 12/03 T-max of 101.9. Procalcitonin was negative. Respiratory viral PCR panel including COVID19 PCR was sent. Also lithium level was ordered rule out toxicity fever. 12/04 Continued high fevers 12/05 Patient was less active today. Fever curve however improved. Low-grade temp at 99.2. Vitals were stable. No respiratory distress. Medications: Reviewed: Yes Vitals/I&O/Wt Last Vital Signs Temp 99.2 F 12/05/20 12:00 Pulse 102 H 12/05/20 12:00 Resp 14 12/05/20 12:00 BP 113/62 12/05/20 12:00 Pulse Ox 93 12/05/20 12:00 12/05/20 12/05/20 12/05/20 06:59 14:59 22:59 Intake Total 1350 / 2510 1470 / 1470 Balance 1350 / 85 1470 / 1470 Physical Exam Const: COMMON NORMALS: no acute distress and alert GENERAL APPEARANCE: ill appearing and frail appearing ORIENTATION/CONSCIOUSNESS: Yes awake and Yes confused; not oriented to person, not oriented to place and not oriented to time OTHER: Much more alert, awake, responses to make sense Resp: COMMON NORMALS: normal respiratory effort, No retractions, No use of accessory muscles and clear to auscultation bilaterally AUSCULTATION: clear to auscultation bilaterally and crackles Cardio: COMMON NORMALS: regular rate, regular rhythm, S1 normal heart sound present and S2 normal heart sound present RATE: regular rate and tachycardic RHYTHM: regular rhythm HEART SOUNDS: S1 normal heart sound present and S2 normal heart sound present GI: COMMON NORMALS: Normal to inspection, nondistended, normoactive bowel sounds present, Soft to palpation and non-tender PALPATION: Yes Soft to palpation Extremity: COMMON NORMALS: no pedal edema Neuro: SENSORIUM/ORIENTATION: Yes alert, No oriented to person, No oriented to place and No oriented to time Psych: COMMON NORMALS: mental status grossly normal Data : 12/04/20 09:34 12/05/20 09:17 A&P Assessment and plan (1) Sepsis: Sepsis due to unclear source Possible catheter related UTI UA positive for leuk 1+, 40-50 wbc Urine culture negative however Blood culture x 2 negative Tmax 101.8 - > improved today Continue Vancomycin pharmacy to dose Zosyn 3.375g IVq8hr Chest xray showed possible pneumonia CT chest - no acute findings CT abd/pelvis - no acute findings. Procalcitonin negative Viral respiratory PCR panel - pending COVIDag negative - PCR negative today Status: Acute (2) Attention deficit disorder (ADD) in adult: Will resume home meds Status: Acute (3) Developmental delay, severe: Status: Acute (4) Neurologic gait disorder: Status: Acute (5) Acute UTI: Ruled out Culture negative. Status: Acute (6) Aspiration pneumonia: Possible - however not clearly noted on CT chest Low suspecion Status: Acute (7) Lewy body dementia: Status: Acute Attestations Medical Necessity Statement*: Require further hospitalizationFor management of sepsis of unclear etiology on IV antibiotics Time Spent in Patient Care: Greater than 35 minutes (>than 50% of time spent in counselling and/or direct pt care on unit). Coding Level of Care Code Acute Client Associate for Chg Fwd Exam Detailed Diagnoses Sepsis A41.9 Attention deficit disorder (ADD) in adult F98.8 Developmental delay, severe R62.50 Neurologic gait disorder R26.9 Acute UTI N39.0 Aspiration pneumonia J69.0 Lewy body dementia G31.83; F02.80
--- NOTE | 2020-12-05 19:05 | NUR.SHIFT ---
Bedside report to Anthony LEE at this time.
[2020-12-05] MEDS: enoxaparin 40 mg/0.4 mL Syringe SUBCUT (20:42)
[2020-12-05] MEDS: tamsulosin 0.4 mg Capsule 0.8 MG PO (20:43)
[2020-12-06] VITALS (9 sets, daily range): BP systolic 111–147; BP diastolic 75–88; PULSE 86–111; RESP 14–20; TEMP 36.4–36.8; O2SAT 94–98
[2020-12-06] MEDS: piperacillin-tazobactam 3.375 GM in sodium chloride 0.9% (plus) 50 ML IV ×3 (00:05→15:05)
[2020-12-06] MEDS: dextrose 5%-sod chloride 0.9% 1,000 ML 100 ML IV ×3 (00:06→22:07)
[2020-12-06] MEDS: lithium carbonate ER 450 mg Tablet PO ×2 (09:18→20:49)
[2020-12-06] MEDS: benztropine 1 mg Tablet PO ×2 (09:19→20:49)
[2020-12-06] MEDS: famotidine 20 mg Tablet PO ×2 (09:19→17:40)
[2020-12-06] MEDS: amitriptyline 25 mg Tablet PO ×3 (09:19→20:50)
[2020-12-06] MEDS: vancomycin 1,500 MG/300 ML PIGGYBACK 150 MG IV ×2 (09:20→21:18)
--- NOTE | 2020-12-06 11:19 | PC.SOCIAL ---
IMM Update Pg.2 of IMM discussed with mother of patient/guardian over the phone. 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
--- NOTE | 2020-12-06 15:03 | P.DS_ITS ---
Discharge Providers Date of Admission: 12/01/20 18:02 Date of Discharge: December 06, 2020 Attending Provider at Admission: Chas Mcelroy MD Attending Provider at Discharge: Maura Monroy Primary Care Provider: Anurag Gautam MD Diagnoses at Discharge Discharge Diagnosis (1) Sepsis: Status: Acute (2) Attention deficit disorder (ADD) in adult: Status: Acute (3) Developmental delay, severe: Status: Acute (4) Neurologic gait disorder: Status: Acute (5) Acute UTI: Status: Acute (6) Aspiration pneumonia: Status: Acute (7) Lewy body dementia: Status: Acute Reason for Visit Reason for Visit: SENT BY [facility] [place] Hospital Course Hospital Course 45-year-old non-verbal male with past medical history significant for Lewy body dementia, autism, severe cognitive delay, dysphagia with recurrent aspiration pneumonia, neurogenic bladder recurrent urinary tract infections related to chronic indwelling, [place]is who presented to the hospital with respiratory distress. Prior to arrival patient was seen by PCP where he was noted to septic with a have a fever of 102.7, HR of 133. He was then sent to ER for work up. Laboratory workup on arrival to hospital showed a WBC of 17.5, hemoglobin of 15.6, hematocrit of 46.7 and a platelet count of 238. INR 1.17. Arterial blood gas showed a pH of 7.47, pCO2 of 34.4, PO2 of 68.6 and a bicarb of 24.9. Sodium 130, potassium 4.3, chloride 96, bicarb 24, BUN 13 and creatinine of 0.5. Urinalysis showed 3+ blood, 1+ leukocyte esterase, 40 to 55 abcs and 1+ bacteria.Patients urine drug screen was positive for amphetamines. COVID-19 antigen was negative. Chest x-ray had shown mild left basilar bronchopneumonia her this was a poor inspiratory effort.CT chest did not show any evidence of acute pulmonary disease. CT abdomen pelvis also appeared to be negative.Patient was started on vancomycin 1500 mg IV Q 12, and Zosyn 3.375 g IV Q 8.Blood cultures drawn on 12/01/2020 did not show any growth. Urine culture was also negative. MRSA culture was negative as well. On 12/04- T-max of 101.9. Procalcitonin was negative. Respiratory viral PCR panel including COVID19 PCR was sent. Also lithium level was ordered rule out toxicity fever which was actually subtherapeutic. COVID-19 PCR was then checked and found to be negative. Viral PCR was ordered however pending. Clinically patient started improved. Mental status had improved as well. Was tolerating oral intake. No fever for over 24 hours prior to discharge. Patient with apparently changed to Augmentin 875 mg twice daily an additional 5 days at the time of discharge. Advised to return to hospital if any recurrence of fever or change in clinical condition. Of note patient is on high dose of benzodiazepines. Recommend discussion with primary care physician for adjustment of doses if overly sedated. Physical Exam Const: COMMON NORMALS: no acute distress and alert GENERAL APPEARANCE: ill appearing and frail appearing ORIENTATION/CONSCIOUSNESS: Yes awake and Yes confused; not oriented to person, not oriented to place and not oriented to time OTHER: Much more alert, awake, responses to make sense Resp: COMMON NORMALS: normal respiratory effort, No retractions, No use of accessory muscles and clear to auscultation bilaterally AUSCULTATION: clear to auscultation bilaterally and crackles Cardio: COMMON NORMALS: regular rate, regular rhythm, S1 normal heart sound present and S2 normal heart sound present RATE: regular rate and tachycardic RHYTHM: regular rhythm HEART SOUNDS: S1 normal heart sound present and S2 normal heart sound present GI: COMMON NORMALS: Normal to inspection, nondistended, normoactive bowel sounds present, Soft to palpation and non-tender PALPATION: Yes Soft to palpation Extremity: COMMON NORMALS: no pedal edema Neuro: SENSORIUM/ORIENTATION: Yes alert, No oriented to person, No oriented to place and No oriented to time Psych: COMMON NORMALS: mental status grossly normal Discharge Data Data Completed and Pending: Completed Studies During Hospitalization Category Date Time Status CT chest abd pel wo con Urgent Cat Scan 12/01/20 20:31 Completed XR chest 1V karissa ble [id number] Stat Exams 12/01/20 13:20 [place] [id number] Routin e Ultrasound 12/03/20 14:27 Completed Pending at discharge Category Date Time Status Blood Culture Sta t Lab 12/01/20 14:50 Results Respiratory Viral Panel PCR Stat Lab 12/04/20 16:26 Received Sputum Culture an d Gram Stain Stat Lab 12/01/20 18:23 Uncollected Vitals: Last Vital Signs Temp 97.5 F L 12/06/20 12:00 Pulse 111 H 12/06/20 12:00 Resp 14 12/06/20 12:00 BP 112/80 12/06/20 12:00 Pulse Ox 94 12/06/20 12:00 Discharge Plan Discharge Patient Disposition: Xfer Other Condition: Stable Prescriptions: New amoxicillin-pot clavulanate [Augmentin] 875-125 mg tablet 1 tab PO BID Qty: 10 RF: 0 Continued terbinafine HCl 250 mg tablet 250 mg PO DAILY@08 RF: 0 flunisolide 25 mcg (0.025 %) spray,non-aerosol 1 spray INTRANASAL BID@ RF: 0 loratadine 10 mg capsule 10 mg PO DAILY@08 RF: 0 benztropine 1 mg tablet 1 mg PO BID@ RF: 0 Amitiza 24 mcg capsule 24 mcg PO BID@ RF: 0 docusate sodium [Colace] 100 mg capsule 100 mg PO BID@ RF: 0 tamsulosin [Flomax] 0.4 mg capsule 0.8 mg PO DAILY@ RF: 0 amitriptyline 25 mg tablet 25 mg PO TID@,, RF: 0 bismuth subsalicylate [Pepto-Bismol] 262 mg/15 mL suspension 524 mg PO Q4H PRN (Reason: Stomach Upset) RF: 0 acetaminophen [Tylenol] 325 mg tablet 650 mg PO Q4H PRN (Reason: pain/fever) RF: 0 magnesium hydroxide [Milk of Magnesia] 400 mg/5 mL suspension See Rx Instructions .ROUTE .COMPLEX RF: 0 albuterol sulfate 2.5 mg /3 mL (0.083 %) solution for nebulization 2.5 mg INHALATION Q2H PRN (Reason: Wheezing) RF: 0 clonazepam [Klonopin] 2 mg tablet 2 mg PO TID@,, Qty: 90 RF: 5 lorazepam 2 mg tablet 2 mg PO Q4H PRN (Reason: agitation) Qty: 90 RF: 5 Vyvanse 50 mg capsule 50 mg PO DAILY@08 30 Days Qty: 30 RF: 0 carbamide peroxide 6.5 % Drops See Rx Instructions .ROUTE .COMPLEX RF: 0 haloperidol 20 mg tablet 20 mg PO BID@, RF: 0 dextromethorphan-guaifenesin 10-100 mg/5 mL Syrup See Rx Instructions .ROUTE .COMPLEX RF: 0 Fleet Enema 19-7 gram/118 mL Enema See Rx Instructions .ROUTE .COMPLEX RF: 0 polyethylene glycol 3350 17 gram powder in packet 17 gm PO DAILY@08 RF: 0 lithium carbonate 450 mg tablet extended release 450 mg PO BID@08,20 RF: 0 ketoconazole 2 % Shampoo See Rx Instructions .ROUTE .COMPLEX RF: 0 benzoyl peroxide 5 % Gel See Rx Instructions .ROUTE .COMPLEX RF: 0 benzoyl peroxide [Panoxyl] 10 % Cleanser See Rx Instructions .ROUTE .COMPLEX RF: 0 Tarsum Professional 2 % Shampoo See Rx Instructions .ROUTE .COMPLEX RF: 0 boric acid in isopropyl Drops See Rx Instructions .ROUTE .COMPLEX RF: 0 ammonium lactate 5 % Cream See Rx Instructions .ROUTE .COMPLEX RF: 0 CeraVe Cream See Rx Instructions .ROUTE .COMPLEX RF: 0 ketoconazole See Rx Instructions .ROUTE .COMPLEX RF: 0 fluocinonide 0.05 % Gel See Rx Instructions .ROUTE .COMPLEX RF: 0 vdgtmbqj-oyqyfvopuq-ehootplyu Ointment See Rx Instructions .ROUTE .COMPLEX RF: 0 sunscreen 15 SPF Lotion See Rx Instructions .ROUTE .COMPLEX RF: 0 Desitin Rapid Relief 13 % Cream See Rx Instructions .ROUTE .COMPLEX RF: 0 triamcinolone acetonide 0.1 % cream See Rx Instructions .ROUTE .COMPLEX RF: 0 ketoconazole 2 % cream See Rx Instructions .ROUTE .COMPLEX RF: 0 alum-javier yiie-apzxoti-difceyn Ointment See Rx Instructions .ROUTE .COMPLEX RF: 0 clobetasol 0.05 % shampoo See Rx Instructions .ROUTE .COMPLEX RF: 0 Ensure Liquid See Rx Instructions .ROUTE .COMPLEX RF: 0 Discontinued nitrofurantoin monohyd/m-cryst [Macrobid] 100 mg capsule 100 mg PO DAILY@08 RF: 0 No Action (DME) wheelchair See Rx Instructions .Route .MEDSUPPLY Qty: 1 RF: 0 Discharge Orders: Discharge Order (Routine); Ordered 12/06/20 Ordered By: Maura Monroy Referrals: Anurag Gautam MD [Primary Care Provider] - 1-3 days Discharge Diet: Usual diet Discharge Activity: Increase activity as tolerated Patient Instructions: Opioid Safety Activity Restrictions/Additional Instructions: Monitor for fever. If any major recurrence please return to hospital emergency room. Discharge Attestations Time Spent in Discharge Care*: greater than 30 min Specific Discharge Activities: educating patient, educating and/or supporting family/caregiver, discussing with case consultant/social workers/dc planners, documenting/other paperwork and evaluating patient/reviewing data Status at Discharge: Cognitive status at discharge: severely impaired cognition , Behavioral status at discharge: cooperative , Overall status at discharge: patient is back to baseline Quality Metrics Clinical Quality Measures During this hospital stay, did patient experience: None Coding Level of Care Code Acute Chg FW DC note Diagnoses Sepsis A41.9 Attention deficit disorder (ADD) in adult F98.8 Developmental delay, severe R62.50 Neurologic gait disorder R26.9 Acute UTI N39.0 Aspiration pneumonia J69.0 Lewy body dementia G31.83; F02.80
--- NOTE | 2020-12-06 19:19 | PC.NURSE ---
Bedside report to Elina ESPOSITO at this time.
[2020-12-06] MEDS: enoxaparin 40 mg/0.4 mL Syringe SUBCUT (20:50)
[2020-12-06] MEDS: tamsulosin 0.4 mg Capsule 0.8 MG PO (20:50)
[2020-12-07] MEDS: piperacillin-tazobactam 3.375 GM in sodium chloride 0.9% (plus) 50 ML IV (00:17)
[2020-12-07 00:32] VITALS: BP 114/81; PULSE 85; RESP 18; TEMP 36.7; O2SAT 97
[2020-12-07 04:00] VITALS: BP 102/71; PULSE 90; RESP 18; TEMP 36.4; O2SAT 94
[2020-12-07 06:32] VITALS: PULSE 99
--- NOTE | 2020-12-07 07:49 | PC.NURSE ---
Report called to Madeleine at [facility] at this time.
[2020-12-07 08:00] VITALS: BP 122/84; PULSE 93; RESP 18; TEMP 36.3; O2SAT 93
[2020-12-07] MEDS: amoxicillin-clav 875-125 mg Tablet 1 TAB PO (08:17)
[2020-12-07] MEDS: amitriptyline 25 mg Tablet PO (08:17)
[2020-12-07] MEDS: benztropine 1 mg Tablet PO (08:17)
[2020-12-07] MEDS: famotidine 20 mg Tablet PO (08:17)
[2020-12-07] MEDS: lithium carbonate ER 450 mg Tablet PO (08:20)
--- NOTE | 2020-12-07 10:12 | PC.NURSE ---
Patient provided a prescription to be filled tomorrow at his pharmacy. Patient provided 1 Augmentin 875-125mg pill to take tonight. Patient caregiver at bedside verbalized understanding and verbalized of how to give the medications and all discharge instructions. Patient wheel chaired to [employer]'s home van.
[2020-12-07 10:21] VITALS: BP 122/84; PULSE 93; RESP 18; TEMP 36.3; O2SAT 93
[2020-12-09 17:27] LABS: Adenovirus Not Detected (Not Detected); Human Metapneumovirus Not Detected (Not Detected); Human Parainflu Virus 1 Not Detected (Not Detected); Human Parainflu Virus 2 Not Detected (Not Detected); Human Parainflu Virus 3 Not Detected (Not Detected); Human Rsv A Not Detected (Not Detected); Influenza A Not Detected (Not Detected); Influenza B Not Detected (Not Detected); Rhinovirus/Enterovirus Not Detected (Not Detected)
== END 2020-12-07 10:15 | disposition other institution (70) | DRG 871 ==
LOC: ER 17:57 → MEDSURG 18:33
PROVIDERS: Admitting Provider Family Medicine; Emergency Provider Emergency Medicine; PCP Internal Medicine; Visit Provider Hospitalist
DX: A41.9 Sepsis, unspecified organism (principal); G93.41 Metabolic encephalopathy; J96.22 Acute and chronic respiratory failure with hypercapnia; J96.21 Acute and chronic respiratory failure with hypoxia; J69.0 Pneumonitis due to inhalation of food and vomit; T83.511A Infection and inflammatory reaction due to indwelling urethral catheter, initial encounter; T83.518A Infection and inflammatory reaction due to other urinary catheter, initial encounter; F72 Severe intellectual disabilities; F84.0 Autistic disorder; E87.1 Hypo-osmolality and hyponatremia; G31.83 Neurocognitive disorder with Lewy bodies; F02.80 Dementia in other diseases classified elsewhere, unspecified severity, without behavioral disturbance, psychotic disturbance, mood disturbance, and anxiety; Z87.01 Personal history of pneumonia (recurrent); Z87.440 Personal history of urinary (tract) infections; Z96.0 Presence of urogenital implants; F98.8 Other specified behavioral and emotional disorders with onset usually occurring in childhood and adolescence; K59.00 Constipation, unspecified; N31.9 Neuromuscular dysfunction of bladder, unspecified; R33.9 Retention of urine, unspecified; Y73.1 Therapeutic (nonsurgical) and rehabilitative gastroenterology and urology devices associated with adverse incidents; Z86.14 Personal history of Methicillin resistant Staphylococcus aureus infection; Z79.51 Long term (current) use of inhaled steroids; R13.10 Dysphagia, unspecified; E86.0 Dehydration; R26.89 Other abnormalities of gait and mobility
CPT/HCPCS: 36415; 36600; 71045; 71250; 74176; 80051; 80053; 80178; 80202; 80306; 80307; 81001; 82330; 82805; 83605; 83735; 84100; 84145; 84443; 85025; 85610; 85730; 86140; 87040; 87086; 87426; 87635; 87641; 92526; 92610; 93005; 93971; 94664; 96365; 96372; 99285; J0696; J1650; J2543; J3370; J3490; J7030

== ENCOUNTER 2020-12-30 13:14 | Outpatient (CLI) | payer MEDICARE, MEDICAID, SELFPAY ==
[2020-12-30] VITALS (24 sets, daily range): BP systolic 109–173; BP diastolic 73–116; PULSE 101–140; RESP 14–26; TEMP 37.1; O2SAT 96–100
[2020-12-30] MEDS: succinylcholine 20 mg/mL SDV 10mL IVP (13:33)
--- NOTE | 2020-12-30 13:37 | XR_ITS ---
WS: [id number] Portable AP upright chest, 12/30/2020 Clinical Data: tube placement Comparison: Portable chest, 12/01/2020. Findings: The endotracheal tube is above the luly approximately 1 cm. The left internal jugular jennie ous catheter ends in the superior vena cava. The nasogastric tube is curled in the fundus of stomach. There is minimal patchy opacity adjacent to the left cardiac border which could represent atelectasi s and/or minimal pneumonia. The right lung is clear. Monitor leads are on the chest wall. The heart is normal. XR/XR chest 1V portable [id number] Impression: 1. Endotracheal tube is 1 cm above the luly. 2. Left internal jugular venous catheter and nasogastric tube are in good posit ion. 3. Minimal patchy opacity adjacent to left cardiac border could represent pneum onia.
[2020-12-30] MEDS: vecuronium 10 mg SDV IVP (13:39)
--- NOTE | 2020-12-30 13:39 | ECG_ITS ---
[facility] ED Test Date: 2020-12-30 Pat Name: Joshua Valerio Department: Room: Gender: Male National Account Manager: : 1975 Requested By: Nik Kiser Order Number: [id number] Leonard MD: Beatris Navarrete M.D. Measurements Intervals [place] Rate: 133 P: 50 OR: 126 QRS: 76 QRSD: 91 T: 53 QT: 335 QTc: 499 Interpretive Statements SINUS TACHYCARDIA ABNORMAL RHYTHM ECG Compared to ECG 12/01/2020 13:45:38 No significant changes Electronically Signed On 12-31-2020 20:33:55 CDT by Beatris Navarrete M.D. [id number]
[2020-12-30 13:53] LABS: Alveolar-Arterial Oxygen Gradi 65.2 mmHg (5-10); Arterial Blood Gas Hematocrit 47.3 % (42-52); Base Excess ABG -6.5 mmol/L (-2.0-2.0); Blood Gas Allen Test Pos; Blood Gas Sample Site Radial, right; Blood Gas Sample Type Arterial; Blood Gas Tidal Volume 0.55; Carboxyhemoglobin 0.5 %THgb (0.4-20.1); HCO3 ABG 24.9 mmol/L (22-26); HGB O2 Sat 96.7 % (95-100); Ionized Calcium Level - ABG 1.3 mmol/L (1.1-1.4); Methemoglobin 0.3 % (0.4-1.5); Oxygen Device VENT; Oxygen Saturation ABG 97.5; Potassium Level - ABG 4.6 mmol/L (3.5-5.0); Total Hemoglobin 15.4 g/dL (14-18)
[2020-12-30 14:06] LABS: Basophils # 0.1 10^3/uL (0.0-0.1); Basophils % 0.8 %; Eosinophils # 0.4 10^3/uL (0.0-0.8); Eosinophils % 2.6 %; Hematocrit 46.6 % (42.0-52.0); Hemoglobin 14.8 g/dL (11.7-16.6); Lymphocytes # 3.7 10^3/uL (0.8-4.8); Mean Corpuscular HGB Conc 31.8 g/dL (30.0-36.0); Mean Corpuscular Hemoglobin 29.3 pg (28.0-34.0); Mean Corpuscular Volume 92.3 fL (80-94); Mean Platelet Volume 9.4 fL (7.4-10.4); Monocytes # 0.6 10^3/uL (0.2-0.9); Monocytes % 4.5 %; Neutrophils # 9.05 10^3/uL (1.8-7.7); Nucleated Red Blood Cells % 0 %; Platelet Count 387 10^3/cmm (130-400); Red Blood Count 5.05 10^6/uL (4.1-5.3); Red Cell Distribution Width 13.3 % (12.1-15.1); White Blood Count 14.1 10^3/uL (4.0-10.0)
[2020-12-30] MEDS: propofol 1,000 MG/100 ML INJ 2.7 MG IV (14:21)
[2020-12-30 14:24] LABS: Alanine Aminotransferase 16 U/L (0-41); Albumin Level 4.5 g/dL (3.5-5.2); Alkaline Phosphatase 194 IU/L (40-130); Aspartate Amino Transferase 26 U/L (0-40); Blood Urea Nitrogen 14 mg/dL (6-20); Calcium 9.1 mg/dL (8.5-10.5); Carbon Dioxide 22 mmol/L (22-29); Chloride 99 mmol/L (98-107); Creatine Phosphokinase 48 U/L (39-308); Globulin 3.1 g/dL (1.3-4.6); Glomerular Filtration Rate 105.5 mL/min (90-130); Glucose 184 mg/dL (65-115); Lipase 19 U/L (13-60); Magnesium 2.2 mg/dL (1.7-2.3); Osmolality Calculated 283 mOsm/kg (285-295); Sodium 134 mmol/L (136-145); Total Bilirubin 0.2 mg/dL (0.15-1.2); Total Protein 7.6 g/dL (6.6-8.7)
[2020-12-30 14:25] LABS: Troponin(5th) Baseline 13 ng/L (0-15)
[2020-12-30 14:30] LABS: Anion Gap 17.8 (5-19); Potassium 4.8 mmol/L (3.5-5.1)
[2020-12-30] MEDS: ondansetron 2 mg/ML SDV 2 mL 4 MG IVP (14:37)
[2020-12-30] MEDS: ampicillin-sulbactam 3 GM in sodium chloride 0.9% (plus) 50 ML IV (14:37)
[2020-12-30] MEDS: propofol 1,000 MG/100 ML INJ 5.5 MG IV (14:50)
--- NOTE | 2020-12-30 14:55 | ED_ITS ---
Documented by User: Keren Cm MD 12/30/20 22:41 HPI - General Adult General: Chief complaint: Airway/Esophagus Foreign Body Stated complaint: ASPIRATION Time Seen by Provider: 12/30/20 13:38 History of Present Illness: HPI narrative: Patient is a 45-year-old male with a history of chronic Marlon body dementia bedbound from [facility] presented to emergency room after a witnessed episode of looking after feeding. She was noted to be in moderate distress and EMS was activated. En route, patient was satting at 92% on RA by EMS, no immediate intervention en route. On arrival, patient had rhonchorous breath sounds, and increased work of breathing. Rest of history limited by cognitive status and physical condition. Onset: 1 hr ago Duration: ongoing 1 hr Location: skilled nursing Severeity: severe Review of Systems Narrative: Unable to assess given underlying medical conditions PFSH ED PFSH: Medical History Acute metabolic encephalopathy Patient is at baseline mentation Acute respiratory failure with hypoxia and hypercapnia Resolved ADHD Aspiration pneumonia Aspiration pneumonia Attention deficit disorder Attention deficit disorder (ADD) Autism Constipation Developmental delay, severe Inappropriate sinus tachycardia Lewy body dementia Lewy body dementia Neurogenic bladder -intermittent self catheterization at facility Respiratory failure Respiratory failure with hypoxia and hypercapnia Sepsis Sepsis resolved Urinary retention UTI (urinary tract infection) Surgical History History of dental surgery History of sinus surgery Family History Other CAD (coronary artery disease) Cancer Social History Smoking and tobacco status: never smoked Second hand smoke exposure: No Alcohol intake: never History of recent travel: No Physical Exam Narrative: EXAM NARRATIVE: Head: Atraumatic Eyes: PERRL, conjunctiva without injection ENT: Mild stridor with food particles in mouth NECK: Supple without lymphadenopathy LUNGS: Diffuse rhonchi throughout lung [place], increased work of breathing CV: Sinus tachycardia ABDOMEN: Soft, nontender in all quadrants EXTREMITY: Normal ROM, no LE swellings or edema SKIN: No rash or erythema NEURO: Awake and alert. Unable to asess baseline neurological functions PSYCH:Unable to assess Procedures Central Line Placement Left IJ: Time Out Performed: Yes Patient Placed on Monitor/Pulse Ox: Yes MD Prep: mask, gown and gloves Central Line Prep: Povidone-Iodine 1% Ultrasound Used for Placement: Yes Central Line Lumen Inserted: triple Post Procedure: sutured in place and good blood return Post Procedure X-Ray: tip of catheter in good position Patient Tolerated Procedure: well Complications: none Additional Comments: confirmed in good position on XR Intubation Time out performed: Yes sedative: Ketamine paralytic: Succinylcholine Laryngoscope: other ET Tube Size: 7.5 ET Tube Uncuffed: No Tube Secured Depth (cm): 24 Tube Secured Location: lips Tube Placement Confirmation: visualized tube passing through cords Patient Tolerated Procedure: well Intubation Complications: none and hypoxia Course ED course: Patient is a 45-year-old male with chronically body dementia from the skilled nursing presenting to the emergency room after concerns for aspiration. Arrival, patient had an O2 sat in the low 90s. Noted to be tachypneic to the 30s, with moderate amount of stridor. The fact the patient was unable to protect airway. Decision was made for intubation immediately on arrival. Patient was intubated with 7.5 ETT at 24 Difficult access was decision was made to place a left-sided CVC access. Patient received 2L IVF, ampicillin, vancomycin and cefepime for persistent tahcycardia and L sided retrocardiac opacity On propafol and fentanyl drip Covid rapid was swabbed, COVID PCR sent Repeat ABG showed significant improvement 7.1->7.35, tachycardia improved after IVF and sedation Pending transfer outside hospital ICU. Case was signed out Dr. Becker Vital Signs: Vital signs: Vital Signs Temperature 98.7 F 12/30/20 17:41 Pulse Rate 98 12/31/20 02:00 Respiratory Rate 24 H 12/31/20 02:00 Blood Pressure 113/68 12/31/20 02:00 Pulse Oximetry 96 12/31/20 02:00 MDM - General Adult Lab Data: Labs: Lab Results 12/30/20 12/30/20 12/30/20 Range/Units 13:40 13:50 13:50 WBC 14.1 H (4.0-10.0) 10^3/ uL RBC 5.05 (4.1-5.3) 10^6/u L Hgb 14.8 (11.7-16.6) g/dL Hct 46.6 (42.0-52.0) % MCV 92.3 (80-94) fL MCH 29.3 (28.0-34.0) pg MCHC 31.8 (30.0-36.0) g/dL RDW 13.3 (12.1-15.1) % Plt Count 387 (130-400) 10^3/c mm MPV 9.4 (7.4-10.4) fL Neut % (Auto) 64.0 % Lymph % (Auto) 26.0 % Medina % (Auto) 4.5 % Eos % (Auto) 2.6 % Baso % (Auto) 0.8 % Neut # (Auto) 9.05 H (1.8-7.7) 10^3/u L Lymph # (Auto) 3.7 (0.8-4.8) 10^3/u L Medina # (Auto) 0.6 (0.2-0.9) 10^3/u L Eos # (Auto) 0.4 (0.0-0.8) 10^3/u L Baso # (Auto) 0.1 (0.0-0.1) 10^3/u L Nucleated RBC % (a uto) 0 % Nucleated RBCs # 0.0 /100WBC Specimen Type Arterial Sample Site Radial, right ABG pH 7.12 L* (7.35-7.45) ABG pCO2 76.6 H* (35-45) mmHg ABG pO2 123.0 H (80.0-100.0) mmH g ABG HCO3 24.9 (22-26) mmol/L ABG O2 Saturation 97.5 ABG Base Excess -6.5 L (-2.0-2.0) mmol/ L Javier Test Pos A-a O2 Gradient 65.2 H (5-10) mmHg Hematocrit 47.3 (42-52) % Hgb O2 Saturation 96.7 (95-100) % Carboxyhemoglobin 0.5 (0.4-20.1) %THgb Methemoglobin 0.3 L (0.4-1.5) % Total Hemoglobin 15.4 (14-18) g/dL Sodium 142.0 134 L (131-143) mmol/L Potassium 4.6 4.8 (3.5-5.0) mmol/L Glucose 208.0 H 184 H (70-115) mg/dL Ionized Calcium 1.3 (1.1-1.4) mmol/L O2 Delivery Device Vent O2 Liters/Min 555.0 % Mechanical Rate 12.0 FiO2 100.0 % Tidal Volume 0.55 PEEP 5.0 cmH20 Power Transmission Engineer ID nabde Chloride 99 (98-107) mmol/L Carbon Dioxide 22 (22-29) mmol/L Anion Gap 17.8 (5-19) BUN 14 (6-20) mg/dL Creatinine 0.8 (0.7-1.2) mg/dL GFR Calculation 105.5 (90-130) mL/min Calculated Osmolal ity 283 L (285-295) mOsm/k g Lactic Acid (0.5-2.2) mmol/L Calcium 9.1 (8.5-10.5) mg/dL Magnesium 2.2 (1.7-2.3) mg/dL Total Bilirubin 0.2 (0.15-1.2) mg/dL AST 26 (0-40) U/L ALT 16 (0-41) U/L Alkaline Phosphata se 194 H (40-130) IU/L Creatine Kinase 48 (39-308) U/L Troponin T Baselin e (0-15) ng/L Total Protein 7.6 (6.6-8.7) g/dL Albumin 4.5 (3.5-5.2) g/dL Globulin 3.1 (1.3-4.6) g/dL Lipase 19 (13-60) U/L Urine Color (Yellow) Urine Appearance (CLEAR) Urine pH (5-7) Ur Specific Gravit y (1.005-1.030) Urine Protein (Negative) Urine Glucose (UA) (Normal) Urine Ketones (Negative) Urine Blood (Negative) Urine Nitrate (Negative) Urine Bilirubin (Negative) Urine Urobilinogen (Negative) mg/dL Ur Leukocyte Shira ase (Negative) Urine RBC (0-2) /hpf Urine WBC (0-5) /hpf Ur Squamous Epith Cells (0-5) /hpf Amorphous Sediment Urine Bacteria (NONE) /hpf SARS-CoV-2 Ag (Rap id) (Negative) Blood Type Rho(D) Type Antibody Screen 12/30/20 12/30/20 12/30/20 Range/Units 13:50 13:50 13:50 WBC (4.0-10.0) 10^3/ uL RBC (4.1-5.3) 10^6/u L Hgb (11.7-16.6) g/dL Hct (42.0-52.0) % MCV (80-94) fL MCH (28.0-34.0) pg MCHC (30.0-36.0) g/dL RDW (12.1-15.1) % Plt Count (130-400) 10^3/c mm MPV (7.4-10.4) fL Neut % (Auto) % Lymph % (Auto) % [place] % (Auto) % Eos % (Auto) % Baso % (Auto) % Neut # (Auto) (1.8-7.7) 10^3/u L Lymph # (Auto) (0.8-4.8) 10^3/u L [place] # (Auto) (0.2-0.9) 10^3/u L Eos # (Auto) (0.0-0.8) 10^3/u L Baso # (Auto) (0.0-0.1) 10^3/u L Nucleated RBC % (a uto) % Nucleated RBCs # /100WBC Specimen Type Sample Site ABG pH (7.35-7.45) ABG pCO2 (35-45) mmHg ABG pO2 (80.0-100.0) mmH g ABG HCO3 (22-26) mmol/L ABG O2 Saturation ABG Base Excess (-2.0-2.0) mmol/ L Javier Test A-a O2 Gradient (5-10) mmHg Hematocrit (42-52) % Hgb O2 Saturation (95-100) % Carboxyhemoglobin (0.4-20.1) %THgb Methemoglobin (0.4-1.5) % Total Hemoglobin (14-18) g/dL Sodium (131-143) mmol/L Potassium (3.5-5.0) mmol/L Glucose (70-115) mg/dL Ionized Calcium (1.1-1.4) mmol/L O2 Delivery Device O2 Liters/Min % Mechanical Rate FiO2 % Tidal Volume PEEP cmH20 Power Transmission Engineer ID Chloride (98-107) mmol/L Carbon Dioxide (22-29) mmol/L Anion Gap (5-19) BUN (6-20) mg/dL Creatinine (0.7-1.2) mg/dL GFR Calculation (90-130) mL/min Calculated Osmolal ity (285-295) mOsm/k g Lactic Acid 2.0 (0.5-2.2) mmol/L Calcium (8.5-10.5) mg/dL Magnesium (1.7-2.3) mg/dL Total Bilirubin (0.15-1.2) mg/dL AST (0-40) U/L ALT (0-41) U/L Alkaline Phosphata se (40-130) IU/L Creatine Kinase (39-308) U/L Troponin T Baselin e 13 (0-15) ng/L Total Protein (6.6-8.7) g/dL Albumin (3.5-5.2) g/dL Globulin (1.3-4.6) g/dL Lipase (13-60) U/L Urine Color (Yellow) Urine Appearance (CLEAR) Urine pH (5-7) Ur Specific Gravit y (1.005-1.030) Urine Protein (Negative) Urine Glucose (UA) (Normal) Urine Ketones (Negative) Urine Blood (Negative) Urine Nitrate (Negative) Urine Bilirubin (Negative) Urine Urobilinogen (Negative) mg/dL Ur Leukocyte Shira ase (Negative) Urine RBC (0-2) /hpf Urine WBC (0-5) /hpf Ur Squamous Epith Cells (0-5) /hpf Amorphous Sediment Urine Bacteria (NONE) /hpf SARS-CoV-2 Ag (Rap id) Negative (Negative) Blood Type Rho(D) Type Antibody Screen 12/30/20 12/30/20 12/30/20 Range/Units 14:52 16:43 16:43 WBC 9.6 (4.0-10.0) 10^3/ uL RBC 4.18 (4.1-5.3) 10^6/u L Hgb 12.2 (11.7-16.6) g/dL Hct 38.9 L (42.0-52.0) % MCV 93.1 (80-94) fL MCH 29.2 (28.0-34.0) pg MCHC 31.4 (30.0-36.0) g/dL RDW 13.3 (12.1-15.1) % Plt Count 231 (130-400) 10^3/c mm MPV 9.5 (7.4-10.4) fL Neut % (Auto) 84.4 % Lymph % (Auto) 8.1 % Med[place] % (Auto) 4.5 % Eos % (Auto) 1.1 % Baso % (Auto) 0.4 % Neut # (Auto) 8.08 H (1.8-7.7) 10^3/u L Lymph # (Auto) 0.8 (0.8-4.8) 10^3/u L Med[place] # (Auto) 0.4 (0.2-0.9) 10^3/u L Eos # (Auto) 0.1 (0.0-0.8) 10^3/u L Baso # (Auto) 0.0 (0.0-0.1) 10^3/u L Nucleated RBC % (a uto) 0 % Nucleated RBCs # 0.0 /100WBC Specimen Type Sample Site ABG pH (7.35-7.45) ABG pCO2 (35-45) mmHg ABG pO2 (80.0-100.0) mmH g ABG HCO3 (22-26) mmol/L ABG O2 Saturation ABG Base Excess (-2.0-2.0) mmol/ L Javier Test A-a O2 Gradient (5-10) mmHg Hematocrit (42-52) % Hgb O2 Saturation (95-100) % Carboxyhemoglobin (0.4-20.1) %THgb Methemoglobin (0.4-1.5) % Total Hemoglobin (14-18) g/dL Sodium (131-143) mmol/L Potassium (3.5-5.0) mmol/L Glucose (70-115) mg/dL Ionized Calcium (1.1-1.4) mmol/L O2 Delivery Device O2 Liters/Min % Mechanical Rate FiO2 % Tidal Volume PEEP cmH20 Power Transmission Engineer ID Chloride (98-107) mmol/L Carbon Dioxide (22-29) mmol/L Anion Gap (5-19) BUN (6-20) mg/dL Creatinine (0.7-1.2) mg/dL GFR Calculation (90-130) mL/min Calculated Osmolal ity (285-295) mOsm/k g Lactic Acid (0.5-2.2) mmol/L Calcium (8.5-10.5) mg/dL Magnesium (1.7-2.3) mg/dL Total Bilirubin (0.15-1.2) mg/dL AST (0-40) U/L ALT (0-41) U/L Alkaline Phosphata se (40-130) IU/L Creatine Kinase (39-308) U/L Troponin T Baselin e (0-15) ng/L Total Protein (6.6-8.7) g/dL Albumin (3.5-5.2) g/dL Globulin (1.3-4.6) g/dL Lipase (13-60) U/L Urine Color Yellow (Yellow) Urine Appearance Cloudy (CLEAR) Urine pH 5 (5-7) Ur Specific Gravit y 1.030 (1.005-1.030) Urine Protein 1+ H (Negative) Urine Glucose (UA) Norm (Normal) Urine Ketones Negative (Negative) Urine Blood 3+ H (Negative) Urine Nitrate Negative (Negative) Urine Bilirubin Neg (Negative) Urine Urobilinogen 1 H (Negative) mg/dL Ur Leukocyte Shira ase 2+ H (Negative) Urine RBC 15-25 H (0-2) /hpf Urine WBC 25-40 H (0-5) /hpf Ur Squamous Epith Cells 0-4 H (0-5) /hpf Amorphous Sediment Not Reportable Urine Bacteria 4+ H (NONE) /hpf SARS-CoV-2 Ag (Rap id) (Negative) Blood Type O Positive Rho(D) Type Positive / 4+ Antibody Screen Negative 12/30/20 Range/Units 18:11 WBC (4.0-10.0) 10^3/ uL RBC (4.1-5.3) 10^6/u L Hgb (11.7-16.6) g/dL Hct (42.0-52.0) % MCV (80-94) fL MCH (28.0-34.0) pg MCHC (30.0-36.0) g/dL RDW (12.1-15.1) % Plt Count (130-400) 10^3/c mm MPV (7.4-10.4) fL Neut % (Auto) % Lymph % (Auto) % [place] % (Auto) % Eos % (Auto) % Baso % (Auto) % Neut # (Auto) (1.8-7.7) 10^3/u L Lymph # (Auto) (0.8-4.8) 10^3/u L Med[place] # (Auto) (0.2-0.9) 10^3/u L Eos # (Auto) (0.0-0.8) 10^3/u L Baso # (Auto) (0.0-0.1) 10^3/u L Nucleated RBC % (a uto) % Nucleated RBCs # /100WBC Specimen Type Arterial Sample Site Radial, right ABG pH 7.37 (7.35-7.45) ABG pCO2 41.4 (35-45) mmHg ABG pO2 343.0 H (80.0-100.0) mmH g ABG HCO3 24.0 (22-26) mmol/L ABG O2 Saturation > 100.0 ABG Base Excess -1.2 (-2.0-2.0) mmol/ L Javier Test Pos A-a O2 Gradient 40.4 H (5-10) mmHg Hematocrit 38.5 L (42-52) % Hgb O2 Saturation 99.6 (95-100) % Carboxyhemoglobin 0.5 (0.4-20.1) %THgb Methemoglobin 0.5 (0.4-1.5) % Total Hemoglobin 12.6 L (14-18) g/dL Sodium 141.0 (131-143) mmol/L Potassium 4.2 (3.5-5.0) mmol/L Glucose 152.0 H (70-115) mg/dL Ionized Calcium 1.2 (1.1-1.4) mmol/L O2 Delivery Device Vent O2 Liters/Min % Mechanical Rate FiO2 100.0 % Tidal Volume 0.55 PEEP 5.0 cmH20 Power Transmission Engineer ID Amh Chloride (98-107) mmol/L Carbon Dioxide (22-29) mmol/L Anion Gap (5-19) BUN (6-20) mg/dL Creatinine (0.7-1.2) mg/dL GFR Calculation (90-130) mL/min Calculated Osmolal ity (285-295) mOsm/k g Lactic Acid (0.5-2.2) mmol/L Calcium (8.5-10.5) mg/dL Magnesium (1.7-2.3) mg/dL Total Bilirubin (0.15-1.2) mg/dL AST (0-40) U/L ALT (0-41) U/L Alkaline Phosphata se (40-130) IU/L Creatine Kinase (39-308) U/L Troponin T Baselin e (0-15) ng/L Total Protein (6.6-8.7) g/dL Albumin (3.5-5.2) g/dL Globulin (1.3-4.6) g/dL Lipase (13-60) U/L Urine Color (Yellow) Urine Appearance (CLEAR) Urine pH (5-7) Ur Specific Gravit y (1.005-1.030) Urine Protein (Negative) Urine Glucose (UA) (Normal) Urine Ketones (Negative) Urine Blood (Negative) Urine Nitrate (Negative) Urine Bilirubin (Negative) Urine Urobilinogen (Negative) mg/dL Ur Leukocyte Shira ase (Negative) Urine RBC (0-2) /hpf Urine WBC (0-5) /hpf Ur Squamous Epith Cells (0-5) /hpf Amorphous Sediment Urine Bacteria (NONE) /hpf SARS-CoV-2 Ag (Rap id) (Negative) Blood Type Rho(D) Type Antibody Screen Imaging Data^: CXR: Radiologist's impression: [address] [place] [address] XRay Report Signed Patient: Joshua Valerio Unit #: [id number] : [id number] Age/Sex: 45 / M ADM Date: 12/30/20 Loc: ER Room/Bed: Attending Dr: Ordering Provider/Ordering MD: Keren Cm MD Date of Service: 12/30/20 Procedure(s): XR chest 1V portable [id number] Accession Number(s): [id number] Report Number: [id number] WS: [id number] Portable AP upright chest, 12/30/2020 Clinical Data: tube placement Comparison: Portable chest, 12/01/2020. Findings: The endotracheal tube is above the luly approximately 1 cm. The left internal jugular venous catheter ends in the superior vena cava. The nasogastric tube is curled in the fundus of stomach. There is minimal patchy opacity adjacent to the left cardiac border which could represent atelectasis and/or minimal pneumonia. The right lung is clear. Monitor leads are on the chest wall. The heart is normal. XR/XR chest 1V portable [id number] Impression: 1. Endotracheal tube is 1 cm above the luly. 2. Left internal jugular venous catheter and nasogastric tube are in good position. 3. Minimal patchy opacity adjacent to left cardiac border could represent pneumonia. Dictated By: Indy Raphael MD Signed By: Indy Raphael MD Signed Date/Time: 12/30/201426 DD/ 142 Critical Care Time Critical Care Time: Critical Care Time: Yes Total Critical Care Time: 32 Attestation: Given the high probability of imminent or life threatening deterioration of the patient?s condition without intervention, the patient was immediately assessed by myself and the nurse, and cardiac monitoring initiated. The patient was also placed on oxygen and continuous pulse oximetry initiated. During the course of the patient?s stay, I spent a considerable amount of time at the bedside performing serial re-evaluations of the patient?s hemodynamic and clinical status because of the recognized potential threat to life or limb in this condition. Clinical management of this patient involved high complexity decision making to assess, manipulate, and support vital organ system failure. I then had a chance to review all of the available laboratory and radiographic studies obtained today, and I also reviewed old records available to me at the time. Se quential vital signs were obtained. Critical care time noted below was time spent engaged in work directly related to the individual patient?s care, not including time performing procedures; however it does include time spent at the immediate bedside or elsewhere on the floor or unit. TOTAL CRITICAL CARE TIME ELAPSED: 32 minutes. BODY SYSTEM AT HIGHEST RISK: Pulmonary Discharge Plan Discharge Patient Disposition: Transfer to ED Admit Provider: Glenis Amaya Clinical Impression: Aspiration pneumonia due to food (regurgitated), Lewy body dementia, Acute hypoxemic respiratory failure, Acute UTI Condition: Stable Coding Level of Care Code ED Plaster Mechanic for Chg Fwd Documented by User: Vik Becker MD 12/31/20 02:20 HPI - General Adult General: Chief complaint: Airway/Esophagus Foreign Body Stated complaint: ASPIRATION Time Seen by Provider: 12/30/20 13:38 PFSH ED PFSH: Medical History Acute metabolic encephalopathy Patient is at baseline mentation Acute respiratory failure with hypoxia and hypercapnia Resolved ADHD Aspiration pneumonia Aspiration pneumonia Attention deficit disorder Attention deficit disorder (ADD) Autism Constipation Developmental delay, severe Inappropriate sinus tachycardia Lewy body dementia Lewy body dementia Neurogenic bladder -intermittent self catheterization at facility Respiratory failure Respiratory failure with hypoxia and hypercapnia Sepsis Sepsis resolved Urinary retention UTI (urinary tract infection) Surgical History History of dental surgery History of sinus surgery Family History Other CAD (coronary artery disease) Cancer Social History Smoking and tobacco status: never smoked Second hand smoke exposure: No Alcohol intake: never History of recent travel: No Course Vital Signs: Vital signs: Vital Signs Temperature 98.7 F 12/30/20 17:41 Pulse Rate 98 12/31/20 02:00 Respiratory Rate 24 H 12/31/20 02:00 Blood Pressure 113/68 12/31/20 02:00 Pulse Oximetry 96 12/31/20 02:00 MDM - General Adult MDM Narrative: Medical decision making narrative: Patient presents here with likely aspiration was in intubated. I took patient over from Dr. Cm and spoke to hospitalist here and will admit to the ICU here Lab Data: Labs: Lab Results 12/30/20 12/30/20 12/30/20 Range/Units 13:40 13:50 13:50 WBC 14.1 H (4.0-10.0) 10^3/ uL RBC 5.05 (4.1-5.3) 10^6/u L Hgb 14.8 (11.7-16.6) g/dL Hct 46.6 (42.0-52.0) % MCV 92.3 (80-94) fL MCH 29.3 (28.0-34.0) pg MCHC 31.8 (30.0-36.0) g/dL RDW 13.3 (12.1-15.1) % Plt Count 387 (130-400) 10^3/c mm MPV 9.4 (7.4-10.4) fL Neut % (Auto) 64.0 % Lymph % (Auto) 26.0 % Medina % (Auto) 4.5 % Eos % (Auto) 2.6 % Baso % (Auto) 0.8 % Neut # (Auto) 9.05 H (1.8-7.7) 10^3/u L Lymph # (Auto) 3.7 (0.8-4.8) 10^3/u L Medina # (Auto) 0.6 (0.2-0.9) 10^3/u L Eos # (Auto) 0.4 (0.0-0.8) 10^3/u L Baso # (Auto) 0.1 (0.0-0.1) 10^3/u L Nucleated RBC % (a uto) 0 % Nucleated RBCs # 0.0 /100WBC Specimen Type Arterial Sample Site Radial, right ABG pH 7.12 L* (7.35-7.45) ABG pCO2 76.6 H* (35-45) mmHg ABG pO2 123.0 H (80.0-100.0) mmH g ABG HCO3 24.9 (22-26) mmol/L ABG O2 Saturation 97.5 ABG Base Excess -6.5 L (-2.0-2.0) mmol/ L Javier Test Pos A-a O2 Gradient 65.2 H (5-10) mmHg Hematocrit 47.3 (42-52) % Hgb O2 Saturation 96.7 (95-100) % Carboxyhemoglobin 0.5 (0.4-20.1) %THgb Methemoglobin 0.3 L (0.4-1.5) % Total Hemoglobin 15.4 (14-18) g/dL Sodium 142.0 134 L (131-143) mmol/L Potassium 4.6 4.8 (3.5-5.0) mmol/L Glucose 208.0 H 184 H (70-115) mg/dL Ionized Calcium 1.3 (1.1-1.4) mmol/L O2 Delivery Device Vent O2 Liters/Min 555.0 % Mechanical Rate 12.0 FiO2 100.0 % Tidal Volume 0.55 PEEP 5.0 cmH20 Power Transmission Engineer ID nabde Chloride 99 (98-107) mmol/L Carbon Dioxide 22 (22-29) mmol/L Anion Gap 17.8 (5-19) BUN 14 (6-20) mg/dL Creatinine 0.8 (0.7-1.2) mg/dL GFR Calculation 105.5 (90-130) mL/min Calculated Osmolal ity 283 L (285-295) mOsm/k g Lactic Acid (0.5-2.2) mmol/L Calcium 9.1 (8.5-10.5) mg/dL Magnesium 2.2 (1.7-2.3) mg/dL Total Bilirubin 0.2 (0.15-1.2) mg/dL AST 26 (0-40) U/L ALT 16 (0-41) U/L Alkaline Phosphata se 194 H (40-130) IU/L Creatine Kinase 48 (39-308) U/L Troponin T Baselin e (0-15) ng/L Total Protein 7.6 (6.6-8.7) g/dL Albumin 4.5 (3.5-5.2) g/dL Globulin 3.1 (1.3-4.6) g/dL Lipase 19 (13-60) U/L Urine Color (Yellow) Urine Appearance (CLEAR) Urine pH (5-7) Ur Specific Gravit y (1.005-1.030) Urine Protein (Negative) Urine Glucose (UA) (Normal) Urine Ketones (Negative) Urine Blood (Negative) Urine Nitrate (Negative) Urine Bilirubin (Negative) Urine Urobilinogen (Negative) mg/dL Ur Leukocyte Shira ase (Negative) Urine RBC (0-2) /hpf Urine WBC (0-5) /hpf Ur Squamous Epith Cells (0-5) /hpf Amorphous Sediment Urine Bacteria (NONE) /hpf SARS-CoV-2 Ag (Rap id) (Negative) Blood Type Rho(D) Type Antibody Screen 12/30/20 12/30/20 12/30/20 Range/Units 13:50 13:50 13:50 WBC (4.0-10.0) 10^3/ uL RBC (4.1-5.3) 10^6/u L Hgb (11.7-16.6) g/dL Hct (42.0-52.0) % MCV (80-94) fL MCH (28.0-34.0) pg MCHC (30.0-36.0) g/dL RDW (12.1-15.1) % Plt Count (130-400) 10^3/c mm MPV (7.4-10.4) fL Neut % (Auto) % Lymph % (Auto) % Medina % (Auto) % Eos % (Auto) % Baso % (Auto) % Neut # (Auto) (1.8-7.7) 10^3/u L Lymph # (Auto) (0.8-4.8) 10^3/u L Medina # (Auto) (0.2-0.9) 10^3/u L Eos # (Auto) (0.0-0.8) 10^3/u L Baso # (Auto) (0.0-0.1) 10^3/u L Nucleated RBC % (a uto) % Nucleated RBCs # /100WBC Specimen Type Sample Site ABG pH (7.35-7.45) ABG pCO2 (35-45) mmHg ABG pO2 (80.0-100.0) mmH g ABG HCO3 (22-26) mmol/L ABG O2 Saturation ABG Base Excess (-2.0-2.0) mmol/ L Javier Test A-a O2 Gradient (5-10) mmHg Hematocrit (42-52) % Hgb O2 Saturation (95-100) % Carboxyhemoglobin (0.4-20.1) %THgb Methemoglobin (0.4-1.5) % Total Hemoglobin (14-18) g/dL Sodium (131-143) mmol/L Potassium (3.5-5.0) mmol/L Glucose (70-115) mg/dL Ionized Calcium (1.1-1.4) mmol/L O2 Delivery Device O2 Liters/Min % Mechanical Rate FiO2 % Tidal Volume PEEP cmH20 Power Transmission Engineer ID Chloride (98-107) mmol/L Carbon Dioxide (22-29) mmol/L Anion Gap (5-19) BUN (6-20) mg/dL Creatinine (0.7-1.2) mg/dL GFR Calculation (90-130) mL/min Calculated Osmolal ity (285-295) mOsm/k g Lactic Acid 2.0 (0.5-2.2) mmol/L Calcium (8.5-10.5) mg/dL Magnesium (1.7-2.3) mg/dL Total Bilirubin (0.15-1.2) mg/dL AST (0-40) U/L ALT (0-41) U/L Alkaline Phosphata se (40-130) IU/L Creatine Kinase (39-308) U/L Troponin T Baselin e 13 (0-15) ng/L Total Protein (6.6-8.7) g/dL Albumin (3.5-5.2) g/dL Globulin (1.3-4.6) g/dL Lipase (13-60) U/L Urine Color (Yellow) Urine Appearance (CLEAR) Urine pH (5-7) Ur Specific Gravit y (1.005-1.030) Urine Protein (Negative) Urine Glucose (UA) (Normal) Urine Ketones (Negative) Urine Blood (Negative) Urine Nitrate (Negative) Urine Bilirubin (Negative) Urine Urobilinogen (Negative) mg/dL Ur Leukocyte Shira ase (Negative) Urine RBC (0-2) /hpf Urine WBC (0-5) /hpf Ur Squamous Epith Cells (0-5) /hpf Amorphous Sediment Urine Bacteria (NONE) /hpf SARS-CoV-2 Ag (Rap id) Negative (Negative) Blood Type Rho(D) Type Antibody Screen 12/30/20 12/30/20 12/30/20 Range/Units 14:52 16:43 16:43 WBC 9.6 (4.0-10.0) 10^3/ uL RBC 4.18 (4.1-5.3) 10^6/u L Hgb 12.2 (11.7-16.6) g/dL Hct 38.9 L (42.0-52.0) % MCV 93.1 (80-94) fL MCH 29.2 (28.0-34.0) pg MCHC 31.4 (30.0-36.0) g/dL RDW 13.3 (12.1-15.1) % Plt Count 231 (130-400) 10^3/c mm MPV 9.5 (7.4-10.4) fL Neut % (Auto) 84.4 % Lymph % (Auto) 8.1 % Medina % (Auto) 4.5 % Eos % (Auto) 1.1 % Baso % (Auto) 0.4 % Neut # (Auto) 8.08 H (1.8-7.7) 10^3/u L Lymph # (Auto) 0.8 (0.8-4.8) 10^3/u L Medina # (Auto) 0.4 (0.2-0.9) 10^3/u L Eos # (Auto) 0.1 (0.0-0.8) 10^3/u L Baso # (Auto) 0.0 (0.0-0.1) 10^3/u L Nucleated RBC % (a uto) 0 % Nucleated RBCs # 0.0 /100WBC Specimen Type Sample Site ABG pH (7.35-7.45) ABG pCO2 (35-45) mmHg ABG pO2 (80.0-100.0) mmH g ABG HCO3 (22-26) mmol/L ABG O2 Saturation ABG Base Excess (-2.0-2.0) mmol/ L Javier Test A-a O2 Gradient (5-10) mmHg Hematocrit (42-52) % Hgb O2 Saturation (95-100) % Carboxyhemoglobin (0.4-20.1) %THgb Methemoglobin (0.4-1.5) % Total Hemoglobin (14-18) g/dL Sodium (131-143) mmol/L Potassium (3.5-5.0) mmol/L Glucose (70-115) mg/dL Ionized Calcium (1.1-1.4) mmol/L O2 Delivery Device O2 Liters/Min % Mechanical Rate FiO2 % Tidal Volume PEEP cmH20 Power Transmission Engineer ID Chloride (98-107) mmol/L Carbon Dioxide (22-29) mmol/L Anion Gap (5-19) BUN (6-20) mg/dL Creatinine (0.7-1.2) mg/dL GFR Calculation (90-130) mL/min Calculated Osmolal ity (285-295) mOsm/k g Lactic Acid (0.5-2.2) mmol/L Calcium (8.5-10.5) mg/dL Magnesium (1.7-2.3) mg/dL Total Bilirubin (0.15-1.2) mg/dL AST (0-40) U/L ALT (0-41) U/L Alkaline Phosphata se (40-130) IU/L Creatine Kinase (39-308) U/L Troponin T Baselin e (0-15) ng/L Total Protein (6.6-8.7) g/dL Albumin (3.5-5.2) g/dL Globulin (1.3-4.6) g/dL Lipase (13-60) U/L Urine Color Yellow (Yellow) Urine Appearance Cloudy (CLEAR) Urine pH 5 (5-7) Ur Specific Gravit y 1.030 (1.005-1.030) Urine Protein 1+ H (Negative) Urine Glucose (UA) Norm (Normal) Urine Ketones Negative (Negative) Urine Blood 3+ H (Negative) Urine Nitrate Negative (Negative) Urine Bilirubin Neg (Negative) Urine Urobilinogen 1 H (Negative) mg/dL Ur Leukocyte Shira ase 2+ H (Negative) Urine RBC 15-25 H (0-2) /hpf Urine WBC 25-40 H (0-5) /hpf Ur Squamous Epith Cells 0-4 H (0-5) /hpf Amorphous Sediment Not Reportable Urine Bacteria 4+ H (NONE) /hpf SARS-CoV-2 Ag (Rap id) (Negative) Blood Type O Positive Rho(D) Type Positive / 4+ Antibody Screen Negative 12/30/20 Range/Units 18:11 WBC (4.0-10.0) 10^3/ uL RBC (4.1-5.3) 10^6/u L Hgb (11.7-16.6) g/dL Hct (42.0-52.0) % MCV (80-94) fL MCH (28.0-34.0) pg MCHC (30.0-36.0) g/dL RDW (12.1-15.1) % Plt Count (130-400) 10^3/c mm MPV (7.4-10.4) fL Neut % (Auto) % Lymph % (Auto) % Medina % (Auto) % Eos % (Auto) % Baso % (Auto) % Neut # (Auto) (1.8-7.7) 10^3/u L Lymph # (Auto) (0.8-4.8) 10^3/u L Medina # (Auto) (0.2-0.9) 10^3/u L Eos # (Auto) (0.0-0.8) 10^3/u L Baso # (Auto) (0.0-0.1) 10^3/u L Nucleated RBC % (a uto) % Nucleated RBCs # /100WBC Specimen Type Arterial Sample Site Radial, right ABG pH 7.37 (7.35-7.45) ABG pCO2 41.4 (35-45) mmHg ABG pO2 343.0 H (80.0-100.0) mmH g ABG HCO3 24.0 (22-26) mmol/L ABG O2 Saturation > 100.0 ABG Base Excess -1.2 (-2.0-2.0) mmol/ L Javier Test Pos A-a O2 Gradient 40.4 H (5-10) mmHg Hematocrit 38.5 L (42-52) % Hgb O2 Saturation 99.6 (95-100) % Carboxyhemoglobin 0.5 (0.4-20.1) %THgb Methemoglobin 0.5 (0.4-1.5) % Total Hemoglobin 12.6 L (14-18) g/dL Sodium 141.0 (131-143) mmol/L Potassium 4.2 (3.5-5.0) mmol/L Glucose 152.0 H (70-115) mg/dL Ionized Calcium 1.2 (1.1-1.4) mmol/L O2 Delivery Device Vent O2 Liters/Min % Mechanical Rate FiO2 100.0 % Tidal Volume 0.55 PEEP 5.0 cmH20 Power Transmission Engineer ID Amh Chloride (98-107) mmol/L Carbon Dioxide (22-29) mmol/L Anion Gap (5-19) BUN (6-20) mg/dL Creatinine (0.7-1.2) mg/dL GFR Calculation (90-130) mL/min Calculated Osmolal ity (285-295) mOsm/k g Lactic Acid (0.5-2.2) mmol/L Calcium (8.5-10.5) mg/dL Magnesium (1.7-2.3) mg/dL Total Bilirubin (0.15-1.2) mg/dL AST (0-40) U/L ALT (0-41) U/L Alkaline Phosphata se (40-130) IU/L Creatine Kinase (39-308) U/L Troponin T Baselin e (0-15) ng/L Total Protein (6.6-8.7) g/dL Albumin (3.5-5.2) g/dL Globulin (1.3-4.6) g/dL Lipase (13-60) U/L Urine Color (Yellow) Urine Appearance (CLEAR) Urine pH (5-7) Ur Specific Gravit y (1.005-1.030) Urine Protein (Negative) Urine Glucose (UA) (Normal) Urine Ketones (Negative) Urine Blood (Negative) Urine Nitrate (Negative) Urine Bilirubin (Negative) Urine Urobilinogen (Negative) mg/dL Ur Leukocyte Shira ase (Negative) Urine RBC (0-2) /hpf Urine WBC (0-5) /hpf Ur Squamous Epith Cells (0-5) /hpf Amorphous Sediment Urine Bacteria (NONE) /hpf SARS-CoV-2 Ag (Rap id) (Negative) Blood Type Rho(D) Type Antibody Screen Discharge Plan Discharge Patient Disposition: Transfer to ED Admit Provider: Glenis Amaya Clinical Impression: Aspiration pneumonia due to food (regurgitated), Lewy body dementia, Acute hypoxemic respiratory failure, Acute UTI Condition: Stable Coding Level of Care Code ED Plaster Mechanic for Inez Romo
[2020-12-30] MEDS: propofol 1,000 MG/100 ML INJ 8.2 MG IV (15:07)
[2020-12-30] MEDS: sodium chloride 0.9% 1,000 ML 999 ML IV ×2 (15:12→15:45)
[2020-12-30] MEDS: cefepime 1,000 MG in sodium chloride 0.9% (plus) 50 ML 100 MG IV (15:28)
--- NOTE | 2020-12-30 15:39 | ECG_ITS ---
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
[2020-12-30] MEDS: vancomycin 1,000 MG in sodium chloride 0.9% 250 ML 250 MG IV (15:48)
[2020-12-30 15:54] LABS: Bilirubin Urine Neg (Negative); Blood Urine 3+ (Negative); Glucose Urine UA Norm (Normal); Ketones Urine Negative (Negative); Leukocyte Esterase Urine 2+ (Negative); Nitrate Urine Negative (Negative); Protein Urine 1+ (Negative); Urine Appearance Cloudy (CLEAR); Urine Color Yellow (Yellow); Urobilinogen Urine 1 mg/dL (Negative); pH Urine 5 (5-7)
[2020-12-30 15:55] LABS: Add Urine Microscopic? YES
[2020-12-30 15:59] LABS: Add Urine Culture? Yes; Bacteria Urine 4+ /hpf; RBC Urine 15-25 /hpf (0-2); Squamous Epithelial Cell Urine 0-4 /hpf (0-5); WBC Urine 25-40 /hpf (0-5)
[2020-12-30] MEDS: propofol 1,000 MG/100 ML INJ 10.9 MG IV (16:09)
[2020-12-30] MEDS: propofol 1,000 MG/100 ML INJ 21.8 MG IV (16:42)
[2020-12-30 17:30] LABS: Basophils % 0.4 %; Eosinophils # 0.1 10^3/uL (0.0-0.8); Eosinophils % 1.1 %; Hematocrit 38.9 % (42.0-52.0); Hemoglobin 12.2 g/dL (11.7-16.6); Lymphocytes # 0.8 10^3/uL (0.8-4.8); Lymphocytes % 8.1 %; Mean Corpuscular HGB Conc 31.4 g/dL (30.0-36.0); Mean Corpuscular Hemoglobin 29.2 pg (28.0-34.0); Mean Corpuscular Volume 93.1 fL (80-94); Mean Platelet Volume 9.5 fL (7.4-10.4); Monocytes # 0.4 10^3/uL (0.2-0.9); Monocytes % 4.5 %; Neutrophils # 8.08 10^3/uL (1.8-7.7); Neutrophils % 84.4 %; Nucleated Red Blood Cells % 0 %; Platelet Count 231 10^3/cmm (130-400); Red Blood Count 4.18 10^6/uL (4.1-5.3); Red Cell Distribution Width 13.3 % (12.1-15.1); White Blood Count 9.6 10^3/uL (4.0-10.0)
[2020-12-30 18:19] LABS: ABG PCO2 76.6 mmHg (35-45); ABG PH Result 7.12 (7.35-7.45)
[2020-12-30 18:23] LABS: ABG PCO2 41.4 mmHg (35-45); ABG PH Result 7.37 (7.35-7.45); Alveolar-Arterial Oxygen Gradi 40.4 mmHg (5-10); Arterial Blood Gas Hematocrit 38.5 % (42-52); Base Excess ABG -1.2 mmol/L (-2.0-2.0); Blood Gas Allen Test Pos; Blood Gas Operator Identificat AMH; Blood Gas Sample Site Radial, right; Blood Gas Sample Type Arterial; Blood Gas Tidal Volume 0.55; Carboxyhemoglobin 0.5 %THgb (0.4-20.1); HGB O2 Sat 99.6 % (95-100); Ionized Calcium Level - ABG 1.2 mmol/L (1.1-1.4); Methemoglobin 0.5 % (0.4-1.5); Oxygen Device VENT; Oxygen Saturation ABG > 100.0; Potassium Level - ABG 4.2 mmol/L (3.5-5.0); Total Hemoglobin 12.6 g/dL (14-18)
[2020-12-30 19:20] LABS: SARS Covid-2 Antigen Negative (Negative)
--- NOTE | 2020-12-30 19:39 | ECG_ITS ---
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 Measurements Intervals [place] Rate: 109 P: 35 CT: 127 QRS: 60 QRSD: 86 T: 35 QT: 320 QTc: 431 Interpretive Statements SINUS TACHYCARDIA NONSPECIFIC T-WAVE ABNORMALITY ABNORMAL RHYTHM ECG Compared to ECG 12/30/2020 16:59:45 No significant changes Electronically Signed On 01-01-2021 12:40:18 CDT by Beatris Navarrete M.D. [id number]
[2020-12-30] MEDS: propofol 1,000 MG/100 ML INJ 10 MG IV (19:47)
--- NOTE | 2020-12-30 21:20 | PC.NURSE ---
Vent: Tidal Vol 550; Rate 14; FiO2 60%; PEEP 5 MODE CMV
[2020-12-31] VITALS (28 sets, daily range): BP systolic 90–121; BP diastolic 57–77; PULSE 84–125; RESP 14–24; TEMP 37.2–38.6; O2SAT 88–100; BMI 33.3
[2020-12-31] MEDS: propofol 1,000 MG/100 ML INJ 10 MG IV (00:33)
--- NOTE | 2020-12-31 01:00 | PC.NURSE ---
patient heals floated, oral care provided, patient bedding changed, cloth rags rolled to hands.
--- NOTE | 2020-12-31 02:57 | PC.NURSE ---
patient turned to right side; oral care provided.
--- NOTE | 2020-12-31 05:07 | PC.NURSE ---
patient turned to left side, oral care provided.
--- NOTE | 2020-12-31 06:49 | PC.NURSE ---
oral care provided; patient turned supine and heels floated
--- NOTE | 2020-12-31 08:21 | XR_ITS ---
WS: [id number] Portable AP upright chest, 12/31/2020 Clinical Data: resp failure Comparison: Portable chest, 12/30/2020 Findings: There are minimal patchy pulmonary opacities adjacent to the right cardiac border and left cardiac border. The endotracheal tube, nasogastric tube and left internal jugular venous catheter rem ain the same. The heart size is normal. There are monitor leads on the chest wall. XR/XR chest 1V portable [id number] Impression: 1. Development of minimal bilateral patchy pulmonary opacities. 2. No change in position of multiple tubes.
[2020-12-31 09:00] LABS: Lithium 0.9 mmol/L (0.6-1.2)
[2020-12-31 09:03] LABS: Acetaminophen < 5.0 ug/mL (10-30); Alcohol Level < 10 mg/dL (0-10); Salicylate < 0.3 mg/dL (3-10)
[2020-12-31] MEDS: propofol 1,000 MG/100 ML INJ 21.8 MG IV (09:21)
[2020-12-31] MEDS: vancomycin 1,250 MG/250 ML PIGGYBACK 250 MG IV (10:00)
[2020-12-31 10:03] LABS: Basophils # 0.1 10^3/uL (0.0-0.1); Basophils % 0.5 %; Eosinophils # 0.4 10^3/uL (0.0-0.8); Eosinophils % 4.1 %; Hematocrit 37.3 % (42.0-52.0); Lymphocytes # 1.3 10^3/uL (0.8-4.8); Lymphocytes % 12.5 %; Mean Corpuscular HGB Conc 32.2 g/dL (30.0-36.0); Mean Corpuscular Hemoglobin 29.7 pg (28.0-34.0); Mean Corpuscular Volume 92.3 fL (80-94); Mean Platelet Volume 9.3 fL (7.4-10.4); Monocytes # 0.4 10^3/uL (0.2-0.9); Monocytes % 4.3 %; Neutrophils # 7.78 10^3/uL (1.8-7.7); Neutrophils % 77.6 %; Nucleated Red Blood Cells % 0 %; Platelet Count 205 10^3/cmm (130-400); Red Blood Count 4.04 10^6/uL (4.1-5.3); Red Cell Distribution Width 13.4 % (12.1-15.1)
[2020-12-31 10:40] LABS: Alanine Aminotransferase 13 U/L (0-41); Albumin Level 3.5 g/dL (3.5-5.2); Alkaline Phosphatase 142 IU/L (40-130); Anion Gap 13.1 (5-19); Aspartate Amino Transferase 21 U/L (0-40); Blood Urea Nitrogen 10 mg/dL (6-20); Calcium 8.5 mg/dL (8.5-10.5); Carbon Dioxide 25 mmol/L (22-29); Chloride 104 mmol/L (98-107); Globulin 2.8 g/dL (1.3-4.6); Glomerular Filtration Rate 234.8 mL/min (90-130); Glucose 107 mg/dL (65-115); Osmolality Calculated 286 mOsm/kg (285-295); Potassium 4.1 mmol/L (3.5-5.1); Sodium 138 mmol/L (136-145); Total Bilirubin 0.4 mg/dL (0.15-1.2); Total Protein 6.3 g/dL (6.6-8.7)
[2020-12-31 10:56] LABS: Amphetamines Screen Urine Positive (Negative); Barbiturates Screen Urine Negative (Negative); Benzodiazepines Screen Urine Negative (Negative); Cocaine Screen Urine Negative (Negative); Opiate Screen Urine Negative (Negative); PCP Screen Urine Negative (Negative); THC Screen Urine Negative (Negative)
[2020-12-31] MEDS: morphine 4 mg/mL SDV 1 mL 6 MG IVP (12:04)
[2020-12-31] MEDS: LORazepam 2 mg/mL INJ 1 mL IVP (12:04)
--- NOTE | 2020-12-31 13:01 | PC.NURSE ---
Family at bedside following extubation. Comfort cares continued at this time.
--- NOTE | 2020-12-31 13:57 | PM.HP ---
Providers/Chief Complaint Admitting Physician: Glenis Amaya MD Primary Care Provider: Anurag Gautam MD Chief Complaint: ASPIRATION History of Present Illness Joshua Valerio is a 45 year old male with history of Lewy body dementia, developmental delay with autism and recurrent aspiration pneumonias that presented back to the emergency department with respiratory distress. He was recently in the hospital from December 01 through December 06 for sepsis. Upon arriving to the emergency department on December 30 he was in significant respiratory distress and intubated. He was full code at the facility he was at. His primary care provider, on December 17 discuss goals of care with family of patient and proceeded with making him allow natural at that time and encouraged the family to consider hospice. After this was delineated this morning, the emergency department physician met with the family as well as the patient's primary physician Dr. Gautam and patient was extubated to comfort measures. I was able to see the patient prior to extubation, and he was unresponsive on the ventilator. Review of Systems General: Reports: ROS unobtainable due to mental status (Unresponsive on ventilator) Medications/Allergies Home Medications Medication Instructions Recorded Confirmed Last Taken Type acetaminophen 325 mg tablet 650 mg PO Q4H PRN tab 06/03/19 12/30/20 Unknown History albuterol sulfate 2.5 mg INHALATION Q2H PRN 06/03/19 12/30/20 Unknown History amitriptyline 25 mg tablet 25 mg PO TID@,, tab 06/03/19 12/30/20 12/30/20 08:00 History benztropine 1 mg tablet 1 mg PO BID@06/03/19 12/30/20 12/30/20 08:00 History bismuth subsalicylate 262 mg/15 mL 524 mg PO Q4H PRN 06/03/19 12/30/20 Unknown History oral suspension docusate sodium 100 mg capsule 100 mg PO BID@06/03/19 12/30/20 12/30/20 08:00 History loratadine 10 mg capsule 10 mg PO DAILY@08 06/03/19 12/30/20 12/30/20 History lubiprostone 24 mcg capsule 24 mcg PO BID@06/03/19 12/30/20 12/30/20 08:00 History magnesium hydroxide 400 mg/5 mL See Rx Instructions .ROUTE .COMPLEX 06/03/19 12/30/20 12/30/20 History oral suspension tamsulosin 0.4 mg capsule 0.8 mg PO DAILY@20 cap 06/03/19 12/30/20 12/29/20 History flunisolide 25 mcg (0.025 %) nasal 1 spray INTRANASAL BID@08,20 ml 07/10/19 12/30/20 12/30/20 08:00 History spray terbinafine HCl 250 mg tablet 250 mg PO DAILY@08 01/07/20 12/30/20 12/30/20 08:00 History lorazepam 2 mg tablet 2 mg PO Q4H PRN #90 tab 06/19/20 12/30/20 Unknown Rx CeraVe See Rx Instructions .ROUTE .COMPLEX 07/30/20 12/30/20 12/30/20 08:00 History Desitin Rapid Relief See Rx Instructions .ROUTE .COMPLEX 07/30/20 12/30/20 Unknown History Fleet Enema See Rx Instructions .ROUTE .COMPLEX 07/30/20 12/30/20 Unknown History Tarsum Professional See Rx Instructions .ROUTE .COMPLEX 07/30/20 12/30/20 07/30/20 History alum-javier njdi-nmcjqpd-gjqiiug See Rx Instructions .ROUTE .COMPLEX 07/30/20 12/30/20 Unknown History ammonium lactate See Rx Instructions .ROUTE .COMPLEX 07/30/20 12/30/20 07/29/20 History benzoyl peroxide See Rx Instructions .ROUTE .COMPLEX 07/30/20 12/30/20 07/29/20 History benzoyl peroxide [Panoxyl] See Rx Instructions .ROUTE .COMPLEX 07/30/20 12/30/20 12/29/20 History boric acid in isopropyl See Rx Instructions .ROUTE .COMPLEX 07/30/20 12/30/20 Unknown History clobetasol See Rx Instructions .ROUTE .COMPLEX 07/30/20 12/30/20 Unknown History dextromethorphan-guaifenesin See Rx Instructions .ROUTE .COMPLEX 07/30/20 12/30/20 Unknown History fluocinonide See Rx Instructions .ROUTE .COMPLEX 07/30/20 12/30/20 Unknown History ketoconazole See Rx Instructions .ROUTE .COMPLEX 07/30/20 12/30/20 Unknown History ketoconazole See Rx Instructions .ROUTE .COMPLEX 07/30/20 12/30/20 07/30/20 08:00 History ketoconazole See Rx Instructions .ROUTE .COMPLEX 07/30/20 12/30/20 07/30/20 08:00 History lithium carbonate 450 mg PO BID@08,07/30/20 12/30/20 12/30/20 08:00 History vvlwvclx-ozpanixdll-wknduflrv See Rx Instructions .ROUTE .COMPLEX 07/30/20 12/30/20 Unknown History nitrofurantoin monohyd/m-cryst 100 mg PO DAILY@08 07/30/20 12/30/20 12/30/20 08:00 History [Macrobid] polyethylene glycol 3350 17 gm PO DAILY@07/30/20 12/30/20 12/30/20 History sunscreen See Rx Instructions .ROUTE .COMPLEX 07/30/20 12/30/20 Unknown History triamcinolone acetonide See Rx Instructions .ROUTE .COMPLEX 07/30/20 12/30/20 Unknown History wheelchair #1 ea 08/21/20 12/30/20 Unknown Rx carbamide peroxide See Rx Instructions .ROUTE .COMPLEX 10/08/20 12/30/20 Unknown History haloperidol 20 mg PO BID@08,10/08/20 12/30/20 12/30/20 08:00 History lisdexamfetamine 50 mg capsule 50 mg PO DAILY@08 30 Days #30 cap 10/29/20 12/30/20 12/30/20 Rx food supplemt, lactose-reduced See Rx Instructions .ROUTE .COMPLEX 12/01/20 12/30/20 Unknown History [Ensure] clonazepam 2 mg tablet 2 mg PO TID@ #90 tab 12/24/20 12/30/20 12/30/20 08:00 Rx Allergies Allergy/AdvReac Type Severity Reaction Status Date / Time No Known Allergies Allergy Verified 12/10/20 09:56 PFSH Acute PFSH: Medical History Acute metabolic encephalopathy Patient is at baseline mentation Acute respiratory failure with hypoxia and hypercapnia Resolved ADHD Aspiration pneumonia Aspiration pneumonia Attention deficit disorder Attention deficit disorder (ADD) Autism Constipation Developmental delay, severe Inappropriate sinus tachycardia Lewy body dementia Lewy body dementia Neurogenic bladder -intermittent self catheterization at facility Respiratory failure Respiratory failure with hypoxia and hypercapnia Sepsis Sepsis resolved Urinary retention UTI (urinary tract infection) Surgical History History of dental surgery History of sinus surgery Family History Other CAD (coronary artery disease) Cancer Social History Smoking and tobacco status: never smoked Second hand smoke exposure: No Alcohol intake: never History of recent travel: No Vitals/I&O/Wt Last Vital Signs Temp 98.9 F 12/31/20 09:55 Pulse 100 12/31/20 10:34 Resp 14 12/31/20 10:34 BP 108/67 12/31/20 10:34 Pulse Ox 94 12/31/20 12:04 12/30/20 12/31/20 12/31/20 22:59 06:59 14:59 Intake Total 2466.026 / 2467.331 200 / 2667.331 23.442 / 23.442 Output Total 1100 / 1100 575 / 1675 Balance 1366.026 / 1367.331 -375 / 992.331 23.442 / 23.442 Weight last 48 hrs Weight 90.718 kg Physical Exam Narrative: EXAM NARRATIVE: Unresponsive white male on ventilator when I saw him HEENT atraumatic and normocephalic. Oropharynx with orogastric tube as well as endotracheal tube Neck is supple no lymphadenopathy or thyromegaly Cardiovascular regular rate and rhythm without murmur Lungs clear but diminished breath sounds bilaterally Abdomen is soft, positive bowel sounds. No obvious organomegaly demonstrated العلي Extremities show no cyanosis clubbing or edema Neurologic: Unresponsive on ventilator Data : 12/31/20 09:54 12/31/20 09:54 Micro: Microbiology 12/30/20 14:25 Gram Stain - Final Sputum - Endotracheal Tube Aspirate 12/30/20 13:50 Blood Culture - Preliminary Blood Other data: Multiple other studies were done in the emergency department, and reviewed in their entirety. A&P Assessment and plan (1) Aspiration pneumonia due to food (regurgitated): Patient with significant aspiration pneumonitis and respiratory failure. Placed on broad-spectrum antibiotics. Patient has been extubated and moved to comfort measures according to primary as well as emergency department physician. I will confirm this and continue with comfort measures. Status: Acute (2) Lewy body dementia: See above Status: Acute (3) Developmental delay, severe: Status: Acute (4) Acute hypoxemic respiratory failure: Status: Acute Additional A&P Information Allow natural . Progressed to comfort measures. Further clarification of the patient's wishes with family from the emergency department physician as well as primary care provider are appreciated. Attestations Medical Necessity Statement*: He has progressed to comfort measures. Outpatient in a bed should be his designation for this. He cannot receive these comfort measures at his [facility] he lives at. 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
[2020-12-31] MEDS: morphine 4 mg/mL SDV 1 mL IVP (14:39)
[2020-12-31 17:28] LABS: Quest SARS-CoV-2 RNA NOT DETECTED (NOT DETECTED)
--- NOTE | 2020-12-31 18:23 | PC.NURSE ---
Patient is on Comfort.
[2021-01-01 00:45] VITALS: BP 100/64; PULSE 122; RESP 25; TEMP 38.4; O2SAT 89
[2021-01-01 05:00] VITALS: BP 99/64; PULSE 115; RESP 16; TEMP 37.2; O2SAT 91
--- NOTE | 2021-01-01 05:55 | PC.NURSE ---
shift note patient had 101.0 temp at beginning of shift, tylenol supp administered, recheck temp 100.4, patient repositioned every 2 hours, maximum assist, dependent with care, patient awakened at 12 am positioning and stated get away from me , patient able to follow instructions to open mouth for oral care. every 2 hours patient had loose BM, patient more awake around 0400,
[2021-01-01 07:58] VITALS: BP 97/62; PULSE 65; RESP 19; TEMP 36.9; O2SAT 98
[2021-01-01 08:36] VITALS: PULSE 102; RESP 18; O2SAT 92
--- NOTE | 2021-01-01 10:38 | PC.CHAP ---
Pastoral Care Encounter/Spiritual Assessment Type of Contact [] Declined flower cheniller visit [] Patient/Family/Request visit [] Outpatient visit [] Follow-up visit [] Physician referral [] Code/Alert [x] Routine visit [] Staff referral [] Actively dying [] Patient sleeping [x] Family support [] [] Out of room [] Palliative care [] [x] Receiving care in room [] Pre-surgical visit [] Trauma [x] Long length of stay [] ICU visit [] Other: Relational/Emotional Strength [] Patient feels connected with others/family/visitors/staff [x] Distress [] Loneliness/isolation [] Abandonment Spirituality of Patient [] Person of Eda [] Attends Samaritan of their Eda [] Believes in Prayer [] Reads Bible or Samaritan materials [] There are Spiritual issues to be addressed Batt Packer Interventions [] Prayer [] Active listening [] Non-anxious presence [] Spiritual/emotional support [] Crisis/trauma care [] Spiritual counseling [] Bereavement support [] Provided bereavement packet [] Provided Bible/devotional materials [] Provided toy/stuffed animal, coloring book to patient or family member [] Provided Communion [] Anointing/Taylor [] Salvation [] Completed spiritual assessment [] Other: Impact on Illness or Injury [] Angry [] Fearful [x] Anxious [] Often cries [] Exhaustion [x] Unable to work [] Unable to attend jain [] Unable to walk/stand [] Unable to read [] Unable to drive [] Unable to eat/drink [] Unable to sleep [] Unable to be with family [] Patient intubated [] Other: Summary Taked with mother he is under 24 care she takes care with what needs to be done she believes in prayer Time spent with patient 10 mins
--- NOTE | 2021-01-01 13:08 | PM.DCS ---
Discharge Providers Date of Discharge: January 01, 2021 Attending Provider at Discharge: Mark Rosenbaum MD Primary Care Provider: Anurag Gautam MD Diagnoses at Discharge Discharge Diagnosis (1) Aspiration pneumonia due to food (regurgitated): Status: Acute (2) Lewy body dementia: Status: Acute (3) Developmental delay, severe: Status: Acute (4) Acute hypoxemic respiratory failure: Status: Acute Reason for Visit Reason for Visit: ASPIRATION Hospital Course Hospital Course Joshua is a 45-year-old male with dementia, developmental delay and autism who presented with respiratory failure consistent with aspiration. He has had multiple episodes of aspiration in the past. His primary care physician had proceeded with paperwork making him allow natural and proceeding towards hospice. Family agreed with these goals. Therefore when he presented to the emergency department and was intubated for his respiratory failure a meeting what occurred between his primary, the ER staff and he was extubated to comfort measures. After extubation he maintained on room air. It was decided he could be moved to hospice where he would be more comfortable at home. Hospice orders were arranged and patient was able to be discharged. He can continue his home medications as long as they continue to provide him some comfort. Currently the desire of the family is for him not to be rehospitalized. Physical Exam Narrative: EXAM NARRATIVE: General exam is a male who can track with eyes but has trouble interacting otherwise. Neck is supple no lymphadenopathy or thyromegaly Cardiovascular regular rate and rhythm without murmur Lungs coarse breath sounds bilaterally Abdomen is soft with positive bowel sounds Extremities no cyanosis clubbing. Contractures noted. Urinary Catheter Management^: العلي: Cath Placed During This Visit: no Reason for Continuing Indwelling Catheter: Hospice/Comfort/Palliative Care Discharge Data Data Completed and Pending: Completed Studies During Hospitalization Category Date Time Status XR chest 1V karissa ble [id number] Routine Exams 12/31/20 08:21 Completed XR chest 1V karissa ble [id number] Stat Exams 12/30/20 13:37 Completed Pending at discharge Category Date Time Status Blood Culture Sta t Lab 12/30/20 13:50 Results MRSA by PCR Lelai ne Lab 12/31/20 09:00 Received Sputum Culture an d Gram Stain Stat Lab 12/30/20 14:25 Results Urine Culture Sta t Lab 12/30/20 14:52 Results Labs from last 24 hours 12/30/20 13:50 SARS-CoV-2 RNA (RT -PCR) Not detected Vitals: Last Vital Signs Temp 98.4 F 01/01/21 07:58 Pulse 102 H 01/01/21 08:36 Resp 18 01/01/21 08:36 BP 97/62 01/01/21 07:58 Pulse Ox 92 01/01/21 08:36 Discharge Plan Discharge Patient Disposition: Hospice - Home Prescriptions: New morphine concentrate 100 mg/5 mL (20 mg/mL) solution 10 mg sublingual Q3H PRN (Reason: pain) Qty: 30 RF: 0 Continued flunisolide 25 mcg (0.025 %) spray,non-aerosol 1 spray INTRANASAL BID@, RF: 0 loratadine 10 mg capsule 10 mg PO DAILY@08 RF: 0 benztropine 1 mg tablet 1 mg PO BID@, RF: 0 Amitiza 24 mcg capsule 24 mcg PO BID@, RF: 0 docusate sodium [Colace] 100 mg capsule 100 mg PO BID@, RF: 0 tamsulosin [Flomax] 0.4 mg capsule 0.8 mg PO DAILY@ RF: 0 amitriptyline 25 mg tablet 25 mg PO TID@,, RF: 0 bismuth subsalicylate [Pepto-Bismol] 262 mg/15 mL suspension 524 mg PO Q4H PRN (Reason: Stomach Upset) RF: 0 acetaminophen [Tylenol] 325 mg tablet 650 mg PO Q4H PRN (Reason: pain/fever) RF: 0 magnesium hydroxide [Milk of Magnesia] 400 mg/5 mL suspension See Rx Instructions .ROUTE .COMPLEX RF: 0 albuterol sulfate 2.5 mg /3 mL (0.083 %) solution for nebulization 2.5 mg INHALATION Q2H PRN (Reason: Wheezing) RF: 0 lorazepam 2 mg tablet 2 mg PO Q4H PRN (Reason: agitation) Qty: 90 RF: 5 (DME) wheelchair See Rx Instructions .Route .MEDSUPPLY Qty: 1 RF: 0 Vyvanse 50 mg capsule 50 mg PO DAILY@08 30 Days Qty: 30 RF: 0 clonazepam [Klonopin] 2 mg tablet 2 mg PO TID@,, Qty: 90 RF: 5 carbamide peroxide 6.5 % Drops See Rx Instructions .ROUTE .COMPLEX RF: 0 haloperidol 20 mg tablet 20 mg PO BID@08,20 RF: 0 dextromethorphan-guaifenesin 10-100 mg/5 mL Syrup See Rx Instructions .ROUTE .COMPLEX RF: 0 Fleet Enema 19-7 gram/118 mL Enema See Rx Instructions .ROUTE .COMPLEX RF: 0 polyethylene glycol 3350 17 gram powder in packet 17 gm PO DAILY@08 RF: 0 lithium carbonate 450 mg tablet extended release 450 mg PO BID@08,20 RF: 0 nitrofurantoin monohyd/m-cryst [Macrobid] 100 mg capsule 100 mg PO DAILY@08 RF: 0 ketoconazole 2 % Shampoo See Rx Instructions .ROUTE .COMPLEX RF: 0 benzoyl peroxide 5 % Gel See Rx Instructions .ROUTE .COMPLEX RF: 0 benzoyl peroxide [Panoxyl] 10 % Cleanser See Rx Instructions .ROUTE .COMPLEX RF: 0 Tarsum Professional 2 % Shampoo See Rx Instructions .ROUTE .COMPLEX RF: 0 boric acid in isopropyl Drops See Rx Instructions .ROUTE .COMPLEX RF: 0 ammonium lactate 5 % Cream See Rx Instructions .ROUTE .COMPLEX RF: 0 CeraVe Cream See Rx Instructions .ROUTE .COMPLEX RF: 0 ketoconazole See Rx Instructions .ROUTE .COMPLEX RF: 0 fluocinonide 0.05 % Gel See Rx Instructions .ROUTE .COMPLEX RF: 0 vpjjdikw-ureyompyin-umiqkvitu Ointment See Rx Instructions .ROUTE .COMPLEX RF: 0 sunscreen 15 SPF Lotion See Rx Instructions .ROUTE .COMPLEX RF: 0 Desitin Rapid Relief 13 % Cream See Rx Instructions .ROUTE .COMPLEX RF: 0 triamcinolone acetonide 0.1 % cream See Rx Instructions .ROUTE .COMPLEX RF: 0 ketoconazole 2 % cream See Rx Instructions .ROUTE .COMPLEX RF: 0 alum-javier xntq-hnyedke-psrquxn Ointment See Rx Instructions .ROUTE .COMPLEX RF: 0 clobetasol 0.05 % shampoo See Rx Instructions .ROUTE .COMPLEX RF: 0 Ensure Liquid See Rx Instructions .ROUTE .COMPLEX RF: 0 Discontinued terbinafine HCl 250 mg tablet 250 mg PO DAILY@08 RF: 0 Referrals: [facility] ([facility]) [Outside] Anurag Gautam MD [Primary Care Provider] - Diet: Usual diet Activity: Resume usual activity Activity Restrictions/Additional Instructions: Hospice patient. Will follow up with hospice care. Discharge Attestations Time Spent in Discharge Care*: greater than 30 min Status at Discharge: Cognitive status at discharge: severely impaired cognition, Behavioral status at discharge: cooperative, Quality Metrics Clinical Quality Measures During this hospital stay, did patient experience: None Coding Level of Care Code Acute Chg FW DC note Diagnoses Aspiration pneumonia due to food (regurgitated) J69.0 Lewy body dementia G31.83; F02.80 Developmental delay, severe R62.50 Acute hypoxemic respiratory failure J96.01
--- NOTE | 2021-01-01 16:06 | PC.NURSE ---
Discharge Note Patient discharged to home via [facility] transport accompanied by ambulance personal. Discharge instructions reviewed with patient and/or representative phlebotomy services. Mobile pharmacy medications and/or prescriptions provided. Belongings/home medications returned.
== END 2021-01-01 16:08 | disposition hospice, home (50) ==
LOC: ER 15:17 → ER IP 12-31 06:23 → OPMS 12-31 18:18 → MEDSURG 12-31 18:19
PROVIDERS: Emergency Medicine; Emergency Provider Family Medicine; PCP Internal Medicine; Visit Provider Internal Medicine
DX: J96.01 Acute respiratory failure with hypoxia (principal); J69.0 Pneumonitis due to inhalation of food and vomit; G31.83 Neurocognitive disorder with Lewy bodies; F02.80 Dementia in other diseases classified elsewhere, unspecified severity, without behavioral disturbance, psychotic disturbance, mood disturbance, and anxiety; R62.50 Unspecified lack of expected normal physiological development in childhood; F84.0 Autistic disorder; Z82.49 Family history of ischemic heart disease and other diseases of the circulatory system
CPT/HCPCS: 36415; 36600; 71045; 80051; 80053; 80178; 80306; 80307; 81001; 82330; 82550; 82805; 83605; 83690; 83735; 84484; 85025; 86403; 86850; 86900; 87040; 87070; 87077; 87086; 87186; 87205; 87426; 87635; 87641; 93005; 94002; 94799; 96365; 96367; 96375; 99291; 99292; J0295; J0330; J0692; J2060; J2270; J2405; J2704; J3370; J3490; J7030; J7050

== ENCOUNTER → 2021-05-05 10:04 | Outpatient (BNVA) | payer OTHER, SELFPAY | PROVIDERS: PCP Internal Medicine; Visit Provider Specialist | DX: G40.909 Epilepsy, unspecified, not intractable, without status epilepticus (principal); I69.354 Hemiplegia and hemiparesis following cerebral infarction affecting left non-dominant side; G31.83 Neurocognitive disorder with Lewy bodies; F02.80 Dementia in other diseases classified elsewhere, unspecified severity, without behavioral disturbance, psychotic disturbance, mood disturbance, and anxiety | CPT/HCPCS: 99214; 99215 ==

== ENCOUNTER 2021-05-12 14:23 | Outpatient (CLI) | payer MEDICARE, MEDICAID, SELFPAY ==
--- NOTE | 2021-05-12 14:28 | XR_ITS ---
WS: [id number] XR chest 1V 23591 REASON FOR EXAM: J69.0 - Pneumonitis due to inhalation of food and vomit FINDINGS: Compared to previous examination of 12/31/2020 endotracheal tube, nasogastric tube, and left jugular ve in central venous line have been removed. Infiltrative changes in the right lung have resolved. Minimal interstitial change in the left lung ba se. No other significant interval change or new abnormality identified. XR/XR chest 1V 44619 IMPRESSION: Resolved or resolving lung abnormalities.
== END 2021-05-12 14:24 | disposition home or self-care (01) ==
LOC: RAD 14:26
PROVIDERS: PCP Internal Medicine; Visit Provider Internal Medicine
DX: J69.0 Pneumonitis due to inhalation of food and vomit (principal)
CPT/HCPCS: 71045

== ENCOUNTER → 2021-08-12 09:11 | Outpatient (BNVA) | payer MEDICARE, MEDICAID, SELFPAY | PROVIDERS: Visit Provider Specialist | DX: G40.909 Epilepsy, unspecified, not intractable, without status epilepticus (principal); I69.354 Hemiplegia and hemiparesis following cerebral infarction affecting left non-dominant side; G31.83 Neurocognitive disorder with Lewy bodies; F02.80 Dementia in other diseases classified elsewhere, unspecified severity, without behavioral disturbance, psychotic disturbance, mood disturbance, and anxiety; F84.0 Autistic disorder | CPT/HCPCS: 99214 ==

== ENCOUNTER → 2021-11-12 12:56 | Outpatient (BNVA) | payer MEDICARE, MEDICAID, SELFPAY | PROVIDERS: PCP Family Medicine; Visit Provider Specialist | DX: I69.354 Hemiplegia and hemiparesis following cerebral infarction affecting left non-dominant side (principal); G31.83 Neurocognitive disorder with Lewy bodies; F02.80 Dementia in other diseases classified elsewhere, unspecified severity, without behavioral disturbance, psychotic disturbance, mood disturbance, and anxiety; F98.8 Other specified behavioral and emotional disorders with onset usually occurring in childhood and adolescence | CPT/HCPCS: 64642; 99213; 99214; J0585 ==

== ENCOUNTER 2021-11-27 | Outpatient (RCR) | payer MEDICARE, MEDICAID, SELFPAY | END 2021-12-27 23:59 | disposition home or self-care (01) | LOC: SOT | PROVIDERS: PCP Family Medicine; Referring Provider Specialist; Visit Provider Specialist | DX: I63.511 Cerebral infarction due to unspecified occlusion or stenosis of right middle cerebral artery (principal); R26.9 Unspecified abnormalities of gait and mobility; R53.1 Weakness; G81.10 Spastic hemiplegia affecting unspecified side | CPT/HCPCS: 97167; 97530 ==

== ENCOUNTER → 2022-02-04 13:41 | Outpatient (BNVA) | payer MEDICARE, MEDICAID, SELFPAY | PROVIDERS: PCP Family Medicine; Visit Provider Specialist | DX: G81.14 Spastic hemiplegia affecting left nondominant side (principal); Z86.73 Personal history of transient ischemic attack (TIA), and cerebral infarction without residual deficits; G31.83 Neurocognitive disorder with Lewy bodies; F02.80 Dementia in other diseases classified elsewhere, unspecified severity, without behavioral disturbance, psychotic disturbance, mood disturbance, and anxiety | CPT/HCPCS: 64642; J0585 ==

== ENCOUNTER 2022-02-25 13:18 | Emergency (ER) | payer MEDICARE, MEDICAID, SELFPAY ==
--- NOTE | 2022-02-25 | FL_ITS ---
WS: [id number] INDICATION: Inability to pass العلي catheter. TECHNIQUE: Retrograde urethrogram. FINDINGS: Technically difficult examination due to contractures. The urethra was prepped with Betadin e and lidocaine jelly. 12 Martiniquais العلي catheter was inserted into the urethral meatus. 30 cc of Cysto -Conray was administered with traction. Normal distention and filling of the penile urethra. No evide nce of extravasation or false tract. Normal filling of the bulbous urethra. Contrast terminates at th e level of the UG diaphragm with no significant filling of the membranous urethra. This may be due to spasm or stricture. No evidence of extravasation. No other suspicious findings. FL/FL urethrocystogramretro [id number] IMPRESSION: 1. Normal filling of the penile and bulbous urethra. 2. Contrast does not extend beyond the UG diaphragm. No filling of the membran ous/prostatic urethra which may be due to stricture or spasm. 3. No evidence of contrast leakage or extravasation. Notified Keren Cm MD at 02/25/2022 4:28 PM.
[2022-02-25 13:25] VITALS: BP 113/83; PULSE 103; RESP 16; TEMP 36.8; O2SAT 94
[2022-02-25 14:20] VITALS: BP 98/65; PULSE 86; RESP 16; O2SAT 97
--- NOTE | 2022-02-25 15:02 | FL_ITS ---
WS: [id number] INDICATION: Inability to pass العلي catheter. TECHNIQUE: Retrograde urethrogram. FINDINGS: Technically difficult examination due to contractures. The urethra was prepped with Betadin e and lidocaine jelly. 12 Rwandan العلي catheter was inserted into the urethral meatus. 30 cc of Cysto -Conray was administered with traction. Normal distention and filling of the penile urethra. No evide nce of extravasation or false tract. Normal filling of the bulbous urethra. Contrast terminates at th e level of the UG diaphragm with no significant filling of the membranous urethra. This may be due to spasm or stricture. No evidence of extravasation. No other suspicious findings.
--- NOTE | 2022-02-25 15:16 | PC.NURSE ---
Patient moved to Fluoroscopy
--- NOTE | 2022-02-25 15:27 | ED_ITS ---
HPI - General Adult General: Chief complaint: Urogenital-Male Stated complaint: Cath problems and bleeding Time Seen by Provider: 02/25/22 13:52 History of Present Illness: Patient is a 46-year-old male with a history of prior stroke c/b limb spasticity, nonverbal at baseline, chronically slois dependent presenting to the emergency room for concerns of blood at the urethral meatus. Earlier today, patient's nursing staff attempted to place Solis however was unable to advance. Patient normally has a 16 Gabonese and nurse attempted to place an 18 Gabonese. However, patient was noted to have blood in the urethral meatus and nursing staff brought patient to the emergency room. Nursing staff denies any other focal complaints at this time. Onset:earlier today Duration:ongoing Location:home Severity:moderate Associated symptoms: Deny chest pain, dyspnea, nausea, rash, palpitations or vomiting Review of Systems Const: Denies: fever(s) or chills Eyes: Denies: change in vision ENMT: Denies: mouth pain Card: Denies: chest pain or palpitations Resp: Denies: dyspnea or non-productive cough GI: Denies: abdominal pain, nausea, vomiting or diarrhea : Reports: other (+blood in the urethral meatus); Denies: dysuria Musc: Denies: extremity pain Skin/Breast: Denies: rash or new lesions Neuro: Denies: weakness in extremities Psych: Reports: other (Normal mood) Jeovanny/Lymph: Denies: easy bruising [facility] ED PFSH: Medical History Acute metabolic encephalopathy Patient is at baseline mentation Acute respiratory failure with hypoxia and hypercapnia Resolved ADHD Aspiration pneumonia Aspiration pneumonia Attention deficit disorder Attention deficit disorder (ADD) Autism Constipation Developmental delay, severe Inappropriate sinus tachycardia Lewy body dementia Lewy body dementia Neurogenic bladder -intermittent self catheterization at facility Respiratory failure Respiratory failure with hypoxia and hypercapnia Sepsis Sepsis resolved Urinary retention UTI (urinary tract infection) Surgical History History of dental surgery History of sinus surgery Family History Other CAD (coronary artery disease) Cancer Social History Smoking and tobacco status: never smoked Second hand smoke exposure: No Alcohol intake: never History of recent travel: No Physical Exam Const: COMMON NORMALS: alert HENMT: COMMON NORMALS: atraumatic HEAD & SCALP: atraumatic MOUTH: moist mucous membranes not abnormal Eye: COMMON NORMALS: EOMs intact bilaterally and conjunctivae normal CONJUNCTIVA: Yes conjunctivae normal Neck/C-Spine: COMMON NORMALS: full ROM and supple Resp: COMMON NORMALS: normal respiratory effort and clear to auscultation bilaterally AUSCULTATION: clear to auscultation bilaterally Cardio: COMMON NORMALS: regular rate RATE: regular rate GI: COMMON NORMALS: Soft to palpation and non-tender PALPATION: Yes Soft to palpation : OTHER: No visible external lesions of the groin, urethral meatus appears to be intact without any signs of bleeding or extravasation Extremity: COMMON NORMALS: full ROM Neuro: SENSORIUM/ORIENTATION: Yes alert MOTOR EXAM: No Abnormal motor strength present and Other motor observations present (no focal motor deficits) Psych: COMMON NORMALS: speech normal SPEECH: Yes normal speech MOOD & AFFECT: Yes euthymic mood Course Vital Signs: Vital signs: Vital Signs Temperature 98.3 F 02/25/22 13:25 Pulse Rate 89 02/25/22 17:47 Respiratory Rate 20 H 02/25/22 17:47 Blood Pressure 116/77 02/25/22 17:47 Pulse Oximetry 95 02/25/22 17:47 Oxygen Delivery Me thod 02/25/22 17:47 MDM - General Adult Medical Decision Making 46-year-old male presenting to emergency room with concerns of blood around urethral meatus. Retrograde urethrogram study showed possible distal obstruction vs spasticity. We do not have urology coverage currently. Patient will need to be transferred to outside hospital. Case was discussed with Dr. Townsend who agreed with the transfer to [facility] for management of urethral obstruction. Disposition: Transfer to outside hospital Lab Data Radiology Impressions Urethrocystography Retrograde X-Ray 02/25/22 00:00 IMPRESSION: 1. Normal filling of the penile and bulbous urethra. 2. Contrast does not extend beyond the UG diaphragm. No filling of the membranous/prostatic urethra which may be due to stricture or spasm. 3. No evidence of contrast leakage or extravasation. Notified Keren Cm MD at 02/25/2022 4:28 PM. Imaging Data Other Imaging: Radiologist's impression: [address] [place] [address] Fluoroscopy Report Signed Patient: Joshua Valerio Unit #: [id number] : 1975 Age/Sex: 46 / M ADM Date: 02/25/22 Loc: ER Room/Bed: Attending Dr: Ordering Provider/Ordering MD: Keren Cm MD Date of Service: 02/25/22 Procedure(s): FL guided injection [id number] Accession Number(s): [id number] Report Number: [id number] WS: [id number] INDICATION: Inability to pass Solis catheter. TECHNIQUE: Retrograde urethrogram. FINDINGS: Technically difficult examination due to contractures. The urethra was prepped with Betadine and lidocaine jelly. 12 Gabonese Solis catheter was inserted into the urethral meatus. 30 cc of Cysto-Conray was administered with traction. Normal distention and filling of the penile urethra. No evidence of extravasation or false tract. Normal filling of the bulbous urethra. Contrast terminates at the level of the UG diaphragm with no significant filling of the membranous urethra. This may be due to spasm or stricture. No evidence of extravasation. No other suspicious findings. FL/FL guided injection [id number] IMPRESSION: ? 1.? Normal filling of the penile and bulbous urethra. 2.? Contrast does not extend beyond the UG diaphragm. No filling of the m embranous/prostatic urethra which may be due to stricture or spasm. 3.? No evidence of contrast leakage or extravasation. ? Notified Keren Cm MD at 02/25/2022 4:28 PM. ? ? Dictated By: Crow López MD Signed By: Crow López MD Signed Date/Time: 02/25/22 1630 DD/ 1611 Discharge Plan Discharge Patient Disposition: Home Clinical Impression: Acute urethral obstruction Condition: Stable Prescriptions: No Action acetaminophen 650 mg suppository 650 mg MS Q4H PRN (Reason: Pain) bisacodyl [Dulcolax (bisacodyl)] 10 mg suppository 10 mg MS DAILY PRN (Reason: Constipation) olopatadine 0.1 % drops 1 drp ophthalmic (eye) BID Qty: 5 0RF Rx Instructions: separate doses by at least 6-8 hours zinc oxide 5 % cream 1 applic topical .PRN Qty: 177.4 3RF Rx Instructions: Apply to arms as needed ketoconazole 2 % cream 1 applic topical BID Qty: 30 6RF Rx Instructions: Apply to red, scaly areas on face 2 times daily for 4 weeks then as needed for flares (DME) wheelchair See Rx Instructions .Route .MEDSUPPLY Qty: 1 0RF Rx Instructions: As directed (DME) miscellaneous medical supply [facility] See Rx Instructions .Route Qty: 1 0RF Rx Instructions: hosptial bed (DME) wheel chair cusion See Rx Instructions .Route .MEDSUPPLY Qty: 1 0RF Rx Instructions: As directed triamcinolone acetonide 0.1 % cream 1 applic topical DAILY PRN (Reason: eruptions) Qty: 80 4RF magnesium hydroxide [Milk of Magnesia] 400 mg/5 mL suspension See Rx Instructions .ROUTE .COMPLEX Qty: 473 5RF Dose Instruction: take 30 ML BY MOUTH with EIGHT ounces of liquid ON THE FOURTH DAY if no BOWEL MOVEMENT in THREE DAYS Rx Instructions: take 30 ML BY MOUTH with EIGHT ounces of liquid ON THE FOURTH DAY if no BOWEL MOVEMENT in THREE DAYS flunisolide 25 mcg (0.025 %) spray,non-aerosol 1 spray INTRANASAL BID@08,20 Qty: 25 6RF Swim Ear 95-5 % drops See Rx Instructions .ROUTE .COMPLEX Qty: 30 5RF Dose Instruction: INSTILL TWO DROPS IN EACH EAR AFTER IRRIGATION Rx Instructions: INSTILL TWO DROPS IN EACH EAR AFTER IRRIGATION CeraVe Cream See Rx Instructions .ROUTE .COMPLEX Qty: 453 5RF Dose Instruction: APPLY TOPICALLY TO SKIN ON BACK TWICE DAILY FOR DRY SKIN Rx Instructions: APPLY TOPICALLY TO SKIN ON BACK TWICE DAILY FOR DRY SKIN fluocinonide 0.05 % solution See Rx Instructions .ROUTE .COMPLEX Qty: 60 5RF Dose Instruction: PLACE ONE DROP PER SQUARE INCH TWICE DAILY NEEDED FOR WHEN RED AND SCALING Rx Instructions: PLACE ONE DROP PER SQUARE INCH TWICE DAILY NEEDED FOR WHEN RED AND SCALING levetiracetam [Keppra] 500 mg tablet 500 mg PO BID Qty: 60 3RF Refresh Optive 0.5-0.9 % drops 1 drp ophthalmic (eye) QID PRN (Reason: dry eye(s)) Qty: 15 4RF magnesium citrate Solution 30 ml PO DAILY PRN (Reason: Constipation) lorazepam 1 mg tablet 1 mg PO TID PRN (Reason: Seizure Activity) docusate sodium 100 mg capsule 100 mg PO BID polyethylene glycol 3350 17 gram/dose powder 17 g PO DAILY loratadine 10 mg tablet 10 mg PO DAILY nitrofurantoin monohyd/m-cryst 100 mg capsule 100 mg PO DAILY Amitiza 24 mcg capsule 24 mcg PO BID Nizoral 2 % Shampoo 1 applic TOPICAL Q14D Thera-Gel 0.5 % Shampoo 1 applic TOPICAL DAILY Carmex Ointment 1 ea TOPICAL BID PRN (Reason: Dry Lips) Balmex Adult Care 11.3 % Cream 1 applic TOPICAL 6XD PRN (Reason: Rash) Discharge Orders: Discharge ED (Routine); Ordered 02/25/22 Ordered By: Keren Cm Referrals: Thong Macias, [Primary Care Provider] - Discharge Diet: Advance as tolerated Discharge Activity: Increase activity as tolerated Activity Restrictions/Additional Instructions: Please take patient to [facility] emergency room for further management of your urethral obstruction. Coding Level of Care Code ED Care Management Assistant for Chg Fwd Exam Comprehensive
[2022-02-25 17:47] VITALS: BP 116/77; PULSE 89; RESP 20; O2SAT 95
== END 2022-02-25 17:53 | disposition home or self-care (01) ==
PROVIDERS: Emergency Provider Emergency Medicine; PCP Family Medicine
DX: N36.8 Other specified disorders of urethra (principal); F84.0 Autistic disorder
CPT/HCPCS: 74450; 77002; 99284; Q9958

== ENCOUNTER 2022-03-29 06:00 | Outpatient (RCR) | payer MEDICARE, MEDICAID, SELFPAY | END 2022-03-29 23:55 | disposition home or self-care (01) | LOC: SST 06:00 | PROVIDERS: PCP Family Medicine; Visit Provider Family Medicine | DX: R13.10 Dysphagia, unspecified (principal) | CPT/HCPCS: 92610 ==

== ENCOUNTER 2022-04-06 12:24 | Outpatient (CLI) | payer MEDICARE, MEDICAID, SELFPAY ==
--- NOTE | 2022-04-06 12:45 | FL_ITS ---
WS: [id number] Modified barium swallow, 04/06/2022 Clinical Data: Delayed and difficult swallowing Comparison: None. Fluoroscopy time: 2min [id number] # of spot films: 1 Findings: The patient had difficulty initiating oral propulsion of the material. There were episodes of penetra tion but no aspiration. There is premature spillage. There was pharyngeal residue. The patient was un able to propel the barium tablet beyond the oral cavity. FL/FL barium swallow modifd [id number] Impression: 1. Difficulty with oral propulsion of material. 2. Episodes of penetration without aspiration. 3. Premature spillage and pharyngeal residue.
== END 2022-04-06 12:25 | disposition home or self-care (01) ==
LOC: RAD 12:24
PROVIDERS: PCP Family Medicine; Visit Provider Family Medicine
DX: I69.391 Dysphagia following cerebral infarction (principal); J69.0 Pneumonitis due to inhalation of food and vomit
CPT/HCPCS: 74230; 92611

== ENCOUNTER → 2022-08-04 14:51 | Outpatient (BNVA) | payer MEDICARE, MEDICAID, SELFPAY | PROVIDERS: PCP Family Medicine; Visit Provider Specialist | DX: G40.909 Epilepsy, unspecified, not intractable, without status epilepticus (principal); G31.83 Neurocognitive disorder with Lewy bodies; F02.C0 Dementia in other diseases classified elsewhere, severe, without behavioral disturbance, psychotic disturbance, mood disturbance, and anxiety; F84.0 Autistic disorder; Z79.899 Other long term (current) drug therapy | CPT/HCPCS: 99213 ==

== ENCOUNTER → 2022-11-23 14:47 | Outpatient (BNVA) | payer MEDICARE, MEDICAID, SELFPAY | PROVIDERS: PCP Family Medicine; Visit Provider Dermatology | DX: L21.8 Other seborrheic dermatitis (principal); L89.101 Pressure ulcer of unspecified part of back, stage 1; D22.39 Melanocytic nevi of other parts of face; L73.8 Other specified follicular disorders; L74.519 Primary focal hyperhidrosis, unspecified | CPT/HCPCS: 99214 ==

== ENCOUNTER → 2023-02-01 14:14 | Outpatient (BNVA) | payer MEDICARE, MEDICAID, SELFPAY | PROVIDERS: PCP Family Medicine; Visit Provider Specialist | DX: G31.83 Neurocognitive disorder with Lewy bodies (principal); F02.C0 Dementia in other diseases classified elsewhere, severe, without behavioral disturbance, psychotic disturbance, mood disturbance, and anxiety; R26.9 Unspecified abnormalities of gait and mobility | CPT/HCPCS: 99213 ==

== ENCOUNTER 2023-03-16 00:54 | Emergency (ER) | payer MEDICARE, MEDICAID, SELFPAY ==
[2023-03-16 01:00] VITALS: BP 96/80; PULSE 99; RESP 20; TEMP 36.8; O2SAT 96; BMI 16.1
--- NOTE | 2023-03-16 01:04 | W.ED.GENADLT ---
HPI - General Adult General: Chief complaint: Urogenital-Male Stated complaint: blood in urine Time Seen by Provider: 03/16/23 00:56 Source: old records reviewed Mode of arrival: ambulatory Limitations: physical limitation History of Present Illness: 47-year-old male with a history of severe developmental delay along with a history of stroke and severe Lewy body dementia. Patient lives in [facility] he is bedbound and nonverbal. He states that he has had a chronic indwelling العلي that nurse noticed tonight had some blood in it so she had removed it was not able to place a new 1. No fever patient is nonverbal no history from patient Review of Systems General: Reports: ROS unobtainable due to mental status PFSH ED PFSH: Medical History Acute metabolic encephalopathy Patient is at baseline mentation Acute respiratory failure with hypoxia and hypercapnia Resolved ADHD Aspiration pneumonia Aspiration pneumonia Attention deficit disorder Attention deficit disorder (ADD) Autism Constipation Developmental delay, severe Inappropriate sinus tachycardia Lewy body dementia Lewy body dementia Neurogenic bladder -intermittent self catheterization at facility Respiratory failure Respiratory failure with hypoxia and hypercapnia Sepsis Sepsis resolved Urinary retention UTI (urinary tract infection) Surgical History History of dental surgery History of sinus surgery Family History Other CAD (coronary artery disease) Cancer Social History Smoking and tobacco/nicotine status: never used tobacco/nicotine Second hand smoke exposure: No Alcohol intake: never Substance/Drug Use: never Physical Exam Const: COMMON NORMALS: negative for patient oriented x3 HENMT: COMMON NORMALS: atraumatic HEAD & SCALP: atraumatic Chest: COMMONS NORMALS: normal inspection of the chest Resp: COMMON NORMALS: normal respiratory effort GI: COMMON NORMALS: Normal to inspection, nondistended, normoactive bowel sounds present and non-tender Neuro: COMMON NORMALS: negative for patient oriented x3 Psych: COMMON NORMALS: negative for mental status grossly normal Course Vital Signs: Vital signs: Vital Signs Temperature 98.2 F 03/16/23 01:00 Pulse Rate 99 03/16/23 01:00 Respiratory Rate 20 H 03/16/23 01:00 Blood Pressure 96/80 03/16/23 01:00 Pulse Oximetry 96 03/16/23 01:00 Oxygen Delivery Me thod Room Air 03/16/23 01:00 MDM - General Adult Medical Decision Making Patient presents here with a dislodged العلي catheter was able to place a new العلي he has no blood at this time he is stable for discharge with catheter in place Medical Records I reviewed the patient's medical records. Lab Data I reviewed the patient's lab results. Laboratory Results Urine Color Red (Yellow) A 03/16/23 01:20 Urine Appearance Hazy (CLEAR) A 03/16/23 01:20 Urine pH 8 (5-7) H 03/16/23 01:20 Ur Specific [place] 1.015 (1.005-1.030) 03/16/23 01:20 Urine Protein 2+ (Negative) H 03/16/23 01:20 Urine Glucose (UA) Norm (Normal) 03/16/23 01:20 Urine Ketones Negative (Negative) 03/16/23 01:20 Urine Blood 3+ (Negative) H 03/16/23 01:20 Urine Nitrate Negative (Negative) 03/16/23 01:20 Urine Bilirubin Neg (Negative) 03/16/23 01:20 Prot Sulfosalicylic Acd Positive (Negative) 03/16/23 01:20 Urine Urobilinogen Neg mg/dL (Negative) 03/16/23 01:20 Ur Leukocyte Esterase 2+ (Negative) H 03/16/23 01:20 Urine RBC 80-100 /hpf (0-2) H 03/16/23 01:20 Urine WBC 15-25 /hpf (0-5) H 03/16/23 01:20 Ur Squamous Epith Cells None /hpf (0-5) 03/16/23 01:20 Amorphous Sediment Not Reportable 03/16/23 01:20 Urine Bacteria Trace /hpf (NONE) 03/16/23 01:20 No radiology studies performed this visit Discharge Plan Discharge Patient Disposition: Home Clinical Impression: Dislodged العلي catheter Condition: Stable Prescriptions: No Action acetaminophen 650 mg suppository 650 mg GA Q4H PRN (Reason: Pain) zinc oxide 5 % cream 1 applic topical .PRN Qty: 177.4 3RF Rx Instructions: Apply to arms as needed ketoconazole 2 % cream 1 applic topical BID Qty: 30 6RF Rx Instructions: Apply to red, scaly areas on face 2 times daily for 4 weeks then as needed for flares amoxicillin-pot clavulanate 875-125 mg tablet 1 tab PO BID 7 Days Qty: 14 0RF ciprofloxacin HCl 500 mg tablet 500 mg PO Q12H 7 Days Qty: 14 0RF (DME) Mepilex Border Sacrum 9.2 X 9.2 bandage See Rx Instructions .Route Qty: 10 5RF Rx Instructions: As directed mupirocin 2 % ointment 1 applic topical QID Qty: 22 1RF Rx Instructions: apply to area up to QID until seen by Dr. Macias ([facility]) wheelchair See Rx Instructions .Route .MEDSUPPLY Qty: 1 0RF Rx Instructions: As directed ([facility]) miscellaneous medical supply Mis See Rx Instructions .Route Qty: 1 0RF Rx Instructions: hosptial bed ([facility]) wheel chair cusion See Rx Instructions .Route .MEDSUPPLY Qty: 1 0RF Rx Instructions: As directed triamcinolone acetonide 0.1 % cream 1 applic topical DAILY PRN (Reason: eruptions) Qty: 80 4RF polyethylene glycol 3350 17 gram/dose powder See Rx Instructions .ROUTE .COMPLEX Qty: 510 5RF Dose Instruction: dissolve 17gm in liquid of choice AND drink EVERY MORNING Rx Instructions: dissolve 17gm in liquid of choice AND drink EVERY MORNING magnesium citrate [Citroma] Solution See Rx Instructions .ROUTE .COMPLEX Qty: 296 12RF Dose Instruction: drink 30ML BY MOUTH EVERY DAY NEEDED Rx Instructions: drink 30ML BY MOUTH EVERY DAY NEEDED lorazepam 1 mg tablet 1 mg PO TID PRN (Reason: Seizure Activity) Qty: 60 5RF Triple Antibiotic 3.5mg-400 unit- 5,000 unit/gram ointment See Rx Instructions .ROUTE .COMPLEX Qty: 14.2 5RF Dose Instruction: APPLY TOPICALLY TO AFFECTED AREAS NEEDED Rx Instructions: APPLY TOPICALLY TO AFFECTED AREAS NEEDED lubiprostone [Amitiza] 24 mcg capsule 24 mcg PO BID Qty: 60 0RF bisacodyl 10 mg suppository See Rx Instructions .ROUTE .COMPLEX Qty: 12 5RF Dose Instruction: insert ONE suppository rectally EVERY DAY NEEDED FOR CONSTIPATION Rx Instructions: insert ONE suppository rectally EVERY DAY NEEDED FOR CONSTIPATION flunisolide 25 mcg (0.025 %) spray,non-aerosol See Rx Instructions .ROUTE .COMPLEX Qty: 25 6RF Dose Instruction: instill ONE SPRAY IN EACH NOSTRIL TWICE DAILY AT 8AM AND 8PM Rx Instructions: instill ONE SPRAY IN EACH NOSTRIL TWICE DAILY AT 8AM AND 8PM ibuprofen 600 mg tablet 600 mg PO Q6H PRN (Reason: fever or pain) Qty: 30 6RF Rx Instructions: One tablet PRN fever < 100.5 or pain fluconazole [Diflucan] 150 mg tablet 150 mg PO Q3D Qty: 2 0RF olopatadine 0.1 % drops See Rx Instructions .ROUTE .COMPLEX Qty: 5 10RF Dose Instruction: instill ONE drop IN EACH EYE TWICE DAILY FOR eye allergies Rx Instructions: instill ONE drop IN EACH EYE TWICE DAILY FOR eye allergies fluconazole [Diflucan] 150 mg tablet 150 mg PO Q3D 7 Days Qty: 3 0RF loratadine 10 mg tablet See Rx Instructions .ROUTE .COMPLEX Qty: 30 5RF Dose Instruction: TAKE ONE TABLET BY MOUTH EVERY DAY FOR seasonal allergies *can crush* Rx Instructions: TAKE ONE TABLET BY MOUTH EVERY DAY FOR seasonal allergies *can crush* Desitin Rapid Relief 13 % cream See Rx Instructions .ROUTE .COMPLEX Qty: 57 3RF Dose Instruction: APPLY topically daily as needed FOR SKIN irritation Rx Instructions: APPLY topically daily as needed FOR SKIN irritation docusate sodium 100 mg capsule See Rx Instructions .ROUTE .COMPLEX Qty: 60 6RF Dose Instruction: TAKE ONE CAPSULE BY MOUTH TWICE DAILY FOR CONSTIPATION Rx Instructions: TAKE ONE CAPSULE BY MOUTH TWICE DAILY FOR CONSTIPATION polyethylene glycol 3350 [Miralax] 17 gram/dose powder 4 g PO BID Qty: 238 5RF levetiracetam 500 mg tablet See Rx Instructions .ROUTE .COMPLEX Qty: 60 3RF Dose Instruction: TAKE ONE TABLET BY MOUTH TWICE DAILY Rx Instructions: TAKE ONE TABLET BY MOUTH TWICE DAILY CeraVe Cream See Rx Instructions .ROUTE .COMPLEX Qty: 453 5RF Dose Instruction: APPLY TOPICALLY TO SKIN ON BACK TWICE DAILY FOR DRY SKIN Rx Instructions: APPLY TOPICALLY TO SKIN ON BACK TWICE DAILY FOR DRY SKIN lubiprostone 24 mcg capsule See Rx Instructions .ROUTE .COMPLEX Qty: 180 1RF Dose Instruction: TAKE ONE CAPSULE BY MOUTH TWICE DAILY AT 8AM AND 8PM Rx Instructions: TAKE ONE CAPSULE BY MOUTH TWICE DAILY AT 8AM AND 8PM nitrofurantoin monohyd/m-cryst 100 mg capsule See Rx Instructions .ROUTE .COMPLEX Qty: 90 1RF Dose Instruction: TAKE ONE CAPSULE BY MOUTH EVERY DAY AT 8am *must administer with a meal/food* Rx Instructions: TAKE ONE CAPSULE BY MOUTH EVERY DAY AT 8am *must administer with a meal/food* fluocinonide 0.05 % solution See Rx Instructions .ROUTE .COMPLEX Qty: 60 5RF Dose Instruction: PLACE ONE DROP PER SQUARE INCH TWICE DAILY NEEDED FOR WHEN RED AND SCALING Rx Instructions: PLACE ONE DROP PER SQUARE INCH TWICE DAILY NEEDED FOR WHEN RED AND SCALING magnesium hydroxide [Milk of Magnesia] 400 mg/5 mL suspension See Rx Instructions .ROUTE .COMPLEX Qty: 473 5RF Dose Instruction: take 30 ML BY MOUTH with EIGHT ounces of liquid ON THE FOURTH DAY if no BOWEL MOVEMENT in THREE DAYS Rx Instructions: take 30 ML BY MOUTH with EIGHT ounces of liquid ON THE FOURTH DAY if no BOWEL MOVEMENT in THREE DAYS Swim Ear 95-5 % drops See Rx Instructions .ROUTE .COMPLEX Qty: 30 5RF Dose Instruction: INSTILL TWO DROPS IN EACH EAR AFTER IRRIGATION Rx Instructions: INSTILL TWO DROPS IN EACH EAR AFTER IRRIGATION Refresh Optive 0.5-0.9 % drops 1 drp ophthalmic (eye) QID PRN (Reason: dry eye(s)) Qty: 15 4RF Thick-It Powder See Rx Instructions .ROUTE .COMPLEX Qty: 1020 5RF Dose Instruction: USE NEEDED TO thicken liquids Rx Instructions: USE NEEDED TO thicken liquids Ear Wax Removal Drops 6.5 % drops 5 drp otic (ear) DAILY 4 Days Qty: 15 3RF Carmex Carded Click Stick 12x0.15oz See Rx Instructions .ROUTE .COMPLEX Qty: 4.25 5RF Dose Instruction: APPLY TO LIPS TWICE DAILY NEEDED FOR CHAPPED LIPS Rx Instructions: APPLY TO LIPS TWICE DAILY NEEDED FOR CHAPPED LIPS Nizoral 2 % Shampoo 1 applic TOPICAL Q14D Thera-Gel 0.5 % Shampoo 1 applic TOPICAL DAILY Carmex Ointment 1 ea TOPICAL BID PRN (Reason: Dry Lips) Balmex Adult Care 11.3 % Cream 1 applic TOPICAL 6XD PRN (Reason: Rash) Discharge Orders: Discharge ED (Routine); Ordered 03/16/23 Ordered By: Vik Becker Referrals: Thong Macias DO [Primary Care Provider] - 1-3 days Discharge Diet: Advance as tolerated Discharge Activity: Resume usual activity Patient Instructions: العلي Catheter Placement and Care (ED) Coding Level of Care Code ED Manager Of Marketing for Inez Romo
[2023-03-16 01:29] LABS: Bilirubin Urine Neg (Negative); Blood Urine 3+ (Negative); Glucose Urine UA Norm (Normal); Ketones Urine Negative (Negative); Nitrate Urine Negative (Negative); Protein Urine 2+ (Negative); Specific Gravity, Urine 1.015 (1.005-1.030); Urine Appearance Hazy (CLEAR); Urine Color Red (Yellow); pH Urine 8 (5-7)
[2023-03-16 01:30] LABS: Add Urine Culture? Yes; Add Urine Microscopic? YES; Bacteria Urine TRACE /hpf; Leukocyte Esterase Urine 2+ (Negative); RBC Urine 80-100 /hpf (0-2); Sulfosalicylic Acid Urine Positive (Negative); Urobilinogen Urine Neg (Negative); WBC Urine 15-25 /hpf (0-5)
[2023-03-16 01:40] VITALS: BP 96/80; PULSE 99; RESP 20; TEMP 36.8; O2SAT 96
== END 2023-03-16 01:41 | disposition home or self-care (01) ==
PROVIDERS: Emergency Provider Emergency Medicine; PCP Family Medicine
DX: T83.028A Displacement of other urinary catheter, initial encounter (principal); Y73.1 Therapeutic (nonsurgical) and rehabilitative gastroenterology and urology devices associated with adverse incidents; F84.0 Autistic disorder; G31.83 Neurocognitive disorder with Lewy bodies; F02.80 Dementia in other diseases classified elsewhere, unspecified severity, without behavioral disturbance, psychotic disturbance, mood disturbance, and anxiety
CPT/HCPCS: 51702; 81001; 87077; 87086; 87186; 99283

== ENCOUNTER → 2023-04-28 09:40 | Outpatient (BNVA) | payer MEDICARE, MEDICAID, SELFPAY | PROVIDERS: PCP Family Medicine; Referring Provider Family Medicine; Visit Provider Surgery | DX: R13.10 Dysphagia, unspecified (principal); G31.83 Neurocognitive disorder with Lewy bodies; F02.80 Dementia in other diseases classified elsewhere, unspecified severity, without behavioral disturbance, psychotic disturbance, mood disturbance, and anxiety | CPT/HCPCS: 99204 ==

== ENCOUNTER 2023-05-05 10:17 | Day surgery (SDC) | payer MEDICARE, MEDICAID, SELFPAY ==
--- NOTE | 2023-05-05 10:58 | W.PM.OPSUD ---
Surgery/Procedure H&P Update DATE OF PROCEDURE: May 05, 2023 DATE H&P PERFORMED: 04/28/23 H&P UPDATE INFORMATION: I have reviewed H&P completed within last 30 days, I have examined patient prior to procedure and No changes to prior documentation PLANNED PROCEDURE: Operation Date: 05/05/23 11:35 Proposed Procedures p PEG Tube Insertion(Not Applicable) - Ariel Valerio DO
[2023-05-05 11:10] VITALS: BP 110/72; PULSE 92; RESP 16; TEMP 37.2; O2SAT 96; BMI 16.0
--- NOTE | 2023-05-05 11:14 | ANES.PREANE2 ---
Pre-Anesthetic Assessment Height/Weight: Height 1.7 m Weight 46.357 kg Temp Pulse Resp BP Pulse Ox O2 Del Method 99 F 92 16 110/72 96 Room Air 05/05/23 11:10 05/05/23 11:10 05/05/23 11:10 05/05/23 11:10 05/05/23 11:10 05/05/23 11:10 Preop Diagnosis: dysphagia Operation Date: 05/05/23 11:35 Proposed Procedures p PEG Tube Insertion(Not Applicable) - Ariel Valerio DO Familial anesthetic complications: None Was Beta Dacia taken within 24 hours: N/A Was Clonidine taken within 24 hours: N/A Last intake: Intake Last Liquid Date 05/04/23 Last Liquid Time 19:00 Last Solid Date 05/04/23 Last Solid Time 18:00 Social No alcohol and No tobacco Exam alert Airway Mallampati: Class II History/ROS No significant history except as noted Pulmonary None reported CV/HEM None reported urinary retention Hepatic None reported GI dysphagia Metabolic None reported Neuropsych Cerebrovascular Accident autism Anesthetic Plan ASA status: 3 Anesthesia: Anesthesia Evaluation and MAC Risk of > 500 ml blood loss (7ml/kg in children): No Medications/Allergies Home Medications Medication Instructions Recorded Confirmed Last Taken Type wheelchair #1 ea 08/21/20 04/28/23 Unknown Rx acetaminophen 650 mg [address] Q4H PRN Pain 05/05/21 05/05/23 Unknown History suppository miscellaneous medical supply #1 ea 05/06/21 04/28/23 Unknown Rx wheel chair cusion #1 ea 05/06/21 04/28/23 Unknown Rx triamcinolone acetonide 0.1 % 1 applic topical DAILY PRN 06/02/21 05/05/23 Unknown Rx topical cream eruptions #80 grams ketoconazole 2 % topical cream 1 applic topical BID #30 grams 10/05/21 05/05/23 Unknown Rx zinc oxide 5 % topical cream 1 applic topical .PRN #177.4 mL 10/05/21 05/05/23 Unknown Rx alum-javier noxs-rnizans-gmwkbnl 1 ea topical BID PRN Dry Lips 02/25/22 05/05/23 Unknown History topical ointment coal tar 0.5 % shampoo (Thera-Gel) 1 applic topical DAILY 02/25/22 05/05/23 02/25/22 History ketoconazole 2 % shampoo 1 applic topical Q14D 02/25/22 05/05/23 02/21/22 History zinc oxide-vitamin B5-vit E 11.3% 1 applic topical 6XD PRN Rash 02/25/22 05/05/23 Unknown History topical cream (Balmex Adult [facility]) lubiprostone 24 mcg capsule 24 mcg PO BID #60 caps 06/30/22 05/05/23 Unknown Rx (Amitiza) amoxicillin 875 mg-potassium 1 tab PO BID 7 days #14 tabs 07/20/22 05/05/23 Unknown Rx clavulanate 125 mg tablet ciprofloxacin HCl 500 mg tablet 500 mg PO Q12H 7 days #14 tabs 07/20/22 05/05/23 Unknown Rx foam bandage 9.2 X 9.2 (Mepilex #10 ea 07/20/22 04/28/23 Unknown Rx Border Sacrum) mupirocin 2 % topical ointment 1 applic topical QID #22 grams 08/09/22 05/05/23 Unknown Rx ibuprofen 600 mg tablet 600 mg PO Q6H PRN fever or pain 08/11/22 05/05/23 Unknown Rx #30 tabs fluconazole 150 mg tablet 150 mg PO Q3D 2 doses #2 tabs 08/24/22 05/05/23 Unknown Rx (Diflucan) fluconazole 150 mg tablet 150 mg PO Q3D 1 week #3 tabs 09/15/22 05/05/23 Unknown Rx (Diflucan) carboxymethylcellulose 0.5 1 drp ophthalmic (eye) QID PRN dry 02/10/23 05/05/23 Unknown Rx %-glycerin 0.9 % eye drops eye(s) #15 mL (Refresh Optive) magnesium hydroxide 400 mg/5 mL See Rx Instructions .Route 02/10/23 05/05/23 Unknown Rx oral suspension (Milk of Magnesia) .COMPLEX #473 mL carbamide peroxide 6.5 % ear drops 5 drp otic (ear) DAILY 4 days #15 02/17/23 05/05/23 Unknown Rx (Ear Wax Removal Drops) mL acetaminophen 325 mg tablet 650 mg (2 x 325 mg) PO Q4H PRN 04/20/23 05/05/23 Unknown Rx (Tylenol) pain/fever #90 tabs lorazepam 1 mg tablet 1 mg PO TID PRN Seizure Activity 04/20/23 05/05/23 Unknown Rx #60 tabs atropine 1 % eye drops 4 drp sublingual Q4H PRN 05/04/23 05/05/23 Unknown Rx secretions #5 mL bisacodyl 10 mg rectal suppository [address] DAILY PRN constipation #5 05/04/23 05/05/23 Unknown Rx ea morphine concentrate 100 mg/5 mL 20 mg sublingual DIRECTED PRN 05/04/23 05/05/23 Unknown Rx (20 mg/mL) oral solution Pain/SOB 14 days #30 mL ondansetron 4 mg disintegrating 4 mg translingual Q4H PRN nausea 05/04/23 05/05/23 Unknown Rx tablet #5 tabs Carmex Carded Click Stick 12x0.15oz 1 applic as directed BID PRN 05/05/23 05/05/23 Unknown History chapped lips ceramides 1,3,6-II (CeraVe topical 1 applic topical BID PRN Dry Skin 05/05/23 05/05/23 Unknown History cream) docusate sodium 100 mg capsule 100 mg PO BID 05/05/23 05/05/23 Unknown History flunisolide 25 mcg (0.025 %) nasal 1 spray intranasal BID 05/05/23 05/05/23 Unknown History spray fluocinonide 0.05 % topical 1 applic topical BID PRN RED AND 05/05/23 05/05/23 Unknown History solution SCALING SKIN isopropyl alcohol 95 % in glycerin 2 drp otic (ear) PRN PRN AFTER 05/05/23 05/05/23 Unknown History 5 % ear drops (Swim Ear) IRRIGATION levetiracetam 500 mg tablet 500 mg PO BID 05/05/23 05/05/23 Unknown History loratadine 10 mg tablet 10 mg PO DAILY 05/05/23 05/05/23 Unknown History magnesium citrate (Citroma oral 30 ml PO DAILY PRN Constipation 05/05/23 05/05/23 Unknown History solution) neomycin-bacitracn Zn-polymyx 3.5 1 applic topical PRN PRN Rash 05/05/23 05/05/23 Unknown History mg-400 unit-5,000 unit/gram top oint (Triple Antibiotic) nitrofurantoin 100 mg PO DAILY 05/05/23 05/05/23 Unknown History monohydrate/macrocrystals 100 mg capsule olopatadine 0.1 % eye drops 1 drp ophthalmic (eye) BID 05/05/23 05/05/23 Unknown History polyethylene glycol 3350 17 17 g PO BID 05/05/23 05/05/23 Unknown History gram/dose oral powder starch (thickening) (Thick-It oral 1 ea PO PRN 05/05/23 05/05/23 Unknown History powder) zinc oxide 13 % topical cream 1 applic topical PRN PRN Skin 05/05/23 05/05/23 Unknown History Irritation Allergies Allergy/AdvReac Type Severity Reaction Status Date / Time No Known Allergies Allergy Verified 05/05/23 10:47 [facility] Anesthesia Medical History Aspiration pneumonia Respiratory failure with hypoxia and hypercapnia Respiratory failure Inappropriate sinus tachycardia Sepsis resolved Sepsis Aspiration pneumonia Acute respiratory failure with hypoxia and hypercapnia Resolved Acute metabolic encephalopathy Patient is at baseline mentation Attention deficit disorder Lewy body dementia ADHD Constipation Attention deficit disorder (ADD) Lewy body dementia Neurogenic bladder -intermittent self catheterization at facility Developmental delay, severe UTI (urinary tract infection) Urinary retention Autism Surgical History History of sinus surgery History of dental surgery Family History Other CAD (coronary artery disease) Cancer Social History Smoking and tobacco/nicotine status: never used tobacco/nicotine Second hand smoke exposure: No Alcohol intake: never Substance/Drug Use: never Data Anesthesia Cardiac Studies: No Data to Display
[2023-05-05] MEDS: sodium chloride 0.9% 1,000 ML 30 ML IV (11:20)
[2023-05-05] MEDS: ceFAZolin 2,000 MG in sodium chloride 0.9% (plus) 50 ML 100 MG IV (11:28)
[2023-05-05 11:40] VITALS: BP 94/58; PULSE 87; RESP 14; TEMP 37.1; O2SAT 98
[2023-05-05 12:01] VITALS: BP 97/68; PULSE 82; RESP 14; O2SAT 98
[2023-05-05 12:10] VITALS: BP 106/69; PULSE 86; RESP 14; O2SAT 99
--- NOTE | 2023-05-05 12:43 | PC.NUTR ---
Consult for bolus PEG tube feeds. Recommend Jevity 1.5 according to following regimen: Day 1-3: Jevity 1.5 120 mls @ 8am/ noon/ 4pm/ 8pm with FWF 60 mls before and after. Day 4-7: Jevity 1.5 240 mls @ 8am/ noon/ 4pm/ 8pm with [facility]WF 60 mls before and after. IF pt has wt loss, change regimen to Jevity 1.5 240 mls @ 8am// 360mls @ noon// 240mls @ 4pm// 360mls @ 8pm. FWF flushes the same.
--- NOTE | 2023-05-05 15:45 | ANE.PACU2 ---
Inpatient post-anesthesia follow up: Airway intact: Yes Vital signs: Temperature 98.7 F Pulse Rate 86 Respiratory Rate 14 Blood Pressure 106/69 Pulse Oximetry 99 Oxygen Delivery Me thod Room Air Oxygen Flow Rate 3 Fraction of Inspir ed Oxygen Hydration adequate: Yes Nausea and vomiting: No Pain level: 2 Mental status: Baseline
== END 2023-05-05 13:10 | disposition home or self-care (01) ==
PROVIDERS: PCP Family Medicine; Visit Provider Surgery
PROC: 0DH63UZ Insertion of Feeding Device into Stomach, Percutaneous Approach (ICD-10-PCS; CPT 43246; principal; 2023-05-05 11:35)
DX: R13.10 Dysphagia, unspecified (principal); G31.83 Neurocognitive disorder with Lewy bodies; F02.80 Dementia in other diseases classified elsewhere, unspecified severity, without behavioral disturbance, psychotic disturbance, mood disturbance, and anxiety; Z86.73 Personal history of transient ischemic attack (TIA), and cerebral infarction without residual deficits
CPT/HCPCS: 43246; J0690; J2704; J7030

== ENCOUNTER 2023-05-24 18:49 | Outpatient (CLI) | payer MEDICARE, MEDICAID, SELFPAY ==
[2023-05-24 19:06] LABS: Urine Appearance Cloudy (CLEAR); Urine Color Red (Yellow)
[2023-05-24 19:07] LABS: Add Urine Microscopic? YES; Bilirubin Urine Neg (Negative); Blood Urine 3+ (Negative); Glucose Urine UA Norm (Normal); Ketones Urine Negative (Negative); Leukocyte Esterase Urine 2+ (Negative); Nitrate Urine Negative (Negative); Protein Urine 3+ (Negative); Specific Gravity, Urine 1.015 (1.005-1.030); Urobilinogen Urine 1 mg/dL (Negative); pH Urine 8 (5-7)
[2023-05-24 19:15] LABS: Sulfosalicylic Acid Urine Positive (Negative)
[2023-05-24 19:17] LABS: RBC Urine TOO NUMEROUS TO CNT /hpf (0-2); Squamous Epithelial Cell Urine 0-4 /hpf (0-5); WBC Urine 40-55 /hpf (0-5)
[2023-05-24 19:18] LABS: Add Urine Culture? Yes; Bacteria Urine TRACE /hpf; Mucus Urine 2+ /hpf
== END 2023-05-24 18:50 | disposition home or self-care (01) ==
PROVIDERS: PCP Family Medicine; Visit Provider Family Medicine
DX: Z01.89 Encounter for other specified special examinations (principal)
CPT/HCPCS: 81001; 87077; 87086; 87186

== ENCOUNTER → 2023-06-01 13:59 | Outpatient (BNVA) | payer MEDICARE, MEDICAID, SELFPAY | PROVIDERS: PCP Family Medicine; Visit Provider Surgery | DX: Z43.1 Encounter for attention to gastrostomy (principal) | CPT/HCPCS: 99212 ==

== ENCOUNTER → 2023-11-24 13:20 | Outpatient (BNVA) | payer MEDICARE, MEDICAID, SELFPAY | PROVIDERS: PCP Family Medicine; Visit Provider Nurse Practitioner Family | DX: L21.8 Other seborrheic dermatitis (principal); B35.4 Tinea corporis; L74.519 Primary focal hyperhidrosis, unspecified; D22.39 Melanocytic nevi of other parts of face; L73.8 Other specified follicular disorders | CPT/HCPCS: 99214 ==

== ENCOUNTER → 2023-12-26 13:59 | Outpatient (BNVA) | payer MEDICARE, MEDICAID, SELFPAY | PROVIDERS: PCP Family Medicine; Visit Provider Nurse Practitioner Family | DX: L74.519 Primary focal hyperhidrosis, unspecified (principal); D22.39 Melanocytic nevi of other parts of face; L73.8 Other specified follicular disorders; L21.8 Other seborrheic dermatitis; B35.4 Tinea corporis | CPT/HCPCS: 99214 ==

== ENCOUNTER → 2024-02-01 13:00 | Outpatient (BNVA) | payer MEDICARE, MEDICAID, SELFPAY | PROVIDERS: PCP Family Medicine; Visit Provider Specialist | DX: G40.909 Epilepsy, unspecified, not intractable, without status epilepticus (principal); G31.83 Neurocognitive disorder with Lewy bodies; F02.C0 Dementia in other diseases classified elsewhere, severe, without behavioral disturbance, psychotic disturbance, mood disturbance, and anxiety; G81.10 Spastic hemiplegia affecting unspecified side; I63.511 Cerebral infarction due to unspecified occlusion or stenosis of right middle cerebral artery; R26.9 Unspecified abnormalities of gait and mobility | CPT/HCPCS: 99213 ==

== ENCOUNTER → 2024-03-27 08:20 | Outpatient (BNVA) | payer MEDICARE, MEDICAID, SELFPAY | PROVIDERS: PCP Family Medicine; Visit Provider Nurse Practitioner Family | DX: L74.519 Primary focal hyperhidrosis, unspecified (principal); D22.39 Melanocytic nevi of other parts of face; L73.8 Other specified follicular disorders; B35.4 Tinea corporis; L23.9 Allergic contact dermatitis, unspecified cause | CPT/HCPCS: 99214 ==

== ENCOUNTER 2024-10-11 08:29 | Outpatient (CLI) | payer MEDICARE, MEDICAID, SELFPAY ==
--- NOTE | 2024-10-11 08:32 | USR_ITS ---
PROCEDURE INFORMATION: Exam: US Retroperitoneal, Complete, Kidneys and Bladder Exam date and time: 10/11/2024 8:44 AM Age: 48 years old Clinical indication: Condition or disease; Other: Neurogenic bladder TECHNIQUE: Imaging protocol: Real-time ultrasound of the retroperitoneum with image documentation. Complete exam focused on the bilateral kidneys and urinary bladder. COMPARISON: [place] [id number] 12/01/2020 11:34 PM FINDINGS: Tubes, catheters and devices: Supra pubic catheter within the urinary bladder. Right kidney: Normal. No stones. No hydronephrosis. Left kidney: Normal. No stones. No hydronephrosis. Urinary bladder: Urinary bladder is decompressed. Prostate: Prostate gland volume is 43 mL. US/US renal BI* [id number] IMPRESSION: 1. Suprapubic catheter within the decompressed urinary bladder. 2. No hydronephrosis. 3. Prostate gland volume 43 mL.
== END 2024-10-11 08:30 | disposition home or self-care (01) ==
LOC: RAD 08:30
PROVIDERS: PCP Family Medicine; Visit Provider Nurse Practitioner Family
DX: N31.9 Neuromuscular dysfunction of bladder, unspecified (principal); Z96.89 Presence of other specified functional implants; R93.89 Abnormal findings on diagnostic imaging of other specified body structures
CPT/HCPCS: 76770

== ENCOUNTER → 2025-01-30 13:37 | Outpatient (BNVA) | payer MEDICARE, MEDICAID, SELFPAY | PROVIDERS: PCP Family Medicine; Visit Provider Specialist | DX: G40.909 Epilepsy, unspecified, not intractable, without status epilepticus (principal); G31.83 Neurocognitive disorder with Lewy bodies; F02.C0 Dementia in other diseases classified elsewhere, severe, without behavioral disturbance, psychotic disturbance, mood disturbance, and anxiety | CPT/HCPCS: 99213 ==

== ENCOUNTER → 2025-05-02 12:54 | Outpatient (BNVA) | payer MEDICARE, MEDICAID, SELFPAY | PROVIDERS: PCP Family Medicine; Visit Provider Nurse Practitioner Family | DX: L21.8 Other seborrheic dermatitis (principal); L74.519 Primary focal hyperhidrosis, unspecified; D22.39 Melanocytic nevi of other parts of face; L73.8 Other specified follicular disorders; M62.40 Contracture of muscle, unspecified site | CPT/HCPCS: 99214 ==

== ENCOUNTER → 2025-05-26 18:56 | Outpatient (BNVA) | payer MEDICARE, MEDICAID, SELFPAY | PROVIDERS: PCP Family Medicine; Visit Provider Nurse Practitioner Family | DX: N39.41 Urge incontinence (principal); R39.9 Unspecified symptoms and signs involving the genitourinary system | CPT/HCPCS: 81000; 87086 ==

== ENCOUNTER → 2025-05-29 09:44 | Outpatient (BNVA) | payer MEDICARE, MEDICAID, SELFPAY | PROVIDERS: PCP Family Medicine; Visit Provider Podiatrist Foot & Ankle Surgery | DX: L60.8 Other nail disorders (principal) | CPT/HCPCS: 99203 ==